=== PATIENT | male | born 1935 | race Caucasian/White ===

== ENCOUNTER 2016-07-16 09:24 | Inpatient (IN) | payer OTHER, MEDICARE ==
[2016-07-16] VITALS (16 sets, daily range): BP systolic 139–182; BP diastolic 79–111; PULSE 85–101; RESP 18–26; TEMP 97–97.6; O2SAT 87–98
[~2016-07-16] VITALS: Ht 170.2 cm; Wt 65.4 kg
[~2016-07-16 09:24] MED LIST: ALBU.5I INH; DOXY100T PO; PRED10 PO; VENTAER INH
[2016-07-16] MEDS ORDERED: PRED20 PO (09:39)
[2016-07-16] MEDS ORDERED: VENTAER INH (09:39)
[2016-07-16] MEDS ORDERED: methylPREDNISolone SOD SUCC 125 MG/2 ML VIAL IV PUSH ONE (10:00)
[2016-07-16] MEDS ORDERED: RESP: ALBUTEROL 2.5 MG/IPRATROPIUM 0.5 MG NEB (SCH) NEB ONE (10:00)
--- NOTE | 2016-07-16 10:00 | PD ---
HPI Chief Complaint: Chest Pain Time Seen by Provider: 09:49 Travel History International Travel<30 days: No Contact w/Intl Traveler<30days: No Traveled to known affect area: No History of Present Illness HPI This 80-year-old male is complaining of shortness of breath and weakness and chest He indicates the precordial area as the site of the discomfort. He has been short of breath. g . . He has a history of COPD. He is on prednisone at home. He is not aware of any heart disease. He said he had a heaviness in his chest. He has a chronic cough that is no worse than usual. He is not aware of any fever or chills. He has not smoked for 40 years. PFSH Past Medical History Arthritis: Yes Asthma: No Autoimmune Disease: No Heart Rhythm Problems: No Cancer: No Cardiovascular Problems: No High Cholesterol: No Chest Pain: No Congestive Heart Failure: No COPD: No Cerebrovascular Accident: No Diabetes: No Diminished Hearing: No Endocrine: No Gastrointestinal Disorders: Yes GERD: Yes Glaucoma: No Genitourinary: No Headaches: No Hepatitis: No Hiatal Hernia: No Hypertension: No Immune Disorder: No Implanted Vascular Access Dvce: Yes Kidney Stones: No Musculoskeletal: Yes Neurologic: No Psychiatric: No Respiratory: No Immunizations Current: Yes Myocardial Infarction: No Renal Failure: No Seizures: No Sleep Apnea: No Thyroid Disease: No Ulcer: No Tetanus Vaccination: < 5 Years Influenza Vaccination: Yes Past Surgical History Abdominal Surgery: No AICD: No Cardiac Surgery: No Ear Surgery: No Endocrine Surgery: No Eye Surgery: No Genitourinary Surgery: No Joint Replacement: Yes (BILATERAL KNEE) Oral Surgery: No Pacemaker: No Thoracic Surgery: No Other Surgery: Yes Social History Alcohol Use: Yes (SOCIALLY) Tobacco Use: No Substance Use: No Allergies-Medications (Allergen,Severity, Reaction): Coded Allergies: *MDRO Multi-Drug Resistant Organism (Verified Adverse Reaction, Unknown, Rash, 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 Reported Meds & Prescriptions Reported Meds & Active Scripts Active Reported Ventolin Hfa 18 GM Inh (Albuterol Sulfate) 90 Mcg/Act Aer 2 Puff INH Q4-6H PRN Prednisone 20 Mg Tab 40 Mg PO DAILY Take 40 mg (2 tablets) daily for 5 days Review of Systems General / Constitutional: No: Fever, Chills Eyes: No: Diploplia, Blurred Vision HENT: No: Headaches, Vertigo Cardiovascular: Positive: Chest Pain or Discomfort Respiratory: Positive: Cough, Shortness of Breath Gastrointestinal: No: Nausea Genitourinary: No: Urgency, Frequency Musculoskeletal: No: Myalgias, Arthralgias Skin: No Rash, No Itching Neurologic: No: Weakness Hematologic/Lymphatic: No: Easy Bruising Physical Exam Narrative GENERAL: Elderly male SKIN: Warm and dry. HEAD: Atraumatic. Normocephalic. EYES: Pupils equal and round. No scleral icterus. No injection or drainage. ENT: No nasal bleeding or discharge. Mucous membranes pink and moist. NECK: Trachea midline. No JVD. CARDIOVASCULAR: Regular rate and rhythm. No murmur appreciated. RESPIRATORY: He has mild respiratory distress. Breath sounds are diminished on the right side GASTROINTESTINAL: Abdomen soft, non-tender, nondistended. Hepatic and splenic margins not palpable. MUSCULOSKELETAL: No obvious deformities. No clubbing. No cyanosis. No edema. NEUROLOGICAL: Awake and alert. No obvious cranial nerve deficits. Motor grossly within normal limits. Normal speech. PSYCHIATRIC: Appropriate mood and affect; insight and judgment normal. Data Data Last Documented VS Vital Signs Date Time Temp Pulse Resp B/P Pulse Ox O2 Delivery O2 Flow Rate FiO2 07/16/16 12:35 92 18 159/91 92 Nasal Cannula 2 07/16/16 09:32 97.0 Orders Electrocardiogram (07/16/16 09:56) Complete Blood Count With Diff (07/16/16 09:56) Comprehensive Metabolic Panel (07/16/16 09:56) Troponin I (07/16/16 09:56) B-Type Natriuretic Peptide (07/16/16 09:56) Chest, Single Ap (07/16/16 09:56) Albuterol-Ipratropium Neb (Duoneb Neb) (07/16/16 10:00) Methylprednisolone So Succ Inj (Solumedr (07/16/16 10:00) Lidocai-Epi 1%-1:100,000 Inj (Xylocaine- (07/16/16 11:15) Chest, Single Ap (07/16/16 11:34) Sodium Chlor 0.9% 1000 Ml Inj (Ns 1000 M (07/16/16 11:45) Chest, Single Ap (07/16/16 12:02) Ct Thorax/ Chest Wo Iv Contras (07/16/16 12:44) Admit Order (Ed Use Only) (07/16/16 13:05) Admit To Inpatient (07/16/16 ) Code Status (07/16/16 13:03) Vital Signs (Adult) SOO.Q1H (07/16/16 13:03) Activity Bed Rest (07/16/16 13:03) ^ Elevate Head Of Bed (07/16/16 13:03) Neuro Checks . ORDERED (07/16/16 13:03) Intake + Output Q1H (07/16/16 13:03) Diet Npo (07/16/16 Lunch) Sodium Chlor 0.9% 1000 Ml Inj (Ns 1000 M (07/16/16 13:03) Sodium Chloride 0.9% Flush (Ns Flush) (07/16/16 13:15) Sodium Chloride 0.9% Flush (Ns Flush) (07/16/16 21:00) Acetaminophen (Tylenol) (07/16/16 13:15) Acetamin-Hydrocod 325-5 Mg ([place] 5-325 (07/16/16 13:15) Morphine Inj (Morphine Inj) (07/16/16 13:15) Pantoprazole Inj (Protonix Inj) (07/17/16 09:00) Artificial Tears Opth Soln (Tears Natura (07/16/16 18:00) Ondansetron Inj (Zofran Inj) (07/16/16 13:15) Docusate Sodium (Colace) (07/16/16 21:00) Sennosides (Senokot) (07/16/16 13:15) Albuterol-Ipratropium Neb (Duoneb Neb) (07/16/16 16:00) Albuterol-Ipratropium Neb (Duoneb Neb) (07/16/16 13:15) Complete Blood Count With Diff (07/17/16 04:00) Comprehensive Metabolic Panel (07/17/16 04:00) Act Partial Throm Time (Ptt) (07/17/16 04:00) Prothrombin Time / Inr (Pt) (07/17/16 04:00) Magnesium (Mg) (07/17/16 04:00) Phosphorus (Po4) (07/17/16 04:00) Lactic Acid (07/17/16 04:00) Chest, Single Ap (07/17/16 ) Resp Oxygen Derian C Titrat 1-4 L (07/16/16 ) Electromechanic / Telemetry (07/16/16 13:03) Scd Bilateral/Knee High SOO.BID (07/16/16 13:03) ^ Initiate Protocol (07/16/16 13:03) ^ Instruction (07/16/16 13:03) Misc Nursing Information (07/16/16 13:15) Chlorhexidine 2% Cloth (Chlorhexidine 2% (07/17/16 04:00) Chlorhexidine 2% Cloth (Chlorhexidine 2% (07/16/16 13:15) Mrsa Pcr Surveillance (07/16/16 13:03) ^ Medication Admin Instruction (07/16/16 13:03) ^ Notify Dr: Other (07/16/16 13:03) Phosphorus (Po4) (07/16/16 13:03) Potassium Chlor 40 Meq Premix (Kcl 40 Me (07/16/16 13:15) Potassium Chlor 20 Meq Premix (Kcl 20 Me (07/16/16 13:15) Potassium Cl 40 Meq/30 Ml Liq (Kcl 40 Me (07/16/16 13:15) Potassium Chlor 40 Meq Premix (Kcl 40 Me (07/16/16 13:15) Potassium Chlor 20 Meq Premix (Kcl 20 Me (07/16/16 13:15) Magnesium Sulfate Inj (Magnesium Sulfate (07/16/16 13:15) Magnesium Oxide (Mag-Ox) (07/16/16 13:15) Magnesium Sulfate Inj (Magnesium Sulfate (07/16/16 13:15) Potassium Phosphate (K-Phos) (07/16/16 13:15) Sodium Phosphate Inj (Sodium Phosphate I (07/16/16 13:15) Potassium Cl 40 Meq/30 Ml Liq (Kcl 40 Me (07/16/16 13:15) Potassium Phosphate (K-Phos) (07/16/16 13:15) Potassium Phosphate Inj (Potassium Phosp (07/16/16 13:15) ^ Blood Glucose Goal (Criteria (07/16/16 13:03) ^ Hypoglycemia 51 - 69 Mg/Dl (07/16/16 13:03) ^ Hypoglycemia 50 Mg/Dl Or < (07/16/16 13:03) ^ Notify Dr: Other (07/16/16 13:03) Dextrose 50% In Fabrice (Vial) Inj (D50w (Vi (07/16/16 13:15) Glucagon Inj (Glucagon Inj) (07/16/16 13:15) Inpatient Certification (07/16/16 ) Consult Cardiothoracic Surgery (07/16/16 ) Labs Laboratory Tests Test 07/16/16 10:00 White Blood Count 13.7 TH/MM3 Red Blood Count 5.42 MIL/MM3 Hemoglobin 15.3 GM/DL Hematocrit 47.4 % Mean Corpuscular Volume 87.6 FL Mean Corpuscular Hemoglobin 28.3 PG Mean Corpuscular Hemoglobin 32.3 % Concent Red Cell Distribution Width 14.7 % Platelet Count 270 TH/MM3 Mean Platelet Volume 8.1 FL Neutrophils (%) (Auto) 81.8 % Lymphocytes (%) (Auto) 10.0 % Monocytes (%) (Auto) 7.1 % Eosinophils (%) (Auto) 0.8 % Basophils (%) (Auto) 0.3 % Neutrophils # (Auto) 11.2 TH/MM3 Lymphocytes # (Auto) 1.4 TH/MM3 Monocytes # (Auto) 1.0 TH/MM3 Eosinophils # (Auto) 0.1 TH/MM3 Basophils # (Auto) 0.0 TH/MM3 CBC Comment DIFF FINAL Differential Comment Sodium Level 141 MEQ/L Potassium Level 3.9 MEQ/L Chloride Level 103 MEQ/L Carbon Dioxide Level 28.9 MEQ/L Anion Gap 9 MEQ/L Blood Urea Nitrogen 19 MG/DL Creatinine 0.87 MG/DL Estimat Glomerular Filtration 85 ML/MIN Rate Random Glucose 70 MG/DL Calcium Level 8.3 MG/DL Phosphorus Level 3.1 MG/DL Total Bilirubin 0.8 MG/DL Aspartate Amino Transf 22 U/L (AST/SGOT) Alanine Aminotransferase 19 U/L (ALT/SGPT) Alkaline Phosphatase 54 U/L Troponin I 0.05 NG/ML B-Type Natriuretic Peptide 338 PG/ML Total Protein 8.0 GM/DL Albumin 3.4 GM/DL [facility] Medical Decision Making Medical Screen Exam Complete: Yes Emergency Medical Condition: Yes Medical Record Reviewed: Yes Differential Diagnosis Differential includes pneumonia, COPD, coronary artery disease Narrative Course .X-ray shows a large right-sided pneumothorax. EKG shows sinus rhythm. After insertion of the chest tube chest x-ray shows what appears to be good position of the tube above the pneumothorax is persistent. An additional delayed x-ray was done without significant change. The patient reports feeling more comfortable. I have spoken with who recommends the patient be transferred to [place]. We will obtain a CT. CT was obtained and shows that the tube is not in the thoracic cavity. The chest tube was reinserted however repeat x-ray at this point again does not show any expansion of the lungs. Dr. Vera of interventional radiology is here and will the patient to CT scanning Procedures Procedure Narrative After informed consent was obtained from the patient the right side chest splenic thoroughly with Betadine. It was anesthetized with lidocaine with adrenaline. An incision was made in the anterior axillary line in the 20 [place] chest tube was inserted. There was return of air in the chest tube was inserted. The tube was attached to a Pleur-evac. Diagnosis Primary Impression: Pneumothorax, right Cooper Higgins MD Jul 16, 2016 10:00
[2016-07-16 10:25] LABS: CHLORIDE 103 MEQ/L (98-107); POTASSIUM 3.9 MEQ/L (3.5-5.1); SODIUM (NA) 141 MEQ/L (136-145)
[2016-07-16 10:28] LABS: ANION GAP 9 MEQ/L (5-15); BICARBONATE 28.9 MEQ/L (21.0-32.0); BLOOD UREA NITROGEN 19 MG/DL (7-18)
[2016-07-16 10:31] LABS: ALT (GPT) 19 U/L (12-78); GLOMERULAR FILTRATION RATE 85 ML/MIN (>89)
[2016-07-16 10:33] LABS: AUTOMATED NEUTROPHIL # 11.2 TH/MM3 (1.8-7.7); BASOPHIL % 0.3 % (0.0-2.0); EOSINOPHIL # 0.1 TH/MM3 (0-0.4); EOSINOPHIL % 0.8 % (0.0-4.0); HEMATOCRIT 47.4 % (39.0-51.0); LYMPHOCYTE # 1.4 TH/MM3 (1.0-4.8); MEAN CELL VOLUME 87.6 FL (80.0-100.0); MEAN CORPUSCULAR HEMOGLOBIN 28.3 PG (27.0-34.0); MEAN CORPUSCULAR HGB CONC 32.3 % (32.0-36.0); MONO % 7.1 % (0.0-8.0); NEUT % 81.8 % (16.0-70.0); PLATELET COUNT 270 TH/MM3 (150-450); RED BLOOD COUNT 5.42 MIL/MM3 (4.50-5.90); RED CELL DISTRIBUTION WIDTH 14.7 % (11.6-17.2); TOTAL BILIRUBIN ADULT 0.8 MG/DL (0.2-1.0); WHITE BLOOD COUNT 13.7 TH/MM3 (4.0-11.0)
[2016-07-16 10:34] LABS: ALKALINE PHOSPHATASE 54 U/L (45-117)
[2016-07-16 10:37] LABS: HEMO FLAGS DIFF FINAL
[2016-07-16 10:40] LABS: AST (GOT) 22 U/L (15-37)
--- NOTE | 2016-07-16 10:58 | RADHPO ---
EXAM DATE/TIME: 07/16/2016 10:45 [facility] COMPARISON: CHEST PA & LAT, March 18, 2013, 17:20. CHEST SINGLE AP, March 14, 2013, 13:29. INDICATIONS : Sever short of breath. MEDICAL HISTORY : Chronic obstructive pulmonary disease. Arthritis. SURGICAL HISTORY : Total knee replacement, left. Total knee replacement, right. ENCOUNTER: Initial ACUITY: 1 day PAIN SCORE: 0/10 LOCATION: Right chest FINDINGS: Single AP view of the chest. Large right pneumothorax with collapse of the right lung. Mild patchy op acity in the left lung involving the upper and lower lung zones, less prominent than on comparison st udy. No evidence of pleural effusion. Cardiomediastinal silhouette unchanged. CONCLUSION: Large right pneumothorax. Hayes Marsh MD on July 16, 2016 at 10:54 Board Certified Radiologist. This report was verified electronically.
[2016-07-16] MEDS ORDERED: LIDOCAINE 1%/EPINEPHrine 1:100,000 SOLN 20 ML VIAL INFIL ONE ×2 (11:15→13:30)
[2016-07-16] MEDS: SODIUM CHLOR 0.9% 1000 ML INJ 1,000 ML IV SCH ×2 (11:51→13:03)
--- NOTE | 2016-07-16 11:54 | RADHPO ---
EXAM DATE/TIME: 07/16/2016 11:42 [facility] COMPARISON: CHEST SINGLE AP, July 16, 2016, 10:45. INDICATIONS : Post right chest tube placement MEDICAL HISTORY : Chronic obstructive pulmonary disease. SURGICAL HISTORY : None. ENCOUNTER: Initial ACUITY: 1 day PAIN SCORE: 8/10 LOCATION: Right chest FINDINGS: The cardiac silhouette is enlarged in transverse diameter. A right-sided chest tube has been placed b ut there continues to be complete collapse of the right lung. Verification of chest tube function and position as recommended. There is subcutaneous emphysema along the right lateral chest wall. There i s subsegmental atelectasis in the left base. There are no signs of tension. CONCLUSION: 1. Right chest tube placed with extensive subcutaneous emphysema but no expansion of the right lung. 2. Verification of chest tube position and function is recommended. Jeanmarie Vera MD on July 16, 2016 at 11:48 Board Certified Radiologist. This report was verified electronically.
[2016-07-16] MEDS ORDERED: POTASSIUM PHOSPHATE INJ 30 MMOL in SODIUM CHLOR 0.9% 250 ML INJ 250 ML IV PRN (13:15)
[2016-07-16] MEDS ORDERED: POTASSIUM CL 40 MEQ/30 ML LIQ UDC PO/TUBE PRN ×2 (13:15)
[2016-07-16] MEDS ORDERED: POTASSIUM PHOSPHATE MONOBASIC 500 MG TAB PO/TUBE PRN (13:15)
[2016-07-16] MEDS ORDERED: ONDANSETRON HCL 4 MG/2 ML VIAL IV PRN (13:15)
[2016-07-16] MEDS ORDERED: SODIUM CHLORIDE 0.9% FLUSH 5 ML FLUSH IV FLUSH PRN (13:15)
[2016-07-16] MEDS ORDERED: SENNOSIDES 8.6 MG TAB PO PRN (13:15)
[2016-07-16] MEDS ORDERED: CHLORHEXIDINE GLUCONATE 2 % 1 PACK (2 CLOTHS) TOP PRN (13:15)
[2016-07-16] MEDS ORDERED: MORPHINE SULFATE 4 MG/ML INJ IV PRN (13:15)
[2016-07-16] MEDS ORDERED: MAGNESIUM SULFATE INJ 4 GM in SODIUM CHLORIDE 0.9% INJ 92 ML IV PRN (13:15)
[2016-07-16] MEDS ORDERED: MISCELLANEOUS NURSING INFORMATION XX SCH (13:15)
[2016-07-16] MEDS ORDERED: POTASSIUM CHLOR 40 MEQ PREMIX 100 ML IV PRN ×2 (13:15)
[2016-07-16] MEDS ORDERED: ACETAMINOPHEN 325 MG TAB PO PRN (13:15)
[2016-07-16] MEDS ORDERED: DEXTROSE 50% IN WATER 50 ML VIAL(D50) IV PUSH PRN (13:15)
[2016-07-16] MEDS ORDERED: SODIUM PHOSPHATE INJ 30 MMOL in SODIUM CHLOR 0.9% 250 ML INJ 240 ML IV PRN (13:15)
[2016-07-16] MEDS ORDERED: GLUCAGON 1 MG/ML VIAL OTHER PRN (13:15)
[2016-07-16] MEDS ORDERED: RESP: ALBUTEROL 2.5 MG/IPRATROPIUM 0.5 MG NEB (PRN) INH (13:15)
[2016-07-16] MEDS ORDERED: MAGNESIUM SULFATE INJ 2 GM in SODIUM CHLORIDE 0.9% INJ 96 ML IV PRN (13:15)
[2016-07-16] MEDS ORDERED: POTASSIUM CHLOR 20 MEQ PREMIX 100 ML IV PRN ×2 (13:15)
[2016-07-16] MEDS ORDERED: MAGNESIUM OXIDE 400 MG TAB PO PRN (13:15)
[2016-07-16] MEDS ORDERED: POTASSIUM PHOSPHATE MONOBASIC 500 MG TAB PO PRN (13:15)
--- NOTE | 2016-07-16 13:28 | RADHPO ---
EXAM DATE/TIME: 07/16/2016 13:05 [facility] COMPARISON: CHEST SINGLE AP, July 16, 2016, 11:42. INDICATIONS : Short of breath. Chest tube placement without reexpansion. RADIATION DOSE: 8.86 CTDIvol (mGy) MEDICAL HISTORY : Chronic obstructive pulmonary disease. Gastroesophageal reflux disease. SURGICAL HISTORY : None. ENCOUNTER: Initial ACUITY: 1 day PAIN SCALE: 5/10 LOCATION: Right chest TECHNIQUE: Volumetric scanning of the chest was performed. Using automated exposure control and adjustment of t he mA and/or kV according to patient size, radiation dose was kept as low as reasonably achievable to obtain optimal diagnostic quality images. FINDINGS: Large right pneumothorax. Right-sided chest tube is in place. The tip is just outside of the thoracic cavity adjacent to the second rib. Extensive subcutaneous emphysema on the right. Prominent atelectasis/partial collapse of the right lung. Large hiatal hernia. Patchy atelectasis at the left lung base. Mild patchy opacity in the left upper lung. No enlarged lymph nodes. Upper abdomen within normal limits. CONCLUSION: 1. Right-sided chest tube is superficial to the chest cavity. 2. Large right pneumothorax. 3. Extensive right-sided subcutaneous emphysema. 4. Findings were discussed with Dr. Higgins. Hayes Marsh MD on July 16, 2016 at 13:16 Board Certified Radiologist. This report was verified electronically.
--- NOTE | 2016-07-16 13:28 | RADHPO ---
EXAM DATE/TIME: 07/16/2016 12:19 [facility] COMPARISON: CHEST SINGLE AP, July 16, 2016, 11:42. INDICATIONS : Post right side chest tube reposition MEDICAL HISTORY : Chronic obstructive pulmonary disease. SURGICAL HISTORY : None. ENCOUNTER: Subsequent ACUITY: 1 day PAIN SCORE: 2/10 LOCATION: Right chest FINDINGS: Chest tube is in good position. The right lung remains collapsed. Moderate subcutaneous emphysema i s present. CONCLUSION: Chest tube appears to be in good position. The right lung remains collapsed with a significant pneumothorax. Findings have been discussed Dr. Higgins on today's date. Jefry Hurst MD FACR on July 16, 2016 at 12:45 Board Certified Radiologist. This report was verified electronically.
--- NOTE | 2016-07-16 14:16 | RADHPO ---
EXAM DATE/TIME: 07/16/2016 13:37 [facility] COMPARISON: CT THORAX W/O CONTRAST, July 16, 2016, 13:05. CHEST SINGLE AP, July 16, 2016, 12:19. INDICATIONS : Chest tube reposition. MEDICAL HISTORY : Chronic obstructive pulmonary disease. Arthritis. SURGICAL HISTORY : Total knee replacement, left. Total knee replacement, right. ENCOUNTER: Subsequent ACUITY: 1 day PAIN SCORE: 8/10 LOCATION: Right chest FINDINGS: The chest tube still may not be in the chest cavity. The lung has not re-expanded. The left lung is clear. The heart and pulmonary vascularity is normal.. CONCLUSION: The right lung has not yet re-expanded.. Jefry Hurst MD FACR on July 16, 2016 at 13:58 Board Certified Radiologist. This report was verified electronically.
[2016-07-16] MEDS: RESP: ALBUTEROL 2.5 MG/IPRATROPIUM 0.5 MG NEB (SCH) INH ×2 (16:00→22:32)
[2016-07-16] MEDS ORDERED: LIDOCAINE 1%/EPINEPHrine 1:100,000 SOLN 30 ML VIAL OTHER ONE (16:36)
--- NOTE | 2016-07-16 16:57 | RADHPO ---
EXAM DATE/TIME: 07/16/2016 14:22 INDICATIONS : Right pneumothorax. DEVICE(S): 1.) 10 Fr Skater MEDICAL HISTORY : Chronic obstructive pulmonary disease. Gastroesophageal reflux disease. SURGICAL HISTORY : None. ENCOUNTER: Initial ACUITY: 1 day PAIN SCORE: 7/10 LOCATION: Right chest PROCEDURE: 2.) EKG and oximetry remained stable throughout the procedure. PROCEDURE : 1. CT guided chest tube placement. 2. Conscious sedation with continuous EKG and oximetry monitoring. The risks, benefits and alternatives to the procedure were explained and verbal and written consent w as obtained. The site was prepped in sterile fashion. Full sterile technique was used, including ca p, mask, sterile gloves and gown and a large sterile sheet. Hand hygiene and 2% chlorhexidine and/or betadine/alcohol prep was utilized per protocol for cutaneous antisepsis. The skin and subcutaneous tissues were infiltrated with local anesthetic solution. With CT guidance the chest was punctured and the prescribed catheter was placed in the lung apex. Wal l suction was applied. Post procedure images demonstrate satisfactory position of the tube. The cat heter was sutured in place and a Percu-Stay was applied. CT images demonstrate marked reexpansion of the right lung and shift of the mediastinum to the right. Extensive subcutaneous emphysema remains but there are no signs of tension. A large hiatal hernia is present. Conscious sedation was performed with the prescribed dosages and duration as above. The patient zina ated the procedure well and there were no complications. EKG and oximetry remained stable throughout the procedure. The patient was sent to post anesthesia recovery in stable condition. CONCLUSION: Uncomplicated chest tube placement as above. Jeanmarie Vera MD on July 16, 2016 at 16:54 Board Certified Radiologist. This report was verified electronically.
--- NOTE | 2016-07-16 18:09 | HHI.HP ---
[facility] Service Critical Care Medicine Primary Care Physician Julian Bunn MD Admission Diagnosis R PNEUMOTHORAX Diagnosis: (1) Pneumothorax, right Diagnosis: Principal (2) Leukocytosis Diagnosis: Principal (3) History of MRSA infection Diagnosis: Principal (4) OA (osteoarthritis) Diagnosis: Principal (5) GERD (gastroesophageal reflux disease) Diagnosis: Principal (6) COPD (chronic obstructive pulmonary disease) Diagnosis: Principal Chief Complaint: I can't breathe Travel History International Travel<30 Days: No Contact w/Intl Traveler <30 Da: No Traveled to Known Affected Are: No History of Present Illness This is a 80-year-old male. Date of admission 07/2016 past medical history includes COPD, gastroesophageal reflux disease and osteoarthritis. He presented to the [place] emergency department with a acute onset of chest pain and recent history of shortness of breath. He woke this morning at 4 AM feeling some chest discomfort and more short of breath. Chest x-ray at [place] ED revealed a large right pneumothorax. Chest tube 2 was attempted on the right side by ED physician kiana short. IR successfully place a 10 Dutch pigtail catheter. And currently has a large amount of subcutaneous the right thorax. CT surgery was consulted. At the present time, patient not complaining of shortness of breath. Chest pain is controlled. Currently on 6 L nasal cannula saturations are 99%. Review of Systems Constitutional: COMPLAINS OF: Fatigue, DENIES: Fever, Weight gain, Weight loss Endocrine: DENIES: Polyuria, Polyphagia Eyes: DENIES: Blurred vision Ears, nose, mouth, throat: DENIES: Tinnitus, Odynophagia Respiratory: DENIES: Apneas, Shortness of breath Cardiovascular: DENIES: Chest pain Gastrointestinal: DENIES: Abdominal pain Genitourinary: DENIES: Urgency, Hematuria Musculoskeletal: COMPLAINS OF: Joint pain Integumentary: DENIES: Pruritus Hematologic/lymphatic: DENIES: Bruising Immunologic/allergic: DENIES: Eczema Neurologic: DENIES: Abnormal gait Psychiatric: COMPLAINS OF: Anxiety, DENIES: Confusion Past Family Social History Allergies: Coded Allergies: *MDRO Multi-Drug Resistant Organism (Verified Adverse Reaction, Unknown, Rash, 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 Past Medical History Osteoarthritis Gastroesophageal reflux disease COPD History of MRSA Past Surgical History Right and left total knee arthroplasties Reported Medications Ventolin Hfa 18 GM Inh (Albuterol Sulfate) 90 Mcg/Act Aer 2 Puff INH Q4-6H PRN Prednisone 20 Mg Tab 40 Mg PO DAILY Take 40 mg (2 tablets) daily for 5 days Active Ordered Medications Reviewed in EMR Family History Mother and father is noncontributory. Social History Social alcohol. Quit tobacco 40 years ago. No IV drug use. Physical Exam Vital Signs Vital Signs Date Time Temp Pulse Resp B/P Pulse Ox O2 Delivery O2 Flow Rate FiO2 07/16/16 15:54 90 18 147/79 97 Nasal Cannula 2 07/16/16 15:00 98 18 160/88 97 Nasal Cannula 2 07/16/16 14:00 100 20 163/82 91 Nasal Cannula 2 07/16/16 13:40 94 20 175/82 91 Nasal Cannula 2 07/16/16 13:00 20 91 Nasal Cannula 2 07/16/16 12:35 92 18 159/91 92 Nasal Cannula 2 07/16/16 12:20 90 18 139/90 90 Nasal Cannula 2 07/16/16 12:10 90 18 152/82 91 Nasal Cannula 2 07/16/16 11:52 96 20 154/89 90 Nasal Cannula 2 07/16/16 11:39 90 18 176/94 91 Nasal Cannula 2 07/16/16 10:50 87 20 179/111 90 Nasal Cannula 2 07/16/16 09:40 83 20 87 Nasal Cannula 2 07/16/16 09:32 97.0 94 18 182/107 87 Physical Exam GENERAL: 80-year-old male, critically ill currently resting in bed in no acute distress SKIN: Warm and dry. HEAD: Atraumatic. Normocephalic. EYES: Pupils equal and round about 3 mm bilaterally and reactive. No scleral icterus. No injection or drainage. ENT: No nasal bleeding or discharge. Mucous membranes pink and moist. NECK: Trachea midline. No JVD. CARDIOVASCULAR: Tachycardic, RR. S1, S2. No S4. Without murmur RESPIRATORY: Denies breath sounds right lung baez. Few end expiratory wheeze. Crepitus/positive subcutaneous air felt over the right thorax and neck. Right 10 Dutch pigtail catheter clean dry and intact. GASTROINTESTINAL: Abdomen soft, non-tender, nondistended. Hepatic and splenic margins not palpable. MUSCULOSKELETAL: Extremities without significant peripheral edema. No obvious deformities. NEUROLOGICAL: Awake and alert. No obvious cranial nerve deficits. Motor grossly within normal limits. Five out of 5 muscle strength in the arms and legs. Normal speech. PSYCHIATRIC: Appropriate mood and affect; insight and judgment normal. Laboratory Laboratory Tests Test 07/16/16 10:00 White Blood Count 13.7 Red Blood Count 5.42 Hemoglobin 15.3 Hematocrit 47.4 Mean Corpuscular Volume 87.6 Mean Corpuscular Hemoglobin 28.3 Mean Corpuscular Hemoglobin 32.3 Concent Red Cell Distribution Width 14.7 Platelet Count 270 Mean Platelet Volume 8.1 Neutrophils (%) (Auto) 81.8 Lymphocytes (%) (Auto) 10.0 Monocytes (%) (Auto) 7.1 Eosinophils (%) (Auto) 0.8 Basophils (%) (Auto) 0.3 Neutrophils # (Auto) 11.2 Lymphocytes # (Auto) 1.4 Monocytes # (Auto) 1.0 Eosinophils # (Auto) 0.1 Basophils # (Auto) 0.0 CBC Comment DIFF FINAL Differential Comment Sodium Level 141 Potassium Level 3.9 Chloride Level 103 Carbon Dioxide Level 28.9 Anion Gap 9 Blood Urea Nitrogen 19 Creatinine 0.87 Estimat Glomerular Filtration 85 Rate Random Glucose 70 Calcium Level 8.3 Phosphorus Level 3.1 Total Bilirubin 0.8 Aspartate Amino Transf 22 (AST/SGOT) Alanine Aminotransferase 19 (ALT/SGPT) Alkaline Phosphatase 54 Troponin I 0.05 B-Type Natriuretic Peptide 338 Total Protein 8.0 Albumin 3.4 Result Diagram: 07/16/16 1000 07/16/16 1000 Imaging Last Impressions Chest X-Ray 07/16/16 1335 Signed Impressions: Service Date/Time: Saturday, July 16, 2016 13:37 - CONCLUSION: The right lung has not yet re-expanded.. Jefry Hurst MD FACR Chest CT 07/16/16 1244 Signed Impressions: Service Date/Time: Saturday, July 16, 2016 13:05 - CONCLUSION: 1. Right- sided chest tube is superficial to the chest cavity. 2. Large right pneumothorax. 3. Extensive right-sided subcutaneous emphysema. 4. Findings were discussed with Dr. Higgins. Hayes Marsh MD Chest Tube Insertion 07/16/16 0000 Signed Impressions: Service Date/Time: Saturday, July 16, 2016 14:22 - CONCLUSION: Uncomplicated chest tube placement as above. Jeanmarie Vera MD Assessment and Plan Assessment and Plan Neuro/Psych: Acetaminophen for fever [place]/morphine for pain management CV: As needed hydralazine/labetalol for hypertension Currently normal saline at 84 cc an hour. Resp: Spontaneous right pneumothorax History of COPD Status post 10 Dutch pigtail catheter placed by IR. -40 cm H2O. Minimal SS output. Prior temp chest tube 2 with 20 Dutch by ED physician unsuccessful. Currently on nasal cannula try to maintain saturations on the higher limits the first 24 hours for lung reexpansion CT surgery consulted Significant crepitus for prior chest tube placement AP chest x-ray in a.m. GI: Gastroesophageal reflux disease Heart healthy diet. Protonix for GI prophylaxis Colace/as needed Senokot for bowel regimen : Alfaro currently not indicated Endo: Sliding-scale insulin with Accu-Cheks to maintain euglycemia. Low regimen Renal: Monitor urine output closely. Accurate I's and O's Recheck BMP in a.m. Heme: Leukocytosis Monitor trends. Likely stress related ID: History of MRSA Start empirically on Rocephin/Zithromax for possible URI. Blood cultures/sputum/influenza pending FEN: Replace electrolytes as clinically indicated per ICU protocol MSK: Osteoarthritis PT evaluate and treat Access - Utilize peripheral IV. Central line if indicated Prophylaxis - GI - Protonix - DVT - SCD/heparin to start tomorrow Critical Care: The total critical care time was 65 minutes. Time to perform other separately billable procedures was not included in the critical care time. Code Status Full code Discussed Condition With Patient. Dr. Garvey/ED physician. Care plan discussed and all questions answered. Problem Qualifiers (1) Leukocytosis: Qualified Code: D72.829 - Leukocytosis, unspecified type (2) OA (osteoarthritis): Qualified Code: M19.90 - Osteoarthritis, unspecified osteoarthritis type, unspecified site (3) GERD (gastroesophageal reflux disease): Qualified Code: K21.9 - Gastroesophageal reflux disease, esophagitis presence not specified (4) COPD (chronic obstructive pulmonary disease): Qualified Code: J44.9 - Chronic obstructive pulmonary disease, unspecified COPD type Piotr Perez MD Jul 16, 2016 18:09
[2016-07-16] MEDS ORDERED: LABETALOL HCL 100 MG/20 ML VIAL IV PUSH PRN (18:30)
[2016-07-16] MEDS ORDERED: hydrALAZINE HCL 20 MG/ML VIAL IV PUSH PRN (18:30)
[2016-07-16] MEDS ORDERED: NITROGLYCERIN 2% OINT 1 GM PACKET TOPICAL PRN (18:30)
[2016-07-16] MEDS: cefTRIAXone INJ 1,000 MG in SODIUM CHLORIDE 0.9% INJ 100 ML IV SCH (20:52)
[2016-07-16] MEDS: DOCUSATE SODIUM 100 MG CAP PO SCH (20:54)
[2016-07-16] MEDS: SODIUM CHLORIDE 0.9% FLUSH 5 ML FLUSH IV FLUSH SCH (20:54)
[2016-07-16] MEDS: AZITHROMYCIN INJ 500 MG in SODIUM CHLOR 0.9% 250 ML INJ 250 ML IV SCH (20:55)
[2016-07-17] VITALS (14 sets, daily range): BP systolic 124–144; BP diastolic 66–75; PULSE 73–125; RESP 16–26; TEMP 97.4–98.4; O2SAT 95–100
[2016-07-17] MEDS: SODIUM CHLOR 0.9% 1000 ML INJ 1,000 ML IV SCH ×3 (00:58→11:35)
[2016-07-17] MEDS: CHLORHEXIDINE GLUCONATE 2 % 1 PACK (2 CLOTHS) TOP SCH (04:00)
[2016-07-17 04:06] LABS: AUTOMATED NEUTROPHIL # 9.5 TH/MM3 (1.8-7.7); HEMO FLAGS DIFF FINAL; LYMPH % 3.1 % (9.0-44.0); LYMPHOCYTE # 0.3 TH/MM3 (1.0-4.8); MEAN CELL VOLUME 86.7 FL (80.0-100.0); MEAN CORPUSCULAR HEMOGLOBIN 29.4 PG (27.0-34.0); MONO % 2.5 % (0.0-8.0); NEUT % 94.4 % (16.0-70.0); PLATELET COUNT 221 TH/MM3 (150-450); RED CELL DISTRIBUTION WIDTH 14.7 % (11.6-17.2); WHITE BLOOD COUNT 10.1 TH/MM3 (4.0-11.0)
--- NOTE | 2016-07-17 04:09 | RADRPT ---
EXAM DATE/TIME: 07/17/2016 02:43 [facility] COMPARISON: CHEST SINGLE AP, July 16, 2016, 10:45. CHEST SINGLE AP, July 16, 2016, 12:19. CHEST SINGLE AP, July 16, 2016, 13:37. INDICATIONS : Shortness of breath, possible pulmonary disease. MEDICAL HISTORY : Chronic obstructive pulmonary disease. Arthritis. SURGICAL HISTORY : Total knee replacement, left. Total knee replacement, right. ENCOUNTER: Subsequent ACUITY: 2 days PAIN SCORE: 8/10 LOCATION: Right chest FINDINGS: Portable AP view of the chest demonstrates a normal-sized cardiac silhouette with focal wire a deviat ion of the trachea. Pigtail pleural catheter is present on the right. The right lung has almost compl etely reexpanded with tiny apical right pneumothorax appreciated. There is consolidation in the right upper lobe and in the retrocardiac region. No pleural effusion is visualized. There is extensive azra ateral soft tissue air. CONCLUSION: 1. Right chest tube has been placed with near complete reexpansion of the right lung with a tiny righ t apical pneumothorax present. There is stable extensive soft tissue air bilaterally. 2. Stable mild consolidation in the left lower lobe and mild airspace opacity in the right upper lobe . Jerome Robbins MD on July 17, 2016 at 4:05 Board Certified Radiologist. This report was verified electronically.
[2016-07-17 04:17] LABS: APTT (PATIENT) 27.1 SEC (24.3-30.1); PROTHROMBIN TIME - PATIENT 11.2 SEC (9.8-11.6)
[2016-07-17 04:24] LABS: ALT (GPT) 16 U/L (12-78); ANION GAP 6 MEQ/L (5-15); AST (GOT) 23 U/L (15-37); BICARBONATE 29.3 MEQ/L (21.0-32.0); BLOOD UREA NITROGEN 16 MG/DL (7-18); CHLORIDE 105 MEQ/L (98-107); GLOMERULAR FILTRATION RATE 87 ML/MIN (>89); MAGNESIUM 2.1 MG/DL (1.5-2.5); POTASSIUM 4.6 MEQ/L (3.5-5.1); SODIUM (NA) 140 MEQ/L (136-145)
[2016-07-17 04:27] LABS: ALKALINE PHOSPHATASE 43 U/L (45-117); TOTAL BILIRUBIN ADULT 0.8 MG/DL (0.2-1.0)
[2016-07-17] MEDS: RESP: ALBUTEROL 2.5 MG/IPRATROPIUM 0.5 MG NEB (SCH) INH ×4 (04:32→21:47)
[2016-07-17] MEDS: ARTIFICIAL TEARS OPTH SOLN 15 ML BTL EACH EYE SCH ×3 (08:48→18:20)
[2016-07-17] MEDS: SODIUM CHLORIDE 0.9% FLUSH 5 ML FLUSH IV FLUSH SCH ×2 (09:00→21:36)
[2016-07-17] MEDS ORDERED: PANTOPRAZOLE SODIUM 40 MG VIAL IV SCH (09:00)
[2016-07-17] MEDS: DOCUSATE SODIUM 100 MG CAP PO SCH ×2 (09:00→21:34)
--- NOTE | 2016-07-17 12:08 | HHI.CCPN ---
Subjective Remarks/Hospital Course This is a 80-year-old male. Date of admission 07/2016 past medical history includes COPD, gastroesophageal reflux disease and osteoarthritis. He presented to the [place] emergency department with a acute onset of chest pain and recent history of shortness of breath. He woke this morning at 4 AM feeling some chest discomfort and more short of breath. Chest x-ray at [place] ED revealed a large right pneumothorax. Chest tube 2 was attempted on the right side by ED physician is excessive. IR successfully place a 10 Georgian pigtail catheter. And currently has a large amount of subcutaneous the right thorax. CT surgery was consulted. At the present time, patient not complaining of shortness of breath. Chest pain is controlled. Currently on 6 L nasal cannula saturations are 99%. Subjective 07/17: Still has significant air leak from chest tube however lung is essentially reexpanded on right side from chest x-ray. Afebrile. Requesting diet. Pain is controlled. Objective Vital Signs Date Time Temp Pulse Resp B/P Pulse Ox O2 Delivery O2 Flow Rate FiO2 07/17/16 10:00 93 07/17/16 09:22 96 Nasal Cannula 3.00 07/17/16 08:00 97.5 16 144/73 Intake and Output 07/16/16 07/16/16 07/16/16 07:59 15:59 23:59 Intake Total 276 ml Output Total 935 ml Balance -659 ml Result Diagram: 07/17/16 0351 07/17/16 0351 Other Results Microbiology Date/Time Procedure Status Source Growth 07/17/16 05:30 Gram Stain Received Sputum Expectorated Sputum Pending 07/17/16 05:30 Sputum Culture Received Sputum Expectorated Sputum Pending 07/16/16 21:21 Aerobic Blood Culture - Preliminary Resulted Blood Peripheral NO GROWTH IN 1 DAY 07/16/16 21:21 Anaerobic Blood Culture - Preliminary Resulted Blood Peripheral NO GROWTH IN 1 DAY 07/16/16 20:00 Influenza Types A,B Antigen (SHEREEN) - Final Complete Nasal Washing NEGATIVE FOR FLU A AND B ANTIGEN.... Imaging Last Impressions Chest X-Ray 07/17/16 0000 Signed Impressions: Service Date/Time: Sunday, July 17, 2016 02:43 - CONCLUSION: 1. Right chest tube has been placed with near complete reexpansion of the right lung with a tiny right apical pneumothorax present. There is stable extensive soft tissue air bilaterally. 2. Stable mild consolidation in the left lower lobe and mild airspace opacity in the right upper lobe. Jerome Robbins MD Chest CT 07/16/16 1244 Signed Impressions: Service Date/Time: Saturday, July 16, 2016 13:05 - CONCLUSION: 1. Right- sided chest tube is superficial to the chest cavity. 2. Large right pneumothorax. 3. Extensive right-sided subcutaneous emphysema. 4. Findings were discussed with Dr. Higgins. Hayes Marsh MD Chest Tube Insertion 07/16/16 0000 Signed Impressions: Service Date/Time: Saturday, July 16, 2016 14:22 - CONCLUSION: Uncomplicated chest tube placement as above. Jeanmarie Vera MD Objective Remarks GENERAL: 80-year-old male, critically ill currently resting in bed in no acute distress SKIN: Warm and dry. HEAD: Atraumatic. Normocephalic. EYES: Pupils equal and round about 3 mm bilaterally and reactive. No scleral icterus. No injection or drainage. ENT: No nasal bleeding or discharge. Mucous membranes pink and moist. NECK: Trachea midline. No JVD. CARDIOVASCULAR: Tachycardic, RR. S1, S2. No S4. Without murmur RESPIRATORY: Denies breath sounds right lung baez. Few end expiratory wheeze. Crepitus/positive subcutaneous air felt over the right thorax and neck. Right 10 Georgian pigtail catheter clean dry and intact. GASTROINTESTINAL: Abdomen soft, non-tender, nondistended. Hepatic and splenic margins not palpable. MUSCULOSKELETAL: Extremities without significant peripheral edema. No obvious deformities. NEUROLOGICAL: Awake and alert. No obvious cranial nerve deficits. Motor grossly within normal limits. Five out of 5 muscle strength in the arms and legs. Normal speech. PSYCHIATRIC: Appropriate mood and affect; insight and judgment normal. A/P Assessment and Plan Neuro/Psych: Acetaminophen for fever [place]/morphine for pain management CV: As needed hydralazine/labetalol for hypertension Currently normal saline at 84 cc an hour. Resp: Spontaneous right pneumothorax History of COPD Status post 10 Georgian pigtail catheter placed by IR. -40 cm H2O. Minimal SS output. Prior temp chest tube 2 with 20 Georgian by ED physician unsuccessful. Currently on nasal cannula try to maintain saturations on the higher limits the first 24 hours for lung reexpansion CT surgery consulted. Recommendations will be followed Significant crepitus for prior chest tube placement Follow-up portable chest x-ray in a.m. GI: Gastroesophageal reflux disease Heart healthy diet. Protonix for GI prophylaxis Colace/as needed Senokot for bowel regimen : Alfaro currently not indicated Endo: Sliding-scale insulin with Accu-Cheks to maintain euglycemia. Low regimen Renal: Monitor urine output closely. Accurate I's and O's Recheck BMP in a.m. Heme: Leukocytosis resolving Monitor trends. Likely stress related ID: History of MRSA Start empirically on Rocephin/Zithromax for possible URI. Blood cultures/sputum pending. Influenza negative FEN: Replace electrolytes as clinically indicated per ICU protocol MSK: Osteoarthritis PT evaluate and treat Access - Utilize peripheral IV. Central line if indicated Prophylaxis - GI - Protonix - DVT - SCD/heparin to start tomorrow Critical Care: The total care time was 35 minutes. Time to perform other separately billable procedures was not included in the critical care time. Patient is stable from a critical care medicine standpoint. We will assigned care to hospice in a.m. 07/18/16. Consult pulmonology for maintenance of chest tube. Piotr Perez MD Jul 17, 2016 12:08
[2016-07-17] MEDS: HEPARIN SODIUM - SQ 10,000 UNITS/ML VIAL SQ SCH ×2 (14:00→22:23)
[2016-07-17] MEDS ORDERED: MUPIROCIN 2% OINT 1 APPLIC/GM SYR EACH NARE SCH (14:00)
--- NOTE | 2016-07-17 17:31 | MB ---
cc: CIERRA PEREZ DATE OF CONSULTATION: 07/17/2016 REASON FOR CONSULTATION: Evaluate for COPD with pneumothorax. REQUESTING PHYSICIAN: Dr. Jeff. HISTORY OF PRESENT ILLNESS: Mr. Guerra is a pleasant 80-year-old male with a longstanding history of COPD who is known to me from the office. He uses oxygen two liters nasal cannula at home. He presented to the [facility] Emergency Room with sudden onset of shortness of breath and chest discomfort. He was found to have a right large pneumothorax. A chest tube was attempted and the lung did not expand. The patient was sent to interventional radiology. A CT scan of the chest was done and that he had pigtail catheter placed with re-expansion of the lung. He had significant subcutaneous emphysema. Currently he is on nasal cannula and feels much better. PAST MEDICAL HISTORY: His past medical history is significant for: 1. History of COPD. 2. History of arthritis. 3. History of Gastroesophageal reflux disease (GERD). MEDICATIONS: He is currently takin. Heparin 5000 units q. 8 hours. 2. Protonix 40 milligrams a day. 3. Rocephin 1 gram q. 24 hours. 4. Zithromax 500 milligrams a day. 5. Labetalol PRN. 6. Hydrocodone for pain. ALLERGIES: NO KNOWN DRUG ALLERGIES. SOCIAL HISTORY: He has a smoking history in the past. FAMILY HISTORY: Noncontributory. REVIEW OF SYSTEMS: Normally he is up around and active. No seizure, stroke or epilepsy. PHYSICAL EXAMINATION: GENERAL: An elderly male mild short of breath not in any acute distress. VITAL SIGNS: Blood pressure 124/66, heart rate 93, respirations 20, temperature 97.2. HEAD, EYES, EARS, NOSE, THROAT: Pupils are equal and reactive to light. Oral mucosa and nasal mucosa are normal. He has subcutaneous emphysema extending to the right side of the face. NECK: The neck is supple. JVP not raised. CHEST: He has right chest tube in place. He has air leak. He has extensive subcutaneous emphysema on the right side. CARDIOVASCULAR: S1, S2 normal. ABDOMEN: Abdomen soft and nondistended. Bowel sounds are present. EXTREMITIES: No edema. IMPRESSION: 1. Large right pneumothorax status post chest tube placement and resolution of the pneumothorax. 2. Subcutaneous emphysema. 3. COPD. 4. Hypertension. RECOMMENDATIONS/PLAN: 1. Will continue chest tube to suction. 2. Supplement his oxygen. 3. Continue aerosol treatment. 4. Control his blood pressure. 5. Protonix 40 milligrams a day. 6. Continue Rocephin and Zithromax. Further treatment will depend on the course in the hospital. Thank you, Dr. Perez, for this consult. MD VIANNEY Mckeon/JCC /3:09 PM /5:22 PM
[2016-07-17] MEDS: MUPIROCIN 2% OINT 1 APPLIC/GM SYR EACH NARE SCH (21:34)
[2016-07-17] MEDS: AZITHROMYCIN INJ 500 MG in SODIUM CHLOR 0.9% 250 ML INJ 250 ML IV SCH (21:35)
[2016-07-17] MEDS: cefTRIAXone INJ 1,000 MG in SODIUM CHLORIDE 0.9% INJ 100 ML IV SCH (22:24)
[2016-07-18] VITALS (12 sets, daily range): BP systolic 134–158; BP diastolic 69–85; PULSE 74–100; RESP 12–20; TEMP 96.2–98.4; O2SAT 94–99
[2016-07-18] MEDS: RESP: ALBUTEROL 2.5 MG/IPRATROPIUM 0.5 MG NEB (SCH) INH ×4 (03:58→20:36)
--- NOTE | 2016-07-18 04:13 | RADRPT ---
EXAM DATE/TIME: 07/18/2016 02:55 [facility] COMPARISON: CHEST SINGLE AP, July 17, 2016, 2:43. INDICATIONS : Shortness of breath, possible pulmonary disease. MEDICAL HISTORY : Chronic obstructive pulmonary disease. Arthritis. SURGICAL HISTORY : Total knee replacement, left. Total knee replacement, right. ENCOUNTER: [place] ACUITY: 3 days PAIN SCORE: 7/10 LOCATION: Right chest FINDINGS: Portable AP view of the chest demonstrates cardiac silhouette size at the upper limits for normal. A right chest tube remains present and there is likely a tiny right apical pneumothorax remaining. Ther e is persistent opacity in the retrocardiac region and right upper lobe. Extensive bilateral chest wa ll soft tissue air remains present. CONCLUSION: 1. Stable chest x-ray with a tiny right apical pneumothorax with right chest tube present. 2. Stable airspace opacity in the right upper lung zone and left lung base. Jerome Robbins MD on July 18, 2016 at 4:10 Board Certified Radiologist. This report was verified electronically.
[2016-07-18] MEDS: CHLORHEXIDINE GLUCONATE 2 % 1 PACK (2 CLOTHS) TOP SCH (05:30)
[2016-07-18] MEDS: HEPARIN SODIUM - SQ 10,000 UNITS/ML VIAL SQ SCH ×3 (06:05→21:00)
[2016-07-18 07:07] LABS: MEAN CELL VOLUME 87.5 FL (80.0-100.0); MEAN CORPUSCULAR HEMOGLOBIN 29.4 PG (27.0-34.0); MEAN CORPUSCULAR HGB CONC 33.6 % (32.0-36.0); PLATELET COUNT 209 TH/MM3 (150-450); RED BLOOD COUNT 4.57 MIL/MM3 (4.50-5.90); REVIEW FLAG FINAL; WHITE BLOOD COUNT 18.1 TH/MM3 (4.0-11.0)
[2016-07-18 07:33] LABS: BICARBONATE 28.5 MEQ/L (21.0-32.0); POTASSIUM 4.3 MEQ/L (3.5-5.1)
[2016-07-18] MEDS: ACETAMINOPHEN/HYDROcodone 325 MG/5 MG TAB PO PRN (07:49)
[2016-07-18] MEDS ORDERED: BISACODYL 10 MG SUPP PR PRN (08:15)
[2016-07-18] MEDS ORDERED: DOCUSATE SODIUM 100 MG CAP PO PRN (08:15)
[2016-07-18] MEDS ORDERED: MAGNESIUM HYDROXIDE SUSP 30 ML CUP PO PRN (08:15)
[2016-07-18] MEDS ORDERED: LACTULOSE SYRUP 20 GM/30 ML CUP PO PRN (08:15)
[2016-07-18] MEDS: ARTIFICIAL TEARS OPTH SOLN 15 ML BTL EACH EYE SCH ×3 (08:31→16:20)
[2016-07-18] MEDS: MUPIROCIN 2% OINT 1 APPLIC/GM SYR EACH NARE SCH ×2 (08:31→20:59)
[2016-07-18] MEDS: SODIUM CHLORIDE 0.9% FLUSH 5 ML FLUSH IV FLUSH SCH ×2 (08:32→21:01)
--- NOTE | 2016-07-18 08:40 | PD.CAR.PN ---
CVT Progress Note Objective: Vital Signs Date Time Temp Pulse Resp B/P Pulse Ox O2 Delivery O2 Flow Rate FiO2 07/18/16 06:00 77 07/18/16 04:00 98.4 80 18 149/77 96 07/18/16 04:00 80 07/18/16 02:00 87 07/18/16 00:00 97.5 97 18 138/75 97 07/18/16 00:00 97 07/17/16 22:00 109 07/17/16 21:47 96 Nasal Cannula 2.00 07/17/16 20:00 100 07/17/16 20:00 97.4 100 20 136/71 98 07/17/16 18:00 119 07/17/16 16:00 116 07/17/16 16:00 98.4 116 24 125/66 95 07/17/16 14:00 125 07/17/16 12:00 97.6 93 17 124/66 97 07/17/16 12:00 93 07/17/16 10:00 93 07/17/16 09:22 96 Nasal Cannula 3.00 Labs: Laboratory Tests Test 07/18/16 06:00 White Blood Count 18.1 TH/MM3 (4.0-11.0) Red Blood Count 4.57 MIL/MM3 (4.50-5.90) Hemoglobin 13.4 GM/DL (13.0-17.0) Hematocrit 40.0 % (39.0-51.0) Mean Corpuscular Volume 87.5 FL (80.0-100.0) Mean Corpuscular Hemoglobin 29.4 PG (27.0-34.0) Mean Corpuscular Hemoglobin 33.6 % Concent (32.0-36.0) Red Cell Distribution Width 15.0 % (11.6-17.2) Platelet Count 209 TH/MM3 (150-450) Mean Platelet Volume 8.1 FL (7.0-11.0) Sodium Level 142 MEQ/L (136-145) Potassium Level 4.3 MEQ/L (3.5-5.1) Chloride Level 107 MEQ/L (98-107) Carbon Dioxide Level 28.5 MEQ/L (21.0-32.0) Anion Gap 7 MEQ/L (5-15) Blood Urea Nitrogen 28 MG/DL (7-18) Creatinine 0.84 MG/DL (0.60-1.30) Estimat Glomerular Filtration 88 ML/MIN (>89) Rate Random Glucose 80 MG/DL (74-106) Calcium Level 8.1 MG/DL (8.5-10.1) Result Diagram: 07/18/16 0600 07/18/16 06 Plan: Pt examined and chart reviewed yesterday. Active air-leak from the CT with near complete expansion of the right lung. Will need to make sure the other CT sites are sealed with a vaseline gauze occlusive dressing to determine true etiology of the air-leak. Will continue to follow. Thank you for allowing me to participate in the care of this patient. Don Tony MD Jul 18, 2016 08:40
[2016-07-18] MEDS: DOCUSATE SODIUM 50 MG/SENNA 8.6 MG TAB PO SCH ×2 (09:06→20:59)
--- NOTE | 2016-07-18 09:58 | HHI.PR ---
Subjective Remarks F/U PTX. Minimal pain no SOB dw RN Objective Vitals Vital Signs Date Time Temp Pulse Resp B/P Pulse Ox O2 Delivery O2 Flow Rate FiO2 07/18/16 09:46 96 Nasal Cannula 2.00 07/18/16 08:49 20 07/18/16 08:00 97.7 74 19 138/82 97 07/18/16 08:00 74 07/18/16 06:00 77 07/18/16 04:00 98.4 80 18 149/77 96 07/18/16 04:00 80 07/18/16 02:00 87 07/18/16 00:00 97.5 97 18 138/75 97 07/18/16 00:00 97 07/17/16 22:00 109 07/17/16 21:47 96 Nasal Cannula 2.00 07/17/16 20:00 100 07/17/16 20:00 97.4 100 20 136/71 98 07/17/16 18:00 119 07/17/16 16:00 116 07/17/16 16:00 98.4 116 24 125/66 95 07/17/16 14:00 125 07/17/16 12:00 97.6 93 17 124/66 97 07/17/16 12:00 93 07/17/16 10:00 93 I/O 07/17/16 07/17/16 07/17/16 07/18/16 07/18/16 07/18/16 07:00 15:00 23:00 07:00 15:00 23:00 Intake Total 550 ml 882 ml 608 ml 257 ml Output Total 555 ml 55 ml 320 ml 235 ml Balance -5 ml 827 ml 288 ml 22 ml Intake Oral 450 ml 360 ml 30 ml IV Total 550 ml 432 ml 248 ml 227 ml Output Urine Total 500 ml 0 ml 275 ml 175 ml Stool Total 0 ml Chest Tube Drainage Total 55 ml 55 ml 45 ml 60 ml # Voids 0 # Bowel Movements 0 0 0 0 Result Diagram: 07/18/1659907/18/16599 Imaging Last Impressions Chest X-Ray 07/18/16599 Signed Impressions: Service Date/Time: Monday, July 18, 2016 02:55 - CONCLUSION: 1. Stable chest x-ray with a tiny right apical pneumothorax with right chest tube present. 2. Stable airspace opacity in the right upper lung zone and left lung base. Jerome Robbins MD Chest CT 07/16/16 1244 Signed Impressions: Service Date/Time: Saturday, July 16, 2016 13:05 - CONCLUSION: 1. Right- sided chest tube is superficial to the chest cavity. 2. Large right pneumothorax. 3. Extensive right-sided subcutaneous emphysema. 4. Findings were discussed with Dr. Higgins. Hayes Marsh MD Chest Tube Insertion 07/16/16 0000 Signed Impressions: Service Date/Time: Saturday, July 16, 2016 14:22 - CONCLUSION: Uncomplicated chest tube placement as above. Jeanmarie Vera MD Objective Remarks GENERAL: 80-year-old male, resting in bed in no acute distress SKIN: Warm and dry. HEAD: Atraumatic. Normocephalic. EYES: Pupils equal and round about 3 mm bilaterally and reactive. No scleral icterus. No injection or drainage. ENT: No nasal bleeding or discharge. Mucous membranes pink and moist. NECK: Trachea midline. No JVD. CARDIOVASCULAR: RRR. S1, S2. No S4. Without murmur RESPIRATORY: Denies breath sounds right lung baez. Crepitus/positive subcutaneous air felt over the right thorax and neck. Right 10 Moldovan pigtail catheter clean dry and intact on suction. GASTROINTESTINAL: Abdomen soft, non-tender, nondistended. MUSCULOSKELETAL: Extremities without significant peripheral edema. No obvious deformities. NEUROLOGICAL: Awake and alert. No obvious cranial nerve deficits. Motor grossly within normal limits. Five out of 5 muscle strength in the arms and legs. Normal speech. PSYCHIATRIC: Appropriate mood and affect; insight and judgment normal. Procedures CT by IR A/P Problem List: (1) Pneumothorax, right ICD Code: J93.9 Status: Acute (2) Leukocytosis ICD Code: D72.829 Status: Acute (3) History of MRSA infection ICD Code: Z86.14 Status: Acute (4) OA (osteoarthritis) ICD Code: M19.90 Status: Acute (5) GERD (gastroesophageal reflux disease) ICD Code: K21.9 Status: Acute (6) COPD (chronic obstructive pulmonary disease) ICD Code: J44.9 Status: Acute Assessment and Plan Resp: Spontaneous right pneumothorax History of COPD Status post 10 Moldovan pigtail catheter placed by IR. -40 cm H2O. Minimal SS output. Prior temp chest tube 2 with 20 Moldovan by ED physician unsuccessful. Currently on nasal cannula try to maintain saturations on the higher limits the first 24 hours for lung reexpansion CT surgery recommends to ensure the other CT sites are sealed with a vaseline gauze occlusive dressing to determine true etiology of the air-leak. Significant crepitus for prior chest tube placement switch to po zithromax til 07/20 and ceftin dc 07/30 Neuro/Psych: Acetaminophen for fever [place]/morphine for pain management CV: As needed hydralazine/labetalol for hypertension GI: Gastroesophageal reflux disease Heart healthy diet. Protonix for GI prophylaxis Colace/as needed Senokot for bowel regimen : Alfaro currently not indicated Renal: Monitor urine output closely. Accurate I's and O's Recheck BMP in a.m. Heme: Leukocytosis worse s/p steroids. He is stable Monitor trends. Likely stress related ID: History of MRSA Started empirically on Rocephin/Zithromax stable opacities RUL and LLL Blood cultures/sputum pending NGTD. Influenza negative FEN: Replace electrolytes as clinically indicated per ICU protocol MSK: Osteoarthritis PT evaluate and treat Access - Utilize peripheral IV. Central line if indicated Prophylaxis - GI - Protonix - DVT - SCD/heparin Problem Qualifiers (1) Leukocytosis: Qualified Code: D72.829 - Leukocytosis, unspecified type (2) OA (osteoarthritis): Qualified Code: M19.90 - Osteoarthritis, unspecified osteoarthritis type, unspecified site (3) GERD (gastroesophageal reflux disease): Qualified Code: K21.9 - Gastroesophageal reflux disease, esophagitis presence not specified (4) COPD (chronic obstructive pulmonary disease): Qualified Code: J44.9 - Chronic obstructive pulmonary disease, unspecified COPD type Javon Bashir MD Jul 18, 2016 09:58 COPD type Javon Bashir MD Jul 18, 2016 09:58
[2016-07-18] MEDS: CEFUROXIME AXETIL 500 MG TAB PO SCH ×2 (10:35→23:36)
--- NOTE | 2016-07-18 13:03 | EKG ---
Date Performed: 07/16/2016 Time Performed: 09:33:06 PTAGE: 80 years EKG: Sinus rhythm with PAC(s) with 1st degree A-V block Septal and lateral ST-T changes are nonspecific Since previous tracing, no significant change noted Abnormal ECG PREVIOUS TRACING : 03/14/2013 13.26 DOCTOR: Rommel Lobo Interpretating Date/Time 07/18/2016 13:02:09
--- NOTE | 2016-07-18 16:50 | HHI.PR ---
Subjective Remarks 80 YOWM with COPD, spontaneous PTX Has right chest tube Still has air leak Mild sob No CP Objective Vital Signs Vital Signs Date Time Temp Pulse Resp B/P Pulse Ox O2 Delivery O2 Flow Rate FiO2 07/18/16 10:00 90 07/18/16 09:46 96 Nasal Cannula 2.00 07/18/16 08:49 20 07/18/16 08:00 97.7 74 19 138/82 97 07/18/16 08:00 74 07/18/16 06:00 77 07/18/16 04:00 98.4 80 18 149/77 96 07/18/16 04:00 80 07/18/16 02:00 87 07/18/16 00:00 97.5 97 18 138/75 97 07/18/16 00:00 97 07/17/16 22:00 109 07/17/16 21:47 96 Nasal Cannula 2.00 07/17/16 20:00 100 07/17/16 20:00 97.4 100 20 136/71 98 07/17/16 18:00 119 I/O 07/17/16 07/17/16 07/17/16 07/18/16 07/18/16 07/18/16 07:00 15:00 23:00 07:00 15:00 23:00 Intake Total 550 ml 882 ml 608 ml 257 ml 500 ml Output Total 555 ml 55 ml 320 ml 235 ml 345 ml Balance -5 ml 827 ml 288 ml 22 ml 155 ml Intake Oral 450 ml 360 ml 30 ml 500 ml IV Total 550 ml 432 ml 248 ml 227 ml Output Urine Total 500 ml 0 ml 275 ml 175 ml 275 ml Stool Total 0 ml 0 ml Chest Tube Drainage Total 55 ml 55 ml 45 ml 60 ml 70 ml # Voids 0 # Bowel Movements 0 0 0 0 0 Result Diagram: 07/18/16 0600 07/18/16 0600 Objective Remarks GENERAL: WBWN elderly male, mild sob SKIN: Warm and dry. HEAD: Normocephalic. EYES: No scleral icterus. No injection or drainage. NECK: Supple, trachea midline. No JVD or lymphadenopathy. CARDIOVASCULAR: Regular rate and rhythm without murmurs, gallops, or rubs. RESPIRATORY: Breath sounds equal bilaterally. No accessory muscle use. Right chest tube with Airlesk GASTROINTESTINAL: Abdomen soft, non-tender, nondistended. MUSCULOSKELETAL: No cyanosis, or edema. BACK: Nontender without obvious deformity. No CVA tenderness. A/P Assessment and Plan COPD Spontaneous right PTX S/P Chest tube placement SQ Emphysema HTN PLAN: Chest tube to suction Supplement 02 Aerosol nebs Cont Abx Zithro and PO Jayro Everett MD Jul 18, 2016 16:50
[2016-07-18] MEDS: AZITHROMYCIN 250 MG TAB PO SCH (20:59)
[2016-07-19] VITALS (8 sets, daily range): BP systolic 117–145; BP diastolic 66–84; PULSE 70–96; RESP 18–20; TEMP 95.5–96.8; O2SAT 93–100
[2016-07-19] MEDS: CHLORHEXIDINE GLUCONATE 2 % 1 PACK (2 CLOTHS) TOP SCH (04:00)
[2016-07-19] MEDS: RESP: ALBUTEROL 2.5 MG/IPRATROPIUM 0.5 MG NEB (SCH) INH ×4 (04:00→21:10)
[2016-07-19] MEDS: HEPARIN SODIUM - SQ 10,000 UNITS/ML VIAL SQ SCH ×3 (05:09→20:38)
[2016-07-19 05:36] LABS: AUTOMATED NEUTROPHIL # 9.4 TH/MM3 (1.8-7.7); BASOPHIL % 0.2 % (0.0-2.0); EOSINOPHIL # 0.2 TH/MM3 (0-0.4); EOSINOPHIL % 1.6 % (0.0-4.0); HEMATOCRIT 39.5 % (39.0-51.0); HEMO FLAGS DIFF FINAL; LYMPH % 8.1 % (9.0-44.0); LYMPHOCYTE # 0.9 TH/MM3 (1.0-4.8); MEAN CELL VOLUME 87.4 FL (80.0-100.0); MEAN CORPUSCULAR HEMOGLOBIN 29.1 PG (27.0-34.0); MEAN CORPUSCULAR HGB CONC 33.3 % (32.0-36.0); MONO % 9.4 % (0.0-8.0); NEUT % 80.7 % (16.0-70.0); PLATELET COUNT 190 TH/MM3 (150-450); RED BLOOD COUNT 4.53 MIL/MM3 (4.50-5.90); RED CELL DISTRIBUTION WIDTH 15.1 % (11.6-17.2); WHITE BLOOD COUNT 11.6 TH/MM3 (4.0-11.0)
[2016-07-19 06:01] LABS: BICARBONATE 29.1 MEQ/L (21.0-32.0); POTASSIUM 4.1 MEQ/L (3.5-5.1)
[2016-07-19] MEDS: DOCUSATE SODIUM 50 MG/SENNA 8.6 MG TAB PO SCH ×2 (08:22→20:38)
[2016-07-19] MEDS: ARTIFICIAL TEARS OPTH SOLN 15 ML BTL EACH EYE SCH ×3 (08:22→18:00)
[2016-07-19] MEDS: SODIUM CHLORIDE 0.9% FLUSH 5 ML FLUSH IV FLUSH SCH ×2 (08:23→21:56)
[2016-07-19] MEDS: MUPIROCIN 2% OINT 1 APPLIC/GM SYR EACH NARE SCH ×2 (08:23→20:38)
--- NOTE | 2016-07-19 12:29 | HHI.PR ---
Subjective Remarks Follow-up for right pneumothorax. Patient is currently doing well. Denies any chest pain, shortness of breath, fever or chills. Chest tube in place on suction. Objective Vitals Vital Signs Date Time Temp Pulse Resp B/P Pulse Ox O2 Delivery O2 Flow Rate FiO2 07/19/16 08:00 96.6 70 19 124/67 93 07/19/16 04:06 96.3 85 18 144/80 98 07/19/16 00:00 96.8 94 20 145/66 95 07/18/16 20:36 98 Nasal Cannula 2.00 07/18/16 20:00 96.2 86 20 158/81 99 07/18/16 16:55 94 Nasal Cannula 2.00 07/18/16 16:00 98.1 97 20 138/85 94 I/O 07/18/16 07/18/16 07/18/16 07/19/16 07/19/16 07/19/16 07:00 15:00 23:00 07:00 15:00 23:00 Intake Total 257 ml 980 ml 320 ml 320 ml Output Total 235 ml 645 ml 300 ml 870 ml Balance 22 ml 335 ml 20 ml -550 ml Intake Oral 30 ml 980 ml 320 ml 320 ml IV Total 227 ml Output Urine Total 175 ml 575 ml 250 ml 800 ml Stool Total 0 ml Chest Tube Drainage Total 60 ml 70 ml 50 ml 70 ml # Bowel Movements 0 0 0 0 Result Diagram: 07/19/16 0458 07/19/16 0458 Imaging Last Impressions Chest X-Ray 07/18/16 0600 Signed Impressions: Service Date/Time: Monday, July 18, 2016 02:55 - CONCLUSION: 1. Stable chest x-ray with a tiny right apical pneumothorax with right chest tube present. 2. Stable airspace opacity in the right upper lung zone and left lung base. Jerome Robbins MD Chest CT 07/16/16 1244 Signed Impressions: Service Date/Time: Saturday, July 16, 2016 13:05 - CONCLUSION: 1. Right- sided chest tube is superficial to the chest cavity. 2. Large right pneumothorax. 3. Extensive right-sided subcutaneous emphysema. 4. Findings were discussed with Dr. Higgins. Hayes Marsh MD Chest Tube Insertion 07/16/16 0000 Signed Impressions: Service Date/Time: Saturday, July 16, 2016 14:22 - CONCLUSION: Uncomplicated chest tube placement as above. Jeanmarie Vera MD Objective Remarks GENERAL: Alert, oriented 3, NAD. SKIN: Warm and dry. SubQ crepitus on both upper arms and shoulder especially on the right side. HEAD: Normocephalic. EYES: No scleral icterus. No injection or drainage. NECK: Supple, trachea midline. No JVD or lymphadenopathy. CARDIOVASCULAR: Regular rate and rhythm without murmurs, gallops, or rubs. RESPIRATORY: Breath sounds equal bilaterally. No accessory muscle use. GASTROINTESTINAL: Abdomen soft, non-tender, nondistended. MUSCULOSKELETAL: No cyanosis, or edema. BACK: Nontender without obvious deformity. No CVA tenderness. Chest tube in place. Procedures Chest tube placement on the right side by IR. A/P Problem List: (1) Pneumothorax, right ICD Code: J93.9 Status: Acute (2) Leukocytosis ICD Code: D72.829 Status: Acute (3) History of MRSA infection ICD Code: Z86.14 Status: Acute (4) OA (osteoarthritis) ICD Code: M19.90 Status: Acute (5) GERD (gastroesophageal reflux disease) ICD Code: K21.9 Status: Acute (6) COPD (chronic obstructive pulmonary disease) ICD Code: J44.9 Status: Acute Assessment and Plan Mr. Guerra is a pleasant 80-year-old male with a history of COPD, GERD , osteoarthritis who presented to the emergency department on 07/16/2016 due to chest pain and shortness of breath. Chest x-ray in the ED showed a large right pneumothorax. Patient underwent a pigtail catheter placement in the right chest interventional radiology. Cardiac thoracic surgery has been following this patient. - Right-sided spontaneous pneumothorax - COPD - no acute exacerbation. Pneumothorax could be related to COPD, however. - Chest x-ray from 07/16/2016 and 07/18/2016 and reviewed by me. Significant improvement of pneumothorax compared to the admission chest x-ray. - Cardiac thoracic surgery following this patient with regards to chest tube. - Significant subcutaneous air present. Patient is hemodynamically stable. - Continue cefuroxime and azithromycin for now. - Continue supplemental oxygen, DuoNeb when necessary. Full code. Heparin SQ. Discharge: Once chest tube is discontinued and cleared by CT surgery, we can discharge patient home. Problem Qualifiers (1) Leukocytosis: Qualified Code: D72.829 - Leukocytosis, unspecified type (2) OA (osteoarthritis): Qualified Code: M19.90 - Osteoarthritis, unspecified osteoarthritis type, unspecified site (3) GERD (gastroesophageal reflux disease): Qualified Code: K21.9 - Gastroesophageal reflux disease, esophagitis presence not specified (4) COPD (chronic obstructive pulmonary disease): Qualified Code: J44.9 - Chronic obstructive pulmonary disease, unspecified COPD type Ana Olivera DO Jul 19, 2016 12:29 pm
--- NOTE | 2016-07-19 14:22 | PD.CAR.PN ---
CVT Progress Note Objective: Vital Signs Date Time Temp Pulse Resp B/P Pulse Ox O2 Delivery O2 Flow Rate FiO2 07/19/16 12:21 94 Nasal Cannula 2.00 07/19/16 12:00 95.5 88 19 117/80 96 07/19/16 08:00 96.6 70 19 124/67 93 07/19/16 04:06 96.3 85 18 144/80 98 07/19/16 00:00 96.8 94 20 145/66 95 07/18/16 20:36 98 Nasal Cannula 2.00 07/18/16 20:00 96.2 86 20 158/81 99 07/18/16 16:55 94 Nasal Cannula 2.00 07/18/16 16:00 98.1 97 20 138/85 94 Labs: Laboratory Tests Test 07/19/16 04:58 White Blood Count 11.6 TH/MM3 (4.0-11.0) Red Blood Count 4.53 MIL/MM3 (4.50-5.90) Hemoglobin 13.1 GM/DL (13.0-17.0) Hematocrit 39.5 % (39.0-51.0) Mean Corpuscular Volume 87.4 FL (80.0-100.0) Mean Corpuscular Hemoglobin 29.1 PG (27.0-34.0) Mean Corpuscular Hemoglobin 33.3 % Concent (32.0-36.0) Red Cell Distribution Width 15.1 % (11.6-17.2) Platelet Count 190 TH/MM3 (150-450) Mean Platelet Volume 7.8 FL (7.0-11.0) Neutrophils (%) (Auto) 80.7 % (16.0-70.0) Lymphocytes (%) (Auto) 8.1 % (9.0-44.0) Monocytes (%) (Auto) 9.4 % (0.0-8.0) Eosinophils (%) (Auto) 1.6 % (0.0-4.0) Basophils (%) (Auto) 0.2 % (0.0-2.0) Neutrophils # (Auto) 9.4 TH/MM3 (1.8-7.7) Lymphocytes # (Auto) 0.9 TH/MM3 (1.0-4.8) Monocytes # (Auto) 1.1 TH/MM3 (0-0.9) Eosinophils # (Auto) 0.2 TH/MM3 (0-0.4) Basophils # (Auto) 0.0 TH/MM3 (0-0.2) CBC Comment DIFF FINAL Differential Comment Sodium Level 140 MEQ/L (136-145) Potassium Level 4.1 MEQ/L (3.5-5.1) Chloride Level 103 MEQ/L (98-107) Carbon Dioxide Level 29.1 MEQ/L (21.0-32.0) Anion Gap 8 MEQ/L (5-15) Blood Urea Nitrogen 18 MG/DL (7-18) Creatinine 0.76 MG/DL (0.60-1.30) Estimat Glomerular Filtration 99 ML/MIN (>89) Rate Random Glucose 87 MG/DL (74-106) Calcium Level 8.2 MG/DL (8.5-10.1) Magnesium Level 2.0 MG/DL (1.5-2.5) Result Diagram: 07/19/16 0458 07/19/16 0458 Plan: Continued air-leak from the pigtail catheter, 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 Given his severe underlying COPD, I am hesitant to fuller him to the OR for exploration and stapling. However, should it persist, he will likely require VATS exploration with stapling of BPF. Surgical intervention will carry a significant risk of persistent or worsening air-leak given his poor underlying lung tissue. Will continue to monitor. Don Tony MD Jul 19, 2016 14:22
[2016-07-19] MEDS: CEFUROXIME AXETIL 500 MG TAB PO SCH ×2 (14:54→22:39)
--- NOTE | 2016-07-19 16:12 | MB ---
cc: THEODORE WIGGINS MD, ARJUN D. MD DATE OF CONSULTATION 07/16/[address] Perez. REASON FOR CONSULTATION Pneumothorax. HISTORY OF THE PRESENT ILLNESS Mr. Guerra is a 80-year gentleman with longstanding history of COPD who is on home oxygen therapy as well as prednisone therapy who now presents with a 2-day history of progressive shortness of breath. He was seen at the [facility] with presenting complaint of shortness of breath and chest pain and underwent further workup with a chest x-ray which revealed a large right pneumothorax. A chest tube was placed there initially with persistent pneumothorax with no improvement. A second chest tube was then placed. The patient was transferred here. Upon arrival here the patient had a pigtail catheter placed by intervention radiology which has subsequently resulted in expansion of the right lung. I am now being consulted for further management of his chest pathology. The present time he remains on supplemental oxygen therapy but is in no distress. He has a right pigtail catheter in place with active air leak. Denies any progressive shortness of breath or chest discomfort beyond his normal baseline. PAST MEDICAL HISTORY Significant for: 1. Severe steroid-dependent COPD. 2. History of arthritis. 3. History of gastroesophageal reflux disease. PAST SURGICAL HISTORY Remarkable for knee arthroplasties. ALLERGIES THE PATIENT REPORTS ALLERGIES TO MULTIDRUG RESISTANT ORGANISMS BUT NO DRUG ALLERGIES. SOCIAL HISTORY Significant for history of smoking in the past which he quit approximately 40 years ago. Denies any illicit drug use or alcohol use. FAMILY HISTORY Noncontributory. REVIEW OF SYSTEMS As above. All other parameters are negative. PHYSICAL EXAMINATION VITAL SIGNS: On physical emanation today he is 170 cm tall, weighs 70 kg. Blood pressure is 124/66 with a heart rate of 93 which is regular, respiratory rate is 18. He is satting 97% on 3 liters nasal cannula. HEAD, EYES, EARS, NOSE, AND THROAT: Normocephalic, atraumatic. Pupils round and reactive. Extraocular muscles intact. No cervical lymphadenopathy, carotid bruits or JVD. He does have extensive subcutaneous emphysema, most prominent on the right side of the chest and shoulder with extensive to the left side as well. LUNGS: Decreased breath sounds bilaterally but good air exchange. CARDIOVASCULAR: Regular rate with sinus tachycardia. No gallops, rubs or murmurs. ABDOMEN: Soft, nontender, nondistended. Normoactive bowel sounds. No hepatosplenomegaly. EXTREMITIES: Bilateral lower extremity pulses are intact without cyanosis, clubbing, edema. No venous varicosities. NEUROLOGICAL: Intact with no focal deficits. IMPRESSION 1. Right large pneumothorax status post chest tube placement. 2. Subcutaneous emphysema. 3. Severe chronic obstructive pulmonary disease. 4. Arthritis. 5. Home oxygen dependence. PLAN The x-rays, CT and clinical findings were discussed in detail with Mr. Guerra today. At this point I would continue with the pigtail catheter to Pleur-Evac suction. He does have an active air leak, therefore, an occlusive Vaseline gauze dressing should be placed around the catheter site to prevent additional air from leaking around the catheter. Maintain the chest tube to Pleur-Evac suction device and we will continue to monitor. Repeat chest x-ray in the morning. Further therapy depending upon his clinical course based upon the severity of the air leak and the extent of it. 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 However, if the air leak does not resolve with conservative management, a surgical strategy may be required. We will continue to monitor and follow with you. Thank you for allowing me to participate in the care of this patient. Theodore ROD /3:33 PM /8:26 AM AVA
--- NOTE | 2016-07-19 19:37 | HHI.PR ---
Subjective Remarks 80 YOWM with COPD, spontaneous PTX Has right chest tube Still has air leak Mild sob No CP No fever or chills Objective Vital Signs Vital Signs Date Time Temp Pulse Resp B/P Pulse Ox O2 Delivery O2 Flow Rate FiO2 07/19/16 16:00 96.7 82 18 127/70 96 07/19/16 12:21 94 Nasal Cannula 2.00 07/19/16 12:00 95.5 88 19 117/80 96 07/19/16 08:00 96.6 70 19 124/67 93 07/19/16 04:06 96.3 85 18 144/80 98 07/19/16 00:00 96.8 94 20 145/66 95 07/18/16 20:36 98 Nasal Cannula 2.00 07/18/16 20:00 96.2 86 20 158/81 99 I/O 07/18/16 07/18/16 07/18/16 07/19/16 07/19/16 07/19/16 07:00 15:00 23:00 07:00 15:00 23:00 Intake Total 257 ml 980 ml 320 ml 320 ml 485 ml Output Total 235 ml 645 ml 300 ml 870 ml 1375 ml Balance 22 ml 335 ml 20 ml -550 ml -890 ml Intake Oral 30 ml 980 ml 320 ml 320 ml 485 ml IV Total 227 ml Output Urine Total 175 ml 575 ml 250 ml 800 ml 1275 ml Stool Total 0 ml Chest Tube Drainage Total 60 ml 70 ml 50 ml 70 ml 100 ml # Bowel Movements 0 0 0 0 0 Result Diagram: 07/19/1645707/19/16457 Objective Remarks GENERAL: WBWN elderly male, mild sob SKIN: Warm and dry. HEAD: Normocephalic. EYES: No scleral icterus. No injection or drainage. NECK: Supple, trachea midline. No JVD or lymphadenopathy. CARDIOVASCULAR: Regular rate and rhythm without murmurs, gallops, or rubs. RESPIRATORY: Breath sounds equal bilaterally. No accessory muscle use. Right chest tube with Airlesk GASTROINTESTINAL: Abdomen soft, non-tender, nondistended. MUSCULOSKELETAL: No cyanosis, or edema. BACK: Nontender without obvious deformity. No CVA tenderness. A/P Assessment and Plan COPD Spontaneous right PTX S/P Chest tube placement SQ Emphysema HTN PLAN: Chest tube to suction Supplement 02 Aerosol nebs Cont Abx Zithro and PO Ceftin CXr in AM Jayro Hicks MD Jul 19, 2016 19:37
[2016-07-19] MEDS: AZITHROMYCIN 250 MG TAB PO SCH (20:38)
[2016-07-19] MEDS ORDERED: PANTOPRAZOLE SODIUM 40 MG VIAL IV PUSH ONE (21:15)
[2016-07-19] MEDS ORDERED: DILTIAZEM HCL 30 MG TAB PO ONE (21:15)
--- NOTE | 2016-07-19 21:53 | RADRPT ---
EXAM DATE/TIME: 07/19/2016 21:30 [facility] COMPARISON: CHEST SINGLE AP, July 18, 2016, 2:55. INDICATIONS : Short of breath. MEDICAL HISTORY : Chronic obstructive pulmonary disease. Arthritis. SURGICAL HISTORY : Total knee replacement, left. Total knee replacement, right. ENCOUNTER: Subsequent ACUITY: 4 - 6 days PAIN SCORE: Non-responsive. LOCATION: Bilateral chest FINDINGS: Compared with July 18 there is development of a right apical pneumothorax with about 2.7 cm of ple ural separation. Small caliber right chest tube should be placed on suction if not already. There is extensive subcutaneous air present. Patchy bilateral airspace disease relatively stable. Cardiomegaly . CONCLUSION: 1. Development of right pneumothorax with about 2.7 cm of pleural separation. Small caliber right maxim st tube remains present. The tip is not well visualized but believed to be just within the pleural sp nisa. This should be placed on suction. Warner Ortega MD on July 19, 2016 at 21:49 Board Certified Radiologist. This report was verified electronically.
--- NOTE | 2016-07-19 22:34 | HHI.PR ---
Addendum to Inpatient Note Addendum Reason: Additional Documentation Additional Information I was called at around 2100s by patient's nurse that patient was having tachycardia with heart rate around 140s. Chart reviewed. Patient is not having any significant pain/bleeding/hypotension. However his chest tube is having a leak. He was already evaluated by cardiothoracic surgeon. Report noted. Per nursing staff, there is no significant increase in air leak. It was still in the first chamber. Patient was also complaining of some heartburn and some pain around his left shoulder which is somewhat chronic. Therefore I had ordered at that time to give Protonix dose one time, with an order a stat chest x-ray to evaluate for pneumothorax. Also ordered for a stat EKG. Advised nurse to treat for pain if patient has pain. Also told to inform cardiothoracic surgeon. Nurse called me back with results of EKG which showed a flutter rate still at 140s chest tube was on suction and increased to 40 cxr results reviewed- pneumothorax persists, informed cardiothoracic sx also transfer [facility] will start on Jolene Zimmer MD Jul 19, 2016 22:34
[2016-07-19] MEDS: ACETAMINOPHEN/HYDROcodone 325 MG/5 MG TAB PO PRN (22:39)
[2016-07-19] MEDS ORDERED: DILTIAZEM INJ 125 MG in SODIUM CHLORIDE 0.9% INJ 100 ML IV SCH (23:30)
[2016-07-19] MEDS ORDERED: DILTIAZEM HCL 25 MG/5 ML VIAL IVP ONE (23:30)
[2016-07-20] VITALS (25 sets, daily range): BP systolic 90–125; BP diastolic 52–86; PULSE 72–144; RESP 18–20; TEMP 95.5–98.1; O2SAT 92–98
[2016-07-20] MEDS: CHLORHEXIDINE GLUCONATE 2 % 1 PACK (2 CLOTHS) TOP SCH (04:00)
[2016-07-20] MEDS: HEPARIN SODIUM - SQ 10,000 UNITS/ML VIAL SQ SCH ×3 (05:42→21:31)
--- NOTE | 2016-07-20 06:18 | RADRPT ---
EXAM DATE/TIME: 07/20/2016 05:46 [facility] COMPARISON: CHEST SINGLE AP, July 19, 2016, 21:30. INDICATIONS : Shortness of breath, possible pulmonary disease. MEDICAL HISTORY : Chronic obstructive pulmonary disease. Arthritis. SURGICAL HISTORY : Total knee replacement, left. Total knee replacement, right. ENCOUNTER: Subsequent ACUITY: 1 week PAIN SCORE: 0/10 LOCATION: Bilateral chest FINDINGS: Extensive subcutaneous emphysema again seen. Small right apical pneumothorax is noted a decrease from previous. Right-sided chest tube in place. Left lung demonstrates airspace disease at the left base. Degenerative changes are noted. CONCLUSION: Decreased right pneumothorax. Left lower lobe airspace disease. Chun Mcfarlane MD on July 20, 2016 at 6:16 Board Certified Radiologist. This report was verified electronically.
[2016-07-20] MEDS: ACETAMINOPHEN/HYDROcodone 325 MG/5 MG TAB PO PRN ×2 (09:38→14:23)
[2016-07-20] MEDS: DOCUSATE SODIUM 50 MG/SENNA 8.6 MG TAB PO SCH ×2 (09:39→21:00)
[2016-07-20] MEDS: MUPIROCIN 2% OINT 1 APPLIC/GM SYR EACH NARE SCH ×2 (09:39→21:30)
[2016-07-20] MEDS: CEFUROXIME AXETIL 500 MG TAB PO SCH ×2 (09:39→21:31)
[2016-07-20] MEDS: SODIUM CHLORIDE 0.9% FLUSH 5 ML FLUSH IV FLUSH SCH ×2 (09:39→21:33)
[2016-07-20] MEDS: ARTIFICIAL TEARS OPTH SOLN 15 ML BTL EACH EYE SCH ×3 (09:40→17:36)
--- NOTE | 2016-07-20 10:58 | PD.CAR.PN ---
CVT Progress Note Subjective/Hospital Course: still has 1-2 + air leak in chest tube leave chest tube in , changed to 40cm suction suq q emphysema slight improvement now on room air drained 50cc/ 12 hrs Objective: GENERAL: SKIN: Warm and dry. HEAD: Normocephalic. EYES: No scleral icterus. No injection or drainage. NECK: Supple, trachea midline. No JVD or lymphadenopathy. CARDIOVASCULAR: Regular rate and rhythm without murmurs, gallops, or rubs. RESPIRATORY: diminished on right chest tube to 40cm suction / still has some subq air unchanged Breath sounds equal bilaterally. No accessory muscle use. GASTROINTESTINAL: Abdomen soft, non-tender, nondistended. MUSCULOSKELETAL: No cyanosis, or edema. BACK: Nontender without obvious deformity. No CVA tenderness. Vital Signs Date Time Temp Pulse Resp B/P Pulse Ox O2 Delivery O2 Flow Rate FiO2 07/20/16 10:00 78 07/20/16 09:34 94 21 07/20/16 09:00 87 07/20/16 08:00 89 07/20/16 07:00 97.8 85 18 117/62 94 07/20/16 07:00 83 07/20/16 06:00 88 07/20/16 05:00 93 07/20/16 04:00 92 07/20/16 04:00 98.1 90 18 90/52 98 07/20/16 03:00 88 07/20/16 02:00 84 07/20/16 01:00 98.0 108 18 106/62 96 07/20/16 01:00 108 07/20/16 00:00 95.5 144 19 122/86 96 07/19/16 21:13 98 Nasal Cannula 2.00 07/19/16 20:00 96.1 96 19 117/84 100 07/19/16 16:00 96.7 82 18 127/70 96 07/19/16 12:21 94 Nasal Cannula 2.00 07/19/16 12:00 95.5 88 19 117/80 96 Result Diagram: 07/19/168 07/19/16457 Telemetry: NSR (1) Pneumothorax, right Plan: continue chest tube to 40cm suction occlusive vaseline dressing (2) COPD (chronic obstructive pulmonary disease) Problem Qualifiers (1) COPD (chronic obstructive pulmonary disease): Qualified Code: J44.9 - Chronic obstructive pulmonary disease, unspecified COPD type Conchita Valadez Jul 20, 2016 10:58
--- NOTE | 2016-07-20 14:26 | HHI.PR ---
Subjective Remarks Follow-up for pneumothorax. Patient is currently doing well. Denies any chest pain, shortness of breath, fever or chills. Daughter at bedside. Patient was transferred to CICU due to his irregular heartbeat overnight. He was given 15 mg of Cardizem IV push. However by the time he arrived at [facility] he converted to normal sinus rhythm and did not require any Cardizem drip. Objective Vitals Vital Signs Date Time Temp Pulse Resp B/P Pulse Ox O2 Delivery O2 Flow Rate FiO2 07/20/16 14:00 89 07/20/16 13:00 72 07/20/16 12:00 77 07/20/16 11:00 76 07/20/16 11:00 97.8 83 20 102/63 96 07/20/16 10:00 78 07/20/16 09:34 94 21 07/20/16 09:00 87 07/20/16 08:00 89 07/20/16 07:00 97.8 85 18 117/62 94 07/20/16 07:00 83 07/20/16 06:00 88 07/20/16 05:00 93 07/20/16 04:00 92 07/20/16 04:00 98.1 90 18 90/52 98 07/20/16 03:00 88 07/20/16 02:00 84 07/20/16 01:00 98.0 108 18 106/62 96 07/20/16 01:00 108 07/20/16 00:00 95.5 144 19 122/86 96 07/19/16 21:13 98 Nasal Cannula 2.00 07/19/16 20:00 96.1 96 19 117/84 100 07/19/16 16:00 96.7 82 18 127/70 96 I/O 07/19/16 07/19/16 07/19/16 07/20/16 07/20/16 07/20/16 07:00 15:00 23:00 07:00 15:00 23:00 Intake Total 320 ml 485 ml 480 ml 240 ml Output Total 870 ml 1375 ml 650 ml 450 ml Balance -550 ml -890 ml -170 ml -210 ml Intake Oral 320 ml 485 ml 480 ml 240 ml Output Urine Total 800 ml 1275 ml 650 ml 400 ml Chest Tube Drainage Total 70 ml 100 ml 50 ml # Bowel Movements 0 0 1 0 Result Diagram: 07/19/16 0458 07/19/16 0458 Imaging Last Impressions Chest X-Ray 07/20/16 0600 Signed Impressions: Service Date/Time: Wednesday, July 20, 2016 05:46 - CONCLUSION: Decreased right pneumothorax. Left lower lobe airspace disease. Chun Mcfarlane MD Chest CT 07/16/16 1244 Signed Impressions: Service Date/Time: Saturday, July 16, 2016 13:05 - CONCLUSION: 1. Right- sided chest tube is superficial to the chest cavity. 2. Large right pneumothorax. 3. Extensive right-sided subcutaneous emphysema. 4. Findings were discussed with Dr. Higgins. Hayes Marsh MD Chest Tube Insertion 07/16/16 0000 Signed Impressions: Service Date/Time: Saturday, July 16, 2016 14:22 - CONCLUSION: Uncomplicated chest tube placement as above. Jeanmarie Vera MD Objective Remarks GENERAL: Alert, oriented 3, NAD. SKIN: Warm and dry. SubQ crepitus on both upper arms and shoulder especially on the right side. HEAD: Normocephalic. EYES: No scleral icterus. No injection or drainage. NECK: Supple, trachea midline. No JVD or lymphadenopathy. CARDIOVASCULAR: Regular rate and rhythm without murmurs, gallops, or rubs. RESPIRATORY: Breath sounds equal bilaterally. No accessory muscle use. GASTROINTESTINAL: Abdomen soft, non-tender, nondistended. MUSCULOSKELETAL: No cyanosis, or edema. BACK: Nontender without obvious deformity. No CVA tenderness. Chest tube in place. Procedures Chest tube placement on the right side by IR. A/P Problem List: (1) Pneumothorax, right ICD Code: J93.9 Status: Acute (2) Leukocytosis ICD Code: D72.829 Status: Acute (3) History of MRSA infection ICD Code: Z86.14 Status: Acute (4) OA (osteoarthritis) ICD Code: M19.90 Status: Acute (5) GERD (gastroesophageal reflux disease) ICD Code: K21.9 Status: Acute (6) COPD (chronic obstructive pulmonary disease) ICD Code: J44.9 Status: Acute Assessment and Plan Mr. Guerra is a pleasant 80-year-old male with a history of COPD, GERD , osteoarthritis who presented to the emergency department on 07/16/2016 due to chest pain and shortness of breath. Chest x-ray in the ED showed a large right pneumothorax. Patient underwent a pigtail catheter placement in the right chest interventional radiology. Cardiac thoracic surgery has been following this patient. - Right-sided spontaneous pneumothorax - COPD - no acute exacerbation. Pneumothorax could be related to COPD, however. - Probable pneumonia - left lower lobe. - CXR on 07/20/2016 reviewed by me. Shows improved pneumothorax and LLL airspace disease. - Chest x-ray from 07/16/2016 and 07/18/2016 and reviewed by me. Significant improvement of pneumothorax compared to the admission chest x-ray. - Cardiac thoracic surgery following this patient with regards to chest tube. - Significant subcutaneous air present. Patient is hemodynamically stable. - Continue cefuroxime and azithromycin for now. - Continue supplemental oxygen, DuoNeb when necessary. - Atrial flutter - noted on EKG last night. [id number] score would be at least 2 (Age > 75). - Not requiring any Cardizem drip or PO meds. Rate is controlled. If needed, we can start Cardizem PO or preferably Metoprolol. - May benefit from Apixaban. Full code. Heparin SQ. Discharge: Once chest tube is discontinued and cleared by CT surgery, we can discharge patient home. Problem Qualifiers (1) Leukocytosis: Qualified Code: D72.829 - Leukocytosis, unspecified type (2) OA (osteoarthritis): Qualified Code: M19.90 - Osteoarthritis, unspecified osteoarthritis type, unspecified site (3) GERD (gastroesophageal reflux disease): Qualified Code: K21.9 - Gastroesophageal reflux disease, esophagitis presence not specified (4) COPD (chronic obstructive pulmonary disease): Qualified Code: J44.9 - Chronic obstructive pulmonary disease, unspecified COPD type Ana Olivera DO Jul 20, 2016 2:25 pm
--- NOTE | 2016-07-20 17:48 | EKG ---
Date Performed: 07/19/2016 Time Performed: 21:20:41 PTAGE: 80 years EKG: SINUS TACHYCARDIA, POSSIBLE ATRIAL FLUTTER BORDERLINE LEFT AXIS DEVIATION MINIMAL ST DEPRES [place] Since previous tracing, no significant change noted ABNORMAL RHYTHM ECG PREVIOUS TRACING : 07/16/2016 09.33 DOCTOR: Cesar Moser Interpretating Date/Time 07/20/2016 17:48:09
--- NOTE | 2016-07-20 20:01 | HHI.PR ---
Subjective Remarks 80 YOWM with COPD, spontaneous PTX Has right chest tube Still has air leak Mild sob tr to step down due to A.flutter with RVR Better now Objective Vital Signs Vital Signs Date Time Temp Pulse Resp B/P Pulse Ox O2 Delivery O2 Flow Rate FiO2 07/20/16 18:00 87 07/20/16 17:00 83 07/20/16 16:00 75 07/20/16 15:00 98.0 73 18 125/76 95 07/20/16 15:00 74 07/20/16 14:00 89 07/20/16 13:00 72 07/20/16 12:00 77 07/20/16 11:00 76 07/20/16 11:00 97.8 83 20 102/63 96 07/20/16 10:00 78 07/20/16 09:34 94 21 07/20/16 09:00 87 07/20/16 08:00 89 07/20/16 07:00 97.8 85 18 117/62 94 07/20/16 07:00 83 07/20/16 06:00 88 07/20/16 05:00 93 07/20/16 04:00 92 07/20/16 04:00 98.1 90 18 90/52 98 07/20/16 03:00 88 07/20/16 02:00 84 07/20/16 01:00 98.0 108 18 106/62 96 07/20/16 01:00 108 07/20/16 00:00 95.5 144 19 122/86 96 07/19/16 21:13 98 Nasal Cannula 2.00 07/19/16 20:00 96.1 96 19 117/84 100 I/O 07/19/16 07/19/16 07/19/16 07/20/16 07/20/16 07/20/16 07:00 15:00 23:00 07:00 15:00 23:00 Intake Total 320 ml 485 ml 480 ml 240 ml 1080 ml Output Total 870 ml 1375 ml 650 ml 450 ml 1020 ml Balance -550 ml -890 ml -170 ml -210 ml 60 ml Intake Oral 320 ml 485 ml 480 ml 240 ml 1080 ml Output Urine Total 800 ml 1275 ml 650 ml 400 ml 950 ml Chest Tube Drainage Total 70 ml 100 ml 50 ml 70 ml # Bowel Movements 0 0 1 0 Result Diagram: 07/19/1645707/19/16457 Objective Remarks GENERAL: WBWN elderly male, mild sob SKIN: Warm and dry. HEAD: Normocephalic. EYES: No scleral icterus. No injection or drainage. NECK: Supple, trachea midline. No JVD or lymphadenopathy. CARDIOVASCULAR: Regular rate and rhythm without murmurs, gallops, or rubs. RESPIRATORY: Breath sounds equal bilaterally. No accessory muscle use. Right chest tube with Airlesk GASTROINTESTINAL: Abdomen soft, non-tender, nondistended. MUSCULOSKELETAL: No cyanosis, or edema. BACK: Nontender without obvious deformity. No CVA tenderness. A/P Assessment and Plan COPD Spontaneous right PTX--persistant airleak S/P Chest tube placement SQ Emphysema HTN PLAN: Chest tube to suction Supplement 02 Aerosol nebs Cont Abx Zithro and PO CeftJayro Redding MD Jul 20, 2016 20:01
[2016-07-20] MEDS: RESP: ALBUTEROL 2.5 MG/IPRATROPIUM 0.5 MG NEB (SCH) INH (21:13)
[2016-07-21] VITALS (29 sets, daily range): BP systolic 108–142; BP diastolic 57–83; PULSE 72–95; RESP 16–20; TEMP 97–98.8; O2SAT 92–99
[2016-07-21] MEDS: CHLORHEXIDINE GLUCONATE 2 % 1 PACK (2 CLOTHS) TOP SCH (02:34)
[2016-07-21] MEDS: RESP: ALBUTEROL 2.5 MG/IPRATROPIUM 0.5 MG NEB (SCH) INH ×4 (03:44→21:06)
[2016-07-21] MEDS: HEPARIN SODIUM - SQ 10,000 UNITS/ML VIAL SQ SCH ×3 (05:43→21:26)
--- NOTE | 2016-07-21 08:05 | HHI.PR ---
Subjective Remarks Follow-up for pneumothorax. Patient is currently doing well. Denies any chest pain, shortness of breath, fever or chills. Chest tube in place on 40 cm suction. Objective Vitals Vital Signs Date Time Temp Pulse Resp B/P Pulse Ox O2 Delivery O2 Flow Rate FiO2 07/21/16 07:30 97.8 72 20 121/83 95 07/21/16 07:00 75 07/21/16 06:00 78 07/21/16 05:00 81 07/21/16 04:00 94 07/21/16 04:00 97.9 93 18 120/82 95 07/21/16 03:46 92 Nasal Cannula 21 07/21/16 03:00 78 07/21/16 02:00 88 07/21/16 01:00 86 07/21/16 00:00 85 07/21/16 00:00 98.0 85 18 111/66 95 07/20/16 23:00 86 07/20/16 22:00 92 07/20/16 21:00 82 07/20/16 20:00 97.9 89 18 113/71 92 07/20/16 20:00 82 07/20/16 19:00 80 07/20/16 18:00 87 07/20/16 17:00 83 07/20/16 16:00 75 07/20/16 15:00 98.0 73 18 125/76 95 07/20/16 15:00 74 07/20/16 14:00 89 07/20/16 13:00 72 07/20/16 12:00 77 07/20/16 11:00 76 07/20/16 11:00 97.8 83 20 102/63 96 07/20/16 10:00 78 07/20/16 09:34 94 21 07/20/16 09:00 87 I/O 07/20/16 07/20/16 07/20/16 07/21/16 07/21/16 07/21/16 07:00 15:00 23:00 07:00 15:00 23:00 Intake Total 240 ml 1080 ml 240 ml Output Total 450 ml 1020 ml 870 ml 100 ml Balance -210 ml 60 ml -630 ml -100 ml Intake Oral 240 ml 1080 ml 240 ml Output Urine Total 400 ml 950 ml 800 ml 100 ml Chest Tube Drainage Total 50 ml 70 ml 70 ml # Bowel Movements 0 0 Result Diagram: 07/19/16 0458 07/19/16 0458 Imaging Last Impressions Chest X-Ray 07/20/16 0600 Signed Impressions: Service Date/Time: Wednesday, July 20, 2016 05:46 - CONCLUSION: Decreased right pneumothorax. Left lower lobe airspace disease. Chun Mcfarlane MD Chest CT 07/16/16 1244 Signed Impressions: Service Date/Time: Saturday, July 16, 2016 13:05 - CONCLUSION: 1. Right- sided chest tube is superficial to the chest cavity. 2. Large right pneumothorax. 3. Extensive right-sided subcutaneous emphysema. 4. Findings were discussed with Dr. Higgins. Hayes Marsh MD Chest Tube Insertion 07/16/16 0000 Signed Impressions: Service Date/Time: Saturday, July 16, 2016 14:22 - CONCLUSION: Uncomplicated chest tube placement as above. Jeanmarie Vera MD Objective Remarks GENERAL: Alert, oriented 3, NAD. SKIN: Warm and dry. SubQ crepitus on both upper arms and shoulder especially on the right side. HEAD: Normocephalic. EYES: No scleral icterus. No injection or drainage. NECK: Supple, trachea midline. No JVD or lymphadenopathy. CARDIOVASCULAR: Regular rate and rhythm without murmurs, gallops, or rubs. RESPIRATORY: Breath sounds equal bilaterally. No accessory muscle use. GASTROINTESTINAL: Abdomen soft, non-tender, nondistended. MUSCULOSKELETAL: No cyanosis, or edema. BACK: Nontender without obvious deformity. No CVA tenderness. Chest tube in place. Procedures Chest tube placement on the right side by IR. A/P Problem List: (1) Pneumothorax, right ICD Code: J93.9 Status: Acute (2) Leukocytosis ICD Code: D72.829 Status: Acute (3) History of MRSA infection ICD Code: Z86.14 Status: Acute (4) OA (osteoarthritis) ICD Code: M19.90 Status: Acute (5) GERD (gastroesophageal reflux disease) ICD Code: K21.9 Status: Acute (6) COPD (chronic obstructive pulmonary disease) ICD Code: J44.9 Status: Acute Assessment and Plan Mr. Guerra is a pleasant 80-year-old male with a history of COPD, GERD , osteoarthritis who presented to the emergency department on 07/16/2016 due to chest pain and shortness of breath. Chest x-ray in the ED showed a large right pneumothorax. Patient underwent a pigtail catheter placement in the right chest interventional radiology. Cardiac thoracic surgery has been following this patient. - Right-sided spontaneous pneumothorax - COPD - no acute exacerbation. Pneumothorax could be related to COPD, however. - Probable pneumonia - left lower lobe. - CXR on 07/20/2016 reviewed by me. Shows improved pneumothorax and LLL airspace disease. - Chest x-ray from 07/16/2016 and 07/18/2016 and reviewed by me. Significant improvement of pneumothorax compared to the admission chest x-ray. - Cardiac thoracic surgery following this patient with regards to chest tube. If no improvement, CT surgery may consider VATS/bleb resection. - Significant subcutaneous air present. Patient is hemodynamically stable. - Continue cefuroxime. Completed azithromycin. - Continue supplemental oxygen, DuoNeb when necessary. - Atrial flutter - noted on EKG last night. [id number] score would be at least 2 (Age > 75). - Not requiring any Cardizem drip or PO meds. Rate is controlled. If needed, we can start Cardizem PO or preferably Metoprolol. - May benefit from Apixaban in future. Full code. Heparin SQ. Problem Qualifiers (1) Leukocytosis: Qualified Code: D72.829 - Leukocytosis, unspecified type (2) OA (osteoarthritis): Qualified Code: M19.90 - Osteoarthritis, unspecified osteoarthritis type, unspecified site (3) GERD (gastroesophageal reflux disease): Qualified Code: K21.9 - Gastroesophageal reflux disease, esophagitis presence not specified (4) COPD (chronic obstructive pulmonary disease): Qualified Code: J44.9 - Chronic obstructive pulmonary disease, unspecified COPD type Ana Olivera DO Jul 21, 2016 8:05 am
--- NOTE | 2016-07-21 08:44 | PD.CAR.PN ---
CVT Progress Note Subjective/Hospital Course: still has 2 + air leak in chest tube leave chest tube in , 40cm suction suq q emphysema improving now on room air minimal drainage if no improvement by end of week, will need to eval for possible VATS/ bleb resection Objective: GENERAL: SKIN: Warm and dry.poor skin turgor HEAD: Normocephalic. EYES: No scleral icterus. No injection or drainage. NECK: Supple, trachea midline. No JVD or lymphadenopathy. CARDIOVASCULAR: Regular rate and rhythm without murmurs, gallops, or rubs. RESPIRATORY: diminished in right upper lobe, + subq emphysema Breath sounds equal bilaterally. No accessory muscle use. GASTROINTESTINAL: Abdomen soft, non-tender, nondistended. MUSCULOSKELETAL: No cyanosis, or edema. BACK: Nontender without obvious deformity. No CVA tenderness. Vital Signs Date Time Temp Pulse Resp B/P Pulse Ox O2 Delivery O2 Flow Rate FiO2 07/21/16 08:25 74 07/21/16 07:30 97.8 72 20 121/83 95 07/21/16 07:00 75 07/21/16 06:00 78 07/21/16 05:00 81 07/21/16 04:00 94 07/21/16 04:00 97.9 93 18 120/82 95 07/21/16 03:46 92 Nasal Cannula 21 07/21/16 03:00 78 07/21/16 02:00 88 07/21/16 01:00 86 07/21/16 00:00 85 07/21/16 00:00 98.0 85 18 111/66 95 07/20/16 23:00 86 07/20/16 22:00 92 07/20/16 21:00 82 07/20/16 20:00 97.9 89 18 113/71 92 07/20/16 20:00 82 07/20/16 19:00 80 07/20/16 18:00 87 07/20/16 17:00 83 07/20/16 16:00 75 07/20/16 15:00 98.0 73 18 125/76 95 07/20/16 15:00 74 07/20/16 14:00 89 07/20/16 13:00 72 07/20/16 12:00 77 07/20/16 11:00 76 07/20/16 11:00 97.8 83 20 102/63 96 07/20/16 10:00 78 07/20/16 09:34 94 21 07/20/16 09:00 87 Result Diagram: 07/19/168 07/19/168 (1) Pneumothorax, right Plan: continue chest tube to 40cm suction occlusive vaseline dressing eval for possible VATS/ bleb resection if pt continue to have air leak (2) COPD (chronic obstructive pulmonary disease) Problem Qualifiers (1) COPD (chronic obstructive pulmonary disease): Qualified Code: J44.9 - Chronic obstructive pulmonary disease, unspecified COPD type Conchita Valadez Jul 21, 2016 08:44
[2016-07-21] MEDS: DOCUSATE SODIUM 50 MG/SENNA 8.6 MG TAB PO SCH ×2 (09:00→21:26)
[2016-07-21] MEDS: SODIUM CHLORIDE 0.9% FLUSH 5 ML FLUSH IV FLUSH SCH ×2 (09:51→21:26)
[2016-07-21] MEDS: MUPIROCIN 2% OINT 1 APPLIC/GM SYR EACH NARE SCH ×2 (09:51→21:00)
[2016-07-21] MEDS: ARTIFICIAL TEARS OPTH SOLN 15 ML BTL EACH EYE SCH ×3 (09:51→17:28)
[2016-07-21] MEDS: CEFUROXIME AXETIL 500 MG TAB PO SCH ×2 (11:01→21:26)
--- NOTE | 2016-07-21 16:21 | HHI.PR ---
Subjective Remarks 80 YOWM with COPD, spontaneous PTX Has right chest tube Still has air leak Mild sob No CP Objective Vital Signs Vital Signs Date Time Temp Pulse Resp B/P Pulse Ox O2 Delivery O2 Flow Rate FiO2 07/21/16 16:00 89 07/21/16 15:29 95 Nasal Cannula 2.00 07/21/16 15:02 97.9 83 17 108/68 96 07/21/16 15:00 87 07/21/16 14:00 95 07/21/16 13:00 82 07/21/16 12:00 83 07/21/16 11:28 92 07/21/16 11:00 83 07/21/16 11:00 98.8 80 20 131/74 95 07/21/16 10:15 82 07/21/16 09:02 91 07/21/16 08:38 93 21 07/21/16 08:25 74 07/21/16 07:30 97.8 72 20 121/83 95 07/21/16 07:00 75 07/21/16 06:00 78 07/21/16 05:00 81 07/21/16 04:00 94 07/21/16 04:00 97.9 93 18 120/82 95 07/21/16 03:46 92 Nasal Cannula 21 07/21/16 03:00 78 07/21/16 02:00 88 07/21/16 01:00 86 07/21/16 00:00 85 07/21/16 00:00 98.0 85 18 111/66 95 07/20/16 23:00 86 07/20/16 22:00 92 07/20/16 21:00 82 07/20/16 20:00 97.9 89 18 113/71 92 07/20/16 20:00 82 07/20/16 19:00 80 07/20/16 18:00 87 07/20/16 17:00 83 I/O 07/20/16 07/20/16 07/20/16 07/21/16 07/21/16 07/21/16 07:00 15:00 23:00 07:00 15:00 23:00 Intake Total 240 ml 1080 ml 240 ml Output Total 450 ml 1020 ml 870 ml 100 ml Balance -210 ml 60 ml -630 ml -100 ml Intake Oral 240 ml 1080 ml 240 ml Output Urine Total 400 ml 950 ml 800 ml 100 ml Chest Tube Drainage Total 50 ml 70 ml 70 ml # Bowel Movements 0 0 Result Diagram: 07/19/1645707/19/16457 Objective Remarks GENERAL: WBWN elderly male, mild sob SKIN: Warm and dry. HEAD: Normocephalic. EYES: No scleral icterus. No injection or drainage. NECK: Supple, trachea midline. No JVD or lymphadenopathy. CARDIOVASCULAR: Regular rate and rhythm without murmurs, gallops, or rubs. RESPIRATORY: Breath sounds equal bilaterally. No accessory muscle use. Right chest tube with Airlesk GASTROINTESTINAL: Abdomen soft, non-tender, nondistended. MUSCULOSKELETAL: No cyanosis, or edema. BACK: Nontender without obvious deformity. No CVA tenderness. A/P Assessment and Plan COPD Spontaneous right PTX--persistant airleak S/P Chest tube placement SQ Emphysema HTN PLAN: Chest tube to suction Supplement 02 Aerosol nebs Cont Abx Zithro and PO Ceftin CXR in Jayro Zepeda MD Jul 21, 2016 16:21
--- NOTE | 2016-07-21 17:05 | RADRPT ---
EXAM DATE/TIME: 07/21/2016 16:29 [facility] COMPARISON: CT GUIDED CHEST TUBE PLACEMENT RIGHT, July 16, 2016, 14:22. CHEST SINGLE AP, July 20, 2016, 5:46. INDICATIONS : Evaluate for pneumothorax. MEDICAL HISTORY : Chronic obstructive pulmonary disease. SURGICAL HISTORY : None. ENCOUNTER: Initial ACUITY: 1 day PAIN SCORE: 0/10 LOCATION: chest FINDINGS: Small bore chest tube remains in place on the right with moderate subcutaneous emphysema present. Mi nimal consolidation changes are seen in the left base. Trace pneumothorax is evident. CONCLUSION: 1. Trace pneumothorax is evident with subcutaneous emphysema present over the right chest wall. 2. Minimal consolidative change in the left base. Jefry Hurst MD FACR on July 21, 2016 at 17:00 Board Certified Radiologist. This report was verified electronically.
[2016-07-21] MEDS: ACETAMINOPHEN/HYDROcodone 325 MG/5 MG TAB PO PRN (21:25)
[2016-07-22] VITALS (28 sets, daily range): BP systolic 103–118; BP diastolic 63–76; PULSE 63–94; RESP 16–18; TEMP 97.1–98; O2SAT 93–97
[2016-07-22] MEDS: CHLORHEXIDINE GLUCONATE 2 % 1 PACK (2 CLOTHS) TOP SCH (04:00)
[2016-07-22] MEDS: RESP: ALBUTEROL 2.5 MG/IPRATROPIUM 0.5 MG NEB (SCH) INH ×4 (04:35→22:36)
[2016-07-22] MEDS: HEPARIN SODIUM - SQ 10,000 UNITS/ML VIAL SQ SCH ×3 (04:59→21:29)
[2016-07-22] MEDS: CEFUROXIME AXETIL 500 MG TAB PO SCH ×2 (10:08→23:19)
[2016-07-22] MEDS: DOCUSATE SODIUM 50 MG/SENNA 8.6 MG TAB PO SCH ×2 (10:08→21:28)
[2016-07-22] MEDS: SODIUM CHLORIDE 0.9% FLUSH 5 ML FLUSH IV FLUSH SCH ×2 (10:08→21:28)
[2016-07-22] MEDS: MUPIROCIN 2% OINT 1 APPLIC/GM SYR EACH NARE SCH ×2 (10:09→21:28)
[2016-07-22] MEDS: ARTIFICIAL TEARS OPTH SOLN 15 ML BTL EACH EYE SCH ×3 (10:11→17:16)
--- NOTE | 2016-07-22 10:19 | PD.CAR.PN ---
CVT Progress Note Subjective/Hospital Course: no further air leak noted CXR noted, only trace right apical ptx discussed with Dr Chavo hutchinson chest tube 40cm suction decrease to 20cm in am then consider placing to water seal suq q emphysema improving if no improvement by end of week, will need to eval for possible VATS/ bleb resection Objective: GENERAL: SKIN: Warm and dry./ subq emphysema to right chest and neck with some improvement HEAD: Normocephalic. EYES: No scleral icterus. No injection or drainage. NECK: Supple, trachea midline. No JVD or lymphadenopathy. CARDIOVASCULAR: Regular rate and rhythm without murmurs, gallops, or rubs. RESPIRATORY: diminished on right upper chest tube no air leak Breath sounds equal bilaterally. No accessory muscle use. GASTROINTESTINAL: Abdomen soft, non-tender, nondistended. MUSCULOSKELETAL: No cyanosis, or edema. BACK: Nontender without obvious deformity. No CVA tenderness. Vital Signs Date Time Temp Pulse Resp B/P Pulse Ox O2 Delivery O2 Flow Rate FiO2 07/22/16 09:39 96 Nasal Cannula 1.00 07/22/16 05:00 76 07/22/16 04:35 95 Nasal Cannula 1.00 07/22/16 04:00 72 07/22/16 03:00 98.0 73 16 112/72 97 07/22/16 03:00 73 07/22/16 02:00 63 07/22/16 01:00 77 07/22/16 00:00 83 07/21/16 23:00 83 07/21/16 23:00 97.2 83 18 111/76 99 07/21/16 23:00 84 07/21/16 22:00 85 07/21/16 21:00 88 07/21/16 20:00 93 07/21/16 20:00 97.0 93 16 142/57 98 07/21/16 18:00 79 07/21/16 17:00 83 07/21/16 16:00 89 07/21/16 15:29 95 Nasal Cannula 2.00 07/21/16 15:02 97.9 83 17 108/68 96 07/21/16 15:00 87 07/21/16 14:00 95 07/21/16 13:00 82 07/21/16 12:00 83 07/21/16 11:28 92 07/21/16 11:00 83 07/21/16 11:00 98.8 80 20 131/74 95 Result Diagram: 07/19/16 0458 07/19/16 0458 (1) Pneumothorax, right Plan: continue chest tube to 40cm suction occlusive vaseline dressing eval to decrease suction to 20cm in am eval for possible VATS/ bleb resection if pt continue to have air leak (2) COPD (chronic obstructive pulmonary disease) Problem Qualifiers (1) COPD (chronic obstructive pulmonary disease): Qualified Code: J44.9 - Chronic obstructive pulmonary disease, unspecified COPD type Conchita Valadez Jul 22, 2016 10:19
--- NOTE | 2016-07-22 13:30 | HHI.PR ---
Subjective Remarks Follow-up for pneumothorax. Patient is currently doing well. He wants to go home. Chest tube is not leaking air anymore. Denies any chest pain, shortness of breath, fever or chills. Objective Vitals Vital Signs Date Time Temp Pulse Resp B/P Pulse Ox O2 Delivery O2 Flow Rate FiO2 07/22/16 13:03 76 07/22/16 12:00 80 07/22/16 11:58 97.1 75 16 118/76 97 07/22/16 11:01 87 07/22/16 10:00 94 07/22/16 09:39 96 Nasal Cannula 1.00 07/22/16 09:00 88 07/22/16 08:30 97.9 76 18 103/70 93 07/22/16 08:00 88 07/22/16 07:00 77 07/22/16 05:00 76 07/22/16 04:35 95 Nasal Cannula 1.00 07/22/16 04:00 72 07/22/16 03:00 98.0 73 16 112/72 97 07/22/16 03:00 73 07/22/16 02:00 63 07/22/16 01:00 77 07/22/16 00:00 83 07/21/16 23:00 83 07/21/16 23:00 97.2 83 18 111/76 99 07/21/16 23:00 84 07/21/16 22:00 85 07/21/16 21:00 88 07/21/16 20:00 93 07/21/16 20:00 97.0 93 16 142/57 98 07/21/16 18:00 79 07/21/16 17:00 83 07/21/16 16:00 89 07/21/16 15:29 95 Nasal Cannula 2.00 07/21/16 15:02 97.9 83 17 108/68 96 07/21/16 15:00 87 07/21/16 14:00 95 I/O 07/21/16 07/21/16 07/21/16 07/22/16 07/22/16 07/22/16 07:00 15:00 23:00 07:00 15:00 23:00 Intake Total 240 ml 600 ml Output Total 870 ml 100 ml 70 ml 900 ml Balance -630 ml -100 ml -70 ml -300 ml Intake Oral 240 ml 600 ml Output Urine Total 800 ml 100 ml 850 ml Chest Tube Drainage Total 70 ml 70 ml 50 ml # Bowel Movements 0 Result Diagram: 07/19/16 0458 07/19/16 0458 Imaging Last Impressions Chest X-Ray 07/21/16 0000 Signed Impressions: Service Date/Time: Thursday, July 21, 2016 16:29 - CONCLUSION: 1. Trace pneumothorax is evident with subcutaneous emphysema present over the right chest wall. 2. Minimal consolidative change in the left base. Jefry Hurst MD FACR Chest CT 07/16/16 1244 Signed Impressions: Service Date/Time: Saturday, July 16, 2016 13:05 - CONCLUSION: 1. Right- sided chest tube is superficial to the chest cavity. 2. Large right pneumothorax. 3. Extensive right-sided subcutaneous emphysema. 4. Findings were discussed with Dr. Higgins. Hayes Marsh MD Chest Tube Insertion 07/16/16 0000 Signed Impressions: Service Date/Time: Saturday, July 16, 2016 14:22 - CONCLUSION: Uncomplicated chest tube placement as above. Jeanmarie Vera MD Objective Remarks GENERAL: Alert, oriented 3, NAD. SKIN: Warm and dry. SubQ crepitus on both upper arms and shoulder especially on the right side. HEAD: Normocephalic. EYES: No scleral icterus. No injection or drainage. NECK: Supple, trachea midline. No JVD or lymphadenopathy. CARDIOVASCULAR: Regular rate and rhythm without murmurs, gallops, or rubs. RESPIRATORY: Breath sounds equal bilaterally. No accessory muscle use. GASTROINTESTINAL: Abdomen soft, non-tender, nondistended. MUSCULOSKELETAL: No cyanosis, or edema. BACK: Nontender without obvious deformity. No CVA tenderness. Chest tube in place. Procedures Chest tube placement on the right side by IR. A/P Problem List: (1) Pneumothorax, right ICD Code: J93.9 Status: Acute (2) Leukocytosis ICD Code: D72.829 Status: Acute (3) History of MRSA infection ICD Code: Z86.14 Status: Acute (4) OA (osteoarthritis) ICD Code: M19.90 Status: Acute (5) GERD (gastroesophageal reflux disease) ICD Code: K21.9 Status: Acute (6) COPD (chronic obstructive pulmonary disease) ICD Code: J44.9 Status: Acute Assessment and Plan Mr. Guerra is a pleasant 80-year-old male with a history of COPD, GERD , osteoarthritis who presented to the emergency department on 07/16/2016 due to chest pain and shortness of breath. Chest x-ray in the ED showed a large right pneumothorax. Patient underwent a pigtail catheter placement in the right chest interventional radiology. Cardiac thoracic surgery has been following this patient. - Right-sided spontaneous pneumothorax - COPD - no acute exacerbation. Pneumothorax could be related to COPD, however. - Probable pneumonia - left lower lobe. - CXR on 07/20/2016 reviewed by me. Shows improved pneumothorax and LLL airspace disease. - Chest x-ray from 07/16/2016 and 07/18/2016 and reviewed by me. Significant improvement of pneumothorax compared to the admission chest x-ray. - Cardiac thoracic surgery following this patient. No more air leaks. Chest tube may be out soon. - Significant subcutaneous air present. Patient is hemodynamically stable. - Continue cefuroxime. Completed azithromycin. - Continue supplemental oxygen, DuoNeb when necessary. - Atrial flutter - noted on EKG last night. [id number] score would be at least 2 (Age > 75). - Not requiring any Cardizem drip or PO meds. Rate is controlled. If needed, we can start Cardizem PO or preferably Metoprolol. - May benefit from Apixaban in future. We will consider Apixaban once chest tube is out. Full code. Heparin SQ. Problem Qualifiers (1) Leukocytosis: Qualified Code: D72.829 - Leukocytosis, unspecified type (2) OA (osteoarthritis): Qualified Code: M19.90 - Osteoarthritis, unspecified osteoarthritis type, unspecified site (3) GERD (gastroesophageal reflux disease): Qualified Code: K21.9 - Gastroesophageal reflux disease, esophagitis presence not specified (4) COPD (chronic obstructive pulmonary disease): Qualified Code: J44.9 - Chronic obstructive pulmonary disease, unspecified COPD type Ana Olivera DO Jul 22, 2016 1:30 pm
--- NOTE | 2016-07-22 18:09 | HHI.PR ---
Subjective Remarks 80 YOWM with COPD, spontaneous PTX Has right chest tube Mild sob No CP No Air leak today Objective Vital Signs Vital Signs Date Time Temp Pulse Resp B/P Pulse Ox O2 Delivery O2 Flow Rate FiO2 07/22/16 17:05 84 07/22/16 16:00 82 07/22/16 15:00 75 07/22/16 15:00 97.2 83 16 104/63 96 07/22/16 14:00 86 07/22/16 13:03 76 07/22/16 12:00 80 07/22/16 11:58 97.1 75 16 118/76 97 07/22/16 11:01 87 07/22/16 10:00 94 07/22/16 09:39 96 Nasal Cannula 1.00 07/22/16 09:00 88 07/22/16 08:30 97.9 76 18 103/70 93 07/22/16 08:00 88 07/22/16 07:00 77 07/22/16 05:00 76 07/22/16 04:35 95 Nasal Cannula 1.00 07/22/16 04:00 72 07/22/16 03:00 98.0 73 16 112/72 97 07/22/16 03:00 73 07/22/16 02:00 63 07/22/16 01:00 77 07/22/16 00:00 83 07/21/16 23:00 83 07/21/16 23:00 97.2 83 18 111/76 99 07/21/16 23:00 84 07/21/16 22:00 85 07/21/16 21:00 88 07/21/16 20:00 93 07/21/16 20:00 97.0 93 16 142/57 98 I/O 07/21/16 07/21/16 07/21/16 07/22/16 07/22/16 07/22/16 07:00 15:00 23:00 07:00 15:00 23:00 Intake Total 240 ml 600 ml 480 ml Output Total 870 ml 100 ml 70 ml 900 ml 810 ml Balance -630 ml -100 ml -70 ml -300 ml -330 ml Intake Oral 240 ml 600 ml 480 ml Output Urine Total 800 ml 100 ml 850 ml 750 ml Chest Tube Drainage Total 70 ml 70 ml 50 ml 60 ml # Bowel Movements 0 0 Result Diagram: 07/19/16 0458 07/19/16 0458 Objective Remarks GENERAL: WBWN elderly male, mild sob SKIN: Warm and dry. HEAD: Normocephalic. EYES: No scleral icterus. No injection or drainage. NECK: Supple, trachea midline. No JVD or lymphadenopathy. CARDIOVASCULAR: Regular rate and rhythm without murmurs, gallops, or rubs. RESPIRATORY: Breath sounds equal bilaterally. No accessory muscle use. Right chest tube with Airlesk GASTROINTESTINAL: Abdomen soft, non-tender, nondistended. MUSCULOSKELETAL: No cyanosis, or edema. BACK: Nontender without obvious deformity. No CVA tenderness. A/P Assessment and Plan COPD Spontaneous right PTX- S/P Chest tube placement SQ Emphysema HTN PLAN: Chest tube to suction Supplement 02 Aerosol nebs Cont Abx Zithro and PO Ceftin CXR in AM Will put chest tube to Water seal in AM Jayro Hicks MD Jul 22, 2016 18:09
[2016-07-23] VITALS (27 sets, daily range): BP systolic 108–125; BP diastolic 70–76; PULSE 69–96; RESP 15–18; TEMP 97.8–99.1; O2SAT 95–97
[2016-07-23] MEDS: CHLORHEXIDINE GLUCONATE 2 % 1 PACK (2 CLOTHS) TOP SCH (04:00)
[2016-07-23] MEDS: RESP: ALBUTEROL 2.5 MG/IPRATROPIUM 0.5 MG NEB (SCH) INH ×4 (04:00→22:33)
--- NOTE | 2016-07-23 04:29 | RADRPT ---
EXAM DATE/TIME: 07/23/2016 03:26 [facility] COMPARISON: CHEST SINGLE AP, July 21, 2016, 16:29. INDICATIONS : Evaluate for pneumothorax. MEDICAL HISTORY : Chronic obstructive pulmonary disease. SURGICAL HISTORY : None. ENCOUNTER: Subsequent ACUITY: 1 week PAIN SCORE: Non-responsive. LOCATION: Bilateral chest FINDINGS: Small caliber chest tube again seen on the right. No perceptible pneumothorax but considerable chest wall emphysema persists. Mild consolidation of the right upper lobe and left base not significantly changed. No large effusion seen. Heart size stable, mildly enlarged. CONCLUSION: 1. Right chest tube remains in place without a definite pneumothorax but there is persistent chest wa ll emphysema. 2. Right upper lobe and left base consolidation not significantly changed. 3. Mild cardiomegaly again noted. Jerome Naranjo MD on July 23, 2016 at 4:26 Board Certified Radiologist. This report was verified electronically.
[2016-07-23] MEDS: HEPARIN SODIUM - SQ 10,000 UNITS/ML VIAL SQ SCH ×3 (06:37→20:08)
[2016-07-23 07:21] LABS: BICARBONATE 27.7 MEQ/L (21.0-32.0); MAGNESIUM 2.2 MG/DL (1.5-2.5); POTASSIUM 4.4 MEQ/L (3.5-5.1)
[2016-07-23] MEDS: MUPIROCIN 2% OINT 1 APPLIC/GM SYR EACH NARE SCH ×2 (08:37→20:09)
[2016-07-23] MEDS: CEFUROXIME AXETIL 500 MG TAB PO SCH ×2 (10:26→22:04)
[2016-07-23] MEDS: DOCUSATE SODIUM 50 MG/SENNA 8.6 MG TAB PO SCH ×2 (10:27→20:09)
[2016-07-23] MEDS: SODIUM CHLORIDE 0.9% FLUSH 5 ML FLUSH IV FLUSH SCH ×2 (10:27→20:08)
[2016-07-23] MEDS: ARTIFICIAL TEARS OPTH SOLN 15 ML BTL EACH EYE SCH ×3 (10:27→17:48)
--- NOTE | 2016-07-23 10:39 | PD.CAR.PN ---
CVT Progress Note Subjective/Hospital Course: no air leak noted CXR noted,no further ptx some RUL LEFT BASE CONSOLIDATION continue aggressive pulm toileting discussed with Dr Tony change chest tube 20cm suction then consider placing to water seal suq q emphysema improving if no improvement by end of week, will need to eval for possible VATS/ bleb resection Objective: GENERAL: SKIN: Warm and dry. HEAD: Normocephalic. EYES: No scleral icterus. No injection or drainage. NECK: Supple, trachea midline. No JVD or lymphadenopathy. CARDIOVASCULAR: Regular rate and rhythm without murmurs, gallops, or rubs. RESPIRATORY: Breath sounds equal bilaterally. No accessory muscle use. chest tube to 20cm suction , no air leak , minimal drainage GASTROINTESTINAL: Abdomen soft, non-tender, nondistended. MUSCULOSKELETAL: No cyanosis, or edema. BACK: Nontender without obvious deformity. No CVA tenderness. Vital Signs Date Time Temp Pulse Resp B/P Pulse Ox O2 Delivery O2 Flow Rate FiO2 07/23/16 08:45 70 16 108/70 95 07/23/16 08:38 95 Nasal Cannula 21 07/23/16 07:00 71 07/23/16 06:00 69 07/23/16 05:00 73 07/23/16 04:00 73 07/23/16 03:30 98.5 71 18 120/76 95 07/23/16 03:00 75 07/23/16 02:00 77 07/23/16 01:00 77 07/23/16 00:00 75 07/22/16 23:00 80 07/22/16 23:00 97.8 75 18 109/69 95 07/22/16 22:36 95 07/22/16 22:00 84 07/22/16 21:00 92 07/22/16 20:00 90 07/22/16 20:00 97.5 89 18 112/72 97 07/22/16 19:00 94 07/22/16 18:18 81 07/22/16 17:05 84 07/22/16 16:00 82 07/22/16 15:00 75 07/22/16 15:00 97.2 83 16 104/63 96 07/22/16 14:00 86 07/22/16 13:03 76 07/22/16 12:00 80 07/22/16 11:58 97.1 75 16 118/76 97 07/22/16 11:01 87 Labs: Laboratory Tests Test 07/23/16 06:30 Sodium Level 138 MEQ/L (136-145) Potassium Level 4.4 MEQ/L (3.5-5.1) Chloride Level 103 MEQ/L (98-107) Carbon Dioxide Level 27.7 MEQ/L (21.0-32.0) Anion Gap 7 MEQ/L (5-15) Blood Urea Nitrogen 18 MG/DL (7-18) Creatinine 0.83 MG/DL (0.60-1.30) Estimat Glomerular Filtration 90 ML/MIN (>89) Rate Random Glucose 78 MG/DL (74-106) Calcium Level 8.5 MG/DL (8.5-10.1) Magnesium Level 2.2 MG/DL (1.5-2.5) Thyroid Stimulating Hormone 1.960 uIU/ML 3rd Gen (0.358-3.740) Result Diagram: 07/19/16 0458 07/23/16 0630 (1) Pneumothorax, right Plan: chest tube to 20cm suction occlusive vaseline dressing change to aceves seal in am eval for removal (2) COPD (chronic obstructive pulmonary disease) Problem Qualifiers (1) COPD (chronic obstructive pulmonary disease): Qualified Code: J44.9 - Chronic obstructive pulmonary disease, unspecified COPD type Conchita Valadez Jul 23, 2016 10:39
--- NOTE | 2016-07-23 16:09 | HHI.PR ---
Subjective Remarks Follow-up pneumothorax. Denies chest pain and shortness of breath. Repeat chest x-ray shows no pneumothorax. There is no air leak. Telemetry shows sinus rhythm. Complains of chronic left upper chest discomfort after eating relieved with burping. Discussed with RN Objective Vitals Vital Signs Date Time Temp Pulse Resp B/P Pulse Ox O2 Delivery O2 Flow Rate FiO2 07/23/16 15:00 97.8 83 16 125/76 97 07/23/16 15:00 85 07/23/16 14:00 88 07/23/16 13:00 92 07/23/16 12:00 90 07/23/16 11:30 97.8 86 15 120/73 96 07/23/16 11:00 89 07/23/16 10:00 80 07/23/16 09:00 74 07/23/16 08:45 70 16 108/70 95 07/23/16 08:38 95 Nasal Cannula 21 07/23/16 08:00 70 07/23/16 07:00 71 07/23/16 06:00 69 07/23/16 05:00 73 07/23/16 04:00 73 07/23/16 03:30 98.5 71 18 120/76 95 07/23/16 03:00 75 07/23/16 02:00 77 07/23/16 01:00 77 07/23/16 00:00 75 07/22/16 23:00 80 07/22/16 23:00 97.8 75 18 109/69 95 07/22/16 22:36 95 07/22/16 22:00 84 07/22/16 21:00 92 07/22/16 20:00 90 07/22/16 20:00 97.5 89 18 112/72 97 07/22/16 19:00 94 07/22/16 18:18 81 07/22/16 17:05 84 I/O 07/22/16 07/22/16 07/22/16 07/23/16 07/23/16 07/23/16 06:59 14:59 22:59 06:59 14:59 22:59 Intake Total 600 ml 480 ml 240 ml Output Total 900 ml 810 ml 300 ml Balance -300 ml -330 ml -60 ml Intake Oral 600 ml 480 ml 240 ml Output Urine Total 850 ml 750 ml 300 ml Chest Tube Drainage Total 50 ml 60 ml # Voids 1 # Bowel Movements 0 1 Result Diagram: 07/19/16 0458 07/23/16 0630 Imaging Last Impressions Chest X-Ray 07/23/16 0600 Signed Impressions: Service Date/Time: Saturday, July 23, 2016 03:26 - CONCLUSION: 1. Right chest tube remains in place without a definite pneumothorax but there is persistent chest wall emphysema. 2. Right upper lobe and left base consolidation not significantly changed. 3. Mild cardiomegaly again noted. Jerome Naranjo MD Chest CT 07/16/16 1244 Signed Impressions: Service Date/Time: Saturday, July 16, 2016 13:05 - CONCLUSION: 1. Right- sided chest tube is superficial to the chest cavity. 2. Large right pneumothorax. 3. Extensive right-sided subcutaneous emphysema. 4. Findings were discussed with Dr. Higgins. Hayes Marsh MD Chest Tube Insertion 07/16/16 0000 Signed Impressions: Service Date/Time: Saturday, July 16, 2016 14:22 - CONCLUSION: Uncomplicated chest tube placement as above. Jeanmarie Vera MD Objective Remarks GENERAL: Alert, oriented 3, NAD. SKIN: Warm and dry. SubQ crepitus on both upper arms and shoulder especially on the right side. HEAD: Normocephalic. EYES: No scleral icterus. No injection or drainage. NECK: Supple, trachea midline. No JVD or lymphadenopathy. CARDIOVASCULAR: Regular rate and rhythm without murmurs, gallops, or rubs. RESPIRATORY: Breath sounds equal bilaterally. No accessory muscle use. GASTROINTESTINAL: Abdomen soft, non-tender, nondistended. MUSCULOSKELETAL: No cyanosis, or edema. BACK: Nontender without obvious deformity. No CVA tenderness. Chest tube in place on 20 cm suction. Procedures Chest tube placement on the right side by IR. A/P Problem List: (1) Pneumothorax, right ICD Code: J93.9 Status: Acute (2) Leukocytosis ICD Code: D72.829 Status: Acute (3) History of MRSA infection ICD Code: Z86.14 Status: Acute (4) OA (osteoarthritis) ICD Code: M19.90 Status: Acute (5) GERD (gastroesophageal reflux disease) ICD Code: K21.9 Status: Acute (6) COPD (chronic obstructive pulmonary disease) ICD Code: J44.9 Status: Acute Assessment and Plan Mr. Guerra is a pleasant 80-year-old male with a history of COPD, GERD , osteoarthritis who presented to the emergency department on 07/16/2016 due to chest pain and shortness of breath. Chest x-ray in the ED showed a large right pneumothorax. Patient underwent a pigtail catheter placement in the right chest interventional radiology. Cardiac thoracic surgery has been following this patient. - Right-sided spontaneous pneumothorax - COPD - no acute exacerbation. Pneumothorax could be related to COPD, however. - Probable pneumonia - left lower lobe. - CXR on 07/20/2016 reviewed by me. Shows improved pneumothorax and LLL airspace disease. - Chest x-ray from 07/16/2016 and 07/18/2016 and reviewed by me. Significant improvement of pneumothorax compared to the admission chest x-ray. - Cardiac thoracic surgery following this patient. No more air leaks. Chest tube may be out soon. - Significant subcutaneous air present. Patient is hemodynamically stable. - Continue cefuroxime. Completed azithromycin. - Continue supplemental oxygen, DuoNeb when necessary. - Atrial flutter -transient. [id number] score would be at least 2 (Age > 75). - Not requiring any Cardizem drip or PO meds. Rate is controlled. If needed, we can start Cardizem PO or preferably Metoprolol. - May benefit from Apixaban in future. We will consider Apixaban once chest tube is out. TSH unremarkable. Obtain 2-D echo Full code. Heparin SQ. Discharge Planning Not ready for discharge Problem Qualifiers (1) Leukocytosis: Qualified Code: D72.829 - Leukocytosis, unspecified type (2) OA (osteoarthritis): Qualified Code: M19.90 - Osteoarthritis, unspecified osteoarthritis type, unspecified site (3) GERD (gastroesophageal reflux disease): Qualified Code: K21.9 - Gastroesophageal reflux disease, esophagitis presence not specified (4) COPD (chronic obstructive pulmonary disease): Qualified Code: J44.9 - Chronic obstructive pulmonary disease, unspecified COPD type Javon Bashir MD Jul 23, 2016 16:08
[2016-07-23] MEDS ORDERED: CALCIUM CARBONATE 500 MG CHEWABLE TAB CHEW PRN (16:15)
[2016-07-23] MEDS ORDERED: ALUMINUM/MAGNESIUM/SIMETH 30 ML CUP PO PRN (16:15)
--- NOTE | 2016-07-23 17:01 | EC ---
Study Study Date:07/23/2016 STUDY CONCLUSIONS SUMMARY - Left ventricle: The cavity size was normal. Wall thickness was normal. Systolic function was moderately to severely reduced. The estimated ejection fraction was in the range of 30% to 35%. Diffuse hypokinesis. - Aortic valve: Valve area: 2.35cm^2(VTI). Valve area: 2.24cm^2 (Vmax). - Mitral valve: Mild regurgitation. - Tricuspid valve: Mild regurgitation. - Pulmonary arteries: PA peak pressure: 35mm Hg (S). If LV function is below 40, please consider prescribing an ACEI or ARB or document rationale for non-use. PROCEDURE DATA STUDY STATUS: Elective. Procedure: Transthoracic echocardiography. Image quality was good. Scanning was performed from the parasternal, apical, and subcostal acoustic windows. Study completion: The patient tolerated the procedure well. Transthoracic echocardiography. M-mode, complete 2D, complete spectral Doppler, and color Doppler. Height: Height: 67in. Weight: Weight: 153.7lb. Body mass index: BMI: 24.1kg/m^2. Body surface area: BSA: 1.81m^2. Patient status: Inpatient. CARDIAC ANATOMY LEFT VENTRICLE: The cavity size was normal. Wall thickness was normal. Systolic function was moderately to severely reduced. The estimated ejection fraction was in the range of 30% to 35%. Diffuse hypokinesis. AORTIC VALVE: Trileaflet; normal thickness leaflets. Doppler: Transvalvular velocity was within the normal range. There was no stenosis. No regurgitation. Valve area: 2.35cm^2(VTI). Indexed valve area: 1.3cm^2/m^2 (VTI). Valve area: 2.24cm^2 (Vmax). Indexed valve area: 1.24cm^2/m^2 (Vmax). Mean gradient: 3mm Hg (S). AORTA: Aortic root: The aortic root was normal in size. MITRAL VALVE: Structurally normal valve. Doppler: Transvalvular velocity was within the normal range. There was no evidence for stenosis. Mild regurgitation. LEFT ATRIUM: The atrium was normal in size. RIGHT VENTRICLE: The cavity size was normal. Wall thickness was normal. PULMONIC VALVE: Doppler: Transvalvular velocity was within the normal range. There was no evidence for stenosis. No regurgitation. TRICUSPID VALVE: Structurally normal valve. Doppler: Transvalvular velocity was within the normal range. Mild regurgitation. PULMONARY ARTERY: The main pulmonary artery was normal-sized. Systolic pressure was within the normal range. RIGHT ATRIUM: The atrium was normal in size. PERICARDIUM: There was no pericardial effusion. SYSTEMIC VEINS: Inferior vena cava: The vessel was normal in size. Patient weight: 153.7lb _Ejection fraction:_ 65-75% _Fractional shortening:_ 32% up to 5Kg 5-11.5Kg 11.6-22.9Kg 23-45Kg 45-57Kg Aortic Root 7-13 <17 13-22 17-27 17-27 LA diam 6-13 <23 24-38 33-47 37-40 RVID 10-17 7-15 7-15 7-18 8-17 LVIDd 12-22 <32 24-38 33-47 37-40 LVPW 2-4 3-6 5-7 6-8 7-8 IVS 2-4 3-6 5-7 6-8 7-8 BASIC MEASUREMENTS ADULT NORMAL Left ventricle LV internal dimension, ED, chordal 51.6 mm 43-52 level, PLAX LV internal dimension, ES, chordal *44.9 mm 23-38 level, PLAX Fractional shortening, chordal level, *13 % >29 PLAX LV posterior wall thickness, ED 8.37 mm IVS/LVPW ratio, ED 0.99 <1.3 Ventricular septum Septal thickness, ED 8.31 mm Aortic valve Leaflet separation 21 mm 15-26 Aorta Root diameter, ED 35 mm BASIC MEASUREMENTS ADULT NORMAL Aortic valve Leaflet separation 21 mm 15-26 DOPPLER MEASUREMENTS ADULT NORMAL Main pulmonary artery Pressure, S *35 mm Hg =30 Aortic valve Peak velocity, S 110 cm/s Mean velocity, S 78.4 cm/s VTI, S 19.6 cm Mean gradient, S 3 mm Hg Valve area, VTI 2.35 cm^2 Valve area index, VTI 1.3 cm^2/m^2 Valve area, Vmax 2.24 cm^2 Valve area index, Vmax 1.24 cm^2/m^2 Mitral valve Peak E-wave velocity 40.5 cm/s Peak A-wave velocity 69.1 cm/s Deceleration time *95 ms 150-230 Peak E/A ratio 0.6 Tricuspid valve Regurgitant peak velocity 248 cm/s Peak RV-RA gradient, S 25 mm Hg Maximal regurgitant velocity 248 cm/s Systemic veins Estimated CVP 10 mm Hg Right ventricle RV pressure, S *35 mm Hg <30 LEGEND: Mean values are shown as u=mean value. Asterisk (*) granado values outside specified normal range. Prepared and signed by Isiah Javed [id number]
--- NOTE | 2016-07-23 17:50 | HHI.PR ---
Subjective Remarks 80 YOWM with COPD, spontaneous PTX Has right chest tube Mild sob No CP No Air leak today Chest tube suction decreased 20 cms Objective Vital Signs Vital Signs Date Time Temp Pulse Resp B/P Pulse Ox O2 Delivery O2 Flow Rate FiO2 07/23/16 16:07 97 21 07/23/16 15:00 97.8 83 16 125/76 97 07/23/16 15:00 85 07/23/16 14:00 88 07/23/16 13:00 92 07/23/16 12:00 90 07/23/16 11:30 97.8 86 15 120/73 96 07/23/16 11:00 89 07/23/16 10:00 80 07/23/16 09:00 74 07/23/16 08:45 70 16 108/70 95 07/23/16 08:38 95 Nasal Cannula 21 07/23/16 08:00 70 07/23/16 07:00 71 07/23/16 06:00 69 07/23/16 05:00 73 07/23/16 04:00 73 07/23/16 03:30 98.5 71 18 120/76 95 07/23/16 03:00 75 07/23/16 02:00 77 07/23/16 01:00 77 07/23/16 00:00 75 07/22/16 23:00 80 07/22/16 23:00 97.8 75 18 109/69 95 07/22/16 22:36 95 07/22/16 22:00 84 07/22/16 21:00 92 07/22/16 20:00 90 07/22/16 20:00 97.5 89 18 112/72 97 07/22/16 19:00 94 07/22/16 18:18 81 I/O 07/22/16 07/22/16 07/22/16 07/23/16 07/23/16 07/23/16 06:59 14:59 22:59 06:59 14:59 22:59 Intake Total 600 ml 480 ml 240 ml Output Total 900 ml 810 ml 300 ml Balance -300 ml -330 ml -60 ml Intake Oral 600 ml 480 ml 240 ml Output Urine Total 850 ml 750 ml 300 ml Chest Tube Drainage Total 50 ml 60 ml # Voids 1 # Bowel Movements 0 1 Result Diagram: 07/19/16 0458 07/23/16 0630 Objective Remarks GENERAL: WBWN elderly male, mild sob SKIN: Warm and dry. HEAD: Normocephalic. EYES: No scleral icterus. No injection or drainage. NECK: Supple, trachea midline. No JVD or lymphadenopathy. CARDIOVASCULAR: Regular rate and rhythm without murmurs, gallops, or rubs. RESPIRATORY: Breath sounds equal bilaterally. No accessory muscle use. Right chest tube with Airlesk GASTROINTESTINAL: Abdomen soft, non-tender, nondistended. MUSCULOSKELETAL: No cyanosis, or edema. BACK: Nontender without obvious deformity. No CVA tenderness. A/P Assessment and Plan COPD Spontaneous right PTX- S/P Chest tube placement SQ Emphysema HTN PLAN: Chest tube to suction Supplement 02 Aerosol nebs Cont Abx Zithro and PO Ceftin CXR in AM CTS following Jayro Hicks MD Jul 23, 2016 17:49
[2016-07-23] MEDS: ACETAMINOPHEN/HYDROcodone 325 MG/5 MG TAB PO PRN (20:08)
[2016-07-24] VITALS (22 sets, daily range): BP systolic 12–123; BP diastolic 69–83; PULSE 70–92; RESP 16–18; TEMP 97.4–99; O2SAT 94–98
[2016-07-24] MEDS: CHLORHEXIDINE GLUCONATE 2 % 1 PACK (2 CLOTHS) TOP SCH ×2 (04:00→21:37)
[2016-07-24] MEDS: RESP: ALBUTEROL 2.5 MG/IPRATROPIUM 0.5 MG NEB (SCH) INH ×3 (05:09→20:25)
[2016-07-24] MEDS: HEPARIN SODIUM - SQ 10,000 UNITS/ML VIAL SQ SCH ×3 (05:50→21:29)
--- NOTE | 2016-07-24 06:52 | RADRPT ---
EXAM DATE/TIME: 07/24/2016 06:20 [facility] COMPARISON: CHEST SINGLE AP, July 23, 2016, 3:26. INDICATIONS : Shortness of breath, possible pulmonary disease. MEDICAL HISTORY : Chronic obstructive pulmonary disease. Arthritis. SURGICAL HISTORY : Total knee replacement, left. Total knee replacement, right. ENCOUNTER: Subsequent ACUITY: 1 week PAIN SCORE: 0/10 LOCATION: Bilateral chest FINDINGS: Small caliber chest tube again seen on the right. No perceptible pneumothorax. Chest wall emphysema p ersists. Mild consolidation of the right upper lobe and left base not significantly changed. No large effusion seen. Heart size stable, mildly enlarged. CONCLUSION: No significant change. Right chest tube remains in place. No measurable pneumothorax but considerable chest wall emphysema again noted would suggest there is an anteriorly positioned radiographically oc cult pneumothorax possible. The right upper lobe and left base areas of consolidation are unchanged. Jerome Naranjo MD on July 24, 2016 at 6:47 Board Certified Radiologist. This report was verified electronically.
[2016-07-24] MEDS: MUPIROCIN 2% OINT 1 APPLIC/GM SYR EACH NARE SCH ×2 (08:53→21:00)
[2016-07-24] MEDS: PANTOPRAZOLE SOD 40 MG DELAYED RELEASE TAB PO SCH (08:54)
[2016-07-24] MEDS: DOCUSATE SODIUM 50 MG/SENNA 8.6 MG TAB PO SCH ×2 (08:56→21:00)
[2016-07-24] MEDS: CARVEDILOL 3.125 MG TAB PO SCH ×2 (08:56→21:00)
[2016-07-24] MEDS: SODIUM CHLORIDE 0.9% FLUSH 5 ML FLUSH IV FLUSH SCH ×2 (08:58→21:00)
[2016-07-24] MEDS: ARTIFICIAL TEARS OPTH SOLN 15 ML BTL EACH EYE SCH ×3 (09:00→17:13)
[2016-07-24] MEDS: CEFUROXIME AXETIL 500 MG TAB PO SCH ×2 (11:41→21:36)
--- NOTE | 2016-07-24 11:44 | PD.CAR.PN ---
CVT Progress Note Subjective/Hospital Course: no air leak noted CXR noted,no further ptx some RUL LEFT BASE CONSOLIDATION continue aggressive pulm toileting discussed with Dr Tony change chest tube 20cm suction then consider placing to water seal suq q emphysema improving 07/24/16 No complaints, no air leak if no improvement by end of week, will need to eval for possible VATS/ bleb resection Objective: Vital Signs Date Time Temp Pulse Resp B/P Pulse Ox O2 Delivery O2 Flow Rate FiO2 07/24/16 10:20 84 07/24/16 09:00 81 07/24/16 08:00 97.6 84 18 109/73 97 07/24/16 08:00 82 07/24/16 07:19 76 07/24/16 06:00 70 07/24/16 04:00 98.7 79 16 119/69 94 07/24/16 04:00 80 07/24/16 02:00 82 07/24/16 00:00 86 07/24/16 00:00 99.0 86 16 123/79 94 07/23/16 22:33 96 07/23/16 22:00 82 07/23/16 20:00 86 07/23/16 20:00 99.1 86 18 117/71 95 07/23/16 18:00 96 07/23/16 17:00 86 07/23/16 16:07 97 21 07/23/16 16:00 84 07/23/16 15:00 97.8 83 16 125/76 97 07/23/16 15:00 85 07/23/16 14:00 88 07/23/16 13:00 92 07/23/16 12:00 90 Result Diagram: 07/23/16 0630 Imaging: Last 24 hours Impressions Chest X-Ray 07/24/16 0000 Signed Impressions: Service Date/Time: Sunday, July 24, 2016 06:20 - CONCLUSION: No significant change. Right chest tube remains in place. No measurable pneumothorax but considerable chest wall emphysema again noted would suggest there is an anteriorly positioned radiographically occult pneumothorax possible. The right upper lobe and left base areas of consolidation are unchanged. Jerome Naranjo MD Cardiovascular: RRR Pulmonary: CTA, some SQ emphysema GI/: NABS, NT CT: No air leak, minimal drainage Plan: Water seal today CXR PA/LAT in AM (1) Pneumothorax, right Plan: chest tube to 20cm suction occlusive vaseline dressing change to aceves seal in am eval for removal (2) COPD (chronic obstructive pulmonary disease) Problem Qualifiers (1) COPD (chronic obstructive pulmonary disease): Qualified Code: J44.9 - Chronic obstructive pulmonary disease, unspecified COPD type Maite Bowman MD Jul 24, 2016 11:44
--- NOTE | 2016-07-24 14:14 | HHI.PR ---
Subjective Remarks Follow-up pneumothorax. Denies chest pain and shortness of breath. Repeat chest x-ray results discussed with the patient CT will be changed to waterseal per CVT. Discussed with RN. Also discussed with daughter, need for ischemic workup. Patient wants to discharged as soon as possible and will follow up outpatient Objective Vitals Vital Signs Date Time Temp Pulse Resp B/P Pulse Ox O2 Delivery O2 Flow Rate FiO2 07/24/16 13:19 79 07/24/16 12:17 90 07/24/16 11:22 92 07/24/16 11:22 97.4 80 16 12/72 95 07/24/16 10:20 84 07/24/16 09:00 81 07/24/16 08:00 97.6 84 18 109/73 97 07/24/16 08:00 82 07/24/16 07:19 76 07/24/16 06:00 70 07/24/16 04:00 98.7 79 16 119/69 94 07/24/16 04:00 80 07/24/16 02:00 82 07/24/16 00:00 86 07/24/16 00:00 99.0 86 16 123/79 94 07/23/16 22:33 96 07/23/16 22:00 82 07/23/16 20:00 86 07/23/16 20:00 99.1 86 18 117/71 95 07/23/16 18:00 96 07/23/16 17:00 86 07/23/16 16:07 97 21 07/23/16 16:00 84 07/23/16 15:00 97.8 83 16 125/76 97 07/23/16 15:00 85 I/O 07/23/16 07/23/16 07/23/16 07/24/16 07/24/16 07/24/16 07:00 15:00 23:00 07:00 15:00 23:00 Intake Total 240 ml 480 ml 360 ml Output Total 300 ml 390 ml 300 ml Balance -60 ml 90 ml 60 ml Intake Oral 240 ml 480 ml 360 ml Output Urine Total 300 ml 375 ml 300 ml Chest Tube Drainage Total 15 ml 0 ml # Voids 1 # Bowel Movements 1 0 0 Result Diagram: 07/23/16 0630 Imaging Last Impressions Chest X-Ray 07/24/16 0000 Signed Impressions: Service Date/Time: Sunday, July 24, 2016 06:20 - CONCLUSION: No significant change. Right chest tube remains in place. No measurable pneumothorax but considerable chest wall emphysema again noted would suggest there is an anteriorly positioned radiographically occult pneumothorax possible. The right upper lobe and left base areas of consolidation are unchanged. Jerome Naranjo MD Chest CT 07/16/16 1244 Signed Impressions: Service Date/Time: Saturday, July 16, 2016 13:05 - CONCLUSION: 1. Right- sided chest tube is superficial to the chest cavity. 2. Large right pneumothorax. 3. Extensive right-sided subcutaneous emphysema. 4. Findings were discussed with Dr. Higgins. Hayes Marsh MD Chest Tube Insertion 07/16/16 0000 Signed Impressions: Service Date/Time: Saturday, July 16, 2016 14:22 - CONCLUSION: Uncomplicated chest tube placement as above. Jeanmarie Vera MD Objective Remarks GENERAL: Alert, oriented 3, NAD. SKIN: Warm and dry. SubQ crepitus on both upper arms and shoulder especially on the right side. HEAD: Normocephalic. EYES: No scleral icterus. No injection or drainage. NECK: Supple, trachea midline. No JVD or lymphadenopathy. CARDIOVASCULAR: Regular rate and rhythm without murmurs, gallops, or rubs. RESPIRATORY: Breath sounds equal bilaterally. No accessory muscle use. GASTROINTESTINAL: Abdomen soft, non-tender, nondistended. MUSCULOSKELETAL: No cyanosis, or edema. BACK: Nontender without obvious deformity. No CVA tenderness. Chest tube in place on 20 cm suction. Procedures Chest tube placement on the right side by IR. A/P Problem List: (1) Pneumothorax, right ICD Code: J93.9 Status: Acute (2) Leukocytosis ICD Code: D72.829 Status: Acute (3) History of MRSA infection ICD Code: Z86.14 Status: Acute (4) OA (osteoarthritis) ICD Code: M19.90 Status: Acute (5) GERD (gastroesophageal reflux disease) ICD Code: K21.9 Status: Acute (6) COPD (chronic obstructive pulmonary disease) ICD Code: J44.9 Status: Acute Assessment and Plan Mr. Guerra is a pleasant 80-year-old male with a history of COPD, GERD , osteoarthritis who presented to the emergency department on 07/16/2016 due to chest pain and shortness of breath. Chest x-ray in the ED showed a large right pneumothorax. Patient underwent a pigtail catheter placement in the right chest interventional radiology. Cardiac thoracic surgery has been following this patient. - Right-sided spontaneous pneumothorax - COPD - no acute exacerbation. Pneumothorax could be related to COPD, however. - Probable pneumonia - left lower lobe. - CXR on 07/20/2016 reviewed by me. Shows improved pneumothorax and LLL airspace disease. - Chest x-ray from 07/16/2016 and 07/18/2016 and reviewed by me. Significant improvement of pneumothorax compared to the admission chest x-ray. - Cardiac thoracic surgery following this patient. No more air leaks. Chest tube may be out soon. - Significant subcutaneous air present. Patient is hemodynamically stable. - Continue cefuroxime. Completed azithromycin. - Continue supplemental oxygen, DuoNeb when necessary. - Atrial flutter -transient. [id number] score would be at least 2 (Age > 75). - Not requiring any Cardizem drip or PO meds. Rate is controlled. If needed, we can start Cardizem PO or preferably Metoprolol. - May benefit from Apixaban in future. We will consider Apixaban once chest tube is out. TSH unremarkable. Obtain 2-D echo showed EF of 30%. Start Coreg then add lisinopril. CHF education, I/O and monitor weight. He will need ischemic workup once chest tube is out Full code. Heparin SQ. Discharge Planning Not ready for discharge Problem Qualifiers (1) Leukocytosis: Qualified Code: D72.829 - Leukocytosis, unspecified type (2) OA (osteoarthritis): Qualified Code: M19.90 - Osteoarthritis, unspecified osteoarthritis type, unspecified site (3) GERD (gastroesophageal reflux disease): Qualified Code: K21.9 - Gastroesophageal reflux disease, esophagitis presence not specified (4) COPD (chronic obstructive pulmonary disease): Qualified Code: J44.9 - Chronic obstructive pulmonary disease, unspecified COPD type Javon Bashir MD Jul 24, 2016 14:14
--- NOTE | 2016-07-24 14:14 | HHI.DCPOC ---
Discharge Care Plan Diagnosis: (1) Pneumothorax, right Your Health Problems Are: Difficulty with ADL Exercise Tolerance Goals to Promote Your Health * To prevent worsening of your condition and complications * To maintain your health at the optimal level Directions to Meet Your Goals Take your medications as prescribed Follow your dietary instruction Follow activity as directed Keep your appointments as scheduled Take your immunizations and boosters as scheduled If your symptoms worsen call your PCP, if no PCP go to Urgent Care Center or Emergency Room Smoking is Dangerous to Your Health. Avoid second hand smoke Call the 24-hour hour crisis hotline for domestic abuse at Javon Bashir MD Jul 24, 2016 14:14
--- NOTE | 2016-07-24 14:15 | HHI.FF ---
Face to Face Verification Diagnosis: (1) Pneumothorax, right (2) COPD (chronic obstructive pulmonary disease) Physical Therapy Order: Evaluate and Treat, Improve ambulation, Strength and gait training Home Health Nursing Order: Medical education Signs/symptoms of disease process CHF education Nursing assessment with vital signs I have seen patient Shahid Guerra on 07/24/16. My clinical findings support the need for the requested home health care services because: Ltd mobility - disease progression Patient has SOB I certify that my clinical findings support that this patient is homebound because: Unsafe to leave home unassisted Javon Bashir MD Jul 24, 2016 14:15
[2016-07-24] MEDS ORDERED: HYDR-3516 PO (14:17)
[2016-07-24] MEDS ORDERED: CARV3.125 PO (14:17)
[2016-07-24] MEDS ORDERED: CEFT500T3 PO (14:17)
[2016-07-25] VITALS (28 sets, daily range): BP systolic 107–119; BP diastolic 48–78; PULSE 70–94; RESP 16–18; TEMP 97.8–98.4; O2SAT 93–98
[2016-07-25] MEDS: RESP: ALBUTEROL 2.5 MG/IPRATROPIUM 0.5 MG NEB (SCH) INH ×4 (04:39→21:17)
[2016-07-25] MEDS: HEPARIN SODIUM - SQ 10,000 UNITS/ML VIAL SQ SCH ×3 (05:56→21:06)
--- NOTE | 2016-07-25 06:45 | RADRPT ---
EXAM DATE/TIME: 07/25/2016 06:17 [facility] COMPARISON: CT THORAX W/O CONTRAST, July 16, 2016, 13:05. CHEST SINGLE AP, July 24, 2016, 6:20. INDICATIONS : Shortness of breath, possible pulmonary disease. MEDICAL HISTORY : Chronic obstructive pulmonary disease. Arthritis. SURGICAL HISTORY : Total knee replacement, right. Total knee replacement, left. ENCOUNTER: Subsequent ACUITY: 1 week PAIN SCORE: 3/10 LOCATION: Right chest FINDINGS: Small caliber chest tube on the right positioned laterally at the level of the mid to upper lung agai n noted. No perceptible pneumothorax but there is persistent chest wall emphysema. Right upper lobe c onsolidation not significantly changed. A large hiatal hernia is now apparent. CONCLUSION: 1. Right upper lobe consolidation not significantly changed. 2. Right chest tube remains in place as above. No perceptible pneumothorax but chest wall emphysema p ersists. 3. A large hiatal hernia is well demonstrated today. It was seen on the prior chest CT, not new. Jerome Naranjo MD on July 25, 2016 at 6:40 Board Certified Radiologist. This report was verified electronically.
[2016-07-25] MEDS: CARVEDILOL 3.125 MG TAB PO SCH ×2 (09:00→21:06)
[2016-07-25] MEDS: ARTIFICIAL TEARS OPTH SOLN 15 ML BTL EACH EYE SCH ×3 (09:00→18:00)
[2016-07-25] MEDS: DOCUSATE SODIUM 50 MG/SENNA 8.6 MG TAB PO SCH ×2 (09:00→21:06)
[2016-07-25] MEDS: PANTOPRAZOLE SOD 40 MG DELAYED RELEASE TAB PO SCH (09:00)
[2016-07-25] MEDS: SODIUM CHLORIDE 0.9% FLUSH 5 ML FLUSH IV FLUSH SCH ×2 (09:00→21:00)
[2016-07-25] MEDS: MUPIROCIN 2% OINT 1 APPLIC/GM SYR EACH NARE SCH ×2 (09:00→21:00)
[2016-07-25] MEDS: CEFUROXIME AXETIL 500 MG TAB PO SCH (09:09)
--- NOTE | 2016-07-25 11:38 | PD.CAR.PN ---
CVT Progress Note Subjective/Hospital Course: no air leak noted CXR noted,no further ptx some RUL LEFT BASE CONSOLIDATION continue aggressive pulm toileting discussed with Dr Tony change chest tube 20cm suction then consider placing to water seal suq q emphysema improving 07/24/16 No complaints, no air leak 07/25/16 Stable CXR on water seal if no improvement by end of week, will need to eval for possible VATS/ bleb resection Objective: Vital Signs Date Time Temp Pulse Resp B/P Pulse Ox O2 Delivery O2 Flow Rate FiO2 07/25/16 10:29 82 07/25/16 09:00 87 07/25/16 08:42 94 21 07/25/16 08:12 76 07/25/16 08:11 72 07/25/16 08:00 98.4 86 17 116/72 98 07/25/16 06:00 80 07/25/16 05:00 74 07/25/16 04:00 76 07/25/16 03:29 79 18 117/71 97 07/25/16 03:00 72 07/25/16 02:00 72 07/25/16 01:00 74 07/25/16 00:05 82 18 110/68 96 07/25/16 00:00 84 07/24/16 23:00 77 07/24/16 22:00 78 07/24/16 21:00 80 07/24/16 20:00 86 07/24/16 19:50 97.9 85 18 120/83 97 07/24/16 19:00 74 07/24/16 18:12 71 07/24/16 17:00 72 07/24/16 16:00 72 07/24/16 15:00 98.0 82 18 121/78 98 07/24/16 15:00 79 07/24/16 14:40 82 07/24/16 13:19 79 07/24/16 12:17 90 Result Diagram: 07/23/16 0630 Imaging: Last 24 hours Impressions Chest X-Ray 07/25/16 0600 Signed Impressions: Service Date/Time: Monday, July 25, 2016 06:17 - CONCLUSION: 1. Right upper lobe consolidation not significantly changed. 2. Right chest tube remains in place as above. No perceptible pneumothorax but chest wall emphysema persists. 3. A large hiatal hernia is well demonstrated today. It was seen on the prior chest CT, not new. Jerome Naranjo MD Cardiovascular: RRR Telemetry: NSR Pulmonary: CTA GI/: NABS, NT CT: minimal output Plan: D/C pigtail Discharge planning per primary service (1) Pneumothorax, right Plan: chest tube to 20cm suction occlusive vaseline dressing change to aceves seal in am eval for removal (2) COPD (chronic obstructive pulmonary disease) Problem Qualifiers (1) COPD (chronic obstructive pulmonary disease): Qualified Code: J44.9 - Chronic obstructive pulmonary disease, unspecified COPD type Maite Bowman MD Jul 25, 2016 11:38
--- NOTE | 2016-07-25 13:05 | HHI.PR ---
Subjective Remarks Follow-up pneumothorax. Denies chest pain and shortness of breath. Patient has been refusing medications because he thought they were causing his heartburn symptoms. Discussed with RN, patient will take his medications after discussion with me. He also agrees to undergo ischemic workup. Will schedule patient for stress test once chest tube is out of Objective Vitals Vital Signs Date Time Temp Pulse Resp B/P Pulse Ox O2 Delivery O2 Flow Rate FiO2 07/25/16 10:29 82 07/25/16 09:00 87 07/25/16 08:42 94 21 07/25/16 08:12 76 07/25/16 08:11 72 07/25/16 08:00 98.4 86 17 116/72 98 07/25/16 06:00 80 07/25/16 05:00 74 07/25/16 04:00 76 07/25/16 03:29 79 18 117/71 97 07/25/16 03:00 72 07/25/16 02:00 72 07/25/16 01:00 74 07/25/16 00:05 82 18 110/68 96 07/25/16 00:00 84 07/24/16 23:00 77 07/24/16 22:00 78 07/24/16 21:00 80 07/24/16 20:00 86 07/24/16 19:50 97.9 85 18 120/83 97 07/24/16 19:00 74 07/24/16 18:12 71 07/24/16 17:00 72 07/24/16 16:00 72 07/24/16 15:00 98.0 82 18 121/78 98 07/24/16 15:00 79 07/24/16 14:40 82 07/24/16 13:19 79 I/O 07/24/16 07/24/16 07/24/16 07/25/16 07/25/16 07/25/16 07:00 15:00 23:00 07:00 15:00 23:00 Intake Total 360 ml 720 ml 400 ml Output Total 300 ml 900 ml 450 ml Balance 60 ml -180 ml -50 ml Intake Oral 360 ml 720 ml 400 ml IV Total 0 ml Output Urine Total 300 ml 900 ml 450 ml Chest Tube Drainage Total 0 ml 0 ml 0 ml # Bowel Movements 0 0 0 Result Diagram: 07/23/16 0630 Imaging Last Impressions Chest X-Ray 2/12/17 0600 Signed Impressions: Service Date/Time: Monday, July 25, 2016 06:17 - CONCLUSION: 1. Right upper lobe consolidation not significantly changed. 2. Right chest tube remains in place as above. No perceptible pneumothorax but chest wall emphysema persists. 3. A large hiatal hernia is well demonstrated today. It was seen on the prior chest CT, not new. Jerome Naranjo MD Chest CT 07/16/16 1244 Signed Impressions: Service Date/Time: Saturday, July 16, 2016 13:05 - CONCLUSION: 1. Right- sided chest tube is superficial to the chest cavity. 2. Large right pneumothorax. 3. Extensive right-sided subcutaneous emphysema. 4. Findings were discussed with Dr. Higgins. Hayes Marsh MD Chest Tube Insertion 07/16/16 0000 Signed Impressions: Service Date/Time: Saturday, July 16, 2016 14:22 - CONCLUSION: Uncomplicated chest tube placement as above. Jeanmarie Vera MD Objective Remarks GENERAL: Alert, oriented 3, NAD. SKIN: Warm and dry. SubQ crepitus on both upper arms and shoulder especially on the right side. HEAD: Normocephalic. EYES: No scleral icterus. No injection or drainage. NECK: Supple, trachea midline. No JVD or lymphadenopathy. CARDIOVASCULAR: Regular rate and rhythm without murmurs, gallops, or rubs. RESPIRATORY: Breath sounds equal bilaterally. No accessory muscle use. GASTROINTESTINAL: Abdomen soft, non-tender, nondistended. MUSCULOSKELETAL: No cyanosis, or edema. BACK: Nontender without obvious deformity. No CVA tenderness. Chest tube in place on water seal Procedures Chest tube placement on the right side by IR. A/P Problem List: (1) Pneumothorax, right ICD Code: J93.9 Status: Acute (2) Leukocytosis ICD Code: D72.829 Status: Acute (3) History of MRSA infection ICD Code: Z86.14 Status: Acute (4) OA (osteoarthritis) ICD Code: M19.90 Status: Acute (5) GERD (gastroesophageal reflux disease) ICD Code: K21.9 Status: Acute (6) COPD (chronic obstructive pulmonary disease) ICD Code: J44.9 Status: Acute Assessment and Plan Mr. Guerra is a pleasant 80-year-old male with a history of COPD, GERD , osteoarthritis who presented to the emergency department on 07/16/2016 due to chest pain and shortness of breath. Chest x-ray in the ED showed a large right pneumothorax. Patient underwent a pigtail catheter placement in the right chest interventional radiology. Cardiac thoracic surgery has been following this patient. - Right-sided spontaneous pneumothorax - COPD - no acute exacerbation. Pneumothorax could be related to COPD, however. - Probable pneumonia - left lower lobe. - CXR on 07/20/2016 reviewed by me. Shows improved pneumothorax and LLL airspace disease. - Chest x-ray from 07/16/2016 and 07/18/2016 and reviewed by me. Significant improvement of pneumothorax compared to the admission chest x-ray. - Cardiac thoracic surgery following this patient. No more air leaks. Chest tube may be out soon. - Significant subcutaneous air present. Patient is hemodynamically stable. - Continue cefuroxime 07/30. Completed azithromycin. - Continue supplemental oxygen, DuoNeb when necessary. - Atrial flutter -transient. [id number] score would be at least 2 (Age > 75). - Not requiring any Cardizem drip or PO meds. Rate is controlled. If needed, we can start Cardizem PO or preferably Metoprolol. - May benefit from Apixaban in future. We will consider Apixaban once chest tube is out. TSH unremarkable. Obtain 2-D echo showed EF of 30%. Start Coreg then add lisinopril. CHF education, I/O and monitor weight. He will need ischemic workup once chest tube is out. Counseled regarding noncompliance Full code. Heparin SQ. Discharge Planning Not ready for discharge Problem Qualifiers (1) Leukocytosis: Qualified Code: D72.829 - Leukocytosis, unspecified type (2) OA (osteoarthritis): Qualified Code: M19.90 - Osteoarthritis, unspecified osteoarthritis type, unspecified site (3) GERD (gastroesophageal reflux disease): Qualified Code: K21.9 - Gastroesophageal reflux disease, esophagitis presence not specified (4) COPD (chronic obstructive pulmonary disease): Qualified Code: J44.9 - Chronic obstructive pulmonary disease, unspecified COPD type Javon Bashir MD Jul 25, 2016 13:05
[2016-07-25] MEDS ORDERED: NITR0.4S SL (13:11)
[2016-07-25] MEDS ORDERED: PANT40TA3 PO (13:11)
[2016-07-25] MEDS ORDERED: NITROGLYCERIN 0.4 MG SL 25 TABS/BTL SL PRN (13:15)
[2016-07-26] VITALS (17 sets, daily range): BP systolic 111–118; BP diastolic 63–75; PULSE 64–78; RESP 20–22; TEMP 97.6–98.4; O2SAT 94–98
[2016-07-26] MEDS: CEFUROXIME AXETIL 500 MG TAB PO SCH ×2 (00:03→12:00)
[2016-07-26] MEDS: CHLORHEXIDINE GLUCONATE 2 % 1 PACK (2 CLOTHS) TOP SCH (03:31)
[2016-07-26] MEDS: RESP: ALBUTEROL 2.5 MG/IPRATROPIUM 0.5 MG NEB (SCH) INH ×2 (04:15→15:34)
[2016-07-26] MEDS: HEPARIN SODIUM - SQ 10,000 UNITS/ML VIAL SQ SCH (05:22)
[2016-07-26] MEDS: DOCUSATE SODIUM 50 MG/SENNA 8.6 MG TAB PO SCH (09:00)
[2016-07-26] MEDS: MUPIROCIN 2% OINT 1 APPLIC/GM SYR EACH NARE SCH (09:00)
[2016-07-26] MEDS: SODIUM CHLORIDE 0.9% FLUSH 5 ML FLUSH IV FLUSH SCH (09:41)
[2016-07-26] MEDS: CARVEDILOL 3.125 MG TAB PO SCH (09:41)
[2016-07-26] MEDS: PANTOPRAZOLE SOD 40 MG DELAYED RELEASE TAB PO SCH (09:43)
[2016-07-26] MEDS: ARTIFICIAL TEARS OPTH SOLN 15 ML BTL EACH EYE SCH ×2 (09:43→13:00)
[2016-07-26] MEDS ORDERED: REGADENOSON INJ 0.4 MG/5 ML SYR ONE (10:43)
--- NOTE | 2016-07-26 12:03 | RADRPT ---
EXAM DATE/TIME: 07/26/2016 10:11 [facility] COMPARISON: No previous studies available for comparison. INDICATIONS : Abnormal EKG. Congestive heart failure. DOSE: 25.9 mCi Tc99m Myoview at stress. 8.1 mCi Tc99m Myoview at rest. 0.4 mg Lexiscan STRESS SYMPTOMS: None. EJECTION FRACTION: 43% MEDICAL HISTORY : Chronic obstructive pulmonary disease. Gastroesophageal reflux disease. SURGICAL HISTORY : Total knee replacement, left. Total knee replacement, right. ENCOUNTER: Initial ACUITY: 1 day PAIN SCALE: 0/10 LOCATION: chest TECHNIQUE: The patient underwent pharmacologic stress with infusion of prescribed dose. Continuous ECG tracing was monitored during stress. Gated SPECT imaging was performed after stress and conventional SPECT i maging was performed at rest. The examination was performed on a SPECT/CT scanner, both attenuation and non-corrected datasets were reviewed. FINDINGS: DISTRIBUTION: The maximum perfused segment at stress is equally distributed between the septal and inferior taylor. PERFUSION STUDY: The pattern of perfusion at stress shows fixed diminished perfusion to the apex 10% redistribution in portions of the inferior wall would not be considered statistically significant. GATED STUDY: Global hypokinesis, most severe in the septum with a reduced ejection fraction of 43%. CONCLUSION: 1. 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 2. No scintigraphic findings of ischemia. 3. Hypokinesis, most severe in the septal wall with an estimated ejection fraction of 43%. RISK CATEGORY: Intermediate (1-3% Annual Mortality Rate) Peyman Dave MD on July 26, 2016 at 11:59 Board Certified Radiologist. This report was verified electronically.
--- NOTE | 2016-07-26 12:19 | HHI.PR ---
Subjective Remarks Follow cardiomyopathy. Denies chest pain and shortness of breath. Stress test negative for ischemia. 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 Discussed with RN, he does not want to go to rehabilitation. He was to go home Objective Vitals Vital Signs Date Time Temp Pulse Resp B/P Pulse Ox O2 Delivery O2 Flow Rate FiO2 07/26/16 09:33 98 Nasal Cannula 07/26/16 07:00 68 07/26/16 07:00 98.4 67 22 118/66 94 07/26/16 06:00 66 07/26/16 05:00 70 07/26/16 04:32 97.6 69 115/70 95 07/26/16 04:00 76 07/26/16 03:00 72 07/26/16 02:00 72 07/26/16 01:42 97.8 73 114/63 96 07/26/16 01:00 78 07/26/16 00:00 70 07/25/16 23:00 71 07/25/16 22:00 86 07/25/16 21:00 94 07/25/16 20:00 84 07/25/16 19:00 97.8 80 119/78 93 07/25/16 19:00 83 07/25/16 18:12 71 07/25/16 17:00 76 07/25/16 16:41 72 07/25/16 15:00 98.0 85 18 115/48 97 07/25/16 15:00 79 07/25/16 14:06 72 07/25/16 13:00 71 I/O 07/25/16 07/25/16 07/25/16 07/26/16 07/26/16 07/26/16 07:00 15:00 23:00 07:00 15:00 23:00 Intake Total 400 ml 720 ml 240 ml Output Total 450 ml 580 ml 225 ml Balance -50 ml 140 ml 15 ml Intake Oral 400 ml 720 ml 240 ml Output Urine Total 450 ml 580 ml 225 ml Chest Tube Drainage Total 0 ml 0 ml # Bowel Movements 0 1 Result Diagram: 07/23/16 0630 Imaging Last Impressions Chest X-Ray 07/25/16 0600 Signed Impressions: Service Date/Time: Monday, July 25, 2016 06:17 - CONCLUSION: 1. Right upper lobe consolidation not significantly changed. 2. Right chest tube remains in place as above. No perceptible pneumothorax but chest wall emphysema persists. 3. A large hiatal hernia is well demonstrated today. It was seen on the prior chest CT, not new. Jerome Naranjo MD Chest CT 07/16/16 1244 Signed Impressions: Service Date/Time: Saturday, July 16, 2016 13:05 - CONCLUSION: 1. Right- sided chest tube is superficial to the chest cavity. 2. Large right pneumothorax. 3. Extensive right-sided subcutaneous emphysema. 4. Findings were discussed with Dr. Higgins. Hayes Marsh MD Chest Tube Insertion 07/16/16 0000 Signed Impressions: Service Date/Time: Saturday, July 16, 2016 14:22 - CONCLUSION: Uncomplicated chest tube placement as above. Jeanmarie Vera MD Objective Remarks GENERAL: Alert, oriented 3, NAD. SKIN: Warm and dry. SubQ crepitus on both upper arms and shoulder especially on the right side improving. HEAD: Normocephalic. EYES: No scleral icterus. No injection or drainage. NECK: Supple, trachea midline. No JVD or lymphadenopathy. CARDIOVASCULAR: Regular rate and rhythm without murmurs, gallops, or rubs. RESPIRATORY: Breath sounds equal bilaterally. No accessory muscle use. GASTROINTESTINAL: Abdomen soft, non-tender, nondistended. MUSCULOSKELETAL: No cyanosis, or edema. BACK: Nontender without obvious deformity. No CVA tenderness. Procedures Chest tube placement on the right side by IR. A/P Problem List: (1) Pneumothorax, right ICD Code: J93.9 Status: Acute (2) Leukocytosis ICD Code: D72.829 Status: Acute (3) History of MRSA infection ICD Code: Z86.14 Status: Acute (4) OA (osteoarthritis) ICD Code: M19.90 Status: Acute (5) GERD (gastroesophageal reflux disease) ICD Code: K21.9 Status: Acute (6) COPD (chronic obstructive pulmonary disease) ICD Code: J44.9 Status: Acute Assessment and Plan Mr. Guerra is a pleasant 80-year-old male with a history of COPD, GERD , osteoarthritis who presented to the emergency department on 07/16/2016 due to chest pain and shortness of breath. Chest x-ray in the ED showed a large right pneumothorax. Patient underwent a pigtail catheter placement in the right chest interventional radiology. Cardiac thoracic surgery has been following this patient. - Right-sided spontaneous pneumothorax - COPD - no acute exacerbation. Pneumothorax could be related to COPD, however. - Probable pneumonia - left lower lobe. - CXR on 07/20/2016 reviewed by me. Shows improved pneumothorax and LLL airspace disease. - Chest x-ray from 07/16/2016 and 07/18/2016 and reviewed by me. Significant improvement of pneumothorax compared to the admission chest x-ray. - Cardiac thoracic surgery following this patient. No more air leaks. Chest tube removed yesterday - Significant subcutaneous air present. Patient is hemodynamically stable. - Continue cefuroxime 07/30. Completed azithromycin. - Continue supplemental oxygen, DuoNeb when necessary. - Atrial flutter -transient. [id number] score would be at least 2 (Age > 75). - Not requiring any Cardizem drip or PO meds. Rate is controlled. If needed, we can start Cardizem PO or preferably Metoprolol. - May benefit from Apixaban in future. We will consider Apixaban once chest tube is out. Pros and cons of anticoagulation discussed with patient he does not want to be on Coumadin or novel agents. He prefers to be on aspirin aware is not as effective as Coumadin or novel agents. Possible side effects discussed with the patient. TSH unremarkable. Obtain 2-D echo showed EF of 30% . Start Coreg then add lisinopril which can be started outpatient. CHF education, I/O and monitor weight. Lexiscan negative for ischemia. Counseled regarding noncompliance Full code. Heparin SQ. Discharge Planning Now ready for discharge Problem Qualifiers (1) Leukocytosis: Qualified Code: D72.829 - Leukocytosis, unspecified type (2) OA (osteoarthritis): Qualified Code: M19.90 - Osteoarthritis, unspecified osteoarthritis type, unspecified site (3) GERD (gastroesophageal reflux disease): Qualified Code: K21.9 - Gastroesophageal reflux disease, esophagitis presence not specified (4) COPD (chronic obstructive pulmonary disease): Qualified Code: J44.9 - Chronic obstructive pulmonary disease, unspecified COPD type Javon Bashir MD Jul 26, 2016 12:19
[2016-07-26] MEDS ORDERED: ASPI1TAB69 PO (12:21)
--- NOTE | 2016-07-26 12:23 | HHI.DS ---
Discharge Summary Admission Date Jul 16, 2016 at 13:07 Discharge Date: Jul 26, 2016 Admitting Diagnosis R PNEUMOTHORAX (1) Pneumothorax, right ICD Code: J93.9 Diagnosis: Principal (2) Leukocytosis ICD Code: D72.829 Diagnosis: Principal (3) History of MRSA infection ICD Code: Z86.14 Diagnosis: Principal (4) OA (osteoarthritis) ICD Code: M19.90 Diagnosis: Principal (5) GERD (gastroesophageal reflux disease) ICD Code: K21.9 Diagnosis: Principal (6) COPD (chronic obstructive pulmonary disease) ICD Code: J44.9 Diagnosis: Principal Procedures Chest tube placement on the right side by IR. Brief History - From Admission This is a 80-year-old male. Date of admission 07/2016 past medical history includes COPD, gastroesophageal reflux disease and osteoarthritis. He presented to the [facility] emergency department with a acute onset of chest pain and recent history of shortness of breath. He woke this morning at 4 AM feeling some chest discomfort and more short of breath. Chest x-ray at [facility] ED revealed a large right pneumothorax. Chest tube 2 was attempted on the right side by ED physician is excessive. IR successfully place a 10 [place] pigtail catheter. And currently has a large amount of subcutaneous the right thorax. CT surgery was consulted. At the present time, patient not complaining of shortness of breath. Chest pain is controlled. Currently on 6 L nasal cannula saturations are 99%. CBC/BMP: 07/23/16 0630 Imaging Last Impressions Myocardial Perfusion Scan Nuc Med 07/26/16 0600 Signed Impressions: Service Date/Time: Tuesday, July 26, 2016 10:11 - CONCLUSION: 1. 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 2. No scintigraphic findings of ischemia. 3. Hypokinesis, most severe in the septal wall with an estimated ejection fraction of 43%%. RISK CATEGORY: Intermediate (1-3%% Annual Mortality Rate) Peyman Dave MD Chest X-Ray 07/25/16 0600 Signed Impressions: Service Date/Time: Monday, July 25, 2016 06:17 - CONCLUSION: 1. Right upper lobe consolidation not significantly changed. 2. Right chest tube remains in place as above. No perceptible pneumothorax but chest wall emphysema persists. 3. A large hiatal hernia is well demonstrated today. It was seen on the prior chest CT, not new. Jerome Naranjo MD Chest CT 07/16/16 1244 Signed Impressions: Service Date/Time: Saturday, July 16, 2016 13:05 - CONCLUSION: 1. Right- sided chest tube is superficial to the chest cavity. 2. Large right pneumothorax. 3. Extensive right-sided subcutaneous emphysema. 4. Findings were discussed with Dr. Higgins. Hayes Marsh MD Chest Tube Insertion 07/16/16 0000 Signed Impressions: Service Date/Time: Saturday, July 16, 2016 14:22 - CONCLUSION: Uncomplicated chest tube placement as above. Jeanmarie Vera MD PE at Discharge GENERAL: Alert, oriented 3, NAD. SKIN: Warm and dry. SubQ crepitus on both upper arms and shoulder especially on the right side improving. HEAD: Normocephalic. EYES: No scleral icterus. No injection or drainage. NECK: Supple, trachea midline. No JVD or lymphadenopathy. CARDIOVASCULAR: Regular rate and rhythm without murmurs, gallops, or rubs. RESPIRATORY: Breath sounds equal bilaterally. No accessory muscle use. GASTROINTESTINAL: Abdomen soft, non-tender, nondistended. MUSCULOSKELETAL: No cyanosis, or edema. BACK: Nontender without obvious deformity. No CVA tenderness. Hospital Course Mr. Guerra is a pleasant 80-year-old male with a history of COPD, GERD , osteoarthritis who presented to the emergency department on 07/16/2016 due to chest pain and shortness of breath. Chest x-ray in the ED showed a large right pneumothorax. Patient underwent a pigtail catheter placement in the right chest interventional radiology. Cardiac thoracic surgery has been following this patient. - Right-sided spontaneous pneumothorax - COPD - no acute exacerbation. Pneumothorax could be related to COPD, however. - Probable pneumonia - left lower lobe. - CXR on 07/20/2016 reviewed by me. Shows improved pneumothorax and LLL airspace disease. - Chest x-ray from 07/16/2016 and 07/18/2016 and reviewed by me. Significant improvement of pneumothorax compared to the admission chest x-ray. - Cardiac thoracic surgery following this patient. No more air leaks. Chest tube removed yesterday - Significant subcutaneous air present. Patient is hemodynamically stable. - Continue cefuroxime /. Completed azithromycin. Repeat chest x-ray in 6 weeks - Continue supplemental oxygen, DuoNeb when necessary. - Atrial flutter -transient. [id number] score would be at least 2 (Age > 75). - Not requiring any Cardizem drip or PO meds. Rate is controlled. If needed, we can start Cardizem PO or preferably Metoprolol. - May benefit from Apixaban in future. We will consider Apixaban once chest tube is out. Pros and cons of anticoagulation discussed with patient he does not want to be on Coumadin or novel agents. He prefers to be on aspirin aware is not as effective as Coumadin or novel agents. Possible side effects discussed with the patient. TSH unremarkable. Obtain 2-D echo showed EF of 30% . Started Coreg then add lisinopril which can be started outpatient to avoid hypotension. CHF education, I/O and monitor weight. Lexiscan negative for ischemia. Counseled regarding noncompliance Full code. Heparin SQ. Pt Condition on Discharge: Stable Discharge Disposition: Disch w/ Home Health Serv Discharge Time: <= 30 minutes Discharge Instructions DIET: Follow Instructions for: Heart Healthy Diet Activities you can perform: Regular-No Restrictions Activities to Avoid: Driving Other Activity Instructions: Not allowed to fly or ride in submarines Follow up Referrals: PCP Follow-up - 2-3 Days Pulmonology - 1 Week New Medications: Aspirin (Aspirin) 81 Mg Tabdr 81 MG PO DAILY Prevent Blood Clot #30 TAB Carvedilol (Coreg) 3.125 Mg Tab 3.125 MG PO Q12HR Prevent Heart Failure #60 TAB Cefuroxime (Ceftin) 500 Mg Tab 500 MG PO Q12H Infection #10 TAB Hydrocodone-Acetaminophen (Hydrocodone-Acetaminophen) 5-325 mg Tab 1 TAB PO Q6HR PRN pain #28 TAB Nitroglycerin SL (Nitrostat SL) 0.4 Mg Subl 0.4 MG SL Q5M PRN X 3 doses for chest pain #30 MG Pantoprazole (Pantoprazole) 40 Mg Tab 40 MG PO DAILY Manage Heartburn #30 TAB Continued Medications: Albuterol 18 GM Inh (Ventolin Hfa 18 GM Inh) 90 Mcg/Act Aer 2 PUFF INH Q4-6H PRN SHORTNESS OF BREATH #1 Ref 0 INHALER Javon Bashir MD Jul 26, 2016 12:23
--- NOTE | 2016-07-26 15:42 | HHI.PR ---
Subjective Remarks 80 YOWM with COPD, spontaneous PTX Mild sob No CP Chest tube removed Weaned to RA Objective Vital Signs Vital Signs Date Time Temp Pulse Resp B/P Pulse Ox O2 Delivery O2 Flow Rate FiO2 07/26/16 14:00 66 07/26/16 13:00 78 07/26/16 12:00 77 07/26/16 11:00 98.4 78 20 111/75 96 07/26/16 11:00 97 Room Air 07/26/16 09:33 98 Nasal Cannula 07/26/16 09:00 66 07/26/16 08:00 64 07/26/16 07:00 68 07/26/16 07:00 98.4 67 22 118/66 94 07/26/16 07:00 93 Room Air 07/26/16 06:00 66 07/26/16 05:00 70 07/26/16 04:32 97.6 69 115/70 95 07/26/16 04:00 76 07/26/16 03:00 72 07/26/16 02:00 72 07/26/16 01:42 97.8 73 114/63 96 07/26/16 01:00 78 07/26/16 00:00 70 07/25/16 23:00 71 07/25/16 22:00 86 07/25/16 21:00 94 07/25/16 20:00 84 07/25/16 19:00 97.8 80 119/78 93 07/25/16 19:00 83 07/25/16 18:12 71 07/25/16 17:00 76 07/25/16 16:41 72 I/O 07/25/16 07/25/16 07/25/16 07/26/16 07/26/16 07/26/16 07:00 15:00 23:00 07:00 15:00 23:00 Intake Total 400 ml 720 ml 240 ml Output Total 450 ml 580 ml 225 ml Balance -50 ml 140 ml 15 ml Intake Oral 400 ml 720 ml 240 ml Output Urine Total 450 ml 580 ml 225 ml Chest Tube Drainage Total 0 ml 0 ml # Bowel Movements 0 1 Result Diagram: 07/23/1630 Objective Remarks GENERAL: WBWN elderly male, mild sob SKIN: Warm and dry. HEAD: Normocephalic. EYES: No scleral icterus. No injection or drainage. NECK: Supple, trachea midline. No JVD or lymphadenopathy. CARDIOVASCULAR: Regular rate and rhythm without murmurs, gallops, or rubs. RESPIRATORY: Breath sounds equal bilaterally. No accessory muscle use. GASTROINTESTINAL: Abdomen soft, non-tender, nondistended. MUSCULOSKELETAL: No cyanosis, or edema. BACK: Nontender without obvious deformity. No CVA tenderness. A/P Assessment and Plan COPD Spontaneous right PTX- S/P Chest tube placement SQ Emphysema HTN PLAN: Aerosol nebs Pred 10 mg bid Stable on RA FU in office 1 week Jayro Hicks MD Jul 26, 2016 15:42
== END 2016-07-26 15:36 | disposition home health service (06) | DRG 199 ==
LOC: PHED 09:24 → PHEDA 13:07 → HIMW 16:35 → N07A 07-18 12:01 → HCIN 07-20 00:24
PROVIDERS: ADMIT Internal Medicine; ATTEND Internal Medicine
PROC: 0W9930Z Drainage of Right Pleural Cavity with Drainage Device, Percutaneous Approach (ICD-10-PCS; principal; 2016-07-16)
PROC: 0W9930Z Drainage of Right Pleural Cavity with Drainage Device, Percutaneous Approach (ICD-10-PCS; 2016-07-16)
DX: J93.83 Other pneumothorax (principal); J18.9 Pneumonia, unspecified organism; I42.9 Cardiomyopathy, unspecified; I48.92 Unspecified atrial flutter; J98.2 Interstitial emphysema; J44.0 Chronic obstructive pulmonary disease with (acute) lower respiratory infection; Z99.81 Dependence on supplemental oxygen; I10 Essential (primary) hypertension; J93.82 Other air leak; K21.9 Gastro-esophageal reflux disease without esophagitis; M19.90 Unspecified osteoarthritis, unspecified site; Z86.14 Personal history of Methicillin resistant Staphylococcus aureus infection; Z87.891 Personal history of nicotine dependence; Z79.52 Long term (current) use of systemic steroids
CPT/HCPCS: 32551; 32557; 71010; 71020; 71250; 78452; 80048; 80053; 82550; 83605; 83735; 83880; 84100; 84443; 84484; 85025; 85027; 85610; 85730; 87040; 87205; 87641; 87804; 93005; 93017; 93306; 94640; 94664; 94667; 94668; 96361; 96374; A9502; C1729; C9113; J0456; J0696; J1644; J2785; J2930; J7030; J7050

== ENCOUNTER 2017-02-27 20:28 | Inpatient (IN) | payer OTHER, MEDICARE ==
[~2017-02-27 20:28] MED LIST changes: -ALBU.5I INH; +ASPI1TAB69 PO; +CARV3.125 PO; +CEFT500T3 PO; -DOXY100T PO; +HYDR-3516 PO; +NITR0.4S SL; +PANT40TA3 PO; -PRED10 PO; +PRED20 PO
[2017-02-27 20:35] VITALS: BP 143/67; PULSE 77; RESP 30
[2017-02-27] MEDS: RESP: ALBUTEROL 2.5 MG/IPRATROPIUM 0.5 MG NEB (SCH) INH ×3 (20:45→21:15)
[2017-02-27] MEDS ORDERED: SODIUM CHLORIDE 0.9% FLUSH 10 ML FLUSH IVF PRN (20:45)
--- NOTE | 2017-02-27 20:46 | PD ---
HPI . Chest pain Chief Complaint: chest pain Time Seen by Provider: 20:38 Travel History International Travel<30 days: No Contact w/Intl Traveler<30days: No Traveled to known affect area: No History of Present Illness HPI The patient is a 81-year-old male that complains of midline substernal chest discomfort and shortness of breath for the past 2 hours. He does have a history of pneumothorax. He is not sure that he has the same pain as he did previously a pneumothorax. He does have a history of COPD and is oxygen dependent on 2 L nasal cannula. He does have a nebulizer machine at home. PFSH Past Medical History Arthritis: Yes Asthma: No Autoimmune Disease: No Heart Rhythm Problems: No Cancer: No Cardiovascular Problems: No High Cholesterol: No Chest Pain: No Congestive Heart Failure: No COPD: Yes Cerebrovascular Accident: No Diabetes: No Diminished Hearing: No Endocrine: No Gastrointestinal Disorders: Yes GERD: Yes Glaucoma: No Genitourinary: No Headaches: No Hepatitis: No Hiatal Hernia: No Hypertension: No Immune Disorder: No Implanted Vascular Access Dvce: Yes Kidney Stones: No Musculoskeletal: Yes Neurologic: No Psychiatric: No Respiratory: No Immunizations Current: Yes Myocardial Infarction: No Renal Failure: No Seizures: No Sleep Apnea: No Thyroid Disease: No Ulcer: No Past Surgical History Abdominal Surgery: No AICD: No Cardiac Surgery: No Ear Surgery: No Endocrine Surgery: No Eye Surgery: No Genitourinary Surgery: No Joint Replacement: Yes (BILATERAL KNEE) Oral Surgery: No Pacemaker: No Thoracic Surgery: No Other Surgery: Yes Social History Alcohol Use: Yes (SOCIALLY) Tobacco Use: No Substance Use: No Allergies-Medications (Allergen,Severity, Reaction): Coded Allergies: *MDRO Multi-Drug Resistant Organism (Verified Adverse Reaction, Unknown, MRSA, 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 - 07/16/16 Reported Meds & Prescriptions Reported Meds & Active Scripts Active Pantoprazole (Pantoprazole Sodium) 40 Mg Tab 40 Mg PO DAILY Nitrostat SL (Nitroglycerin) 0.4 Mg Subl 0.4 Mg SL Q5M PRN Coreg (Carvedilol) 3.125 Mg Tab 3.125 Mg PO Q12HR Reported Prednisone 5 Mg Tab 5 Mg PO BID Aspirin Children's (Aspirin) 81 Mg Chew 81 Mg CHEW DAILY Review of Systems Except as stated in HPI: all other systems reviewed are Neg Physical Exam Narrative GENERAL: The patient is alert, oriented 3 in slight distress with his chest discomfort. SKIN: Focused skin assessment warm/dry. HEAD: Atraumatic. Normocephalic. EYES: Pupils equal and round. No scleral icterus. No injection or drainage. ENT: No nasal bleeding or discharge. Mucous membranes pink and moist. No tracheal deviation is present. NECK: Trachea midline. No JVD. CARDIOVASCULAR: Regular rate and rhythm. No murmur appreciated. RESPIRATORY: No accessory muscle use. A few bilateral wheezes are heard, widely scattered on expiration. Breath sounds equal bilaterally. GASTROINTESTINAL: Abdomen soft, non-tender, nondistended. Hepatic and splenic margins not palpable. MUSCULOSKELETAL: No obvious deformities. No clubbing. No cyanosis. No edema. NEUROLOGICAL: Awake and alert. No obvious cranial nerve deficits. Motor grossly within normal limits. Normal speech. PSYCHIATRIC: Appropriate mood and affect; insight and judgment normal. Data Data Last Documented VS Vital Signs Date Time Temp Pulse Resp B/P (MAP) Pulse Ox O2 Delivery O2 Flow Rate FiO2 02/27/17 21:45 72 16 147/83 (104) 97 Nasal Cannula 2.00 Orders Orders Chest,Inspiration & Expiration (02/27/17 ) Complete Blood Count With Diff (02/27/17 20:41) Comprehensive Metabolic Panel (02/27/17 20:41) B-Type Natriuretic Peptide (02/27/17 20:41) Troponin I (02/27/17 20:41) Iv Access Insert/Monitor (02/27/17 20:41) Electrocardiogram (02/27/17 20:41) Ecg Monitoring (02/27/17 20:41) Oximetry (02/27/17 20:41) Oxygen Administration (02/27/17 20:41) Sodium Chloride 0.9% Flush (Ns Flush) (02/27/17 20:45) Albuterol-Ipratropium Neb (Duoneb Neb) (02/27/17 20:45) Lidocai-Epi 2%-1:100,000 Inj (Xylocaine- (02/27/17 21:00) Lidocai-Epi 2%-1:100,000 Inj (Xylocaine- (02/27/17 21:15) Chest, Single Ap (02/27/17 ) Admit Order (Ed Use Only) (02/27/17 22:34) Labs Laboratory Tests Test 02/27/17 21:00 White Blood Count 10.9 TH/MM3 Red Blood Count 5.42 MIL/MM3 Hemoglobin 15.3 GM/DL Hematocrit 47.5 % Mean Corpuscular Volume 87.8 FL Mean Corpuscular Hemoglobin 28.2 PG Mean Corpuscular Hemoglobin Concent 32.1 % Red Cell Distribution Width 14.4 % Platelet Count 264 TH/MM3 Mean Platelet Volume 7.8 FL Neutrophils (%) (Auto) 75.8 % Lymphocytes (%) (Auto) 11.6 % Monocytes (%) (Auto) 7.9 % Eosinophils (%) (Auto) 4.2 % Basophils (%) (Auto) 0.5 % Neutrophils # (Auto) 8.1 TH/MM3 Lymphocytes # (Auto) 1.3 TH/MM3 Monocytes # (Auto) 0.9 TH/MM3 Eosinophils # (Auto) 0.5 TH/MM3 Basophils # (Auto) 0.1 TH/MM3 CBC Comment DIFF FINAL Differential Comment Blood Urea Nitrogen 22 MG/DL Creatinine 1.00 MG/DL Random Glucose 98 MG/DL Total Protein 7.9 GM/DL Albumin 3.4 GM/DL Calcium Level 8.7 MG/DL Alkaline Phosphatase 56 U/L Aspartate Amino Transf (AST/SGOT) 24 U/L Alanine Aminotransferase (ALT/SGPT) 22 U/L Total Bilirubin 0.9 MG/DL Sodium Level 140 MEQ/L Potassium Level 4.0 MEQ/L Chloride Level 104 MEQ/L Carbon Dioxide Level 28.7 MEQ/L Anion Gap 7 MEQ/L Estimat Glomerular Filtration Rate 72 ML/MIN Troponin I 0.06 NG/ML B-Type Natriuretic Peptide 425 PG/ML [facility] Medical Decision Making Medical Screen Exam Complete: Yes Emergency Medical Condition: Yes Medical Record Reviewed: Yes Interpretation(s) Chest x-ray shows moderate to large right pneumothorax with minimal tension component. The chest x-ray after chest tube insertions shows almost complete expansion of the right lung and the tension component has resolved. The EKG shows sinus rhythm with a rate of 67 and first-degree AV block but no acute ST elevation or depression. The CBC is normal except for 76% neutrophils. The complete metabolic profile shows a BUN of 22, GFR of 72 with troponin I of 0.06. The BNP is 425. Differential Diagnosis Right pneumothorax, acute coronary syndrome, pneumonia, chest pain etiology undetermined, electrolyte disorder, anemia, bronchitis, COPD with acute exacerbation Narrative Course It is now 9:55 PM and the patient states he feels better and does not want any nebulizer treatments at this time. Procedures Procedure Narrative The area was prepped with Betadine and 2% lidocaine with epinephrine was used to infiltrate around the area of the chest tube insertion. Under sterile technique, a 28 [place] chest tube was inserted. Good air flow was present on insertion. This was hooked up to a Pleur-evac at 20 cm. The patient tolerated the procedure very well. Diagnosis Primary Impression: Pneumothorax, right Additional Impressions: COPD (chronic obstructive pulmonary disease) Elevated troponin I level Admitting Information Admitting Physician Requests: Johnathon Corona MD Feb 27, 2017 20:46
[2017-02-27] MEDS ORDERED: LIDOCAINE 2%/EPINEPHrine 1:100,000 30ML MDV INFIL ONE (21:00)
--- NOTE | 2017-02-27 21:03 | RADRPT ---
EXAM DATE/TIME: 02/27/2017 20:43 [facility] COMPARISON: CHEST PA & LAT, July 25, 2016, 6:17. INDICATIONS : Shortness of breath. MEDICAL HISTORY : Chronic obstructive pulmonary disease. Pneumothorax. SURGICAL HISTORY : None. ENCOUNTER: Initial ACUITY: 1 day PAIN SCORE: 3/10 LOCATION: Right chest FINDINGS: There is a moderate to large right pneumothorax. Mild mediastinal shift to the left. No effusion. Heart size is stable come within normal limits. CONCLUSION: Moderate to large right pneumothorax with a mild tension component. Jerome Naranjo MD on February 27, 2017 at 21:00 Board Certified Radiologist. This report was verified electronically.
[2017-02-27 21:12] LABS: AUTOMATED NEUTROPHIL # 8.1 TH/MM3 (1.8-7.7); BASOPHIL # 0.1 TH/MM3 (0-0.2); BASOPHIL % 0.5 % (0.0-2.0); EOSINOPHIL # 0.5 TH/MM3 (0-0.4); EOSINOPHIL % 4.2 % (0.0-4.0); HEMATOCRIT 47.5 % (39.0-51.0); HEMO FLAGS DIFF FINAL; LYMPH % 11.6 % (9.0-44.0); LYMPHOCYTE # 1.3 TH/MM3 (1.0-4.8); MEAN CELL VOLUME 87.8 FL (80.0-100.0); MEAN CORPUSCULAR HEMOGLOBIN 28.2 PG (27.0-34.0); MEAN CORPUSCULAR HGB CONC 32.1 % (32.0-36.0); MONO % 7.9 % (0.0-8.0); NEUT % 75.8 % (16.0-70.0); PLATELET COUNT 264 TH/MM3 (150-450); RED BLOOD COUNT 5.42 MIL/MM3 (4.50-5.90); RED CELL DISTRIBUTION WIDTH 14.4 % (11.6-17.2); WHITE BLOOD COUNT 10.9 TH/MM3 (4.0-11.0)
[2017-02-27] MEDS ORDERED: LIDOCAINE 2%/EPINEPHrine 1:100,000 50ML MDV INFIL ONE (21:15)
[2017-02-27 21:17] LABS: CHLORIDE 104 MEQ/L (98-107); SODIUM (NA) 140 MEQ/L (136-145)
[2017-02-27 21:18] VITALS: O2SAT 95
[2017-02-27 21:21] LABS: ANION GAP 7 MEQ/L (5-15); BICARBONATE 28.7 MEQ/L (21.0-32.0); BLOOD UREA NITROGEN 22 MG/DL (7-18)
[2017-02-27 21:24] LABS: ALT (GPT) 22 U/L (12-78); AST (GOT) 24 U/L (15-37); GLOMERULAR FILTRATION RATE 72 ML/MIN (>89)
[2017-02-27 21:25] LABS: TOTAL BILIRUBIN ADULT 0.9 MG/DL (0.2-1.0)
[2017-02-27 21:27] LABS: ALKALINE PHOSPHATASE 56 U/L (45-117)
[2017-02-27 21:45] VITALS: BP 147/83; PULSE 72; RESP 16; O2SAT 97
--- NOTE | 2017-02-27 21:54 | RADRPT ---
EXAM DATE/TIME: 02/27/2017 21:45 [facility] COMPARISON: No previous studies available for comparison. INDICATIONS : Post chest tube placement. MEDICAL HISTORY : Chronic obstructive pulmonary disease. Pneumothorax. SURGICAL HISTORY : None. ENCOUNTER: Subsequent ACUITY: 1 day PAIN SCORE: 4/10 LOCATION: Right chest FINDINGS: Large caliber right chest tube has been placed in the interim. The tip projects just above the right hilum. The pneumothorax is much smaller now, currently about 17 mm in maximal thickness. No evidence of tension. Left lung remains clear. CONCLUSION: New right chest tube placed with decreased right pneumothorax, now small. No tension. Jerome Naranjo MD on February 27, 2017 at 21:51 Board Certified Radiologist. This report was verified electronically.
[2017-02-27] MEDS ORDERED: PRED5TAB PO (22:06)
[2017-02-27] MEDS ORDERED: ASPI81CH7 CHEW (22:06)
[2017-02-27] MEDS: SODIUM CHLOR 0.9% 1000 ML INJ 1,000 ML IV SCH (22:33)
[2017-02-27] MEDS ORDERED: SODIUM CHLORIDE 0.9% FLUSH 10 ML FLUSH IV FLUSH PRN (22:45)
[2017-02-27] MEDS ORDERED: CHLORHEXIDINE GLUCONATE 2 % 1 PACK (2 CLOTHS) TOP PRN (22:45)
[2017-02-27] MEDS ORDERED: ACETAMINOPHEN 325 MG TAB PO PRN (22:45)
[2017-02-27] MEDS ORDERED: MISCELLANEOUS NURSING INFORMATION XX SCH (22:45)
[2017-02-27] MEDS ORDERED: RESP: ALBUTEROL 2.5 MG/IPRATROPIUM 0.5 MG NEB (PRN) INH (22:45)
[2017-02-27 23:01] VITALS: BP 146/82; PULSE 66; RESP 16; O2SAT 96
[2017-02-27] MEDS ORDERED: NITROGLYCERIN 0.4 MG SL 25 TABS/BTL SL PRN (23:15)
[2017-02-28] VITALS (27 sets, daily range): BP systolic 111–158; BP diastolic 62–86; PULSE 54–82; RESP 10–27; TEMP 97.5–98; O2SAT 83–100
[2017-02-28] MEDS: RESP: ALBUTEROL 2.5 MG/IPRATROPIUM 0.5 MG NEB (SCH) NEB ×4 (03:53→21:25)
[2017-02-28] MEDS: CHLORHEXIDINE GLUCONATE 2 % 1 PACK (2 CLOTHS) TOP SCH (04:00)
[2017-02-28 05:31] LABS: AUTOMATED NEUTROPHIL # 9.2 TH/MM3 (1.8-7.7); BASOPHIL % 0.1 % (0.0-2.0); EOSINOPHIL # 0.1 TH/MM3 (0-0.4); EOSINOPHIL % 0.7 % (0.0-4.0); HEMATOCRIT 44.1 % (39.0-51.0); HEMO FLAGS DIFF FINAL; LYMPH % 9.7 % (9.0-44.0); MEAN CELL VOLUME 88.7 FL (80.0-100.0); MEAN CORPUSCULAR HEMOGLOBIN 28.9 PG (27.0-34.0); MEAN CORPUSCULAR HGB CONC 32.5 % (32.0-36.0); MONO % 4.7 % (0.0-8.0); NEUT % 84.8 % (16.0-70.0); PLATELET COUNT 204 TH/MM3 (150-450); RED BLOOD COUNT 4.97 MIL/MM3 (4.50-5.90); RED CELL DISTRIBUTION WIDTH 14.5 % (11.6-17.2); WHITE BLOOD COUNT 10.8 TH/MM3 (4.0-11.0)
[2017-02-28 05:37] LABS: CHLORIDE 105 MEQ/L (98-107); POTASSIUM 4.6 MEQ/L (3.5-5.1); SODIUM (NA) 142 MEQ/L (136-145)
[2017-02-28 05:42] LABS: ANION GAP 6 MEQ/L (5-15); BICARBONATE 31.3 MEQ/L (21.0-32.0); BLOOD UREA NITROGEN 21 MG/DL (7-18)
[2017-02-28 05:45] LABS: ALT (GPT) 21 U/L (12-78); AST (GOT) 19 U/L (15-37); GLOMERULAR FILTRATION RATE 81 ML/MIN (>89)
[2017-02-28 05:47] LABS: TOTAL BILIRUBIN ADULT 1.2 MG/DL (0.2-1.0)
[2017-02-28 05:48] LABS: ALKALINE PHOSPHATASE 54 U/L (45-117)
--- NOTE | 2017-02-28 06:48 | RADRPT ---
EXAM DATE/TIME: 02/28/2017 05:56 [facility] COMPARISON: CHEST SINGLE AP, February 27, 2017, 21:45. INDICATIONS : Evaluate for pneumothorax. MEDICAL HISTORY : Chronic obstructive pulmonary disease. Pneumothorax. SURGICAL HISTORY : None. ENCOUNTER: Subsequent ACUITY: 2 days PAIN SCORE: Non-responsive. LOCATION: Bilateral chest FINDINGS: A single portable frontal view of the chest shows no interval change. A right thoracostomy tube with residual right apical pneumothorax. Consolidation within the medial left lung base. No effusions. Mil d cardiomegaly. CONCLUSION: 1. Unchanged small apical pneumothorax on the right. 2. Left lower lobe consolidation. Ge Guerra Jr., MD on February 28, 2017 at 6:45 Board Certified Radiologist. This report was verified electronically.
--- NOTE | 2017-02-28 06:49 | EKG ---
Date Performed: 02/27/2017 Time Performed: 22:12:49 PTAGE: 81 years EKG: Sinus rhythm WITH FIRST DEGREE AV BLOCK BORDERLINE LEFT AXIS DEVIATION ABNORMAL ECG PREVIOUS TRACING : 07/19/2016 21.20 Compared to previous tracing, sinus rhythm has replaced pos sible atrial flutter with 2:1 AV conduction, heart rate has decreased. DOCTOR: Ovidio Petersen Interpretating Date/Time 02/28/2017 06:48:29
[2017-02-28] MEDS: CHLORHEXIDINE 0.12% (ORAL KIT) 15 ML CUP MT SCH ×2 (08:00→20:00)
--- NOTE | 2017-02-28 08:05 | HHI.HP ---
HPI Service Critical Care Medicine Primary Care Physician Julian Bunn MD Admission Diagnosis right pneumothorax, elevated troponin I Diagnosis: Travel History International Travel<30 Days: No Contact w/Intl Traveler <30 Da: No Traveled to Known Affected Are: No History of Present Illness The patient presented to the ED with complains of midline substernal chest discomfort and shortness of breath for several hours. He does have a history of pneumothorax. He is not sure that he has the same pain as he did previously a pneumothorax. He does have a history of COPD and is oxygen dependent on 2 L nasal cannula. Laboratory and imaging studies were performed in the ED the patient was noted to have a right pneumothorax a chest tube was placed, repeat chest x-ray showed small residual apical right pneumothorax. Critical care medicine was consulted for management. History PFSH Past Medical History Arthritis: Yes Asthma: No Autoimmune Disease: No Heart Rhythm Problems: No Cancer: No Cardiovascular Problems: No High Cholesterol: No Chest Pain: No Congestive Heart Failure: No COPD: Yes Cerebrovascular Accident: No Diabetes: No Diminished Hearing: No Endocrine: No Gastrointestinal Disorders: Yes GERD: Yes Glaucoma: No Genitourinary: No Headaches: No Hepatitis: No Hiatal Hernia: No Hypertension: No Immune Disorder: No Implanted Vascular Access Dvce: Yes Kidney Stones: No Musculoskeletal: Yes Neurologic: No Psychiatric: No Respiratory: No Immunizations Current: Yes Myocardial Infarction: No Renal Failure: No Seizures: No Sleep Apnea: No Thyroid Disease: No Ulcer: No Past Surgical History Abdominal Surgery: No AICD: No Cardiac Surgery: No Ear Surgery: No Endocrine Surgery: No Eye Surgery: No Genitourinary Surgery: No Joint Replacement: Yes (BILATERAL KNEE) Oral Surgery: No Pacemaker: No Thoracic Surgery: No Other Surgery: Yes Social History Alcohol Use: Yes (SOCIALLY) Tobacco Use: No Substance Use: No Allergies-Medications Allergies-Medications (Allergen,Severity, Reaction): Coded Allergies: *MDRO Multi-Drug Resistant Organism (Verified Adverse Reaction, Unknown, MRSA, 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 - 07/16/16 Reported Meds & Prescriptions Reported Meds & Active Scripts Active Pantoprazole (Pantoprazole Sodium) 40 Mg Tab 40 Mg PO DAILY Nitrostat SL (Nitroglycerin) 0.4 Mg Subl 0.4 Mg SL Q5M PRN Coreg (Carvedilol) 3.125 Mg Tab 3.125 Mg PO Q12HR Reported Prednisone 5 Mg Tab 5 Mg PO BID Aspirin Children's (Aspirin) 81 Mg Chew 81 Mg CHEW DAILY ROS Review of Systems Except as stated in HPI: all other systems reviewed are Neg Past Family Social History Allergies: Coded Allergies: *MDRO Multi-Drug Resistant Organism (Verified Adverse Reaction, Unknown, MRSA, 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 - 07/16/16 Physical Exam Vital Signs Vital Signs Date Time Temp Pulse Resp B/P (MAP) Pulse Ox O2 Delivery O2 Flow Rate FiO2 02/28/17 06:00 54 02/28/17 06:00 54 14 152/77 (102) 97 02/28/17 05:00 58 17 142/73 (96) 99 02/28/17 04:00 97.5 56 12 138/73 (94) 100 02/28/17 04:00 56 02/28/17 03:57 96 Nasal Cannula 3.00 02/28/17 03:00 56 10 152/79 (103) 99 02/28/17 02:00 60 27 158/86 (110) 83 02/28/17 02:00 60 02/28/17 01:35 62 18 156/86 (109) 94 Nasal Cannula 2.00 02/27/17 23:01 66 16 146/82 (103) 96 Nasal Cannula 2.00 02/27/17 21:45 72 16 147/83 (104) 97 Nasal Cannula 2.00 02/27/17 21:24 95 Nasal Cannula 4.00 02/27/17 21:18 95 Nasal Cannula 4.00 02/27/17 21:18 95 Nasal Cannula 4.00 02/27/17 20:35 77 30 143/67 (92) Physical Exam GENERAL: Appropriately stated age well-developed well-nourished elderly male in no apparent distress, on nasal cannula at 2 L/m SKIN: Warm and dry. HEAD: Atraumatic. Normocephalic. EYES: Pupils equal and round. No scleral icterus. No injection or drainage. ENT: No nasal bleeding or discharge. Mucous membranes pink and moist. NECK: Trachea midline. No JVD. CARDIOVASCULAR: Normal rate, regular rhythm. RESPIRATORY: No accessory muscle use. Faint crackles noted in the right base. Breath sounds equal bilaterally. Right chest tube to 20 cm of water suction. GASTROINTESTINAL: Abdomen soft, non-tender, nondistended. No guarding. MUSCULOSKELETAL: Extremities without clubbing, cyanosis, or edema. No obvious deformities. NEUROLOGICAL: Awake and alert. RASS 0. No gross focal/sensory deficits. Follows commands in all 4 extremities. Laboratory Laboratory Tests Test 02/27/17 21:00 02/28/17 03:42 02/28/17 04:25 White Blood Count 10.9 10.8 Red Blood Count 5.42 4.97 Hemoglobin 15.3 14.3 Hematocrit 47.5 44.1 Mean Corpuscular Volume 87.8 88.7 Mean Corpuscular Hemoglobin 28.2 28.9 Mean Corpuscular Hemoglobin Concent 32.1 32.5 Red Cell Distribution Width 14.4 14.5 Platelet Count 264 204 Mean Platelet Volume 7.8 8.3 Neutrophils (%) (Auto) 75.8 84.8 Lymphocytes (%) (Auto) 11.6 9.7 Monocytes (%) (Auto) 7.9 4.7 Eosinophils (%) (Auto) 4.2 0.7 Basophils (%) (Auto) 0.5 0.1 Neutrophils # (Auto) 8.1 9.2 Lymphocytes # (Auto) 1.3 1.0 Monocytes # (Auto) 0.9 0.5 Eosinophils # (Auto) 0.5 0.1 Basophils # (Auto) 0.1 0.0 CBC Comment DIFF FINAL DIFF FINAL Differential Comment Blood Urea Nitrogen 22 21 Creatinine 1.00 0.90 Random Glucose 98 90 Total Protein 7.9 7.3 Albumin 3.4 3.1 Calcium Level 8.7 8.6 Alkaline Phosphatase 56 54 Aspartate Amino Transf (AST/SGOT) 24 19 Alanine Aminotransferase (ALT/SGPT) 22 21 Total Bilirubin 0.9 1.2 Sodium Level 140 142 Potassium Level 4.0 4.6 Chloride Level 104 105 Carbon Dioxide Level 28.7 31.3 Anion Gap 7 6 Estimat Glomerular Filtration Rate 72 81 Troponin I 0.06 0.04 B-Type Natriuretic Peptide 425 Total Creatine Kinase 85 Result Diagram: 02/28/1742402/28/17424 Imaging Last Impressions Chest X-Ray 02/28/17 0600 Signed Impressions: Service Date/Time: Tuesday, February 28, 2017 05:56 - CONCLUSION: 1. Unchanged small apical pneumothorax on the right. 2. Left lower lobe consolidation. MD Ignacio Martin Jr. VTE Risk Assessment Caprini VTE Risk Assessment: Mod/High Risk (score >= 2) Caprini Risk Assessment Model Point Value = 1 Point Value = 2 Point Value = 3 Point Value = 5 Age 41-60 Minor surgery BMI > 25 kg/m2 Swollen legs Varicose veins or History of unexplained or recurrent spontaneous Oral contraceptives or hormone replacement Sepsis (< 1 month) Serious lung disease, including pneumonia (< 1 month) Abnormal pulmonary function Acute myocardial infarction Congestive heart failure (< 1 month) History of inflammatory bowel disease Medical patient at bed rest Age 61-74 Arthroscopic surgery Major open surgery (> 45 min) Laparoscopic surgery (> 45 min) Malignancy Confined to bed (> 72 hours) Immobilizing plaster cast Central venous access Age >= 75 History of VTE Family history of VTE Factor V Leiden Prothrombin [id number] Lupus anticoagulant Anticardiolipin antibodies Elevated serum homocysteine Heparin-induced thrombocytopenia Other congenital or acquired thrombophilia Stroke (< 1 month) Elective arthroplasty Hip, pelvis, or leg fracture Acute spinal cord injury (< 1 month) Prophylaxis Regimen Total Risk Factor Score Risk Level Prophylaxis Regimen 0-1 Low Early ambulation 2 Moderate Order ONE of the following: *Sequential Compression Device (SCD) *Heparin 5000 units SQ BID 3-4 Higher Order ONE of the following medications: *Heparin 5000 units SQ TID *Enoxaparin/Lovenox 40 mg SQ daily (WT < 150 kg, CrCl > 30 mL/min) *Enoxaparin/Lovenox 30 mg SQ daily (WT < 150 kg, CrCl > 10-29 mL/min) *Enoxaparin/Lovenox 30 mg SQ BID (WT < 150 kg, CrCl > 30 mL/min) AND/OR *Sequential Compression Device (SCD) 5 or more Highest Order ONE of the following medications: *Heparin 5000 units SQ TID (Preferred with Epidurals) *Enoxaparin/Lovenox 40 mg SQ daily (WT < 150 kg, CrCl > 30 mL/min) *Enoxaparin/Lovenox 30 mg SQ daily (WT < 150 kg, CrCl > 10-29 mL/min) *Enoxaparin/Lovenox 30 mg SQ BID (WT < 150 kg, CrCl > 30 mL/min) AND *Sequential Compression Device (SCD) Assessment and Plan Assessment and Plan Plan by systems: Neurologic: Pleuritic chest pain Tylenol 650 mg every 6 hours when necessary for pain greater than 7-10 Respiratory: Severe COPD Home O2 dependence Right pneumothorax 02/28 right chest tube placement per ED, repeat chest x-ray residual right apical pneumothorax, left lower lobe consolidation Right chest tube to 20 cm wall suction, no leak, no output Continue O2 via nasal cannula at 2 L Bronchodilator scheduled every 6 hours Pulmonary consulted- Dr. Hicks Prednisone 5 mg BID patient's home medication continued Cardiovascular: Continue carvedilol, ASA and Nitrostat patient's home medications Maintain MAP greater than 65mmHG Renal: No acute issues -- Strict I/Os FEN/GI: GERD Begin heart healthy diet after swallow evaluation Decrease IVF N/S to 42cc/hr Bowel regimen Protonix Heme/ID: Monitor CBC Obtain cultures if clinically indicated Endocrine: Glucose monitoring per ICU protocol -- SSI Prophylaxis: GI Prophylaxis Protonix DVT Prophylaxis -- SCDs Lines: Peripheral IVs providing adequate access Dispo: This patient remains critically ill with one or more organ systems which are or may become a threat to life. I have spent in excess of 30 minutes discontinuously in the care and management of this patient. This time is exclusive of procedures, and includes, but is not limited to, evaluation of the patient, review of the medical record, discussions with family, consultants, nursing staff, or respiratory therapy, and documentation in the medical record. Code Status Full Discussed Condition With SOLE MOLDER and patient at bedside Delmy Wilkes MD Feb 28, 2017 08:05
[2017-02-28] MEDS: CARVEDILOL 3.125 MG TAB PO SCH ×2 (08:17→20:28)
[2017-02-28] MEDS: PANTOPRAZOLE SOD 40 MG DELAYED RELEASE TAB PO SCH (08:17)
[2017-02-28] MEDS: predniSONE 5 MG TAB PO SCH ×2 (08:17→20:28)
[2017-02-28] MEDS: SODIUM CHLORIDE 0.9% FLUSH 10 ML FLUSH IV FLUSH SCH ×2 (08:18→20:28)
[2017-02-28] MEDS: ASPIRIN 81 MG CHEW TAB CHEW SCH (08:18)
[2017-02-28] MEDS: SODIUM CHLOR 0.9% 1000 ML INJ 1,000 ML IV SCH (14:34)
[2017-02-28] MEDS: ENOXAPARIN SODIUM 40 MG/0.4 ML SYRINGE SQ SCH (20:28)
[2017-03-01] VITALS (34 sets, daily range): BP systolic 112–149; BP diastolic 58–83; PULSE 60–84; RESP 12–32; TEMP 96.4–97.6; O2SAT 91–99
[2017-03-01] MEDS: RESP: ALBUTEROL 2.5 MG/IPRATROPIUM 0.5 MG NEB (SCH) NEB ×4 (03:35→22:05)
[2017-03-01] MEDS: CHLORHEXIDINE GLUCONATE 2 % 1 PACK (2 CLOTHS) TOP SCH (04:00)
[2017-03-01 06:03] LABS: AUTOMATED NEUTROPHIL # 10.8 TH/MM3 (1.8-7.7); BASOPHIL % 0.3 % (0.0-2.0); EOSINOPHIL # 0.2 TH/MM3 (0-0.4); EOSINOPHIL % 1.4 % (0.0-4.0); HEMATOCRIT 43.1 % (39.0-51.0); HEMO FLAGS DIFF FINAL; LYMPH % 7.4 % (9.0-44.0); LYMPHOCYTE # 0.9 TH/MM3 (1.0-4.8); MEAN CELL VOLUME 87.1 FL (80.0-100.0); MEAN CORPUSCULAR HEMOGLOBIN 28.7 PG (27.0-34.0); MONO % 6.1 % (0.0-8.0); NEUT % 84.8 % (16.0-70.0); PLATELET COUNT 203 TH/MM3 (150-450); RED BLOOD COUNT 4.95 MIL/MM3 (4.50-5.90); RED CELL DISTRIBUTION WIDTH 14.1 % (11.6-17.2); WHITE BLOOD COUNT 12.7 TH/MM3 (4.0-11.0)
[2017-03-01 06:12] LABS: POTASSIUM 4.3 MEQ/L (3.5-5.1)
[2017-03-01 06:15] LABS: BICARBONATE 30.3 MEQ/L (21.0-32.0)
--- NOTE | 2017-03-01 06:23 | RADRPT ---
EXAM DATE/TIME: 03/01/2017 06:00 [facility] COMPARISON: CHEST SINGLE AP, February 28, 2017, 5:56. INDICATIONS : Evaluate for pneumothorax. MEDICAL HISTORY : Chronic obstructive pulmonary disease. Pneumothorax. SURGICAL HISTORY : None. ENCOUNTER: Subsequent ACUITY: 3 days PAIN SCORE: 0/10 LOCATION: Right chest FINDINGS: A single portable frontal view of the chest shows a single thoracostomy tube on the right. No residua l pneumothorax appreciated on this image. Left lower lobe consolidation is less pronounced. Interstit ial prominence within the right lung apex is stable. Heart remains mildly enlarged. CONCLUSION: No discernible pneumothorax on the current study. Ge Guerra Jr., MD on March 01, 2017 at 6:21 Board Certified Radiologist. This report was verified electronically.
--- NOTE | 2017-03-01 07:51 | MB ---
cc: CIERRA PEREZ,DUONG Pavon MD DATE OF CONSULTATION: 02/28/2017 REASON FOR CONSULTATION Evaluate for pneumothorax and COPD. HISTORY OF PRESENT ILLNESS Mr. Guerra is a pleasant 80-year-old with a longstanding history of COPD. He is oxygen dependent and uses oxygen at 2 liters per nasal cannula. The patient developed sudden chest on his right side. The patient was seen in the emergency room. He was found to have a moderate size right pneumothorax. A chest tube was placed with significant decrease in his pneumothorax. He has mild chest pain and shortness of breath has improved. There are no fevers or chills, no night sweats. IMAGING A repeat chest x-ray shows small apical pneumothorax and left lower lobe consolidation. LABORATORY WBC count is 10.8, hemoglobin 14.3, hematocrit 44.1, MCV 88, platelet count 204. Sodium 142, potassium 4.6, chloride 105, CO2 31, BUN 21, creatinine 0.90. PAST MEDICAL HISTORY 1. COPD. 2. Pneumothorax in July 2016. 3. Arthritis. 4. GERD. MEDICATIONS He is currently takin: 1. Lovenox 40 mg daily. 2. Aspirin 81 mg a day. 3. Coreg 3.125 mg twice a day. 4. Prednisone 5 mg twice a day. 5. Albuterol/Atrovent nebulizer treatment. ALLERGIES No known drug allergies. SOCIAL HISTORY He has a history of smoking which he quit many years ago. FAMILY HISTORY Noncontributory. REVIEW OF SYSTEMS He denies any weight loss. No fever or chills. No night sweats. PHYSICAL EXAMINATION GENERAL: An elderly male mildly short of breath, not in acute distress. VITAL SIGNS: Blood pressure 118/67, heart rate 66, respirations 26, temperature 98. HEENT: Pupils are equal and reactive. Oral mucosa and nasal mucosa normal. NECK: Supple. JVP not raised. CHEST: Equal bilaterally. He has a right chest tube in place. Normal air entry. CV: S1, S2 normal. ABDOMEN: Benign. EXTREMITIES: No edema. IMPRESSION 1. Right spontaneous pneumothorax, status post chest tube placement with significant decrease in pneumothorax. 2. COPD. 3. Hypertension. PLAN Will leave the chest tube to suction, repeat chest x-ray in the morning, supplement his oxygen and continue aerosol treatment. Once the pneumothorax resolves will put the chest tube to water seal and clamp it and proceed with removal of the chest tube. Further treatment will depend on the course in the hospital. Thank you for, Dr. Wilkes, for this consultation. MD VIANNEY Mckeon/BT /8:41 PM /7:28 AM AVA
[2017-03-01] MEDS: CHLORHEXIDINE 0.12% (ORAL KIT) 15 ML CUP MT SCH ×2 (08:00→20:00)
[2017-03-01] MEDS: SODIUM CHLORIDE 0.9% FLUSH 10 ML FLUSH IV FLUSH SCH ×2 (09:00→21:51)
[2017-03-01] MEDS: predniSONE 5 MG TAB PO SCH ×2 (09:08→21:51)
[2017-03-01] MEDS: PANTOPRAZOLE SOD 40 MG DELAYED RELEASE TAB PO SCH (09:08)
[2017-03-01] MEDS: ASPIRIN 81 MG CHEW TAB CHEW SCH (09:08)
[2017-03-01] MEDS: CARVEDILOL 3.125 MG TAB PO SCH ×2 (09:08→21:51)
--- NOTE | 2017-03-01 11:23 | HHI.PR ---
Subjective Remarks 81 YOWM with Rt PTX,COPD Chest tube to suction No Air leak Breathing better CXR no PTX Objective Vital Signs Vital Signs Date Time Temp Pulse Resp B/P (MAP) Pulse Ox O2 Delivery O2 Flow Rate FiO2 03/01/17 10:08 96 Nasal Cannula 2.00 03/01/17 10:00 64 19 142/74 (96) 98 03/01/17 10:00 64 03/01/17 09:00 66 03/01/17 09:00 66 23 128/71 (90) 99 03/01/17 08:00 74 03/01/17 08:00 97.4 74 21 134/76 (95) 97 03/01/17 07:00 68 03/01/17 07:00 68 17 149/77 (101) 91 03/01/17 06:00 64 18 131/68 (89) 99 03/01/17 06:00 64 03/01/17 05:00 62 22 126/67 (86) 98 03/01/17 04:00 64 03/01/17 04:00 97.5 64 22 127/66 (86) 97 03/01/17 03:00 60 14 112/64 (80) 96 03/01/17 02:00 64 03/01/17 02:00 64 20 116/63 (80) 97 03/01/17 01:00 62 12 121/58 (79) 98 03/01/17 00:00 97.6 64 16 114/61 (78) 95 03/01/17 00:00 64 02/28/17 23:00 68 18 111/63 (79) 94 02/28/17 22:00 66 15 118/62 (80) 96 02/28/17 22:00 66 02/28/17 21:00 62 19 129/70 (89) 98 02/28/17 20:00 97.5 64 22 124/68 (86) 97 02/28/17 20:00 64 02/28/17 19:30 96 Nasal Cannula 2.00 02/28/17 19:00 64 17 117/66 (83) 98 02/28/17 18:15 66 21 96 02/28/17 18:15 66 02/28/17 18:00 68 26 118/67 (84) 02/28/17 18:00 68 02/28/17 17:00 80 25 122/67 (85) 97 02/28/17 16:00 82 02/28/17 16:00 82 24 125/65 (85) 99 02/28/17 15:00 80 23 129/75 (93) 96 02/28/17 14:00 71 24 140/77 (98) 97 02/28/17 14:00 71 02/28/17 13:00 58 20 132/68 (89) 97 02/28/17 12:00 62 02/28/17 12:00 98.0 62 22 149/73 (98) 98 I/O 02/28/17 02/28/17 02/28/17 03/01/17 03/01/17 03/01/17 07:00 15:00 23:00 07:00 15:00 23:00 Intake Total 683 ml 1023 ml Output Total 300 ml 255 ml 425 ml Balance 383 ml 768 ml -425 ml Intake Oral 240 ml IV Total 683 ml 783 ml Output Urine Total 300 ml 250 ml 425 ml Chest Tube Drainage Total 0 ml 5 ml # Voids 2 Result Diagram: 03/01/17 0500 03/01/17 0500 Objective Remarks GENERAL: MBMN WM, NAD SKIN: Warm and dry. HEAD: Normocephalic. EYES: No scleral icterus. No injection or drainage. NECK: Supple, trachea midline. No JVD or lymphadenopathy. CARDIOVASCULAR: Regular rate and rhythm without murmurs, gallops, or rubs. RESPIRATORY: Breath sounds equal bilaterally. No accessory muscle use. Right chest tube in place GASTROINTESTINAL: Abdomen soft, non-tender, nondistended. MUSCULOSKELETAL: No cyanosis, or edema. BACK: Nontender without obvious deformity. No CVA tenderness. A/P Assessment and Plan Right PTX S/P Chest tube COPD HTN PLAN: Chest tube to water seal Rpt CXr Aerosol nebs Supplement 02 Jayro Hicks MD Mar 01, 2017 11:23
[2017-03-01] MEDS: SODIUM CHLOR 0.9% 1000 ML INJ 1,000 ML IV SCH (14:18)
--- NOTE | 2017-03-01 16:21 | RADRPT ---
EXAM DATE/TIME: 03/01/2017 16:11 [facility] COMPARISON: No previous studies available for comparison. INDICATIONS : Evaluate pneumothorax. MEDICAL HISTORY : Chronic obstructive pulmonary disease. SURGICAL HISTORY : None. ENCOUNTER: Subsequent ACUITY: 2 days PAIN SCORE: 0/10 LOCATION: Bilateral chest FINDINGS: Right chest tube remains present with small right-sided pneumothorax. Airspace disease right upper lo be unchanged. Minimal basilar opacity. Trace right pleural fluid. No left-sided pneumothorax. Hiatal hernia present. CONCLUSION: 1. Right chest tube with a small right pneumothorax. Airspace disease in the right lung is stable. Warner Ortega MD on March 01, 2017 at 16:14 Board Certified Radiologist. This report was verified electronically.
[2017-03-01] MEDS: ENOXAPARIN SODIUM 40 MG/0.4 ML SYRINGE SQ SCH (21:51)
[2017-03-02] VITALS (38 sets, daily range): BP systolic 89–132; BP diastolic 57–79; PULSE 74–90; RESP 15–42; TEMP 97.5–99.2; O2SAT 85–98
[2017-03-02] MEDS: CHLORHEXIDINE GLUCONATE 2 % 1 PACK (2 CLOTHS) TOP SCH (03:05)
[2017-03-02] MEDS: RESP: ALBUTEROL 2.5 MG/IPRATROPIUM 0.5 MG NEB (SCH) NEB ×4 (03:23→21:13)
[2017-03-02] MEDS: CHLORHEXIDINE 0.12% (ORAL KIT) 15 ML CUP MT SCH ×2 (08:00→20:00)
[2017-03-02] MEDS: ASPIRIN 81 MG CHEW TAB CHEW SCH (09:04)
[2017-03-02] MEDS: predniSONE 5 MG TAB PO SCH ×2 (09:04→20:05)
[2017-03-02] MEDS: CARVEDILOL 3.125 MG TAB PO SCH ×2 (09:04→20:05)
[2017-03-02] MEDS: PANTOPRAZOLE SOD 40 MG DELAYED RELEASE TAB PO SCH (09:04)
[2017-03-02] MEDS: SODIUM CHLORIDE 0.9% FLUSH 10 ML FLUSH IV FLUSH SCH ×2 (09:12→20:05)
--- NOTE | 2017-03-02 12:54 | HHI.PR ---
Subjective Remarks Patient seen in room No new complaints, no CP and not SOB Discussed with sales professional bilingual Objective Vitals Vital Signs Date Time Temp Pulse Resp B/P (MAP) Pulse Ox O2 Delivery O2 Flow Rate FiO2 03/02/17 11:00 90 03/02/17 10:01 78 18 116/66 (83) 95 03/02/17 10:00 78 03/02/17 09:09 96 Nasal Cannula 2.00 03/02/17 09:01 74 21 106/62 (77) 94 03/02/17 09:00 74 03/02/17 08:01 97.5 74 16 102/65 (77) 95 03/02/17 08:00 74 03/02/17 07:01 80 42 116/63 (80) 95 03/02/17 07:00 82 03/02/17 06:01 78 03/02/17 06:01 78 15 89/60 (70) 92 03/02/17 05:01 82 18 105/67 (80) 85 03/02/17 04:01 98.2 80 16 107/61 (76) 93 03/02/17 04:01 80 03/02/17 03:01 78 18 105/62 (76) 92 03/02/17 02:01 80 21 103/68 (80) 94 03/02/17 02:00 82 03/02/17 01:01 82 26 111/65 (80) 93 03/02/17 00:01 97.5 88 26 113/68 (83) 93 03/02/17 00:00 84 03/01/17 23:01 84 21 115/65 (82) 96 03/01/17 22:06 98 Nasal Cannula 2.00 03/01/17 22:01 80 24 131/72 (91) 96 03/01/17 22:00 80 03/01/17 21:03 74 26 127/66 (86) 96 03/01/17 20:01 96.4 78 23 127/71 (89) 97 03/01/17 20:00 78 03/01/17 19:01 82 22 132/83 (99) 95 03/01/17 18:01 84 31 142/82 (102) 94 03/01/17 18:00 82 03/01/17 17:01 74 24 140/77 (98) 97 03/01/17 17:00 76 03/01/17 16:01 97.5 78 32 131/68 (89) 94 03/01/17 16:00 82 03/01/17 15:01 78 23 134/76 (95) 96 03/01/17 15:00 80 03/01/17 14:01 84 29 124/72 (89) 98 03/01/17 14:00 84 03/01/17 13:01 76 19 120/70 (87) 96 03/01/17 13:00 76 I/O 03/01/17 03/01/17 03/01/17 03/02/17 03/02/17 03/02/17 07:00 15:00 23:00 07:00 15:00 23:00 Intake Total 240 ml 60 ml Output Total 425 ml 400 ml 500 ml Balance -425 ml -160 ml -440 ml Intake Oral 240 ml 60 ml Output Urine Total 425 ml 400 ml 500 ml Chest Tube Drainage Total 0 ml # Voids 2 # Bowel Movements 0 Result Diagram: 03/01/17 0500 03/01/17 0500 Imaging Last Impressions Chest X-Ray 03/01/17 1600 Signed Impressions: Service Date/Time: Wednesday, March 01, 2017 16:11 - CONCLUSION: 1. Right chest tube with a small right pneumothorax. Airspace disease in the right lung is stable. Warner Ortega MD Objective Remarks Chest tube in place GENERAL: This is a well-nourished, well-developed patient, in no apparent distress. CARDIOVASCULAR: Regular rate and rhythm without murmurs, gallops, or rubs. RESPIRATORY: Right sided crackles and scattered wheezes. Left clear GASTROINTESTINAL: Abdomen soft, non-tender, nondistended. Normal active bowel sounds MUSCULOSKELETAL: Extremities without clubbing, cyanosis, or edema. NEURO: Alert & Oriented x4 to person, place, time, situation. Moves all ext x4 A/P Problem List: (1) Pneumothorax, right ICD Code: J93.9 - Pneumothorax, unspecified Status: Acute Plan: Previous in 07/2016 Chest tube to water seal, pulm following repeat CXR today (2) COPD (chronic obstructive pulmonary disease) ICD Code: J44.9 - Chronic obstructive pulmonary disease, unspecified Status: Acute Plan: On home O2 supportive care, no exacerbation at this time patient on chronic steroids BID (3) Heart failure ICD Code: I50.9 - Heart failure, unspecified Plan: known systoilc dysfunction and EF 30% continue BB, aspirin No evidence of decompensation at this time (4) Dysphagia ICD Code: R13.10 - Dysphagia, unspecified Plan: modified diet, ST eval appreciated Assessment and Plan LMWH PT oob Discharge Planning dc home when stable Alis Frye MD Mar 02, 2017 12:54
--- NOTE | 2017-03-02 14:13 | RADRPT ---
EXAM DATE/TIME: 03/02/2017 13:52 [facility] COMPARISON: CHEST INSPIRATION & EXPIRATION, March 01, 2017, 16:11. CHEST SINGLE AP, March 01, 2017, 6:00 . INDICATIONS : Evaluate pneumothorax. MEDICAL HISTORY : Chronic obstructive pulmonary disease. SURGICAL HISTORY : None. ENCOUNTER: Subsequent ACUITY: 3 days PAIN SCORE: 0/10 LOCATION: Bilateral chest FINDINGS: A single view of the chest demonstrates stable position of surgical right thoracostomy tube. Increasi ng right apical pneumothorax previously measured 9 mm in depth and now measures 2 cm in depth. Focal mixed interstitial and airspace disease in the right upper lobe. Bibasilar areas of consolidation/eff usion, left greater than right. Heart size is prominent. CONCLUSION: 1. Increasing right apical pneumothorax which now measures 2.1 cm in depth. Stable position of right thoracostomy tube. 2. Stable mixed interstitial and airspace process in the right apex. 3. Bibasilar areas of consolidation with possible associated effusions, left greater than right. 4. Cardiomegaly Peyman Dave MD on March 02, 2017 at 14:08 Board Certified Radiologist. This report was verified electronically.
--- NOTE | 2017-03-02 19:51 | HHI.PR ---
Subjective Remarks 81 YOWM with Rt PTX,COPD Chest tube to suction No Air leak Breathing better Developed worsening of right ptx upon putting Chest tube to water seal Objective Vital Signs Vital Signs Date Time Temp Pulse Resp B/P (MAP) Pulse Ox O2 Delivery O2 Flow Rate FiO2 03/02/17 19:28 87 03/02/17 19:01 99.2 86 26 132/79 (96) 92 03/02/17 18:01 90 26 117/73 (88) 97 03/02/17 18:00 90 03/02/17 17:01 90 29 124/68 (86) 96 03/02/17 16:01 97.5 90 21 103/57 (72) 98 03/02/17 16:00 90 03/02/17 15:01 90 24 105/59 (74) 97 03/02/17 15:00 90 03/02/17 14:01 76 32 107/67 (80) 97 03/02/17 14:00 76 03/02/17 13:01 80 22 113/64 (80) 96 03/02/17 13:00 80 03/02/17 11:01 97.6 88 29 106/67 (80) 95 03/02/17 11:00 90 03/02/17 10:01 78 18 116/66 (83) 95 03/02/17 10:00 78 03/02/17 09:09 96 Nasal Cannula 2.00 03/02/17 09:01 74 21 106/62 (77) 94 03/02/17 09:00 74 03/02/17 08:01 97.5 74 16 102/65 (77) 95 03/02/17 08:00 74 03/02/17 07:01 80 42 116/63 (80) 95 03/02/17 07:00 77 03/02/17 06:01 78 03/02/17 06:01 78 15 89/60 (70) 92 03/02/17 05:01 82 18 105/67 (80) 85 03/02/17 04:01 98.2 80 16 107/61 (76) 93 03/02/17 04:01 80 03/02/17 03:01 78 18 105/62 (76) 92 03/02/17 02:01 80 21 103/68 (80) 94 03/02/17 02:00 82 03/02/17 01:01 82 26 111/65 (80) 93 03/02/17 00:01 97.5 88 26 113/68 (83) 93 03/02/17 00:00 84 03/01/17 23:01 84 21 115/65 (82) 96 03/01/17 22:06 98 Nasal Cannula 2.00 03/01/17 22:01 80 24 131/72 (91) 96 03/01/17 22:00 80 03/01/17 21:03 74 26 127/66 (86) 96 03/01/17 20:01 96.4 78 23 127/71 (89) 97 03/01/17 20:00 78 I/O 03/01/17 03/01/17 03/01/17 03/02/17 03/02/17 03/02/17 07:00 15:00 23:00 07:00 15:00 23:00 Intake Total 240 ml 60 ml 2400 ml Output Total 425 ml 400 ml 500 ml 410 ml Balance -425 ml -160 ml -440 ml 1990 ml Intake Oral 240 ml 60 ml 2400 ml Output Urine Total 425 ml 400 ml 500 ml 400 ml Chest Tube Drainage Total 0 ml 10 ml # Voids 2 # Bowel Movements 0 1 Result Diagram: 03/01/17 0500 03/01/17 0500 Objective Remarks GENERAL: MBMN WM, NAD SKIN: Warm and dry. HEAD: Normocephalic. EYES: No scleral icterus. No injection or drainage. NECK: Supple, trachea midline. No JVD or lymphadenopathy. CARDIOVASCULAR: Regular rate and rhythm without murmurs, gallops, or rubs. RESPIRATORY: Breath sounds equal bilaterally. No accessory muscle use. Right chest tube in place GASTROINTESTINAL: Abdomen soft, non-tender, nondistended. MUSCULOSKELETAL: No cyanosis, or edema. BACK: Nontender without obvious deformity. No CVA tenderness. A/P Assessment and Plan Right PTX S/P Chest tube COPD HTN PLAN: Chest tube to suction, increase 30 cms Aerosol nebs Supplement 02 CXr in Jayro Zepeda MD Mar 02, 2017 19:51
[2017-03-02] MEDS: ENOXAPARIN SODIUM 40 MG/0.4 ML SYRINGE SQ SCH (20:04)
[2017-03-03] VITALS (13 sets, daily range): BP systolic 104–141; BP diastolic 57–79; PULSE 72–85; RESP 16–29; TEMP 97.5–98.5; O2SAT 95–99
[2017-03-03] MEDS: RESP: ALBUTEROL 2.5 MG/IPRATROPIUM 0.5 MG NEB (SCH) NEB ×4 (03:25→21:00)
[2017-03-03] MEDS: CHLORHEXIDINE GLUCONATE 2 % 1 PACK (2 CLOTHS) TOP SCH (04:00)
--- NOTE | 2017-03-03 07:20 | RADRPT ---
EXAM DATE/TIME: 03/03/2017 07:05 [facility] COMPARISON: CHEST SINGLE AP, March 02, 2017, 13:52. INDICATIONS : Pneumothorax. MEDICAL HISTORY : Gastroesophageal reflux disease. Chronic obstructive pulmonary disease. Arthritis. Pneumothorax. SURGICAL HISTORY : Total knee replacement, left. Total knee replacement, right. Chest tube. ENCOUNTER: Subsequent ACUITY: 4 - 6 days PAIN SCORE: 0/10 LOCATION: Right chest FINDINGS: Portable upright AP view of the chest demonstrates a normal-sized cardiac silhouette. Large bore righ t chest tube remains present and there is a small right apical pneumothorax, slightly decreased in si ze from the prior study. There is stable mild retrocardiac opacity. CONCLUSION: 1. Persistent small right apical pneumothorax, slightly decreased in size from yesterday's examinatio n. Chest tube remains present. 2. Left lower lobe opacity representing either atelectasis or airspace consolidation. Jerome Robbins MD on March 03, 2017 at 7:17 Board Certified Radiologist. This report was verified electronically.
[2017-03-03] MEDS: predniSONE 5 MG TAB PO SCH ×2 (07:54→20:14)
[2017-03-03] MEDS: ASPIRIN 81 MG CHEW TAB CHEW SCH (07:54)
[2017-03-03] MEDS: PANTOPRAZOLE SOD 40 MG DELAYED RELEASE TAB PO SCH (07:55)
[2017-03-03] MEDS: CARVEDILOL 3.125 MG TAB PO SCH ×2 (07:55→20:14)
[2017-03-03] MEDS: CHLORHEXIDINE 0.12% (ORAL KIT) 15 ML CUP MT SCH ×2 (08:00→20:00)
[2017-03-03] MEDS: SODIUM CHLORIDE 0.9% FLUSH 10 ML FLUSH IV FLUSH SCH ×2 (09:00→20:15)
--- NOTE | 2017-03-03 12:50 | HHI.PR ---
Subjective Remarks Patient seen and evaluated in follow-up for pneumothorax and COPD. Overall doing better. I'll repeat x-ray shows improvement in pneumothorax. Patient overall without complaints. Care plan discussed with [facility]URSING C[facility] TUTOR Objective Vitals Vital Signs Date Time Temp Pulse Resp B/P (MAP) Pulse Ox O2 Delivery O2 Flow Rate FiO2 03/03/17 10:00 80 03/03/17 09:55 99 Nasal Cannula 3.00 03/03/17 08:00 76 03/03/17 06:04 74 03/03/17 04:00 72 03/03/17 04:00 98.2 72 21 112/64 (80) 95 03/03/17 00:00 78 03/03/17 00:00 98.4 78 16 116/62 (80) 98 03/02/17 23:00 82 15 115/65 (82) 93 03/02/17 22:00 86 16 109/59 (76) 93 03/02/17 21:15 97 Nasal Cannula 3.00 03/02/17 21:00 88 22 116/65 (82) 96 03/02/17 20:00 83 03/02/17 19:28 87 03/02/17 19:01 99.2 86 26 132/79 (96) 92 03/02/17 18:01 90 26 117/73 (88) 97 03/02/17 18:00 90 03/02/17 17:01 90 29 124/68 (86) 96 03/02/17 16:01 97.5 90 21 103/57 (72) 98 03/02/17 16:00 90 03/02/17 15:01 90 24 105/59 (74) 97 03/02/17 15:00 90 03/02/17 14:01 76 32 107/67 (80) 97 03/02/17 14:00 76 03/02/17 13:01 80 22 113/64 (80) 96 03/02/17 13:00 80 I/O 03/02/17 03/02/17 03/02/17 03/03/17 03/03/17 03/03/17 07:00 15:00 23:00 07:00 15:00 23:00 Intake Total 60 ml 2400 ml 100 ml Output Total 500 ml 410 ml 250 ml Balance -440 ml 1990 ml -150 ml Intake Oral 60 ml 2400 ml 100 ml Output Urine Total 500 ml 400 ml 250 ml Chest Tube Drainage Total 10 ml # Voids 2 1 # Bowel Movements 0 1 0 Result Diagram: 03/01/17 0500 03/01/17 0500 Imaging Last Impressions Chest X-Ray 03/03/17 0653 Signed Impressions: Service Date/Time: February 07:05 - CONCLUSION: 1. Persistent small right apical pneumothorax, slightly decreased in size from yesterday's examination. Chest tube remains present. 2. Left lower lobe opacity representing either atelectasis or airspace consolidation. Jerome Robbins MD Objective Remarks right side Chest tube in place GENERAL: This is a well-nourished, well-developed patient, in no apparent distress. CARDIOVASCULAR: Regular rate and rhythm without murmurs, gallops, or rubs. RESPIRATORY: Right sided crackles and scattered wheezes. Left clear GASTROINTESTINAL: Abdomen soft, non-tender, nondistended. Normal active bowel sounds MUSCULOSKELETAL: Extremities without clubbing, cyanosis, or edema. NEURO: Alert & Oriented x4 to person, place, time, situation. Moves all ext x4 A/P Problem List: (1) Pneumothorax, right ICD Code: J93.9 - Pneumothorax, unspecified Status: Acute Plan: Previous episode in 07/2016 Chest tube to suction, pulm following repeat CXR in a.m. (2) COPD (chronic obstructive pulmonary disease) ICD Code: J44.9 - Chronic obstructive pulmonary disease, unspecified Status: Acute Plan: On home O2 supportive care, no exacerbation at this time patient on chronic steroids BID (3) Heart failure ICD Code: I50.9 - Heart failure, unspecified Plan: known systoilc dysfunction and EF 30% continue BB, aspirin No evidence of decompensation at this time (4) Dysphagia ICD Code: R13.10 - Dysphagia, unspecified Plan: modified diet, ST eval appreciated Assessment and Plan LMWH PT oob Discharge Planning dc home w/ hhc when stable Alis Frye MD Mar 03, 2017 12:50
--- NOTE | 2017-03-03 12:51 | HHI.FF ---
Face to Face Verification Diagnosis: (1) COPD (chronic obstructive pulmonary disease) (2) Heart failure Physical Therapy Order: Evaluate and Treat, Improve ambulation, Strength and gait training Home Health Nursing Order: Medical education Signs/symptoms of disease process Oxygen administration education [employer] Order: To Provide: Long range planning, Community services I have seen patient Shahid Guerra on 03/03/17. My clinical findings support the need for the requested home health care services because: Limited ability to care for self I certify that my clinical findings support that this patient is homebound because: Poor cardiac reserve Alis Frye MD Mar 03, 2017 12:51
--- NOTE | 2017-03-03 18:42 | HHI.PR ---
Subjective Remarks 81 YOWM with Rt PTX,COPD Chest tube to suction No Air leak Breathing better Some improvement in rt ptx Objective Vital Signs Vital Signs Date Time Temp Pulse Resp B/P (MAP) Pulse Ox O2 Delivery O2 Flow Rate FiO2 03/03/17 18:00 85 03/03/17 18:00 78 23 109/79 (89) 97 03/03/17 17:00 82 27 97 03/03/17 16:00 74 03/03/17 16:00 98.2 84 29 117/73 (88) 95 03/03/17 14:00 76 03/03/17 12:00 77 03/03/17 12:00 98.5 76 20 104/57 (73) 97 03/03/17 10:00 80 03/03/17 09:55 99 Nasal Cannula 3.00 03/03/17 08:00 76 03/03/17 06:04 74 03/03/17 04:00 72 03/03/17 04:00 98.2 72 21 112/64 (80) 95 03/03/17 00:00 78 03/03/17 00:00 98.4 78 16 116/62 (80) 98 03/02/17 23:00 82 15 115/65 (82) 93 03/02/17 22:00 86 16 109/59 (76) 93 03/02/17 21:15 97 Nasal Cannula 3.00 03/02/17 21:00 88 22 116/65 (82) 96 03/02/17 20:00 83 03/02/17 19:28 87 03/02/17 19:01 99.2 86 26 132/79 (96) 92 I/O 03/02/17 03/02/17 03/02/17 03/03/17 03/03/17 03/03/17 07:00 15:00 23:00 07:00 15:00 23:00 Intake Total 60 ml 2400 ml 100 ml 480 ml Output Total 500 ml 410 ml 250 ml Balance -440 ml 1990 ml -150 ml 480 ml Intake Oral 60 ml 2400 ml 100 ml 480 ml Output Urine Total 500 ml 400 ml 250 ml Chest Tube Drainage Total 10 ml # Voids 2 1 2 # Bowel Movements 0 1 0 0 Result Diagram: 03/01/17 0500 03/01/17 0500 Objective Remarks GENERAL: MBMN WM, NAD SKIN: Warm and dry. HEAD: Normocephalic. EYES: No scleral icterus. No injection or drainage. NECK: Supple, trachea midline. No JVD or lymphadenopathy. CARDIOVASCULAR: Regular rate and rhythm without murmurs, gallops, or rubs. RESPIRATORY: Breath sounds equal bilaterally. No accessory muscle use. Right chest tube in place GASTROINTESTINAL: Abdomen soft, non-tender, nondistended. MUSCULOSKELETAL: No cyanosis, or edema. BACK: Nontender without obvious deformity. No CVA tenderness. A/P Assessment and Plan Right PTX S/P Chest tube COPD HTN PLAN: Chest tube to suction, 30 cms Aerosol nebs Supplement 02 CXr in AM DW pt Jayro Hicks MD Mar 03, 2017 18:42
[2017-03-03] MEDS: ENOXAPARIN SODIUM 40 MG/0.4 ML SYRINGE SQ SCH (20:14)
[2017-03-04] VITALS (9 sets, daily range): BP systolic 108–122; BP diastolic 66–73; PULSE 67–84; RESP 18–22; TEMP 97.2–98; O2SAT 98–100
[2017-03-04] MEDS: RESP: ALBUTEROL 2.5 MG/IPRATROPIUM 0.5 MG NEB (SCH) NEB (03:09)
[2017-03-04] MEDS: CHLORHEXIDINE GLUCONATE 2 % 1 PACK (2 CLOTHS) TOP SCH (03:11)
--- NOTE | 2017-03-04 07:19 | RADRPT ---
EXAM DATE/TIME: 03/04/2017 05:13 [facility] COMPARISON: CHEST SINGLE AP, March 03, 2017, 7:05. INDICATIONS : Evaluate right pneumothorax MEDICAL HISTORY : Gastroesophageal reflux disease. Chronic obstructive pulmonary disease. Arthritis. Pneumothorax. SURGICAL HISTORY : Total knee replacement, left. Total knee replacement, right. Chest tube ENCOUNTER: Subsequent ACUITY: 4 - 6 days PAIN SCORE: 0/10 LOCATION: Right chest FINDINGS: Right upper lung pneumothorax with separation measuring 1.6 cm, similar to yesterday's exam. Chest d rainage tube remains projected in the medial right upper chest right upper lobe opacities stable from prior. Mild infiltrates in the retrocardiac region with loss of delineation of the medial left shanell diaphragm similar to prior.. CONCLUSION: 1. Stable size right upper chest pneumothorax with chest drainage tube in place. 2. Persistent non-consolidative infiltrates in the right upper lung and consolidation in the medial l eft lower lung. Ge Thibodeaux MD on March 04, 2017 at 7:16 Board Certified Radiologist. This report was verified electronically.
[2017-03-04] MEDS: CHLORHEXIDINE 0.12% (ORAL KIT) 15 ML CUP MT SCH ×2 (08:00→20:00)
[2017-03-04] MEDS: predniSONE 5 MG TAB PO SCH ×2 (08:47→20:35)
[2017-03-04] MEDS: CARVEDILOL 3.125 MG TAB PO SCH ×2 (08:47→20:35)
[2017-03-04] MEDS: PANTOPRAZOLE SOD 40 MG DELAYED RELEASE TAB PO SCH (08:47)
[2017-03-04] MEDS: ASPIRIN 81 MG CHEW TAB CHEW SCH (08:47)
[2017-03-04] MEDS: SODIUM CHLORIDE 0.9% FLUSH 10 ML FLUSH IV FLUSH SCH ×2 (08:48→20:36)
--- NOTE | 2017-03-04 11:14 | HHI.PR ---
Subjective Remarks Patient seen today in follow-up for COPD and for pneumothorax. No new events. Repeat x-ray today shows stable pneumothorax. Objective Vitals Vital Signs Date Time Temp Pulse Resp B/P (MAP) Pulse Ox O2 Delivery O2 Flow Rate FiO2 03/04/17 10:22 84 03/04/17 08:14 97.5 67 20 116/67 (83) 98 03/04/17 07:49 98 Nasal Cannula 3.00 03/04/17 04:00 97.6 69 20 119/73 (88) 99 03/04/17 04:00 67 03/04/17 00:00 97.5 75 22 116/67 (83) 98 03/04/17 00:00 83 03/03/17 21:00 97.5 83 19 141/79 (99) 97 03/03/17 21:00 97 Nasal Cannula 3.00 03/03/17 20:00 81 03/03/17 20:00 97.5 82 22 121/70 (87) 95 03/03/17 18:00 85 03/03/17 18:00 78 23 109/79 (89) 97 03/03/17 17:00 82 27 97 03/03/17 16:00 74 03/03/17 16:00 98.2 84 29 117/73 (88) 95 03/03/17 14:00 76 03/03/17 12:00 77 03/03/17 12:00 98.5 76 20 104/57 (73) 97 I/O 03/03/17 03/03/17 03/03/17 03/04/17 03/04/17 03/04/17 07:00 15:00 23:00 07:00 15:00 23:00 Intake Total 100 ml 480 ml 120 ml Output Total 250 ml 250 ml Balance -150 ml 480 ml -130 ml Intake Oral 100 ml 480 ml 120 ml Output Urine Total 250 ml 250 ml # Voids 1 2 # Bowel Movements 0 0 0 Result Diagram: 03/01/17 0500 03/01/17 0500 Objective Remarks right side Chest tube in place GENERAL: This is a well-nourished, well-developed patient, in no apparent distress. CARDIOVASCULAR: Regular rate and rhythm without murmurs, gallops, or rubs. RESPIRATORY: Right sided crackles and scattered wheezes. Left clear GASTROINTESTINAL: Abdomen soft, non-tender, nondistended. Normal active bowel sounds MUSCULOSKELETAL: Extremities without clubbing, cyanosis, or edema. NEURO: Alert & Oriented x4 to person, place, time, situation. Moves all ext x4 A/P Problem List: (1) Pneumothorax, right ICD Code: J93.9 - Pneumothorax, unspecified Status: Acute Plan: Previous episode in 07/2016 Chest tube to suction, pulm following repeat CXR for surveillance (2) COPD (chronic obstructive pulmonary disease) ICD Code: J44.9 - Chronic obstructive pulmonary disease, unspecified Status: Acute Plan: On home O2 supportive care, no exacerbation at this time patient on chronic steroids BID (3) Heart failure ICD Code: I50.9 - Heart failure, unspecified Plan: known systoilc dysfunction and EF 30% continue BB, aspirin No evidence of decompensation at this time (4) Dysphagia ICD Code: R13.10 - Dysphagia, unspecified Plan: modified diet, ST eval appreciated Assessment and Plan LMWH PT oob Discharge Planning dc home w/ hhc when stable Alis Frye MD Mar 04, 2017 11:14
--- NOTE | 2017-03-04 16:33 | HHI.PR ---
Subjective Remarks 81 YOWM with Rt PTX,COPD Chest tube to suction No Air leak Breathing better Still has PTX Objective Vital Signs Vital Signs Date Time Temp Pulse Resp B/P (MAP) Pulse Ox O2 Delivery O2 Flow Rate FiO2 03/04/17 16:00 98.0 74 18 108/66 (80) 100 03/04/17 13:19 97.2 72 18 112/73 (86) 100 03/04/17 10:22 84 03/04/17 08:14 97.5 67 20 116/67 (83) 98 03/04/17 07:49 98 Nasal Cannula 3.00 03/04/17 04:00 97.6 69 20 119/73 (88) 99 03/04/17 04:00 67 03/04/17 00:00 97.5 75 22 116/67 (83) 98 03/04/17 00:00 83 03/03/17 21:00 97.5 83 19 141/79 (99) 97 03/03/17 21:00 97 Nasal Cannula 3.00 03/03/17 20:00 81 03/03/17 20:00 97.5 82 22 121/70 (87) 95 03/03/17 18:00 85 03/03/17 18:00 78 23 109/79 (89) 97 03/03/17 17:00 82 27 97 I/O 03/03/17 03/03/17 03/03/17 03/04/17 03/04/17 03/04/17 07:00 15:00 23:00 07:00 15:00 23:00 Intake Total 100 ml 480 ml 120 ml Output Total 250 ml 250 ml Balance -150 ml 480 ml -130 ml Intake Oral 100 ml 480 ml 120 ml Output Urine Total 250 ml 250 ml # Voids 1 2 # Bowel Movements 0 0 0 Result Diagram: 03/01/17 0500 03/01/17 0500 Objective Remarks GENERAL: MBMN WM, NAD SKIN: Warm and dry. HEAD: Normocephalic. EYES: No scleral icterus. No injection or drainage. NECK: Supple, trachea midline. No JVD or lymphadenopathy. CARDIOVASCULAR: Regular rate and rhythm without murmurs, gallops, or rubs. RESPIRATORY: Breath sounds equal bilaterally. No accessory muscle use. Right chest tube in place GASTROINTESTINAL: Abdomen soft, non-tender, nondistended. MUSCULOSKELETAL: No cyanosis, or edema. BACK: Nontender without obvious deformity. No CVA tenderness. A/P Assessment and Plan Right PTX S/P Chest tube COPD HTN PLAN: Chest tube to suction, 30 cms Aerosol nebs Supplement 02 CXr in AM DW pt If ptx does't resolve may need CTS Jayro Hicks MD Mar 04, 2017 16:33
[2017-03-04] MEDS: ENOXAPARIN SODIUM 40 MG/0.4 ML SYRINGE SQ SCH (20:35)
[2017-03-05] VITALS (7 sets, daily range): BP systolic 94–142; BP diastolic 62–85; PULSE 60–99; RESP 18–20; TEMP 97.4–98.1; O2SAT 96–100
[2017-03-05] MEDS: CHLORHEXIDINE GLUCONATE 2 % 1 PACK (2 CLOTHS) TOP SCH (04:00)
--- NOTE | 2017-03-05 06:45 | RADRPT ---
EXAM DATE/TIME: 03/05/2017 06:15 [facility] COMPARISON: CHEST SINGLE AP, March 03, 2017, 7:05. CHEST SINGLE AP, March 04, 2017, 5:13. INDICATIONS : Evaluate right pneumothorax. MEDICAL HISTORY : Gastroesophageal reflux disease. Chronic obstructive pulmonary disease. Arthritis. Pneumothorax SURGICAL HISTORY : Total knee replacement, left. Total knee replacement, right. Chest tube ENCOUNTER: Subsequent ACUITY: 1 week PAIN SCORE: 0/10 LOCATION: Bilateral chest FINDINGS: Right chest drainage tube remains projecting medial right upper lung. There has been interval reduct ion in the size of the right apical pneumothorax, now measuring 7 mm (previously measured 1.5 cm). T he heart is stable in size. Interstitial infiltrates in the right upper lung and triangle shaped are a of consolidation left lower lung stable from prior. CONCLUSION: Interval reduction size right apical pneumothorax to 7 mm. eG Thibodeaux MD on March 05, 2017 at 6:42 Board Certified Radiologist. This report was verified electronically.
[2017-03-05] MEDS: CHLORHEXIDINE 0.12% (ORAL KIT) 15 ML CUP MT SCH ×2 (08:00→20:00)
[2017-03-05] MEDS: predniSONE 5 MG TAB PO SCH ×2 (09:26→20:36)
[2017-03-05] MEDS: SODIUM CHLORIDE 0.9% FLUSH 10 ML FLUSH IV FLUSH SCH ×2 (09:26→20:36)
[2017-03-05] MEDS: CARVEDILOL 3.125 MG TAB PO SCH ×2 (09:26→20:36)
[2017-03-05] MEDS: PANTOPRAZOLE SOD 40 MG DELAYED RELEASE TAB PO SCH (09:26)
[2017-03-05] MEDS: ASPIRIN 81 MG CHEW TAB CHEW SCH (09:33)
--- NOTE | 2017-03-05 11:25 | HHI.PR ---
Subjective Remarks Patient seen in follow-up for pneumothorax. Improved size. No new events overnight. Objective Vitals Vital Signs Date Time Temp Pulse Resp B/P (MAP) Pulse Ox O2 Delivery O2 Flow Rate FiO2 03/05/17 08:00 62 03/05/17 08:00 97.4 62 18 103/67 (79) 100 03/05/17 04:00 97.7 60 20 119/64 (82) 98 03/05/17 00:00 97.4 66 20 94/62 (73) 97 03/04/17 22:15 98 Nasal Cannula 3.00 03/04/17 20:00 68 03/04/17 20:00 97.5 68 20 122/69 (86) 100 03/04/17 16:00 98.0 74 18 108/66 (80) 100 03/04/17 13:19 97.2 72 18 112/73 (86) 100 I/O 03/04/17 03/04/17 03/04/17 03/05/17 03/05/17 03/05/17 07:00 15:00 23:00 07:00 15:00 23:00 Intake Total 120 ml 980 ml 220 ml Output Total 250 ml 200 ml Balance -130 ml 980 ml 20 ml Intake Oral 120 ml 980 ml 220 ml Output Urine Total 250 ml 200 ml # Voids 0 0 # Bowel Movements 0 0 0 Result Diagram: 03/01/17 0500 03/01/17 0500 Objective Remarks right side Chest tube in place GENERAL: This is a well-nourished, well-developed patient, in no apparent distress. CARDIOVASCULAR: Regular rate and rhythm without murmurs, gallops, or rubs. RESPIRATORY: Right sided crackles and scattered wheezes. Left clear GASTROINTESTINAL: Abdomen soft, non-tender, nondistended. Normal active bowel sounds MUSCULOSKELETAL: Extremities without clubbing, cyanosis, or edema. NEURO: Alert & Oriented x4 to person, place, time, situation. Moves all ext x4 A/P Problem List: (1) Pneumothorax, right ICD Code: J93.9 - Pneumothorax, unspecified Status: Acute Plan: Previous episode in 07/2016 Chest tube to suction, pulm following repeat CXR for surveillance improved today (2) COPD (chronic obstructive pulmonary disease) ICD Code: J44.9 - Chronic obstructive pulmonary disease, unspecified Status: Acute Plan: On home O2 supportive care, no exacerbation at this time patient on chronic steroids BID (3) Heart failure ICD Code: I50.9 - Heart failure, unspecified Plan: known systoilc dysfunction and EF 30% continue BB, aspirin No evidence of decompensation at this time (4) Dysphagia ICD Code: R13.10 - Dysphagia, unspecified Plan: modified diet, ST eval appreciated Assessment and Plan LMWH PT oob Discharge Planning dc home w/ hhc when stable Alis Frye MD Mar 05, 2017 11:25
[2017-03-05] MEDS: ENOXAPARIN SODIUM 40 MG/0.4 ML SYRINGE SQ SCH (20:36)
[2017-03-06] VITALS (18 sets, daily range): BP systolic 98–134; BP diastolic 59–77; PULSE 62–98; RESP 16–22; TEMP 95.4–98.3; O2SAT 90–98
[2017-03-06] MEDS: CHLORHEXIDINE GLUCONATE 2 % 1 PACK (2 CLOTHS) TOP SCH (04:00)
--- NOTE | 2017-03-06 07:33 | RADRPT ---
EXAM DATE/TIME: 03/06/2017 07:05 [facility] COMPARISON: CHEST SINGLE AP, March 05, 2017, 6:15. INDICATIONS : Evaluate pneumothorax MEDICAL HISTORY : Chronic obstructive pulmonary disease. Gastroesophageal reflux disease. SURGICAL HISTORY : Total knee replacement, left. Total knee replacement, right. Chest tube ENCOUNTER: Subsequent ACUITY: 1 week PAIN SCORE: 0/10 LOCATION: Bilateral chest FINDINGS: Portable upright AP view of the chest demonstrates a normal size cardiac silhouette. Large bore right chest tube remains present in the right pneumothorax has significantly increased in size. There is s table opacity in the right upper lobe. No pleural effusion is visualized. Left lung demonstrates no a cute finding. CONCLUSION: Significant interval increase in size of the right pneumothorax. The right chest tube remains present . Suggest checking to determine if the chest tube is connected appropriately to suction. Jerome Robbins MD on March 06, 2017 at 7:30 Board Certified Radiologist. This report was verified electronically.
[2017-03-06] MEDS: CHLORHEXIDINE 0.12% (ORAL KIT) 15 ML CUP MT SCH ×2 (08:00→20:00)
[2017-03-06] MEDS: PANTOPRAZOLE SOD 40 MG DELAYED RELEASE TAB PO SCH (09:00)
[2017-03-06] MEDS: ASPIRIN 81 MG CHEW TAB CHEW SCH (09:00)
[2017-03-06] MEDS: predniSONE 5 MG TAB PO SCH ×2 (09:00→21:14)
[2017-03-06] MEDS: CARVEDILOL 3.125 MG TAB PO SCH ×2 (09:00→21:14)
[2017-03-06] MEDS: SODIUM CHLORIDE 0.9% FLUSH 10 ML FLUSH IV FLUSH SCH ×2 (09:00→21:14)
--- NOTE | 2017-03-06 09:44 | HHI.PR ---
Subjective Remarks Patient seen and evaluated follow-up for COPD and for pneumothorax. Pneumothorax appears to be worsening. Patient may require surgical intervention connection evaluated with RN, may be loose dressing Objective Vitals Vital Signs Date Time Temp Pulse Resp B/P (MAP) Pulse Ox O2 Delivery O2 Flow Rate FiO2 03/06/17 04:00 95.6 83 18 108/64 (79) 93 03/06/17 00:00 97.4 87 18 113/63 (80) 96 03/05/17 20:14 96 Nasal Cannula 3.00 03/05/17 20:00 99 03/05/17 20:00 98.1 99 18 142/85 (104) 96 03/05/17 16:00 97.7 77 18 129/69 (89) 100 03/05/17 12:00 97.7 66 18 112/70 (84) 100 I/O 03/05/17 03/05/17 03/05/17 03/06/17 03/06/17 03/06/17 07:00 15:00 23:00 07:00 15:00 23:00 Intake Total 220 ml 600 ml 0 ml Output Total 200 ml Balance 20 ml 600 ml 0 ml Intake Oral 220 ml 600 ml 0 ml Output Urine Total 200 ml # Voids 3 1 # Bowel Movements 0 1 Objective Remarks right side Chest tube in place GENERAL: This is a well-nourished, well-developed patient, in no apparent distress. CARDIOVASCULAR: Regular rate and rhythm without murmurs, gallops, or rubs. RESPIRATORY: Right sided crackles and scattered wheezes. Left clear GASTROINTESTINAL: Abdomen soft, non-tender, nondistended. Normal active bowel sounds MUSCULOSKELETAL: Extremities without clubbing, cyanosis, or edema. NEURO: Alert & Oriented x4 to person, place, time, situation. Moves all ext x4 A/P Problem List: (1) Pneumothorax, right ICD Code: J93.9 - Pneumothorax, unspecified Status: Acute Plan: Previous episode in 07/2016 Chest tube to suction, pulm following repeat CXR for surveillance Patient may require surgical intervention, but will reinforce loose dressing, d/ w RN (2) COPD (chronic obstructive pulmonary disease) ICD Code: J44.9 - Chronic obstructive pulmonary disease, unspecified Status: Acute Plan: On home O2 supportive care, no exacerbation at this time patient on chronic steroids BID (3) Heart failure ICD Code: I50.9 - Heart failure, unspecified Plan: known systoilc dysfunction and EF 30% continue BB, aspirin No evidence of decompensation at this time (4) Dysphagia ICD Code: R13.10 - Dysphagia, unspecified Plan: modified diet, ST eval appreciated Assessment and Plan LMWH PT oob Discharge Planning Probable surgical eval Alis Frye MD Mar 06, 2017 09:44
--- NOTE | 2017-03-06 13:41 | PD.RAD ---
Post Procedure Progress Note Pre Procedure Diagnosis: (1) Pneumothorax, right Post Procedure Diagnosis: (1) Pneumothorax, right Procedure Date: Mar 06, 2017 Supervising Radiologist: Peyman Dave Proceduralist/Assist: Gay Thao RT(R)(CV), RT Anderson(R)() Anesthesia: Local, Analgesia, Conscious Sedation Plan of Activity Patient to Unit: PACU Patient Condition: Fair See PACS Report for procedural detail/treatment Drainage Procedure Procedure 1 Imaging Guidance: Fluoroscopy Side: Right Procedure Type: Chest Tube Non-Tunneled Procedure: Placement Turkish: 10 Drainage: Pleurovac (40 cmH2O) Findings: Large right ptx. Surgical thorocostomy tube right mid chest. Peyman aDve MD Mar 06, 2017 13:41
[2017-03-06] MEDS ORDERED: HYDROmorphone HCL PF 2 MG/ML VIAL IV ONE (14:29)
[2017-03-06] MEDS ORDERED: MIDAZOLAM HCL 5 MG/5 ML VIAL IV ONE (14:30)
--- NOTE | 2017-03-06 15:04 | RADRPT ---
EXAM DATE/TIME: 03/06/2017 13:50 [facility] COMPARISON: No previous studies available for comparison. INDICATIONS : Post chest tube placement MEDICAL HISTORY : pneumothorax SURGICAL HISTORY : chest tube ENCOUNTER: Subsequent ACUITY: 1 week PAIN SCORE: 0/10 LOCATION: Right chest FINDINGS: A single frontal expiratory view of the chest was performed. Additional occult loop catheter in the r ight lung apex. Stable position of the right surgical tube. Persistent pneumothorax.. I discussed findings with the ICU staff. The right chest tube was not connected back to Pleur-evac hays ction and therefore, likely provided an air leak. I've instructed then to place both tubes to 40 cm o f Pleur-evac suction. A stat repeat chest radiograph will be obtained immediately. CONCLUSION: 1. Persistent right-sided pneumothorax despite placement of a [place] loop thoracostomy tube. 2. Findings may be iatrogenic as the surgical tube was not connected back to Pleur-evac suction accor ding to the nursing staff. Detailed instructions were provided to the patient's nurse. Will obtain a repeat chest radiograph. Peyman Dave MD on March 06, 2017 at 14:51 Board Certified Radiologist. This report was verified electronically.
--- NOTE | 2017-03-06 15:47 | RADRPT ---
EXAM DATE/TIME: 03/06/2017 15:38 [facility] COMPARISON: CHEST SINGLE AP, February 28, 2017, 5:56. CHEST SINGLE AP, March 06, 2017, 7:05. INDICATIONS : Post chest tube placement MEDICAL HISTORY : pneumothorax SURGICAL HISTORY : chest tube ENCOUNTER: Subsequent ACUITY: 1 week PAIN SCORE: 0/10 LOCATION: Right upper chest FINDINGS: A single view of the chest demonstrates almost complete reexpansion the right lung with only a tiny r ight apical pneumothorax remaining. Interstitial changes in the right upper lobe. Left basilar atelec tasis with possible small effusion. Heart size is prominent. Degenerative spurring the dorsal spine. CONCLUSION: 1. Almost complete reexpansion of the right lung with only a very tiny right apical pneumothorax. Thi s represents significant improvement from the prior study. 2. Interstitial changes in the right upper lobe. This may be chronic. 3. Left basilar atelectasis with possible associated effusion. 4. Prominent but well compensated heart Peyman Dave MD on March 06, 2017 at 15:42 Board Certified Radiologist. This report was verified electronically.
[2017-03-06] MEDS: ENOXAPARIN SODIUM 40 MG/0.4 ML SYRINGE SQ SCH (21:14)
[2017-03-07] VITALS (43 sets, daily range): BP systolic 102–131; BP diastolic 58–74; PULSE 66–96; RESP 9–28; TEMP 97.6–98.9; O2SAT 92–98
[2017-03-07] MEDS: CHLORHEXIDINE GLUCONATE 2 % 1 PACK (2 CLOTHS) TOP SCH (04:00)
--- NOTE | 2017-03-07 08:23 | RADRPT ---
EXAM DATE/TIME: 03/07/2017 08:12 [facility] COMPARISON: CHEST SINGLE AP, March 06, 2017, 7:05. CHEST EXPIRATION ONLY, March 06, 2017, 13:50. INDICATIONS : Pneumothorax. MEDICAL HISTORY : Chronic obstructive pulmonary disease. Gastroesophageal reflux disease. pneumothorax SURGICAL HISTORY : chest tube ENCOUNTER: Subsequent ACUITY: 1 week PAIN SCORE: 0/10 LOCATION: Right chest FINDINGS: There are 2 stable right-sided chest tubes, a large bore surgical tube in the mid right hemithorax an d a small bore pigtail chest tube near the apex. No significant residual pneumothorax is demonstrated . Airspace and interstitial opacities in the right upper lobe near the apex. Mild airspace disease in the left lower lobe. Cardiomediastinal contours are stable. Remainder of the exam is unchanged. CONCLUSION: 1. Two stable right-sided chest tubes in place with interval resolution of right-sided pneumothorax. 2. Persistent right upper lobe mixed interstitial and alveolar opacities. 3. Mild left lower lobe atelectasis. Samir Saldana MD on March 07, 2017 at 8:18 Board Certified Radiologist. This report was verified electronically.
[2017-03-07] MEDS: ASPIRIN 81 MG CHEW TAB CHEW SCH (09:05)
[2017-03-07] MEDS: CARVEDILOL 3.125 MG TAB PO SCH ×2 (09:05→20:02)
[2017-03-07] MEDS: predniSONE 5 MG TAB PO SCH ×2 (09:05→20:02)
[2017-03-07] MEDS: PANTOPRAZOLE SOD 40 MG DELAYED RELEASE TAB PO SCH (09:05)
[2017-03-07] MEDS: CHLORHEXIDINE 0.12% (ORAL KIT) 15 ML CUP MT SCH ×2 (09:09→20:00)
[2017-03-07] MEDS: SODIUM CHLORIDE 0.9% FLUSH 10 ML FLUSH IV FLUSH SCH ×2 (09:10→20:03)
--- NOTE | 2017-03-07 11:16 | HHI.PR ---
Subjective Remarks Patient seen and evaluated in follow-up for pneumothorax. Chest tube placed yesterday. X-ray improved if not resolved. No new events. Patient resting comfortably Objective Vitals Vital Signs Date Time Temp Pulse Resp B/P (MAP) Pulse Ox O2 Delivery O2 Flow Rate FiO2 03/07/17 11:01 72 9 102/59 (73) 96 03/07/17 11:00 72 03/07/17 10:00 78 03/07/17 09:00 66 03/07/17 08:00 70 03/07/17 07:30 98 Nasal Cannula 2.00 03/07/17 07:01 97.7 72 13 104/63 (77) 95 03/07/17 07:00 72 03/07/17 06:01 70 16 116/62 (80) 94 03/07/17 06:00 69 03/07/17 05:01 74 16 130/67 (88) 97 03/07/17 05:00 73 03/07/17 04:01 74 19 109/67 (81) 97 03/07/17 04:00 78 03/07/17 03:46 118/70 (86) 96 03/07/17 03:31 80 22 129/68 (88) 93 03/07/17 03:16 74 9 111/67 (82) 92 03/07/17 03:01 74 9 107/63 (78) 92 03/07/17 03:00 74 03/07/17 02:00 75 03/07/17 01:00 77 03/07/17 00:00 79 03/07/17 00:00 97.6 96 20 103/61 (75) 94 03/06/17 23:00 70 03/06/17 22:00 79 03/06/17 21:00 95 03/06/17 20:25 97 Nasal Cannula 2.00 03/06/17 20:00 98 03/06/17 20:00 97.6 96 22 129/68 (88) 93 03/06/17 19:00 94 03/06/17 16:00 98.3 90 16 98/59 (72) 90 03/06/17 15:30 96 Nasal Cannula 2.00 03/06/17 14:45 98.3 66 17 116/68 (84) 98 03/06/17 14:30 98.3 66 17 124/68 (86) 98 03/06/17 14:15 98.3 62 19 134/70 (91) 98 03/06/17 14:00 98.3 66 16 109/59 (76) 98 03/06/17 12:45 95.4 67 18 120/72 (88) 95 I/O 03/06/17 03/06/17 03/06/17 03/07/17 03/07/17 03/07/17 07:00 15:00 23:00 07:00 15:00 23:00 Intake Total 0 ml 440 ml 240 ml Output Total 90 ml 300 ml Balance 0 ml 440 ml 150 ml -300 ml Intake Oral 0 ml 440 ml 240 ml Output Urine Total 0 ml 300 ml Stool Total 0 ml Chest Tube Drainage Total 90 ml 0 ml # Voids 1 1 # Bowel Movements 1 0 0 Imaging Last 24 hours Impressions Chest X-Ray 03/07/17 0800 Signed Impressions: Service Date/Time: Tuesday, March 07, 2017 08:12 - CONCLUSION: 1. Two stable right-sided chest tubes in place with interval resolution of right- sided pneumothorax. 2. Persistent right upper lobe mixed interstitial and alveolar opacities. 3. Mild left lower lobe atelectasis. Samir Saldana MD Chest X-Ray 03/06/17 1459 Signed Impressions: Service Date/Time: Monday, March 06, 2017 15:38 - CONCLUSION: 1. Almost complete reexpansion of the right lung with only a very tiny right apical pneumothorax. This represents significant improvement from the prior study. 2. Interstitial changes in the right upper lobe. This may be chronic. 3. Left basilar atelectasis with possible associated effusion. 4. Prominent but well compensated heart Peyman Dave MD Objective Remarks right side Chest tube in place GENERAL: This is a well-nourished, well-developed patient, in no apparent distress. CARDIOVASCULAR: Regular rate and rhythm without murmurs, gallops, or rubs. RESPIRATORY: Right sided crackles and scattered wheezes. Left clear GASTROINTESTINAL: Abdomen soft, non-tender, nondistended. Normal active bowel sounds MUSCULOSKELETAL: Extremities without clubbing, cyanosis, or edema. NEURO: Alert & Oriented x4 to person, place, time, situation. Moves all ext x4 A/P Problem List: (1) Pneumothorax, right ICD Code: J93.9 - Pneumothorax, unspecified Status: Acute Plan: Previous episode in 07/2016 Dual chest tube placed, pulmonary following Appears resolved repeat CXR for surveillance (2) COPD (chronic obstructive pulmonary disease) ICD Code: J44.9 - Chronic obstructive pulmonary disease, unspecified Status: Acute Plan: On home O2 supportive care, no exacerbation at this time patient on chronic steroids BID (3) Heart failure ICD Code: I50.9 - Heart failure, unspecified Plan: known systoilc dysfunction and EF 30% continue BB, aspirin No evidence of decompensation at this time (4) Dysphagia ICD Code: R13.10 - Dysphagia, unspecified Plan: modified diet, stable Assessment and Plan LMWH PT oob Discharge Planning follow cxr in a m, if stable/improved likely d/c 2-3 days Alis Frye MD Mar 07, 2017 11:15
[2017-03-07] MEDS: ENOXAPARIN SODIUM 40 MG/0.4 ML SYRINGE SQ SCH (20:02)
--- NOTE | 2017-03-07 20:27 | HHI.PR ---
Subjective Remarks 81 YOWM with Rt PTX,COPD Chest tube to suction No Air leak Breathing better Weekend events noted Required 2nd chest tube Objective Vital Signs Vital Signs Date Time Temp Pulse Resp B/P (MAP) Pulse Ox O2 Delivery O2 Flow Rate FiO2 03/07/17 20:00 78 03/07/17 19:00 80 03/07/17 18:00 72 03/07/17 17:01 70 14 114/64 (81) 96 03/07/17 17:00 70 03/07/17 16:01 98.7 74 21 131/63 (85) 97 03/07/17 16:00 74 03/07/17 15:01 78 20 118/63 (81) 97 03/07/17 15:00 80 03/07/17 14:46 82 19 114/61 (78) 97 03/07/17 14:01 82 19 113/64 (80) 95 03/07/17 14:00 78 03/07/17 13:01 82 25 117/61 (79) 97 03/07/17 13:00 82 03/07/17 12:01 98.0 72 22 109/58 (75) 96 03/07/17 12:00 70 03/07/17 11:01 72 9 102/59 (73) 96 03/07/17 11:00 72 03/07/17 10:00 78 03/07/17 09:00 66 03/07/17 08:00 70 03/07/17 07:30 98 Nasal Cannula 2.00 03/07/17 07:01 97.7 72 13 104/63 (77) 95 03/07/17 07:00 74 03/07/17 06:01 70 16 116/62 (80) 94 03/07/17 06:00 69 03/07/17 05:01 74 16 130/67 (88) 97 03/07/17 05:00 73 03/07/17 04:01 74 19 109/67 (81) 97 03/07/17 04:00 78 03/07/17 03:46 118/70 (86) 96 03/07/17 03:31 80 22 129/68 (88) 93 03/07/17 03:16 74 9 111/67 (82) 92 03/07/17 03:01 74 9 107/63 (78) 92 03/07/17 03:00 74 03/07/17 02:00 75 03/07/17 01:00 77 03/07/17 00:00 79 03/07/17 00:00 97.6 96 20 103/61 (75) 94 03/06/17 23:00 70 03/06/17 22:00 79 03/06/17 21:00 95 I/O 03/06/17 03/06/17 03/06/17 03/07/17 03/07/17 03/07/17 07:00 15:00 23:00 07:00 15:00 23:00 Intake Total 0 ml 440 ml 240 ml 240 ml Output Total 90 ml 300 ml 500 ml Balance 0 ml 440 ml 150 ml -300 ml -260 ml Intake Oral 0 ml 440 ml 240 ml 240 ml Output Urine Total 0 ml 300 ml 500 ml Stool Total 0 ml 0 ml Chest Tube Drainage Total 90 ml 0 ml 0 ml # Voids 1 1 # Bowel Movements 1 0 0 Objective Remarks GENERAL: MBMN WM, NAD SKIN: Warm and dry. HEAD: Normocephalic. EYES: No scleral icterus. No injection or drainage. NECK: Supple, trachea midline. No JVD or lymphadenopathy. CARDIOVASCULAR: Regular rate and rhythm without murmurs, gallops, or rubs. RESPIRATORY: Breath sounds equal bilaterally. No accessory muscle use. Right chest tube in place GASTROINTESTINAL: Abdomen soft, non-tender, nondistended. MUSCULOSKELETAL: No cyanosis, or edema. BACK: Nontender without obvious deformity. No CVA tenderness. A/P Assessment and Plan Right PTX S/P Chest tube COPD HTN PLAN: Chest tube to suction, 30 cms Aerosol nebs Supplement 02 DW pt If ptx does't resolve may need CTS CXR in Jayro Zepeda MD Mar 07, 2017 20:27
[2017-03-08] VITALS (27 sets, daily range): BP systolic 117–132; BP diastolic 67–81; PULSE 62–86; RESP 14–29; TEMP 97.8–98.6; O2SAT 92–98
[2017-03-08] MEDS: CHLORHEXIDINE GLUCONATE 2 % 1 PACK (2 CLOTHS) TOP SCH (04:00)
--- NOTE | 2017-03-08 06:58 | RADRPT ---
EXAM DATE/TIME: 03/08/2017 06:04 [facility] COMPARISON: CHEST EXPIRATION ONLY, March 06, 2017, 13:50. CHEST EXPIRATION ONLY, March 07, 2017, 8:12. CHEST SINGLE AP, March 06, 2017, 15:38. INDICATIONS : Evaluate for pneumothorax. MEDICAL HISTORY : Chronic obstructive pulmonary disease. Gastroesophageal reflux disease. Pneumothorax. SURGICAL HISTORY : Chest tube. ENCOUNTER: Subsequent ACUITY: 1 week PAIN SCORE: 4/10 LOCATION: Right chest FINDINGS: Portable AP view of the chest demonstrates a normal-sized cardiac silhouette. There is a large bore r ight chest tube in the mid hemithorax with a pigtail pleural catheter at the apex of the hemithorax. No definite pneumothorax is visualized. There is a questionable small amount of pleural air. No pleur al effusion is visualized. There is mild increased opacity in the retrocardiac region. CONCLUSION: 1. 2 right chest tubes remain present. No definite pneumothorax is visualized. There is questionable trace pleural air at the apex of the right hemithorax. 2. There is stable airspace opacity in the right upper lobe and possible atelectasis in the left lowe r lobe. Jerome Robbins MD on March 08, 2017 at 6:54 Board Certified Radiologist. This report was verified electronically.
[2017-03-08] MEDS: CHLORHEXIDINE 0.12% (ORAL KIT) 15 ML CUP MT SCH ×2 (08:00→19:18)
[2017-03-08] MEDS: SODIUM CHLORIDE 0.9% FLUSH 10 ML FLUSH IV FLUSH SCH ×2 (09:00→19:18)
[2017-03-08] MEDS: predniSONE 5 MG TAB PO SCH ×2 (09:02→19:17)
[2017-03-08] MEDS: PANTOPRAZOLE SOD 40 MG DELAYED RELEASE TAB PO SCH (09:02)
[2017-03-08] MEDS: ASPIRIN 81 MG CHEW TAB CHEW SCH (09:02)
[2017-03-08] MEDS: CARVEDILOL 3.125 MG TAB PO SCH ×2 (09:02→19:17)
--- NOTE | 2017-03-08 14:00 | HHI.PR ---
Subjective Remarks Patient seen in room for follow up of spontaneous PTX with underlying COPD Slow to heal, but now appears stable pulm following patient without complaints d/w rn and daughter Objective Vitals Vital Signs Date Time Temp Pulse Resp B/P (MAP) Pulse Ox O2 Delivery O2 Flow Rate FiO2 03/08/17 11:00 62 03/08/17 11:00 62 15 130/72 (91) 95 03/08/17 10:00 62 03/08/17 10:00 62 15 130/72 (91) 95 03/08/17 09:00 62 03/08/17 09:00 62 03/08/17 08:00 93 Nasal Cannula 2.00 03/08/17 08:00 97.8 03/08/17 08:00 72 03/08/17 07:00 68 03/08/17 07:00 68 19 130/72 (91) 96 03/08/17 06:30 68 03/08/17 06:30 68 19 130/72 (91) 96 03/08/17 06:00 66 03/08/17 05:00 66 03/08/17 04:01 98.6 62 14 117/67 (84) 94 03/08/17 04:00 64 03/08/17 03:00 64 03/08/17 02:00 66 03/08/17 01:00 66 03/08/17 00:00 74 03/08/17 00:00 74 19 132/70 (90) 03/07/17 23:00 72 03/07/17 22:00 74 03/07/17 21:00 76 03/07/17 20:40 95 Nasal Cannula 2.00 03/07/17 20:01 98.9 82 28 117/74 (88) 94 03/07/17 20:00 78 03/07/17 19:00 80 03/07/17 18:00 72 03/07/17 17:01 70 14 114/64 (81) 96 03/07/17 17:00 70 03/07/17 16:01 98.7 74 21 131/63 (85) 97 03/07/17 16:00 74 03/07/17 15:01 78 20 118/63 (81) 97 03/07/17 15:00 80 03/07/17 14:46 82 19 114/61 (78) 97 03/07/17 14:01 82 19 113/64 (80) 95 03/07/17 14:00 78 I/O 03/07/17 03/07/17 03/07/17 03/08/17 03/08/17 03/08/17 07:00 15:00 23:00 07:00 15:00 23:00 Intake Total 240 ml Output Total 300 ml 500 ml 240 ml Balance -300 ml -260 ml -240 ml Intake Oral 240 ml Output Urine Total 300 ml 500 ml 200 ml Stool Total 0 ml Chest Tube Drainage Total 0 ml 0 ml 40 ml # Bowel Movements 0 Imaging Last 24 hours Impressions Chest X-Ray 03/08/17 0600 Signed Impressions: Service Date/Time: Wednesday, March 08, 2017 06:04 - CONCLUSION: 1. 2 right chest tubes remain present. No definite pneumothorax is visualized. There is questionable trace pleural air at the apex of the right hemithorax. 2. There is stable airspace opacity in the right upper lobe and possible atelectasis in the left lower lobe. Jerome Robbins MD Objective Remarks right side Chest tube x2 in place GENERAL: This is a well-nourished, well-developed patient, in no apparent distress. CARDIOVASCULAR: Regular rate and rhythm without murmurs, gallops, or rubs. RESPIRATORY: clear bilat GASTROINTESTINAL: Abdomen soft, non-tender, nondistended. Normal active bowel sounds MUSCULOSKELETAL: Extremities without clubbing, cyanosis, or edema. NEURO: Alert & Oriented x4 to person, place, time, situation. Moves all ext x4 A/P Problem List: (1) Pneumothorax, right ICD Code: J93.9 - Pneumothorax, unspecified Status: Acute Plan: Previous episode in 07/2016 Dual chest tube placed, pulmonary following Appears resolved repeat CXR for surveillance (2) COPD (chronic obstructive pulmonary disease) ICD Code: J44.9 - Chronic obstructive pulmonary disease, unspecified Status: Acute Plan: On home O2 supportive care, no exacerbation at this time patient on chronic steroids BID (3) Heart failure ICD Code: I50.9 - Heart failure, unspecified Plan: known systoilc dysfunction and EF 30% continue BB, aspirin No evidence of decompensation at this time (4) Dysphagia ICD Code: R13.10 - Dysphagia, unspecified Plan: Chronic modified diet, stable outpatient ST recommended Assessment and Plan LMWH PT oob Discharge Planning follow cxr in a m, if stable/improved likely d/c 2-3 days Alis Frye MD Mar 08, 2017 14:00
--- NOTE | 2017-03-08 17:28 | HHI.PR ---
Subjective Remarks 81 YOWM with Rt PTX,COPD Chest tube to suction No Air leak Breathing better Weekend events noted Required 2nd chest tube Has airleak Objective Vital Signs Vital Signs Date Time Temp Pulse Resp B/P (MAP) Pulse Ox O2 Delivery O2 Flow Rate FiO2 03/08/17 16:00 68 03/08/17 15:00 70 29 130/72 (91) 95 03/08/17 15:00 70 03/08/17 14:00 68 03/08/17 13:00 72 03/08/17 12:00 66 03/08/17 11:00 62 03/08/17 11:00 62 15 130/72 (91) 95 03/08/17 11:00 62 03/08/17 10:00 62 03/08/17 10:00 62 15 130/72 (91) 95 03/08/17 09:00 62 03/08/17 09:00 62 03/08/17 08:00 93 Nasal Cannula 2.00 03/08/17 08:00 97.8 03/08/17 08:00 72 03/08/17 07:00 68 03/08/17 07:00 68 19 130/72 (91) 96 03/08/17 06:30 68 03/08/17 06:30 68 19 130/72 (91) 96 03/08/17 06:00 66 03/08/17 05:00 66 03/08/17 04:01 98.6 62 14 117/67 (84) 94 03/08/17 04:00 64 03/08/17 03:00 64 03/08/17 02:00 66 03/08/17 01:00 66 03/08/17 00:00 74 03/08/17 00:00 74 19 132/70 (90) 03/07/17 23:00 72 03/07/17 22:00 74 03/07/17 21:00 76 03/07/17 20:40 95 Nasal Cannula 2.00 03/07/17 20:01 98.9 82 28 117/74 (88) 94 03/07/17 20:00 78 03/07/17 19:00 80 03/07/17 18:00 72 I/O 03/07/17 03/07/17 03/07/17 03/08/17 03/08/17 03/08/17 07:00 15:00 23:00 07:00 15:00 23:00 Intake Total 240 ml Output Total 300 ml 500 ml 240 ml Balance -300 ml -260 ml -240 ml Intake Oral 240 ml Output Urine Total 300 ml 500 ml 200 ml Stool Total 0 ml Chest Tube Drainage Total 0 ml 0 ml 40 ml # Bowel Movements 0 Objective Remarks GENERAL: MBMN WM, NAD SKIN: Warm and dry. HEAD: Normocephalic. EYES: No scleral icterus. No injection or drainage. NECK: Supple, trachea midline. No JVD or lymphadenopathy. CARDIOVASCULAR: Regular rate and rhythm without murmurs, gallops, or rubs. RESPIRATORY: Breath sounds equal bilaterally. No accessory muscle use. Right chest tube in place GASTROINTESTINAL: Abdomen soft, non-tender, nondistended. MUSCULOSKELETAL: No cyanosis, or edema. BACK: Nontender without obvious deformity. No CVA tenderness. A/P Assessment and Plan Right PTX S/P Chest tube COPD HTN PLAN: Chest tube to suction, 30 cms Aerosol nebs Supplement 02 DW pt If ptx does't resolve may need CTS CXR Consult CTS Jayro Hicks MD Mar 08, 2017 17:28
--- NOTE | 2017-03-08 18:11 | RADRPT ---
EXAM DATE/TIME: 03/08/2017 17:58 [facility] COMPARISON: Today at 6 AM INDICATIONS : Evaluate pneumothorax. MEDICAL HISTORY : Chronic obstructive pulmonary disease. Gastroesophageal reflux disease. SURGICAL HISTORY : None. ENCOUNTER: Subsequent ACUITY: 1 week PAIN SCORE: 0/10 LOCATION: Bilateral chest FINDINGS: 2 right chest tubes are again noted. There is a very small right apical pneumothorax again seen, not significantly changed. There is also right upper lobe consolidation similar to earlier today. CONCLUSION: No significant change. Very small apical pneumothorax and 2 chest tubes again seen on the right. Jerome Naranjo MD on March 08, 2017 at 18:09 Board Certified Radiologist. This report was verified electronically.
[2017-03-08] MEDS: ENOXAPARIN SODIUM 40 MG/0.4 ML SYRINGE SQ SCH (19:18)
[2017-03-09] VITALS (26 sets, daily range): BP systolic 113–125; BP diastolic 70–76; PULSE 63–86; RESP 18–20; TEMP 97.5–98.2; O2SAT 96–99
[2017-03-09] MEDS: CHLORHEXIDINE GLUCONATE 2 % 1 PACK (2 CLOTHS) TOP SCH (04:00)
[2017-03-09 06:34] LABS: MRSA PCR NEGATIVE (NEGATIVE); STAPH AUREUS PCR NEGATIVE (NEGATIVE)
--- NOTE | 2017-03-09 08:24 | HHI.PR ---
Subjective Remarks f/u; pneumothorax in no distress. pain is controlled. no fever. chest tube in place. Objective Vitals Vital Signs Date Time Temp Pulse Resp B/P (MAP) Pulse Ox O2 Delivery O2 Flow Rate FiO2 03/09/17 07:01 68 03/09/17 06:04 74 03/09/17 05:37 77 03/09/17 04:04 97.5 74 20 113/71 (85) 98 03/09/17 04:03 79 03/09/17 03:08 73 03/09/17 02:20 74 03/09/17 01:42 76 03/09/17 00:00 73 03/08/17 23:00 75 03/08/17 23:00 98.4 72 20 125/81 (96) 98 03/08/17 22:00 74 03/08/17 21:00 78 03/08/17 20:00 98.3 86 25 129/75 (93) 92 03/08/17 20:00 86 03/08/17 19:20 97 Nasal Cannula 2.00 03/08/17 19:00 78 03/08/17 18:00 72 03/08/17 17:00 70 03/08/17 16:00 68 03/08/17 15:00 70 29 130/72 (91) 95 03/08/17 15:00 70 03/08/17 14:00 68 03/08/17 13:00 72 03/08/17 12:00 66 03/08/17 11:00 62 03/08/17 11:00 62 15 130/72 (91) 95 03/08/17 11:00 62 03/08/17 10:00 62 03/08/17 10:00 62 15 130/72 (91) 95 03/08/17 09:00 62 03/08/17 09:00 62 I/O 03/08/17 03/08/17 03/08/17 03/09/17 03/09/17 03/09/17 07:00 15:00 23:00 07:00 15:00 23:00 Intake Total 640 ml 240 ml Output Total 240 ml 436 ml 441 ml Balance -240 ml 204 ml -201 ml Intake Oral 640 ml 240 ml Output Urine Total 200 ml 420 ml 400 ml Stool Total 0 ml 1 ml Chest Tube Drainage Total 40 ml 16 ml 40 ml Imaging Last Impressions Chest X-Ray 03/08/17 0600 Signed Impressions: Service Date/Time: Wednesday, March 08, 2017 06:04 - CONCLUSION: 1. 2 right chest tubes remain present. No definite pneumothorax is visualized. There is questionable trace pleural air at the apex of the right hemithorax. 2. There is stable airspace opacity in the right upper lobe and possible atelectasis in the left lower lobe. Jerome Robbins MD Objective Remarks GENERAL: This is a well-nourished, well-developed patient, in no apparent distress. CARDIOVASCULAR: Regular rate and regular rhythm without murmurs, gallops, or rubs. RESPIRATORY: Clear to auscultation. Breath sounds equal bilaterally. No wheezes , rales, or rhonchi. chest tube in place. GASTROINTESTINAL: Abdomen soft, non-tender, nondistended. Normal, active bowel sounds MUSCULOSKELETAL: Extremities without clubbing, cyanosis, or edema. NEURO: Alert & Oriented x4 to person, place, time, situation. Moves all ext x4 Procedures chest tube insertion. Medications and IVs Current Medications Sodium Chloride (NS Flush) 2 ml UNSCH PRN IVF FLUSH AFTER USING IV ACCESS; Start 02/27/17 at 20:45; Stop 02/27/17 at 23:08; Status DC Albuterol/ Ipratropium (Duoneb Neb) 1 ampule Q15M INH ; Start 02/27/17 at 20:45 ; Stop 02/27/17 at 21:16; Status DC Lidocaine/ Epinephrine (Xylocaine-Epi 2%-1:100,000 Inj) 30 ml ONCE ONCE INFIL ; Start 02/27/17 at 21:00; Stop 02/27/17 at 21:02; Status DC Sodium Chloride 1,000 ml @ 42 mls/hr [id number] IV Last administered on 14:34; Start 02/27/17 at 22:33; Stop 03/02/17 at 12:53; Status DC Sodium Chloride (NS Flush) 2 ml UNSCH PRN IV FLUSH FLUSH AFTER USING IV ACCESS ; Start 02/27/17 at 22:45 Sodium Chloride (NS Flush) 2 ml BID IV FLUSH Last administered on 03/08/17t 19: 18; Start 02/28/17 at 09:00 Acetaminophen (Tylenol) 650 mg Q6H PRN PO PAIN 1-10 AND/OR FEVER >101F; Start 02/27/17 at 22:45 Albuterol/ Ipratropium (Duoneb Neb) 1 ampule Q6HR NEB NEB Last administered on 03/04/17 03:09; Start 02/28/17 at 04:00; Stop 03/04/17 at 03:59; Status DC Albuterol/ Ipratropium (Duoneb Neb) 1 ampule Q4HR NEB PRN INH SHORTNESS OF BREATH Last administered on 03/05/17 20:14; Start 02/27/17 at 22:45 Chlorhexidine Gluconate (Peridex 0.12% Liq) 15 ml BID@08,20 MT Last administered on 03/08/17 19:18; Start 02/28/17 at 08:00 Enoxaparin Sodium (Lovenox Inj) 40 mg Q24H SQ Last administered on 03/08/17 19 :18; Start 02/28/17 at 20:00 Miscellaneous Information 1 [id number] Last administered on 02/27/17 22:45; Start 02/27/17 at 22:45 Chlorhexidine Gluconate (Chlorhexidine 2% Cloth) Taper DAILY@04 TOP Last administered on 03/08/17 04:00; Start 02/28/17 at 04:00; Stop 02/24/18 at 03:59 Chlorhexidine Gluconate (Chlorhexidine 2% Cloth) 3 pack UNSCH PRN TOP HYGIENIC CARE; Start 02/27/17 at 22:45 Aspirin (Aspirin Chew) 81 mg DAILY CHEW Last administered on 03/08/17 09:02; Start 02/28/17 at 09:00 Carvedilol (Coreg) 3.125 mg Q12HR PO Last administered on 03/08/17 19:17; Start 02/28/17 at 09:00 Nitroglycerin (Nitrostat Sl) 0.4 mg Q5M PRN SL X 3 doses for chest pain; Start 02/27/17 at 23:15 Pantoprazole Sodium (Protonix) 40 mg DAILY PO Last administered on 03/08/17 09 :02; Start 02/28/17 at 09:00 Prednisone (Deltasone) 5 mg BID PO Last administered on 03/08/17 19:17; Start 02/28/17 at 09:00 Hydromorphone HCl (Dilaudid Pf Inj) 1 mg STK-MED ONCE IV Last administered on 14:29; Start 03/06/17 at 14:29; Stop 03/06/17 at 14:30; Status DC Midazolam HCl (Versed Inj) 1 mg STK-MED ONCE IV Last administered on 03/06/17 14:30; Start 03/06/17 at 14:30; Stop 03/06/17 at 14:31; Status DC A/P Assessment and Plan A/P (1) Pneumothorax, right Dual chest tube placed, pulmonary following CT surgery consulted. (2) COPD (chronic obstructive pulmonary disease) On home O2 supportive care, no exacerbation at this time patient on chronic steroids BID (3) Heart failure known systoilc dysfunction and EF 30% continue BB, aspirin No evidence of decompensation at this time (4) Dysphagia modified diet, stable outpatient ST Ozzie Barker MD Mar 09, 2017 08:24
[2017-03-09] MEDS: CARVEDILOL 3.125 MG TAB PO SCH ×2 (08:58→20:20)
[2017-03-09] MEDS: PANTOPRAZOLE SOD 40 MG DELAYED RELEASE TAB PO SCH (08:58)
[2017-03-09] MEDS: ASPIRIN 81 MG CHEW TAB CHEW SCH (08:59)
[2017-03-09] MEDS: predniSONE 5 MG TAB PO SCH ×2 (08:59→20:20)
[2017-03-09] MEDS: SODIUM CHLORIDE 0.9% FLUSH 10 ML FLUSH IV FLUSH SCH ×2 (08:59→20:21)
--- NOTE | 2017-03-09 12:23 | RADRPT ---
EXAM DATE/TIME: 03/09/2017 11:39 [facility] COMPARISON: CT GUIDED CHEST TUBE PLACEMENT RIGHT, July 16, 2016, 14:22. INDICATIONS : Recurrent pneumothorax; evaluate for blebs, bullae. RADIATION DOSE: 4.31 CTDIvol (mGy) MEDICAL HISTORY : Chronic obstructive pulmonary disease. Chest tube x 2. SURGICAL HISTORY : None. ENCOUNTER: Initial ACUITY: 1 day PAIN SCALE: 6/10 LOCATION: Right chest TECHNIQUE: Volumetric scanning of the chest was performed. Using automated exposure control and adjustment of t he mA and/or kV according to patient size, radiation dose was kept as low as reasonably achievable to obtain optimal diagnostic quality images. DICOM format image data is available electronically for r eview and comparison. Follow-up recommendations for detected pulmonary nodules are based at a minimum on nodule size and pa tient risk factors according to Fleischner Society Guidelines. FINDINGS: CT imaging through the thorax demonstrates [address] on the right. There is a large bore tube at the right lung base. There is a small bore tube at the right lung apex. There is considerabl e residual pneumothorax. There are numerous emphysematous blebs seen throughout the right upper lobe. There is advanced interstitial fibrotic change on the left. No mass lesion is seen. Compared to previous examination the extensive subcutaneous emphysema which was present has significa ntly improved. The heart is normal in size. There is no significant hilar or mediastinal adenopathy. There is a larg e hiatal hernia. The limited portions of upper abdomen visualized are unremarkable. There are degenerative changes within the thoracic spine. CONCLUSION: 1. There is continued residual pneumothorax in spite of 2 chest tubes on the right. 2. The extensive subcutaneous emphysema which was seen on previous exam has improved. 3. Large hiatal hernia. Jones Hurst MD on March 09, 2017 at 12:19 Board Certified Radiologist. This report was verified electronically.
[2017-03-09] MEDS ORDERED: MIDAZOLAM HCL 2 MG/2 ML VIAL ONE (14:02)
--- NOTE | 2017-03-09 14:36 | PD.RAD ---
Post Procedure Progress Note Pre Procedure Diagnosis: (1) Pneumothorax, right Post Procedure Diagnosis: (1) Pneumothorax, right Procedure Date: Mar 09, 2017 Supervising Radiologist: Jones Hurst Estimated blood loss: 2CC Anesthesia: Local, Analgesia Plan of Activity Patient to Unit: Nursing Unit Patient Condition: Poor Additional Comments: New right chest tube placed through existing tract. Complete resolution of the pneumothorax post tube placement. full report to follow See PACS Report for procedural detail/treatment Jones Hurst MD Mar 09, 2017 14:35
--- NOTE | 2017-03-09 14:42 | MB ---
cc: THEODORE WIGGINS MD DATE OF CONSULTATION: 03/09/2017 HISTORY OF PRESENT ILLNESS A 81-year-old male, 1935, who we actually saw back in July that had a spontaneous right large pneumothorax and had a pigtail catheter placed by interventional radiology. We had been consulted at that time for a right video-assisted thoracoscopy, possible pleurodesis at that time, however, his pneumothorax resolved with the continuation of the pigtail catheter which was finally removed. On this admission the patient has been at home on 2 liters, suddenly developed some right-sided chest pain, was seen in the emergency room and has recurrent moderate-sized right pneumothorax. They placed a 28-Qatari chest tube with decrease in his pneumothorax, however, he had persistent small apical pneumo and then had a 10-Qatari pigtail catheter placed on the . His chest x-ray this morning showed trace pleural air in the apex. He also underwent CT scan which showed continued residual pneumothorax despite two chest tubes on the right, extensive subcu emphysema seen on prior exam. The pigtail catheter has a positive air leak, the right does not. There is minimal tidaling in the large bore chest tubes Pleur-Evac. We were consulted to evaluate for possible video-assisted thoracoscopy, persistent air leak. At this time the patient is on O2 at 2 liters at 97%. PAST MEDICAL HISTORY 1. Recurrent pneumothorax. 2. Severe COPD on O2 at 2 liters at home. 3. Arthritis. 4. Gastroesophageal reflux disease. 5. Chronic systolic heart failure with EF of 30%. 6. Some dysphagia. PAST SURGICAL HISTORY Prior chest tube placement. ALLERGIES No known allergies. MEDICATIONS Home meds include: 1. Nitro. 2. Coreg. 3. Aspirin. 4. Protonix. 5. Prednisone. SOCIAL HISTORY The patient has history of tobacco but quit 40 years ago. REVIEW OF SYSTEMS Review of systems as above in HPI. Other 12 systems unremarkable. PHYSICAL EXAMINATION VITAL SIGNS: Blood pressure 126/80, heart rate 75, temperature max 98.4. GENERAL: The patient is awake, alert, following commands. HEENT: Head is normocephalic, atraumatic. Pupils equal and reactive. Oral mucosa pink, moist. NECK: Supple. No JVD. HEART: Heart sounds S1-S2. Regular rate and rhythm. No audible rubs or gallops. LUNGS: Diminished on the right. He has two chest tubes, one a 28-Qatari and a 10-Qatari pigtail cath. The pigtail cath has a air leak. ABDOMEN: Soft, nontender. No masses or organomegaly. EXTREMITIES: No cyanosis, clubbing or edema. LABORATORY FINDINGS Shows hemoglobin 14, hematocrit of 43, white cell count 12.7, platelet count 203. Sodium 137, potassium 4.3, BUN 17, creatinine 0.76, mag of 2.0, AST 19, ALT 21. MRSA negative. Micro none available yet. IMAGING STUDIES CT chest as above. IMPRESSION This is a gentleman that we have seen in the past with recurrent spontaneous pneumothorax with severe COPD, bulla emphysema. At this time IR has been reconsulted for possible change out of the pigtail catheter. We will evaluate and continue to follow. If no improvement the patient will need to undergo right video-assisted thoracoscopy, possible thoracotomy and bleb resection. Dictated by: LANDON Hart Theodore SPENCER /1:02 PM /2:36 PM
--- NOTE | 2017-03-09 16:40 | RADRPT ---
EXAM DATE/TIME: 03/09/2017 14:13 [facility] COMPARISON: CHEST TUBE PLACEMENT, RIGHT, March 06, 2017, 13:29. INDICATIONS : Patient presents with pneumothorax in need of chest tube placemnt. MEDICAL HISTORY : Arthitis COPD GERD SURGICAL HISTORY : Bilateral knee replacement Chest tube placement ENCOUNTER: Subsequent ACUITY: 2 weeks PAIN SCORE: 0/10 LOCATION: N/A FLUORO TIME: 1.1 minutes IMAGE SERIES: 1 SEDATION TIME: 30 minutes MEDICATION(S): 1.) 1 mg midazolam (Versed) IV 2.) 75 mcg fentanyl (Sublimaze) IV DEVICE(S): 1.) 12 Nigerian non-locking catheter 30 cm Ramy PROCEDURE : 1. Fluoroscopically guided chest tube exchange. 2. Conscious sedation with continuous EKG and oximetry monitoring. The risks, benefits and alternatives to the procedure were explained and verbal and written consent w as obtained. The site was prepped in sterile fashion. Full sterile technique was used, including ca p, mask, sterile gloves and gown and a large sterile sheet. Hand hygiene and 2% chlorhexidine and/or betadine/alcohol prep was utilized per protocol for cutaneous antisepsis. The skin and subcutaneous tissues were infiltrated with local anesthetic solution. With fluoroscopic guidance the previously placed chest tube was exchanged for a new 12 Nigerian nonlock ing catheter. Post procedure imaging demonstrates satisfactory position of the tube. The catheter w as sutured in place and a Percu-Stay was applied. Conscious sedation was performed with the prescribed dosages and duration as above in the presence of an independent trained radiology nurse to assist in the monitoring of the patient. EKG and oximetry remained stable throughout the procedure. The patient tolerated the procedure well and there were no complications. The patient was sent to post anesthesia recovery in stable condition. CONCLUSION: Uncomplicated chest tube exchange as above. Jones Hurst MD on March 09, 2017 at 16:37 Board Certified Radiologist. This report was verified electronically.
--- NOTE | 2017-03-09 17:10 | HHI.PR ---
Subjective Remarks 81 YOWM with Rt PTX,COPD Chest tube to suction No Air leak Breathing better Tr to [facility] main Seen by Dr.Sohit Tony Had Chest tube exchanged by IR Objective Vital Signs Vital Signs Date Time Temp Pulse Resp B/P (MAP) Pulse Ox O2 Delivery O2 Flow Rate FiO2 03/09/17 16:48 97 Nasal Cannula 2.00 03/09/17 15:01 98.1 63 18 120/70 (87) 97 03/09/17 12:01 78 03/09/17 11:01 98.1 84 18 122/70 (87) 97 03/09/17 11:01 79 03/09/17 10:01 84 03/09/17 09:00 72 03/09/17 08:30 98.2 69 18 120/74 (89) 99 03/09/17 08:00 68 03/09/17 07:01 68 03/09/17 06:04 74 03/09/17 05:37 77 03/09/17 04:04 97.5 74 20 113/71 (85) 98 03/09/17 04:03 79 03/09/17 03:08 73 03/09/17 02:20 74 03/09/17 01:42 76 03/09/17 00:00 73 03/08/17 23:00 75 03/08/17 23:00 98.4 72 20 125/81 (96) 98 03/08/17 22:00 74 03/08/17 21:00 78 03/08/17 20:00 98.3 86 25 129/75 (93) 92 03/08/17 20:00 86 03/08/17 19:20 97 Nasal Cannula 2.00 03/08/17 19:00 78 03/08/17 18:00 72 I/O 03/08/17 03/08/17 03/08/17 03/09/17 03/09/17 03/09/17 07:00 15:00 23:00 07:00 15:00 23:00 Intake Total 640 ml 240 ml Output Total 240 ml 436 ml 441 ml Balance -240 ml 204 ml -201 ml Intake Oral 640 ml 240 ml Output Urine Total 200 ml 420 ml 400 ml Stool Total 0 ml 1 ml Chest Tube Drainage Total 40 ml 16 ml 40 ml Objective Remarks GENERAL: MBMN WM, NAD SKIN: Warm and dry. HEAD: Normocephalic. EYES: No scleral icterus. No injection or drainage. NECK: Supple, trachea midline. No JVD or lymphadenopathy. CARDIOVASCULAR: Regular rate and rhythm without murmurs, gallops, or rubs. RESPIRATORY: Breath sounds equal bilaterally. No accessory muscle use. Right chest tube in place GASTROINTESTINAL: Abdomen soft, non-tender, nondistended. MUSCULOSKELETAL: No cyanosis, or edema. BACK: Nontender without obvious deformity. No CVA tenderness. A/P Assessment and Plan Right PTX S/P Chest tube COPD HTN PLAN: Aerosol nebs Supplement 02 DW pt Chest tube to suction Jayro Hicks MD Mar 09, 2017 17:10
[2017-03-09] MEDS: CHLORHEXIDINE 0.12% (ORAL KIT) 15 ML CUP MT SCH (20:00)
[2017-03-09] MEDS: ENOXAPARIN SODIUM 40 MG/0.4 ML SYRINGE SQ SCH (20:21)
[2017-03-10] VITALS (29 sets, daily range): BP systolic 106–130; BP diastolic 60–80; PULSE 62–89; RESP 16–20; TEMP 97.6–98.8; O2SAT 96–99
[2017-03-10] MEDS: CHLORHEXIDINE GLUCONATE 2 % 1 PACK (2 CLOTHS) TOP SCH (02:57)
[2017-03-10] MEDS ORDERED: MORPHINE SULFATE 4 MG/ML INJ IV PUSH ONE (05:30)
--- NOTE | 2017-03-10 05:55 | RADRPT ---
EXAM DATE/TIME: 03/10/2017 05:33 [facility] COMPARISON: CHEST EXPIRATION ONLY, March 07, 2017, 8:12. INDICATIONS : Evaluate for pneumothorax. Right side chest tube. Short of breath. Right side chest pain. MEDICAL HISTORY : Chronic obstructive pulmonary disease. SURGICAL HISTORY : None. ENCOUNTER: Initial ACUITY: 1 day PAIN SCORE: 8/10 LOCATION: Right chest FINDINGS: There is a small caliber and a larger caliber right chest tube present with a tiny right pneumothorax . Basilar airspace disease and right upper lobe airspace disease are similar to March 07. Heart s ize enlarged. CONCLUSION: 1. Small caliber and larger caliber right chest tube present with a tiny right apical pneumothorax. B ilateral airspace disease similar to March 07. Warner Ortega MD on March 10, 2017 at 5:52 Board Certified Radiologist. This report was verified electronically.
--- NOTE | 2017-03-10 07:55 | HHI.PR ---
Subjective Remarks in no acute distress. says that he had some pain to the right chest last night which has resolved. no other complaints. d/w the RN and no other acute issues over night. Objective Vitals Vital Signs Date Time Temp Pulse Resp B/P (MAP) Pulse Ox O2 Delivery O2 Flow Rate FiO2 03/10/17 07:01 74 03/10/17 06:13 77 03/10/17 05:40 71 03/10/17 04:17 66 03/10/17 03:21 68 03/10/17 03:00 98.8 66 18 130/75 (93) 99 03/10/17 02:43 73 03/10/17 01:00 70 03/10/17 00:00 73 03/09/17 23:00 71 18 125/73 (90) 96 03/09/17 23:00 73 03/09/17 22:00 74 03/09/17 21:00 78 03/09/17 20:00 80 03/09/17 19:00 97.8 86 18 122/76 (91) 96 03/09/17 19:00 86 03/09/17 18:00 86 03/09/17 17:00 64 03/09/17 16:48 97 Nasal Cannula 2.00 03/09/17 16:00 64 03/09/17 15:01 98.1 63 18 120/70 (87) 97 03/09/17 13:00 72 03/09/17 12:01 78 03/09/17 11:01 98.1 84 18 122/70 (87) 97 03/09/17 11:01 79 03/09/17 10:01 84 03/09/17 09:00 72 03/09/17 08:30 98.2 69 18 120/74 (89) 99 03/09/17 08:00 68 I/O 03/09/17 03/09/17 03/09/17 03/10/17 03/10/17 03/10/17 07:00 15:00 23:00 07:00 15:00 23:00 Intake Total 240 ml 450 ml 480 ml Output Total 441 ml 300 ml 420 ml Balance -201 ml 150 ml 60 ml Intake Oral 240 ml 450 ml 480 ml Output Urine Total 400 ml 300 ml 350 ml Stool Total 1 ml 0 ml Chest Tube Drainage Total 40 ml 70 ml # Voids 2 # Bowel Movements 0 Imaging Last Impressions Chest X-Ray 03/10/17 0000 Signed Impressions: Service Date/Time: February 05:33 - CONCLUSION: 1. Small caliber and larger caliber right chest tube present with a tiny right apical pneumothorax. Bilateral airspace disease similar to March 07. Warner Ortega MD Chest Tube Change 03/09/17 1255 Signed Impressions: Service Date/Time: Thursday, March 09, 2017 14:13 - CONCLUSION: Uncomplicated chest tube exchange as above. Jones Hurst MD Chest CT 03/09/17 0000 Signed Impressions: Service Date/Time: Thursday, March 09, 2017 11:39 - CONCLUSION: 1. There is continued residual pneumothorax in spite of 2 chest tubes on the right. 2. The extensive subcutaneous emphysema which was seen on previous exam has improved. 3. Large hiatal hernia. Jones Hurst MD Objective Remarks GENERAL: This is a well-nourished, well-developed patient, in no apparent distress. CARDIOVASCULAR: Regular rate and regular rhythm without murmurs, gallops, or rubs. RESPIRATORY: Clear to auscultation. Breath sounds equal bilaterally. No wheezes , rales, or rhonchi. chest tube in place. GASTROINTESTINAL: Abdomen soft, non-tender, nondistended. Normal, active bowel sounds MUSCULOSKELETAL: Extremities without clubbing, cyanosis, or edema. NEURO: Alert & Oriented x4 to person, place, time, situation. Moves all ext x4 Procedures chest tube insertion/ exchange. Medications and IVs Current Medications Sodium Chloride (NS Flush) 2 ml UNSCH PRN IVF FLUSH AFTER USING IV ACCESS; Start 02/27/17 at 20:45; Stop 02/27/17 at 23:08; Status DC Albuterol/ Ipratropium (Duoneb Neb) 1 ampule Q15M INH ; Start 02/27/17 at 20:45 ; Stop 02/27/17 at 21:16; Status DC Lidocaine/ Epinephrine (Xylocaine-Epi 2%-1:100,000 Inj) 30 ml ONCE ONCE INFIL ; Start 02/27/17 at 21:00; Stop 02/27/17 at 21:02; Status DC Sodium Chloride 1,000 ml @ 42 mls/hr [id number] IV Last administered on 14:34; Start 02/27/17 at 22:33; Stop 03/02/17 at 12:53; Status DC Sodium Chloride (NS Flush) 2 ml UNSCH PRN IV FLUSH FLUSH AFTER USING IV ACCESS ; Start 02/27/17 at 22:45 Sodium Chloride (NS Flush) 2 ml BID IV FLUSH Last administered on 03/09/17 20: 21; Start 02/28/17 at 09:00 Acetaminophen (Tylenol) 650 mg Q6H PRN PO PAIN 1-10 AND/OR FEVER >101F Last administered on 03/10/17 04:19; Start 02/27/17 at 22:45 Albuterol/ Ipratropium (Duoneb Neb) 1 ampule Q6HR NEB NEB Last administered on 03/04/17 03:09; Start 02/28/17 at 04:00; Stop 03/04/17 at 03:59; Status DC Albuterol/ Ipratropium (Duoneb Neb) 1 ampule Q4HR NEB PRN INH SHORTNESS OF BREATH Last administered on 03/05/17 20:14; Start 02/27/17 at 22:45 Chlorhexidine Gluconate (Peridex 0.12% Liq) 15 ml BID@08,20 MT Last administered on 03/08/17 19:18; Start 02/28/17 at 08:00 Enoxaparin Sodium (Lovenox Inj) 40 mg Q24H SQ Last administered on 03/09/17 20 :21; Start 02/28/17 at 20:00 Miscellaneous Information 1 [id number] XX Last administered on 02/27/17 22:45; Start 02/27/17 at 22:45 Chlorhexidine Gluconate (Chlorhexidine 2% Cloth) Taper DAILY@04 TOP Last administered on 03/08/17 04:00; Start 02/28/17 at 04:00; Stop 02/24/18 at 03:59 Chlorhexidine Gluconate (Chlorhexidine 2% Cloth) 3 pack UNSCH PRN TOP HYGIENIC CARE; Start 02/27/17 at 22:45 Aspirin (Aspirin Chew) 81 mg DAILY CHEW Last administered on 03/09/17 08:59; Start 02/28/17 at 09:00 Carvedilol (Coreg) 3.125 mg Q12HR PO Last administered on 03/09/17 20:20; Start 02/28/17 at 09:00 Nitroglycerin (Nitrostat Sl) 0.4 mg Q5M PRN SL X 3 doses for chest pain; Start 02/27/17 at 23:15 Pantoprazole Sodium (Protonix) 40 mg DAILY PO Last administered on 03/09/17 08 :58; Start 02/28/17 at 09:00 Prednisone (Deltasone) 5 mg BID PO Last administered on 03/09/17 20:20; Start 02/28/17 at 09:00 Hydromorphone HCl (Dilaudid Pf Inj) 1 mg STK-MED ONCE IV Last administered on 14:29; Start 03/06/17 at 14:29; Stop 03/06/17 at 14:30; Status DC Midazolam HCl (Versed Inj) 1 mg STK-MED ONCE IV Last administered on 03/06/17 14:30; Start 03/06/17 at 14:30; Stop 03/06/17 at 14:31; Status DC Fentanyl Citrate (fentaNYL INJ) 100 mcg STK-MED ONCE .ROUTE Last administered on 03/09/17 14:10; Start 03/09/17 at 14:02; Stop 03/09/17 at 14:03; Status DC Midazolam HCl (Versed Inj) 2 mg STK-MED ONCE .ROUTE Last administered on 14:10; Start 03/09/17 at 14:02; Stop 03/09/17 at 14:03; Status DC Morphine Sulfate (Morphine Inj) 2 mg ONCE ONCE IV PUSH Last administered on 05:36; Start 03/10/17 at 05:30; Stop 03/10/17 at 05:31; Status DC A/P Assessment and Plan A/P (1) Pneumothorax, right Dual chest tube placed - s/p chest tube exchange on 03/09/17. CT surgery consult appreciated and plan for VATS if no improvement. pulmonary following. (2) COPD (chronic obstructive pulmonary disease) On home O2 supportive care, no exacerbation at this time patient on chronic steroids BID (3) Heart failure known systolic dysfunction and EF 30% continue BB, aspirin No evidence of decompensation at this time (4) Dysphagia modified diet, stable outpatient ST recommended Ozzie Pritchett MD Mar 10, 2017 07:55
[2017-03-10] MEDS: CHLORHEXIDINE 0.12% (ORAL KIT) 15 ML CUP MT SCH ×2 (08:00→20:00)
[2017-03-10] MEDS ORDERED: MORPHINE SULFATE 4 MG/ML INJ IV PUSH PRN (08:00)
[2017-03-10] MEDS: SODIUM CHLORIDE 0.9% FLUSH 10 ML FLUSH IV FLUSH SCH ×2 (09:00→21:00)
[2017-03-10] MEDS: CARVEDILOL 3.125 MG TAB PO SCH ×2 (09:11→20:58)
[2017-03-10] MEDS: predniSONE 5 MG TAB PO SCH ×2 (09:11→20:58)
[2017-03-10] MEDS: ASPIRIN 81 MG CHEW TAB CHEW SCH (09:11)
[2017-03-10] MEDS: PANTOPRAZOLE SOD 40 MG DELAYED RELEASE TAB PO SCH (09:11)
--- NOTE | 2017-03-10 10:35 | PD.CAR.PN ---
CVT Progress Note Subjective/Hospital Course: 81/ male , recurrent right PTX , admitted via ED right sided chest pain , # 28french chest tube placed in ED, then additional 10french pig tail cath placed 03/06 by IR, pig tail cath had +1-2 air leak, pt went back to IR yesterday and had pigtail cath changed out for a 12 norwegian pig tail cath , still has +1 air leak , PMH: severe COPD on chronic home 02, systolic HF EF 30%, dysphagia 03/10 still has +1-2 air leak from new 12 norwegian pig tail #28 norwegian cath no air leak minimal drainage CXR tiny right apical PTX continue medical therapy for now, will continue to monitor Objective: GENERAL: frail appearing male SKIN: Warm and dry.dressing in place / chest tube x 2 HEAD: Normocephalic. EYES: No scleral icterus. No injection or drainage. NECK: Supple, trachea midline. No JVD or lymphadenopathy. CARDIOVASCULAR: Regular rate and rhythm without murmurs, gallops, or rubs. RESPIRATORY: Breath sounds equal bilaterally. No accessory muscle use. diminished in bases, faint exp wheeze, right posterior lateral chest tube no air leak> wall suction 20cm , right anterior chest tube +1-2 air leak GASTROINTESTINAL: Abdomen soft, non-tender, nondistended. MUSCULOSKELETAL: No cyanosis, or edema. BACK: Nontender without obvious deformity. No CVA tenderness. Vital Signs Date Time Temp Pulse Resp B/P (MAP) Pulse Ox O2 Delivery O2 Flow Rate FiO2 03/10/17 07:01 74 03/10/17 06:13 77 03/10/17 05:40 71 03/10/17 04:17 66 03/10/17 03:21 68 03/10/17 03:00 98.8 66 18 130/75 (93) 99 03/10/17 02:43 73 03/10/17 01:00 70 03/10/17 00:00 73 03/09/17 23:00 71 18 125/73 (90) 96 03/09/17 23:00 73 03/09/17 22:00 74 03/09/17 21:00 78 03/09/17 20:00 80 03/09/17 19:00 97.8 86 18 122/76 (91) 96 03/09/17 19:00 86 03/09/17 18:00 86 03/09/17 17:00 64 03/09/17 16:48 97 Nasal Cannula 2.00 03/09/17 16:00 64 03/09/17 15:01 98.1 63 18 120/70 (87) 97 03/09/17 13:00 72 03/09/17 12:01 78 03/09/17 11:01 98.1 84 18 122/70 (87) 97 03/09/17 11:01 81 (1) Pneumothorax, right Plan: continue wall suction to both chest tubes for now, will continue to monitor if no improvement will re-eval for right VATS, possible bleb resection / pleurodesis (2) COPD (chronic obstructive pulmonary disease) Conchita Valadez Mar 10, 2017 10:35
--- NOTE | 2017-03-10 20:31 | HHI.PR ---
Subjective Remarks 81 YOWM with Rt PTX,COPD Chest tube to suction No Air leak Breathing better Tr to [facility] Has small apical ptx had pain last night, required MS Objective Vital Signs Vital Signs Date Time Temp Pulse Resp B/P (MAP) Pulse Ox O2 Delivery O2 Flow Rate FiO2 03/10/17 18:00 68 03/10/17 17:00 68 03/10/17 16:00 74 03/10/17 15:30 97.6 78 18 126/80 (95) 99 03/10/17 15:00 89 03/10/17 14:00 74 03/10/17 13:00 70 03/10/17 12:01 72 03/10/17 11:45 97.6 66 18 107/67 (80) 96 03/10/17 11:00 74 03/10/17 10:31 98 Nasal Cannula 2.00 03/10/17 10:00 78 03/10/17 09:00 62 03/10/17 08:45 97.7 64 18 125/75 (92) 98 03/10/17 08:00 66 03/10/17 07:01 74 03/10/17 06:13 77 03/10/17 05:40 71 03/10/17 04:17 66 03/10/17 03:21 68 03/10/17 03:00 98.8 66 18 130/75 (93) 99 03/10/17 02:43 73 03/10/17 01:00 70 03/10/17 00:00 73 03/09/17 23:00 71 18 125/73 (90) 96 03/09/17 23:00 73 03/09/17 22:00 74 03/09/17 21:00 78 I/O 03/09/17 03/09/17 03/09/17 03/10/17 03/10/17 03/10/17 07:00 15:00 23:00 07:00 15:00 23:00 Intake Total 240 ml 450 ml 480 ml 480 ml Output Total 441 ml 300 ml 420 ml 400 ml Balance -201 ml 150 ml 60 ml 80 ml Intake Oral 240 ml 450 ml 480 ml 480 ml Output Urine Total 400 ml 300 ml 350 ml 400 ml Stool Total 1 ml 0 ml Chest Tube Drainage Total 40 ml 70 ml # Voids 2 2 # Bowel Movements 0 1 Objective Remarks GENERAL: MBMN WM, NAD SKIN: Warm and dry. HEAD: Normocephalic. EYES: No scleral icterus. No injection or drainage. NECK: Supple, trachea midline. No JVD or lymphadenopathy. CARDIOVASCULAR: Regular rate and rhythm without murmurs, gallops, or rubs. RESPIRATORY: Breath sounds equal bilaterally. No accessory muscle use. Right chest tube in place GASTROINTESTINAL: Abdomen soft, non-tender, nondistended. MUSCULOSKELETAL: No cyanosis, or edema. BACK: Nontender without obvious deformity. No CVA tenderness. A/P Assessment and Plan Right PTX S/P Chest tube COPD HTN PLAN: Aerosol nebs Supplement 02 DW pt Chest tube to suction CXR in AM Jayro Hicks MD Mar 10, 2017 20:31
[2017-03-10] MEDS: ENOXAPARIN SODIUM 40 MG/0.4 ML SYRINGE SQ SCH (20:58)
[2017-03-11] VITALS (30 sets, daily range): BP systolic 103–122; BP diastolic 60–71; PULSE 60–86; RESP 16–18; TEMP 97.5–98.6; O2SAT 93–99
[2017-03-11] MEDS: CHLORHEXIDINE GLUCONATE 2 % 1 PACK (2 CLOTHS) TOP SCH (04:00)
--- NOTE | 2017-03-11 07:24 | HHI.PR ---
Subjective Remarks resting comfortably with no distress. chest tube in place. denies pain. d/w the RN and no acute issues over night. Objective Vitals Vital Signs Date Time Temp Pulse Resp B/P (MAP) Pulse Ox O2 Delivery O2 Flow Rate FiO2 03/11/17 06:00 69 03/11/17 05:00 69 03/11/17 04:00 68 03/11/17 03:00 97.7 71 16 109/60 (76) 99 03/11/17 03:00 86 03/11/17 02:00 70 03/11/17 01:00 81 03/11/17 00:00 74 03/10/17 23:00 71 03/10/17 23:00 98.0 74 16 108/60 (76) 96 03/10/17 22:00 76 03/10/17 21:00 76 03/10/17 20:00 82 03/10/17 19:46 Nasal Cannula 2.00 03/10/17 19:00 69 03/10/17 19:00 97.7 80 20 106/63 (77) 96 03/10/17 18:00 68 03/10/17 17:00 68 03/10/17 16:00 74 03/10/17 15:30 97.6 78 18 126/80 (95) 99 03/10/17 15:00 89 03/10/17 14:00 74 03/10/17 13:00 70 03/10/17 12:01 72 03/10/17 11:45 97.6 66 18 107/67 (80) 96 03/10/17 11:00 74 03/10/17 10:31 98 Nasal Cannula 2.00 03/10/17 10:00 78 03/10/17 09:00 62 03/10/17 08:45 97.7 64 18 125/75 (92) 98 03/10/17 08:00 66 I/O 03/10/17 03/10/17 03/10/17 03/11/17 03/11/17 03/11/17 07:00 15:00 23:00 07:00 15:00 23:00 Intake Total 480 ml 480 ml 240 ml Output Total 420 ml 400 ml 285 ml Balance 60 ml 80 ml -45 ml Intake Oral 480 ml 480 ml 240 ml Output Urine Total 350 ml 400 ml 250 ml Stool Total 0 ml Chest Tube Drainage Total 70 ml 35 ml # Voids 2 1 # Bowel Movements 1 Imaging Last Impressions Chest X-Ray 03/10/17 0000 Signed Impressions: Service Date/Time: February 05:33 - CONCLUSION: 1. Small caliber and larger caliber right chest tube present with a tiny right apical pneumothorax. Bilateral airspace disease similar to March 07. Warner Ortega MD Chest Tube Change 03/09/17 1255 Signed Impressions: Service Date/Time: Thursday, March 09, 2017 14:13 - CONCLUSION: Uncomplicated chest tube exchange as above. Jones Hurst MD Chest CT 03/09/17 0000 Signed Impressions: Service Date/Time: Thursday, March 09, 2017 11:39 - CONCLUSION: 1. There is continued residual pneumothorax in spite of 2 chest tubes on the right. 2. The extensive subcutaneous emphysema which was seen on previous exam has improved. 3. Large hiatal hernia. Jones Hurst MD Objective Remarks GENERAL: This is a well-nourished, well-developed patient, in no apparent distress. CARDIOVASCULAR: Regular rate and regular rhythm without murmurs, gallops, or rubs. RESPIRATORY: Clear to auscultation. Breath sounds equal bilaterally. No wheezes , rales, or rhonchi. chest tube in place. GASTROINTESTINAL: Abdomen soft, non-tender, nondistended. Normal, active bowel sounds MUSCULOSKELETAL: Extremities without clubbing, cyanosis, or edema. NEURO: Alert & Oriented x4 to person, place, time, situation. Moves all ext x4 Procedures chest tube insertion/ exchange. Medications and IVs Current Medications Sodium Chloride (NS Flush) 2 ml UNSCH PRN IVF FLUSH AFTER USING IV ACCESS; Start 02/27/17 at 20:45; Stop 02/27/17 at 23:08; Status DC Albuterol/ Ipratropium (Duoneb Neb) 1 ampule Q15M INH ; Start 02/27/17 at 20:45 ; Stop 02/27/17 at 21:16; Status DC Lidocaine/ Epinephrine (Xylocaine-Epi 2%-1:100,000 Inj) 30 ml ONCE ONCE INFIL ; Start 02/27/17 at 21:00; Stop 02/27/17 at 21:02; Status DC Sodium Chloride 1,000 ml @ 42 mls/hr [id number] IV Last administered on 14:34; Start 02/27/17 at 22:33; Stop 03/02/17 at 12:53; Status DC Sodium Chloride (NS Flush) 2 ml UNSCH PRN IV FLUSH FLUSH AFTER USING IV ACCESS ; Start 02/27/17 at 22:45 Sodium Chloride (NS Flush) 2 ml BID IV FLUSH Last administered on 03/10/17 21: 00; Start 02/28/17 at 09:00 Acetaminophen (Tylenol) 650 mg Q6H PRN PO FEVER/ PAIN 1-5 Last administered on 03/10/17 04:19; Start 02/27/17 at 22:45 Albuterol/ Ipratropium (Duoneb Neb) 1 ampule Q6HR NEB NEB Last administered on 03/04/17 03:09; Start 02/28/17 at 04:00; Stop 03/04/17 at 03:59; Status DC Albuterol/ Ipratropium (Duoneb Neb) 1 ampule Q4HR NEB PRN INH SHORTNESS OF BREATH Last administered on 03/05/17 20:14; Start 02/27/17 at 22:45 Chlorhexidine Gluconate (Peridex 0.12% Liq) 15 ml BID@08,20 MT Last administered on 03/08/17 19:18; Start 02/28/17 at 08:00 Enoxaparin Sodium (Lovenox Inj) 40 mg Q24H SQ Last administered on 03/10/17 20 :58; Start 02/28/17 at 20:00 Miscellaneous Information 1 Q361D XX Last administered on 02/27/17 22:45; Start 02/27/17 at 22:45 Chlorhexidine Gluconate (Chlorhexidine 2% Cloth) Taper DAILY@04 TOP Last administered on 03/08/17 04:00; Start 02/28/17 at 04:00; Stop 02/24/18 at 03:59 Chlorhexidine Gluconate (Chlorhexidine 2% Cloth) 3 pack UNSCH PRN TOP HYGIENIC CARE; Start 02/27/17 at 22:45 Aspirin (Aspirin Chew) 81 mg DAILY CHEW Last administered on 03/10/17 09:11; Start 02/28/17 at 09:00 Carvedilol (Coreg) 3.125 mg Q12HR PO Last administered on 03/10/17 20:58; Start 02/28/17 at 09:00 Nitroglycerin (Nitrostat Sl) 0.4 mg Q5M PRN SL X 3 doses for chest pain; Start 02/27/17 at 23:15 Pantoprazole Sodium (Protonix) 40 mg DAILY PO Last administered on 03/10/17 09 :11; Start 02/28/17 at 09:00 Prednisone (Deltasone) 5 mg BID PO Last administered on 03/10/17 20:58; Start 02/28/17 at 09:00 Hydromorphone HCl (Dilaudid Pf Inj) 1 mg STK-MED ONCE IV Last administered on 14:29; Start 03/06/17 at 14:29; Stop 03/06/17 at 14:30; Status DC Midazolam HCl (Versed Inj) 1 mg STK-MED ONCE IV Last administered on 03/06/17 14:30; Start 03/06/17 at 14:30; Stop 03/06/17 at 14:31; Status DC Fentanyl Citrate (fentaNYL INJ) 100 mcg STK-MED ONCE .ROUTE Last administered on 03/09/17 14:10; Start 03/09/17 at 14:02; Stop 03/09/17 at 14:03; Status DC Midazolam HCl (Versed Inj) 2 mg STK-MED ONCE .ROUTE Last administered on 14:10; Start 03/09/17 at 14:02; Stop 03/09/17 at 14:03; Status DC Morphine Sulfate (Morphine Inj) 2 mg ONCE ONCE IV PUSH Last administered on 05:36; Start 03/10/17 at 05:30; Stop 03/10/17 at 05:31; Status DC Acetaminophen/ Hydrocodone Bitart ([employer] 5-325 Mg) 1 tab Q4H PRN PO PAIN 6-10 ; Start 03/10/17 at 08:00 Morphine Sulfate (Morphine Inj) 2 mg Q4H PRN IV PUSH BREAKTHROUGH PAIN; Start 03/10/17 at 08:00 A/P Assessment and Plan A/P (1) Pneumothorax, right Dual chest tube placed - s/p chest tube exchange on 03/09/17. CT surgery consult appreciated; medical treatment for now. pulmonary following. (2) COPD (chronic obstructive pulmonary disease) On home O2 supportive care, no exacerbation at this time patient on chronic steroids BID (3) Heart failure known systolic dysfunction and EF 30% continue BB, aspirin No evidence of decompensation at this time (4) Dysphagia modified diet, stable outpatient ST recommended PT consulted. Discharge Planning case management for [facility]. Ozzie Pritchett MD Mar 11, 2017 07:24
[2017-03-11 07:35] LABS: AUTOMATED NEUTROPHIL # 8.2 TH/MM3 (1.8-7.7); BASOPHIL % 0.4 % (0.0-2.0); EOSINOPHIL # 0.3 TH/MM3 (0-0.4); EOSINOPHIL % 2.7 % (0.0-4.0); HEMATOCRIT 41.1 % (39.0-51.0); HEMO FLAGS DIFF FINAL; LYMPH % 8.1 % (9.0-44.0); LYMPHOCYTE # 0.8 TH/MM3 (1.0-4.8); MEAN CELL VOLUME 88.8 FL (80.0-100.0); MEAN CORPUSCULAR HEMOGLOBIN 28.9 PG (27.0-34.0); MEAN CORPUSCULAR HGB CONC 32.6 % (32.0-36.0); MONO % 8.2 % (0.0-8.0); NEUT % 80.6 % (16.0-70.0); PLATELET COUNT 269 TH/MM3 (150-450); RED BLOOD COUNT 4.63 MIL/MM3 (4.50-5.90); RED CELL DISTRIBUTION WIDTH 14.5 % (11.6-17.2); WHITE BLOOD COUNT 10.2 TH/MM3 (4.0-11.0)
[2017-03-11 07:55] LABS: BICARBONATE 28.9 MEQ/L (21.0-32.0); POTASSIUM 4.2 MEQ/L (3.5-5.1)
[2017-03-11] MEDS: CARVEDILOL 3.125 MG TAB PO SCH ×2 (08:14→21:08)
[2017-03-11] MEDS: PANTOPRAZOLE SOD 40 MG DELAYED RELEASE TAB PO SCH (08:14)
[2017-03-11] MEDS: ASPIRIN 81 MG CHEW TAB CHEW SCH (08:14)
[2017-03-11] MEDS: predniSONE 5 MG TAB PO SCH ×2 (08:14→21:08)
[2017-03-11] MEDS: SODIUM CHLORIDE 0.9% FLUSH 10 ML FLUSH IV FLUSH SCH ×2 (09:00→21:08)
--- NOTE | 2017-03-11 13:24 | PD.CAR.PN ---
CVT Progress Note Subjective/Hospital Course: 81/ male , recurrent right PTX , admitted via ED right sided chest pain , # 28french chest tube placed in ED, then additional 10french pig tail cath placed 03/06 by IR, pig tail cath had +1-2 air leak, pt went back to IR yesterday and had pigtail cath changed out for a 12 stateless pig tail cath , still has +1 air leak , PMH: severe COPD on chronic home 02, systolic HF EF 30%, dysphagia 03/10 still has +1-2 air leak from new 12 stateless pig tail #28 stateless cath no air leak minimal drainage CXR tiny right apical PTX continue medical therapy for now, will continue to monitor 03/11 right pig tail cath +1-2 airleak on suction right 28 stateless no air leak f/u cxr no surgery for now Objective: GENERAL: A&O x 2, up in chair SKIN: Warm and dry. HEAD: Normocephalic. EYES: No scleral icterus. No injection or drainage. NECK: Supple, trachea midline. No JVD or lymphadenopathy. CARDIOVASCULAR: Regular rate and rhythm without murmurs, gallops, or rubs. RESPIRATORY: Breath sounds equal bilaterally. No accessory muscle use. diminished n bases right > left chest tube x 2 to wall suction, +1-2 air leak right pig tail cath no air leak in large bore chest tube pleuravac GASTROINTESTINAL: Abdomen soft, non-tender, nondistended. MUSCULOSKELETAL: No cyanosis, or edema. BACK: Nontender without obvious deformity. No CVA tenderness. Vital Signs Date Time Temp Pulse Resp B/P (MAP) Pulse Ox O2 Delivery O2 Flow Rate FiO2 03/11/17 12:01 68 03/11/17 11:57 93 03/11/17 11:15 97.5 72 18 103/62 (76) 98 03/11/17 11:01 70 03/11/17 10:01 82 03/11/17 09:00 68 03/11/17 08:30 97.9 60 18 106/60 (75) 97 03/11/17 08:00 66 03/11/17 07:01 66 03/11/17 06:00 69 03/11/17 05:00 69 03/11/17 04:00 68 03/11/17 03:00 97.7 71 16 109/60 (76) 99 03/11/17 03:00 86 03/11/17 02:00 70 03/11/17 01:00 81 03/11/17 00:00 74 03/10/17 23:00 71 03/10/17 23:00 98.0 74 16 108/60 (76) 96 03/10/17 22:00 76 03/10/17 21:00 76 03/10/17 20:00 82 03/10/17 19:46 Nasal Cannula 2.00 03/10/17 19:00 69 03/10/17 19:00 97.7 80 20 106/63 (77) 96 03/10/17 18:00 68 03/10/17 17:00 68 03/10/17 16:00 74 03/10/17 15:30 97.6 78 18 126/80 (95) 99 03/10/17 15:00 89 03/10/17 14:00 74 Labs: Laboratory Tests Test 03/11/17 06:12 White Blood Count 10.2 TH/MM3 (4.0-11.0) Red Blood Count 4.63 MIL/MM3 (4.50-5.90) Hemoglobin 13.4 GM/DL (13.0-17.0) Hematocrit 41.1 % (39.0-51.0) Mean Corpuscular Volume 88.8 FL (80.0-100.0) Mean Corpuscular Hemoglobin 28.9 PG (27.0-34.0) Mean Corpuscular Hemoglobin Concent 32.6 % (32.0-36.0) Red Cell Distribution Width 14.5 % (11.6-17.2) Platelet Count 269 TH/MM3 (150-450) Mean Platelet Volume 8.0 FL (7.0-11.0) Neutrophils (%) (Auto) 80.6 % (16.0-70.0) Lymphocytes (%) (Auto) 8.1 % (9.0-44.0) Monocytes (%) (Auto) 8.2 % (0.0-8.0) Eosinophils (%) (Auto) 2.7 % (0.0-4.0) Basophils (%) (Auto) 0.4 % (0.0-2.0) Neutrophils # (Auto) 8.2 TH/MM3 (1.8-7.7) Lymphocytes # (Auto) 0.8 TH/MM3 (1.0-4.8) Monocytes # (Auto) 0.8 TH/MM3 (0-0.9) Eosinophils # (Auto) 0.3 TH/MM3 (0-0.4) Basophils # (Auto) 0.0 TH/MM3 (0-0.2) CBC Comment DIFF FINAL Differential Comment Blood Urea Nitrogen 25 MG/DL (7-18) Creatinine 0.76 MG/DL (0.60-1.30) Random Glucose 105 MG/DL (74-106) Calcium Level 8.4 MG/DL (8.5-10.1) Sodium Level 138 MEQ/L (136-145) Potassium Level 4.2 MEQ/L (3.5-5.1) Chloride Level 103 MEQ/L (98-107) Carbon Dioxide Level 28.9 MEQ/L (21.0-32.0) Anion Gap 6 MEQ/L (5-15) Estimat Glomerular Filtration Rate 99 ML/MIN (>89) Result Diagram: 03/11/1761103/11/17611 (1) Pneumothorax, right Plan: continue wall suction to both chest tubes for now, will continue to monitor no change / to be re-evaluated by Dr Tony on Tuesday if no improvement will re-eval for right VATS, possible bleb resection / pleurodesis (2) COPD (chronic obstructive pulmonary disease) Conchita Valadez Mar 11, 2017 13:24
--- NOTE | 2017-03-11 16:31 | HHI.PR ---
Subjective Remarks 81 YOWM with Rt PTX,COPD Chest tube to suction Small Air leak Breathing better Tr to [facility] main Objective Vital Signs Vital Signs Date Time Temp Pulse Resp B/P (MAP) Pulse Ox O2 Delivery O2 Flow Rate FiO2 03/11/17 12:01 68 03/11/17 11:57 93 03/11/17 11:15 97.5 72 18 103/62 (76) 98 03/11/17 11:01 70 03/11/17 10:01 82 03/11/17 09:00 68 03/11/17 08:30 97.9 60 18 106/60 (75) 97 03/11/17 08:00 66 03/11/17 07:01 66 03/11/17 06:00 69 03/11/17 05:00 69 03/11/17 04:00 68 03/11/17 03:00 97.7 71 16 109/60 (76) 99 03/11/17 03:00 86 03/11/17 02:00 70 03/11/17 01:00 81 03/11/17 00:00 74 03/10/17 23:00 71 03/10/17 23:00 98.0 74 16 108/60 (76) 96 03/10/17 22:00 76 03/10/17 21:00 76 03/10/17 20:00 82 03/10/17 19:46 Nasal Cannula 2.00 03/10/17 19:00 69 03/10/17 19:00 97.7 80 20 106/63 (77) 96 03/10/17 18:00 68 03/10/17 17:00 68 I/O 03/10/17 03/10/17 03/10/17 03/11/17 03/11/17 03/11/17 07:00 15:00 23:00 07:00 15:00 23:00 Intake Total 480 ml 480 ml 240 ml Output Total 420 ml 445 ml 285 ml 30 ml Balance 60 ml 35 ml -45 ml -30 ml Intake Oral 480 ml 480 ml 240 ml Output Urine Total 350 ml 400 ml 250 ml Stool Total 0 ml Chest Tube Drainage Total 70 ml 45 ml 35 ml 30 ml # Voids 2 1 # Bowel Movements 1 Result Diagram: 03/11/1761103/11/17611 Objective Remarks GENERAL: MBMN WM, NAD SKIN: Warm and dry. HEAD: Normocephalic. EYES: No scleral icterus. No injection or drainage. NECK: Supple, trachea midline. No JVD or lymphadenopathy. CARDIOVASCULAR: Regular rate and rhythm without murmurs, gallops, or rubs. RESPIRATORY: Breath sounds equal bilaterally. No accessory muscle use. Right chest tube in place GASTROINTESTINAL: Abdomen soft, non-tender, nondistended. MUSCULOSKELETAL: No cyanosis, or edema. BACK: Nontender without obvious deformity. No CVA tenderness. A/P Assessment and Plan Right PTX S/P Chest tube COPD HTN PLAN: Aerosol nebs Supplement 02 DW pt Chest tube to suction Jayro Hicks MD Mar 11, 2017 16:31
[2017-03-11] MEDS: CHLORHEXIDINE 0.12% (ORAL KIT) 15 ML CUP MT SCH (20:00)
[2017-03-11] MEDS: ENOXAPARIN SODIUM 40 MG/0.4 ML SYRINGE SQ SCH (21:08)
[2017-03-12] VITALS (29 sets, daily range): BP systolic 106–127; BP diastolic 65–82; PULSE 67–98; RESP 16–20; TEMP 97.4–97.9; O2SAT 93–99
[2017-03-12] MEDS: CHLORHEXIDINE GLUCONATE 2 % 1 PACK (2 CLOTHS) TOP SCH ×2 (02:56→21:42)
--- NOTE | 2017-03-12 07:35 | HHI.PR ---
Subjective Remarks f/u; pneumothorax resting comfortably with no chest pain or sob. no new complaints. Objective Vitals Vital Signs Date Time Temp Pulse Resp B/P (MAP) Pulse Ox O2 Delivery O2 Flow Rate FiO2 03/12/17 06:00 72 03/12/17 05:00 70 03/12/17 04:00 72 03/12/17 03:42 76 16 106/67 (80) 97 03/12/17 03:00 77 03/12/17 02:00 72 03/12/17 01:00 74 03/12/17 00:00 74 03/11/17 23:26 79 18 115/60 (78) 95 03/11/17 23:00 78 03/11/17 22:00 78 03/11/17 21:00 76 03/11/17 20:00 74 03/11/17 19:55 98.6 75 18 118/71 (87) 97 03/11/17 19:49 97 Nasal Cannula 2.00 03/11/17 19:00 72 03/11/17 17:01 70 03/11/17 16:01 70 03/11/17 15:15 98.6 72 18 122/62 (82) 99 03/11/17 15:00 83 03/11/17 14:00 68 03/11/17 13:00 66 03/11/17 12:01 68 03/11/17 11:57 93 03/11/17 11:15 97.5 72 18 103/62 (76) 98 03/11/17 11:01 70 03/11/17 10:01 82 03/11/17 09:00 68 03/11/17 08:30 97.9 60 18 106/60 (75) 97 03/11/17 08:00 66 I/O 03/11/17 03/11/17 03/11/17 03/12/17 03/12/17 03/12/17 07:00 15:00 23:00 07:00 15:00 23:00 Intake Total 240 ml 720 ml 240 ml Output Total 285 ml 30 ml 400 ml 470 ml Balance -45 ml -30 ml 320 ml -230 ml Intake Oral 240 ml 720 ml 240 ml Output Urine Total 250 ml 350 ml 400 ml Chest Tube Drainage Total 35 ml 30 ml 50 ml 70 ml # Voids 1 1 # Bowel Movements 1 Result Diagram: 03/11/17 0612 03/11/17 0612 Imaging Last Impressions Chest X-Ray 03/10/17 0000 Signed Impressions: Service Date/Time: February 05:33 - CONCLUSION: 1. Small caliber and larger caliber right chest tube present with a tiny right apical pneumothorax. Bilateral airspace disease similar to March 07. Warner Ortega MD Chest Tube Change 03/09/17 1255 Signed Impressions: Service Date/Time: Thursday, March 09, 2017 14:13 - CONCLUSION: Uncomplicated chest tube exchange as above. Jones Hurst MD Chest CT 03/09/17 0000 Signed Impressions: Service Date/Time: Thursday, March 09, 2017 11:39 - CONCLUSION: 1. There is continued residual pneumothorax in spite of 2 chest tubes on the right. 2. The extensive subcutaneous emphysema which was seen on previous exam has improved. 3. Large hiatal hernia. Jones Hurst MD Objective Remarks GENERAL: in no apparent distress. CARDIOVASCULAR: Regular rate and regular rhythm without murmurs, gallops, or rubs. RESPIRATORY: Clear to auscultation. Breath sounds equal bilaterally. No wheezes , rales, or rhonchi. chest tube in place. GASTROINTESTINAL: Abdomen soft, non-tender, nondistended. Normal, active bowel sounds MUSCULOSKELETAL: Extremities without clubbing, cyanosis, or edema. NEURO: Alert & Oriented x4 to person, place, time, situation. Moves all ext x4 Procedures chest tube insertion/ exchange. Medications and IVs Current Medications Sodium Chloride (NS Flush) 2 ml UNSCH PRN IVF FLUSH AFTER USING IV ACCESS; Start 02/27/17 at 20:45; Stop 02/27/17 at 23:08; Status DC Albuterol/ Ipratropium (Duoneb Neb) 1 ampule Q15M INH ; Start 02/27/17 at 20:45 ; Stop 02/27/17 at 21:16; Status DC Lidocaine/ Epinephrine (Xylocaine-Epi 2%-1:100,000 Inj) 30 ml ONCE ONCE INFIL ; Start 02/27/17 at 21:00; Stop 02/27/17 at 21:02; Status DC Sodium Chloride 1,000 ml @ 42 mls/hr [id number] IV Last administered on t 14:34; Start 02/27/17 at 22:33; Stop 03/02/17 at 12:53; Status DC Sodium Chloride (NS Flush) 2 ml UNSCH PRN IV FLUSH FLUSH AFTER USING IV ACCESS ; Start 02/27/17 at 22:45 Sodium Chloride (NS Flush) 2 ml BID IV FLUSH Last administered on 03/11/17 21: 08; Start 02/28/17 at 09:00 Acetaminophen (Tylenol) 650 mg Q6H PRN PO FEVER/ PAIN 1-5 Last administered on 03/10/17 04:19; Start 02/27/17 at 22:45 Albuterol/ Ipratropium (Duoneb Neb) 1 ampule Q6HR NEB NEB Last administered on 03/04/17 03:09; Start 02/28/17 at 04:00; Stop 03/04/17 at 03:59; Status DC Albuterol/ Ipratropium (Duoneb Neb) 1 ampule Q4HR NEB PRN INH SHORTNESS OF BREATH Last administered on 03/05/17 20:14; Start 02/27/17 at 22:45 Chlorhexidine Gluconate (Peridex 0.12% Liq) 15 ml BID@08,20 MT Last administered on 03/08/17 19:18; Start 02/28/17 at 08:00 Enoxaparin Sodium (Lovenox Inj) 40 mg Q24H SQ Last administered on 03/11/17 21 :08; Start 02/28/17 at 20:00 Miscellaneous Information 1 Q361D XX Last administered on 02/27/17 22:45; Start 02/27/17 at 22:45 Chlorhexidine Gluconate (Chlorhexidine 2% Cloth) Taper DAILY@04 TOP Last administered on 03/08/17 04:00; Start 02/28/17 at 04:00; Stop 02/24/18 at 03:59 Chlorhexidine Gluconate (Chlorhexidine 2% Cloth) 3 pack UNSCH PRN TOP HYGIENIC CARE; Start 02/27/17 at 22:45 Aspirin (Aspirin Chew) 81 mg DAILY CHEW Last administered on 03/11/17 08:14; Start 02/28/17 at 09:00 Carvedilol (Coreg) 3.125 mg Q12HR PO Last administered on 03/11/17 21:08; Start 02/28/17 at 09:00 Nitroglycerin (Nitrostat Sl) 0.4 mg Q5M PRN SL X 3 doses for chest pain; Start 02/27/17 at 23:15 Pantoprazole Sodium (Protonix) 40 mg DAILY PO Last administered on 03/11/17 08 :14; Start 02/28/17 at 09:00 Prednisone (Deltasone) 5 mg BID PO Last administered on 03/11/17 21:08; Start 02/28/17 at 09:00 Hydromorphone HCl (Dilaudid Pf Inj) 1 mg STK-MED ONCE IV Last administered on 14:29; Start 03/06/17 at 14:29; Stop 03/06/17 at 14:30; Status DC Midazolam HCl (Versed Inj) 1 mg STK-MED ONCE IV Last administered on 03/06/17 14:30; Start 03/06/17 at 14:30; Stop 03/06/17 at 14:31; Status DC Fentanyl Citrate (fentaNYL INJ) 100 mcg STK-MED ONCE .ROUTE Last administered on 03/09/17 14:10; Start 03/09/17 at 14:02; Stop 03/09/17 at 14:03; Status DC Midazolam HCl (Versed Inj) 2 mg STK-MED ONCE .ROUTE Last administered on 14:10; Start 03/09/17 at 14:02; Stop 03/09/17 at 14:03; Status DC Morphine Sulfate (Morphine Inj) 2 mg ONCE ONCE IV PUSH Last administered on 05:36; Start 03/10/17 at 05:30; Stop 03/10/17 at 05:31; Status DC Acetaminophen/ Hydrocodone Bitart ([place] 5-325 Mg) 1 tab Q4H PRN PO PAIN 6-10 ; Start 03/10/17 at 08:00 Morphine Sulfate (Morphine Inj) 2 mg Q4H PRN IV PUSH BREAKTHROUGH PAIN; Start 03/10/17 at 08:00 A/P Assessment and Plan A/P (1) Pneumothorax, right Dual chest tube placed - s/p chest tube exchange on 03/09/17. CT surgery follow-up appreciated;no surgery for now. pulmonary following. (2) COPD (chronic obstructive pulmonary disease) On home O2 supportive care, no exacerbation at this time patient on chronic steroids continue with neb treatment. (3) Heart failure known systolic dysfunction and EF 30% continue BB, aspirin No evidence of decompensation at this time (4) Dysphagia modified diet, stable outpatient ST recommended DVT prophylaxis with Lovenox. PT consulted. Discharge Planning case management consulted for [facility]. Ozzie Pritchett MD Mar 12, 2017 07:35
[2017-03-12] MEDS: CHLORHEXIDINE 0.12% (ORAL KIT) 15 ML CUP MT SCH ×2 (08:00→20:00)
[2017-03-12] MEDS: PANTOPRAZOLE SOD 40 MG DELAYED RELEASE TAB PO SCH (09:29)
[2017-03-12] MEDS: predniSONE 5 MG TAB PO SCH ×2 (09:29→21:31)
[2017-03-12] MEDS: ASPIRIN 81 MG CHEW TAB CHEW SCH (09:29)
[2017-03-12] MEDS: CARVEDILOL 3.125 MG TAB PO SCH ×2 (09:29→21:31)
[2017-03-12] MEDS: SODIUM CHLORIDE 0.9% FLUSH 10 ML FLUSH IV FLUSH SCH ×2 (09:30→21:31)
[2017-03-12] MEDS: ENOXAPARIN SODIUM 40 MG/0.4 ML SYRINGE SQ SCH (21:31)
[2017-03-13] VITALS (31 sets, daily range): BP systolic 98–116; BP diastolic 57–71; PULSE 59–84; RESP 15–18; TEMP 97.4–98.2; O2SAT 95–99
--- NOTE | 2017-03-13 06:02 | RADRPT ---
EXAM DATE/TIME: 03/13/2017 05:28 [place] COMPARISON: CT THORAX W/O CONTRAST, March 09, 2017, 11:39. CHEST SINGLE AP, March 08, 2017, 17:58. INDICATIONS : Shortness of breath, possible pulmonary disease. MEDICAL HISTORY : Chronic obstructive pulmonary disease. SURGICAL HISTORY : None. ENCOUNTER: Subsequent ACUITY: 3 weeks PAIN SCORE: 0/10 LOCATION: Bilateral chest FINDINGS: The larger right-sided chest tube has been partially withdrawn since March 08 and March 10 co mparison. Small caliber right chest tube remains in the right lung apex without significant pneumotho rax. Mild airspace disease in the lungs remains. Hiatal hernia. Cardiomegaly. CONCLUSION: 1. Right chest tube has been partially withdrawn. Small caliber right chest tube at right lung apex i s unchanged. No significant pneumothorax. Stable bilateral airspace disease. Large hiatal hernia. Warner Ortega MD on March 13, 2017 at 5:58 Board Certified Radiologist. This report was verified electronically.
[2017-03-13] MEDS: CHLORHEXIDINE 0.12% (ORAL KIT) 15 ML CUP MT SCH ×2 (08:00→20:00)
[2017-03-13] MEDS: SODIUM CHLORIDE 0.9% FLUSH 10 ML FLUSH IV FLUSH SCH ×2 (09:00→21:39)
[2017-03-13] MEDS: predniSONE 5 MG TAB PO SCH ×2 (09:50→21:39)
[2017-03-13] MEDS: CARVEDILOL 3.125 MG TAB PO SCH ×2 (09:50→21:39)
[2017-03-13] MEDS: ASPIRIN 81 MG CHEW TAB CHEW SCH (09:50)
[2017-03-13] MEDS: PANTOPRAZOLE SOD 40 MG DELAYED RELEASE TAB PO SCH (09:50)
--- NOTE | 2017-03-13 16:12 | HHI.PR ---
Subjective Remarks Follow up for right pneumothorax. Patient is currently doing well. Daughter is at bedside. No chest pain, SOB, fever, chills. Objective Vitals Vital Signs Date Time Temp Pulse Resp B/P (MAP) Pulse Ox O2 Delivery O2 Flow Rate FiO2 03/13/17 15:20 97.9 65 17 115/64 (81) 97 03/13/17 14:00 75 03/13/17 13:00 79 03/13/17 12:03 98.0 81 16 115/67 (83) 95 03/13/17 12:00 84 03/13/17 11:07 99 Nasal Cannula 2.00 03/13/17 11:00 82 03/13/17 10:00 74 03/13/17 09:00 60 03/13/17 08:00 59 03/13/17 07:30 97.9 62 15 116/65 (82) 99 03/13/17 07:00 68 03/13/17 06:00 72 03/13/17 05:00 66 03/13/17 04:00 66 03/13/17 03:00 98.2 67 18 111/68 (82) 98 03/13/17 03:00 69 03/13/17 02:00 72 03/13/17 01:00 72 03/13/17 00:00 74 03/12/17 23:00 80 03/12/17 23:00 97.8 79 18 111/65 (80) 93 03/12/17 22:00 98 03/12/17 21:00 78 03/12/17 20:00 84 03/12/17 19:42 97.4 88 20 112/72 (85) 97 03/12/17 19:00 88 03/12/17 18:00 88 03/12/17 17:07 96 Nasal Cannula 2.00 03/12/17 17:00 71 I/O 03/12/17 03/12/17 03/12/17 03/13/17 03/13/17 03/13/17 07:00 15:00 23:00 07:00 15:00 23:00 Intake Total 240 ml 480 ml 480 ml Output Total 470 ml 535 ml 332 ml Balance -230 ml -55 ml 148 ml Intake Oral 240 ml 480 ml 480 ml Output Urine Total 400 ml 525 ml 200 ml Chest Tube Drainage Total 70 ml 10 ml 132 ml Result Diagram: 9/29/17 0612 03/11/17 0612 Imaging Last Impressions Chest X-Ray 03/13/17 0600 Signed Impressions: Service Date/Time: Monday, March 13, 2017 05:28 - CONCLUSION: 1. Right chest tube has been partially withdrawn. Small caliber right chest tube at right lung apex is unchanged. No significant pneumothorax. Stable bilateral airspace disease. Large hiatal hernia. Warner Ortega MD Chest Tube Change 03/09/17 1255 Signed Impressions: Service Date/Time: Thursday, March 09, 2017 14:13 - CONCLUSION: Uncomplicated chest tube exchange as above. Jones Hurst MD Chest CT 03/09/17 0000 Signed Impressions: Service Date/Time: Thursday, March 09, 2017 11:39 - CONCLUSION: 1. There is continued residual pneumothorax in spite of 2 chest tubes on the right. 2. The extensive subcutaneous emphysema which was seen on previous exam has improved. 3. Large hiatal hernia. Jones Hurst MD Objective Remarks GENERAL: Alert, NAD. SKIN: Warm and dry. HEAD: Normocephalic. EYES: No scleral icterus. No injection or drainage. NECK: Supple, trachea midline. No JVD or lymphadenopathy. CARDIOVASCULAR: Regular rate and rhythm without murmurs, gallops, or rubs. RESPIRATORY: Breath sounds equal bilaterally. No accessory muscle use. Right sided chest tube in place. GASTROINTESTINAL: Abdomen soft, non-tender, nondistended. MUSCULOSKELETAL: No cyanosis, or edema. BACK: Nontender without obvious deformity. No CVA tenderness. Procedures chest tube insertion/ exchange. A/P Problem List: (1) Pneumothorax, right ICD Code: J93.9 - Pneumothorax, unspecified Status: Acute (2) COPD (chronic obstructive pulmonary disease) ICD Code: J44.9 - Chronic obstructive pulmonary disease, unspecified Status: Acute (3) Heart failure ICD Code: I50.9 - Heart failure, unspecified (4) Dysphagia ICD Code: R13.10 - Dysphagia, unspecified Assessment and Plan Mr. Guerra is a pleasant 81 year old male with a history of CHF, COPD and previous right sided pneumothorax who was admitted on 02/27/2017 due to sudden onset of right sided chest pain. ED work indicated large right sided pneumothorax. A 28-Yi chest tube was inserted. He continued to have persistent small apical pneumothorax. Subsequently, a 10-Yi pigtail catheter was placed. Cardiothoracic surgery was consulted due to persistent air leak, possible need for video assisted thoracoscopy. - Pneumothorax, right - Dual chest tube placed - s/p chest tube exchange on 03/09/17. - CT surgery following, if no improvement will re-eval for right sided VATS, possible bleb resection / pleurodesis. - pulmonary following. - COPD (chronic obstructive pulmonary disease) - Continue supplemental O2 to maintain O2 sat > 90%. - supportive care, no exacerbation at this time - patient on chronic steroids, prednisone 5mg BID. - continue with neb treatment. 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 - known systolic dysfunction and EF 30% - continue Carvedilol 3.125mg Q12hrs, aspirin 81mg Qday. - No evidence of decompensation at this time - Dysphagia - modified diet, stable - outpatient ST recommended Full code. Lovenox. Ana Olivera DO Mar 13, 2017 16:12
[2017-03-13] MEDS: ENOXAPARIN SODIUM 40 MG/0.4 ML SYRINGE SQ SCH (21:40)
[2017-03-14] VITALS (27 sets, daily range): BP systolic 108–125; BP diastolic 64–73; PULSE 57–86; RESP 16–18; TEMP 97.4–98.1; O2SAT 95–100
[2017-03-14] MEDS: CHLORHEXIDINE GLUCONATE 2 % 1 PACK (2 CLOTHS) TOP SCH (04:00)
[2017-03-14] MEDS: CHLORHEXIDINE 0.12% (ORAL KIT) 15 ML CUP MT SCH ×2 (08:00→20:00)
[2017-03-14] MEDS: predniSONE 5 MG TAB PO SCH ×2 (10:25→20:37)
[2017-03-14] MEDS: ASPIRIN 81 MG CHEW TAB CHEW SCH (10:25)
[2017-03-14] MEDS: PANTOPRAZOLE SOD 40 MG DELAYED RELEASE TAB PO SCH (10:26)
[2017-03-14] MEDS: SODIUM CHLORIDE 0.9% FLUSH 10 ML FLUSH IV FLUSH SCH ×2 (10:26→20:38)
[2017-03-14] MEDS: CARVEDILOL 3.125 MG TAB PO SCH ×2 (10:26→20:37)
--- NOTE | 2017-03-14 10:36 | RADRPT ---
EXAM DATE/TIME: 03/14/2017 09:47 [facility] COMPARISON: CHEST SINGLE AP, March 13, 2017, 5:28. INDICATIONS : Evaluate right side chest tubes and pneumothorax, short of breath MEDICAL HISTORY : Chronic obstructive pulmonary disease. SURGICAL HISTORY : chest tube x 2 ENCOUNTER: Subsequent ACUITY: 3 weeks PAIN SCORE: 0/10 LOCATION: Right chest FINDINGS: The cardiac silhouette is enlarged in transverse diameter. A moderate size hiatal hernia is present. A right chest tube is in place. There is no evidence of pneumothorax. The larger chest tube is outsid e of the hemithorax and can be removed. There is subsegmental atelectasis in the both bases. CONCLUSION: 1. There is no evidence of pneumothorax. The larger chest tube is outside the hemithorax and can be removed. Jeanmarie Vera MD on March 14, 2017 at 10:32 Board Certified Radiologist. This report was verified electronically.
--- NOTE | 2017-03-14 11:35 | HHI.PR ---
Subjective Remarks Follow up for right pneumothorax. Patient is currently doing well. Sitting at the side of his bed. No fever or chills. He is on nasal cannula. Objective Vitals Vital Signs Date Time Temp Pulse Resp B/P (MAP) Pulse Ox O2 Delivery O2 Flow Rate FiO2 03/14/17 07:54 97.6 68 16 113/64 (80) 95 03/14/17 07:29 97 21 03/14/17 06:00 66 03/14/17 05:00 70 03/14/17 04:00 76 03/14/17 03:34 72 16 108/66 (80) 96 03/14/17 03:00 66 03/14/17 02:00 62 03/14/17 01:00 60 03/14/17 00:00 64 03/13/17 23:50 65 18 98/57 (71) 95 03/13/17 23:00 73 03/13/17 22:00 82 03/13/17 21:39 97 Nasal Cannula 2.00 03/13/17 21:00 70 03/13/17 20:00 76 03/13/17 19:40 97.4 80 16 114/71 (85) 99 03/13/17 19:00 82 03/13/17 18:00 78 03/13/17 17:00 65 03/13/17 16:00 63 03/13/17 15:20 97.9 65 17 115/64 (81) 97 03/13/17 15:00 67 03/13/17 14:00 75 03/13/17 13:00 79 03/13/17 12:03 98.0 81 16 115/67 (83) 95 03/13/17 12:00 84 I/O 03/13/17 03/13/17 03/13/17 03/14/17 03/14/17 03/14/17 07:00 15:00 23:00 07:00 15:00 23:00 Intake Total 480 ml 720 ml 200 ml Output Total 332 ml 800 ml 280 ml Balance 148 ml -80 ml -80 ml Intake Oral 480 ml 720 ml 200 ml Output Urine Total 200 ml 800 ml 250 ml Chest Tube Drainage Total 132 ml 30 ml Result Diagram: 03/11/1761103/11/17611 Imaging Last Impressions Chest X-Ray 10/1/17 0600 Signed Impressions: Service Date/Time: Monday, March 13, 2017 05:28 - CONCLUSION: 1. Right chest tube has been partially withdrawn. Small caliber right chest tube at right lung apex is unchanged. No significant pneumothorax. Stable bilateral airspace disease. Large hiatal hernia. Warner Ortega MD Chest Tube Change 03/09/17 1255 Signed Impressions: Service Date/Time: Thursday, March 09, 2017 14:13 - CONCLUSION: Uncomplicated chest tube exchange as above. Jones Hurst MD Chest CT 03/09/17 0000 Signed Impressions: Service Date/Time: Thursday, March 09, 2017 11:39 - CONCLUSION: 1. There is continued residual pneumothorax in spite of 2 chest tubes on the right. 2. The extensive subcutaneous emphysema which was seen on previous exam has improved. 3. Large hiatal hernia. Jones Hurst MD Objective Remarks GENERAL: Alert, NAD. SKIN: Warm and dry. HEAD: Normocephalic. EYES: No scleral icterus. No injection or drainage. NECK: Supple, trachea midline. No JVD or lymphadenopathy. CARDIOVASCULAR: Regular rate and rhythm without murmurs, gallops, or rubs. RESPIRATORY: Breath sounds equal bilaterally. No accessory muscle use. Right sided chest tube in place. GASTROINTESTINAL: Abdomen soft, non-tender, nondistended. MUSCULOSKELETAL: No cyanosis, or edema. BACK: Nontender without obvious deformity. No CVA tenderness. Procedures chest tube insertion/ exchange. A/P Problem List: (1) Pneumothorax, right ICD Code: J93.9 - Pneumothorax, unspecified Status: Acute (2) COPD (chronic obstructive pulmonary disease) ICD Code: J44.9 - Chronic obstructive pulmonary disease, unspecified Status: Acute (3) Heart failure ICD Code: I50.9 - Heart failure, unspecified (4) Dysphagia ICD Code: R13.10 - Dysphagia, unspecified Assessment and Plan Mr. Guerra is a pleasant 81 year old male with a history of CHF, COPD and previous right sided pneumothorax who was admitted on 02/27/2017 due to sudden onset of right sided chest pain. ED work indicated large right sided pneumothorax. A 28-Monegasque chest tube was inserted. He continued to have persistent small apical pneumothorax. Subsequently, a 10-Monegasque pigtail catheter was placed. Cardiothoracic surgery was consulted due to persistent air leak, possible need for video assisted thoracoscopy. - Pneumothorax, right - Dual chest tube placed - s/p chest tube exchange on 03/09/17. - CT surgery following, if no improvement will re-eval for right sided VATS, possible bleb resection / pleurodesis. - pulmonary following. - Interventional radiology will reassess today to see if chest tubes can be discontinued. - COPD (chronic obstructive pulmonary disease) - Continue supplemental O2 to maintain O2 sat > 90%. - supportive care, no exacerbation at this time - patient on chronic steroids, prednisone 5mg BID. - continue with neb treatment. 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 - known systolic dysfunction and EF 30% - continue Carvedilol 3.125mg Q12hrs, aspirin 81mg Qday. - No evidence of decompensation at this time - Dysphagia - modified diet, stable - outpatient ST recommended Full code. Lovenox. Discharge plan: Once chest tubes are removed and chest x-ray shows no significant pneumothorax, patient can potentially be discharged home. Ana Olivera DO Mar 14, 2017 11:35 am
--- NOTE | 2017-03-14 12:28 | RADRPT ---
EXAM DATE/TIME: 03/06/2017 13:29 [facility] COMPARISON: No previous studies available for comparison. INDICATIONS : Patient with right pneumothorax in need of right chest tube placement. MEDICAL HISTORY : 1.Pneumothorax SURGICAL HISTORY : 1.Chest tube placement 2.Bilateral knee replacement ENCOUNTER: Initial ACUITY: 4 - 6 days PAIN SCORE: 0/10 FLUORO TIME: 1.5 minutes IMAGE SERIES: 3 SEDATION TIME: 15 minutes MEDICATION(S): 1.) 1 mg midazolam (Versed) IV 2.) 1 mg hydromorphone (Dilaudid) IV DEVICE(S): 1.) 10 Kyrgyz non-locking catheter theodore PROCEDURE : 1. Fluoroscopically guided chest tube placement. 2. Conscious sedation with continuous EKG and oximetry monitoring. The risks, benefits and alternatives to the procedure were explained and verbal and written consent w as obtained. The site was prepped in sterile fashion. Full sterile technique was used, including ca p, mask, sterile gloves and gown and a large sterile sheet. Hand hygiene and 2% chlorhexidine and/or betadine/alcohol prep was utilized per protocol for cutaneous antisepsis. The skin and subcutaneous tissues were infiltrated with local anesthetic solution. With fluoroscopic guidance the chest was punctured between the first and second interspace and the pr escribed catheter was placed in the lung apex. Wall suction was applied. Post procedure images demon strate satisfactory position of the tube. The catheter was sutured in place and a Percu-Stay was caity lied. Conscious sedation was performed with the prescribed dosages and duration as above in the presence of an independent trained radiology nurse to assist in the monitoring of the patient. EKG and oximetry remained stable throughout the procedure. The patient tolerated the procedure well and there were n o complications. The patient was sent to post anesthesia recovery in stable condition. CONCLUSION: Uncomplicated chest tube placement as above. Peyman Dave MD on March 14, 2017 at 12:26 Board Certified Radiologist. This report was verified electronically.
--- NOTE | 2017-03-14 13:37 | RADRPT ---
EXAM DATE/TIME: 03/14/2017 13:12 [facility] COMPARISON: CHEST SINGLE AP, March 13, 2017, 5:28. CHEST SINGLE AP, March 14, 2017, 9:47. INDICATIONS : Pneumothorax. MEDICAL HISTORY : Chronic obstructive pulmonary disease. SURGICAL HISTORY : chest tube x 2 ENCOUNTER: Subsequent ACUITY: 3 weeks PAIN SCORE: 0/10 LOCATION: Right chest FINDINGS: A single view of the chest demonstrates stable position of right apical [place] loop thoracostomy tube w ith no significant pneumothorax. Surgical chest tube is outside the chest wall in the subcutaneous ti ssues. Stable interstitial scarring in the right upper lung. Atelectatic changes most prominent in th e left base. Large hiatal hernia. Heart size remains prominent but well compensated. CONCLUSION: 1. No pneumothorax. Right apical [place] loop catheter is unchanged in position. 2. Large bore surgical chest tube is now completely within the soft tissues of the right chest. 3. Stable right apical interstitial scarring with stable left basilar atelectatic changes. Peyman Dave MD on March 14, 2017 at 13:34 Board Certified Radiologist. This report was verified electronically.
--- NOTE | 2017-03-14 18:15 | HHI.PR ---
Subjective Remarks 81 YOWM with Rt PTX,COPD Chest tube to suction Breathing better One Chest tube still has air leak Objective Vital Signs Vital Signs Date Time Temp Pulse Resp B/P (MAP) Pulse Ox O2 Delivery O2 Flow Rate FiO2 03/14/17 18:01 74 03/14/17 17:00 76 03/14/17 16:00 62 03/14/17 15:00 64 03/14/17 15:00 98.1 74 17 97 03/14/17 14:00 59 03/14/17 13:00 57 03/14/17 12:00 64 03/14/17 11:00 97.9 62 16 125/68 (87) 99 03/14/17 11:00 79 03/14/17 10:00 80 03/14/17 09:00 66 03/14/17 08:00 66 03/14/17 07:54 97.6 68 16 113/64 (80) 95 03/14/17 07:29 97 21 03/14/17 07:00 65 03/14/17 06:00 66 03/14/17 05:00 70 03/14/17 04:00 76 03/14/17 03:34 72 16 108/66 (80) 96 03/14/17 03:00 66 03/14/17 02:00 62 03/14/17 01:00 60 03/14/17 00:00 64 03/13/17 23:50 65 18 98/57 (71) 95 03/13/17 23:00 73 03/13/17 22:00 82 03/13/17 21:39 97 Nasal Cannula 2.00 03/13/17 21:00 70 03/13/17 20:00 76 03/13/17 19:40 97.4 80 16 114/71 (85) 99 03/13/17 19:00 82 I/O 03/13/17 03/13/17 03/13/17 03/14/17 03/14/17 03/14/17 07:00 15:00 23:00 07:00 15:00 23:00 Intake Total 480 ml 720 ml 200 ml Output Total 332 ml 800 ml 280 ml Balance 148 ml -80 ml -80 ml Intake Oral 480 ml 720 ml 200 ml Output Urine Total 200 ml 800 ml 250 ml Chest Tube Drainage Total 132 ml 30 ml Result Diagram: 03/11/1761103/11/17611 Objective Remarks GENERAL: MBMN WM, NAD SKIN: Warm and dry. HEAD: Normocephalic. EYES: No scleral icterus. No injection or drainage. NECK: Supple, trachea midline. No JVD or lymphadenopathy. CARDIOVASCULAR: Regular rate and rhythm without murmurs, gallops, or rubs. RESPIRATORY: Breath sounds equal bilaterally. No accessory muscle use. Right chest tube in place GASTROINTESTINAL: Abdomen soft, non-tender, nondistended. MUSCULOSKELETAL: No cyanosis, or edema. BACK: Nontender without obvious deformity. No CVA tenderness. A/P Assessment and Plan Right PTX S/P Chest tube COPD HTN PLAN: Aerosol nebs Supplement 02 DW pt Chest tube to suction Wean 02 Jayro Hicks MD Mar 14, 2017 18:15
[2017-03-14] MEDS: ENOXAPARIN SODIUM 40 MG/0.4 ML SYRINGE SQ SCH (20:37)
[2017-03-15] VITALS (27 sets, daily range): BP systolic 107–133; BP diastolic 62–78; PULSE 53–100; RESP 13–18; TEMP 97.5–98.4; O2SAT 96–100
[2017-03-15] MEDS: CHLORHEXIDINE GLUCONATE 2 % 1 PACK (2 CLOTHS) TOP SCH (04:00)
[2017-03-15] MEDS: CHLORHEXIDINE 0.12% (ORAL KIT) 15 ML CUP MT SCH ×2 (08:00→20:00)
--- NOTE | 2017-03-15 08:56 | RADRPT ---
EXAM DATE/TIME: 03/15/2017 08:23 [facility] COMPARISON: CHEST SINGLE AP, March 14, 2017, 13:12. INDICATIONS : Pneumothorax. MEDICAL HISTORY : None. SURGICAL HISTORY : None. ENCOUNTER: Subsequent ACUITY: 2 weeks PAIN SCORE: 0/10 LOCATION: chest FINDINGS: Right apical pigtail thoracostomy tube is stable in good position. There is no evidence of pneumothor ax. Right apical pleural thickening and right upper lobe and suprahilar infiltrate are unchanged. Min imal basilar parenchymal opacities persist. Cardiac contours are grossly stable. CONCLUSION: No significant change. No pneumothorax Jerome Marin MD on March 15, 2017 at 8:54 Board Certified Radiologist. This report was verified electronically.
[2017-03-15] MEDS: CARVEDILOL 3.125 MG TAB PO SCH ×2 (09:00→20:46)
[2017-03-15] MEDS: SODIUM CHLORIDE 0.9% FLUSH 10 ML FLUSH IV FLUSH SCH ×3 (09:44→20:47)
[2017-03-15] MEDS: predniSONE 5 MG TAB PO SCH ×2 (09:45→20:46)
[2017-03-15] MEDS: PANTOPRAZOLE SOD 40 MG DELAYED RELEASE TAB PO SCH (09:45)
[2017-03-15] MEDS: ASPIRIN 81 MG CHEW TAB CHEW SCH (09:46)
--- NOTE | 2017-03-15 12:12 | PD.CAR.PN ---
CVT Progress Note Subjective/Hospital Course: 81/ male , recurrent right PTX , admitted via ED right sided chest pain , # 28french chest tube placed in ED, then additional 10french pig tail cath placed 03/06 by IR, pig tail cath had +1-2 air leak, pt went back to IR yesterday and had pigtail cath changed out for a 12 sudanese pig tail cath , still has +1 air leak , PMH: severe COPD on chronic home 02, systolic HF EF 30%, dysphagia 03/10 still has +1-2 air leak from new 12 sudanese pig tail #28 sudanese cath no air leak minimal drainage CXR tiny right apical PTX continue medical therapy for now, will continue to monitor 03/11 right pig tail cath +1-2 airleak on suction right 28 sudanese no air leak f/u cxr no surgery for now 03/14 right large bore chest tube apparently fell out per nursing vaseline occlusive dressing applied IR evaluate pig tail cath, pt still has air leak, continue suction no PTX on CXR will discuss with Dr Tony Objective: GENERAL: SKIN: Warm and dry. right pig tail cath in place / HEAD: Normocephalic. EYES: No scleral icterus. No injection or drainage. NECK: Supple, trachea midline. No JVD or lymphadenopathy. CARDIOVASCULAR: Regular rate and rhythm without murmurs, gallops, or rubs. RESPIRATORY: Breath sounds equal bilaterally. No accessory muscle use. diminished in bases GASTROINTESTINAL: Abdomen soft, non-tender, nondistended. MUSCULOSKELETAL: No cyanosis, or edema. BACK: Nontender without obvious deformity. No CVA tenderness. Vital Signs Date Time Temp Pulse Resp B/P (MAP) Pulse Ox O2 Delivery O2 Flow Rate FiO2 03/15/17 11:00 68 03/15/17 10:00 61 03/15/17 09:00 53 03/15/17 08:00 58 03/15/17 07:15 97.7 58 13 121/68 (85) 96 03/15/17 07:00 58 03/15/17 07:00 58 03/15/17 06:00 64 03/15/17 05:00 60 03/15/17 04:00 60 03/15/17 03:30 97.5 61 18 107/62 (77) 99 03/15/17 03:00 64 03/15/17 02:00 63 03/15/17 01:00 71 03/15/17 00:00 70 03/14/17 23:00 97.4 72 18 113/73 (86) 98 03/14/17 23:00 72 03/14/17 22:00 80 03/14/17 21:00 80 03/14/17 20:00 74 03/14/17 20:00 97.9 74 18 120/70 (87) 100 03/14/17 19:42 21 03/14/17 19:00 86 03/14/17 18:01 74 03/14/17 17:00 76 03/14/17 16:00 62 03/14/17 15:00 64 03/14/17 15:00 98.1 74 17 97 03/14/17 14:00 59 03/14/17 13:00 57 Result Diagram: 03/11/17 0612 03/11/17 06 (1) Pneumothorax, right Plan: right large bore chest tube fell out per nursing continue pig tial cath to suction per IR re-eval by Dr Tony if no improvement will re-eval for right VATS, possible bleb resection / pleurodesis (2) COPD (chronic obstructive pulmonary disease) Conchita Valadez Mar 15, 2017 12:11
--- NOTE | 2017-03-15 12:41 | HHI.PR ---
Subjective Remarks Follow up for right pneumothorax. Patient is doing well. Resting in bed. Chest tube in place, still leaking air. Objective Vitals Vital Signs Date Time Temp Pulse Resp B/P (MAP) Pulse Ox O2 Delivery O2 Flow Rate FiO2 03/15/17 12:00 70 03/15/17 11:00 68 03/15/17 11:00 98.0 65 17 119/70 (86) 100 03/15/17 10:00 61 03/15/17 09:00 53 03/15/17 08:00 58 03/15/17 07:15 97.7 58 13 121/68 (85) 96 03/15/17 07:00 58 03/15/17 07:00 58 03/15/17 06:00 64 03/15/17 05:00 60 03/15/17 04:00 60 03/15/17 03:30 97.5 61 18 107/62 (77) 99 03/15/17 03:00 64 03/15/17 02:00 63 03/15/17 01:00 71 03/15/17 00:00 70 03/14/17 23:00 97.4 72 18 113/73 (86) 98 03/14/17 23:00 72 03/14/17 22:00 80 03/14/17 21:00 80 03/14/17 20:00 74 03/14/17 20:00 97.9 74 18 120/70 (87) 100 03/14/17 19:42 21 03/14/17 19:00 86 03/14/17 18:01 74 03/14/17 17:00 76 03/14/17 16:00 62 03/14/17 15:00 64 03/14/17 15:00 98.1 74 17 97 03/14/17 14:00 59 03/14/17 13:00 57 I/O 03/14/17 03/14/17 03/14/17 03/15/17 03/15/17 03/15/17 07:00 15:00 23:00 07:00 15:00 23:00 Intake Total 200 ml 700 ml 240 ml Output Total 280 ml 560 ml 250 ml Balance -80 ml 140 ml -10 ml Intake Oral 200 ml 700 ml 240 ml Output Urine Total 250 ml 500 ml 250 ml Chest Tube Drainage Total 30 ml 60 ml 0 ml # Bowel Movements 0 Result Diagram: 03/11/17 0612 03/11/17 0612 Imaging Last Impressions Chest X-Ray 03/15/17 0813 Signed Impressions: Service Date/Time: Wednesday, March 15, 2017 08:23 - CONCLUSION: No significant change. No pneumothorax Jerome Marin MD Chest Tube Change 03/09/17 1255 Signed Impressions: Service Date/Time: Thursday, March 09, 2017 14:13 - CONCLUSION: Uncomplicated chest tube exchange as above. Jones Hurst MD Chest CT 03/09/17 0000 Signed Impressions: Service Date/Time: Thursday, March 09, 2017 11:39 - CONCLUSION: 1. There is continued residual pneumothorax in spite of 2 chest tubes on the right. 2. The extensive subcutaneous emphysema which was seen on previous exam has improved. 3. Large hiatal hernia. Jones Hurst MD Chest Tube Insertion 03/06/17 0000 Signed Impressions: Service Date/Time: Monday, March 06, 2017 13:29 - CONCLUSION: Uncomplicated chest tube placement as above. Peyman Dave MD Objective Remarks GENERAL: Alert, NAD. SKIN: Warm and dry. HEAD: Normocephalic. EYES: No scleral icterus. No injection or drainage. NECK: Supple, trachea midline. No JVD or lymphadenopathy. CARDIOVASCULAR: Regular rate and rhythm without murmurs, gallops, or rubs. RESPIRATORY: Breath sounds equal bilaterally. No accessory muscle use. Right sided chest tube in place. GASTROINTESTINAL: Abdomen soft, non-tender, nondistended. MUSCULOSKELETAL: No cyanosis, or edema. BACK: Nontender without obvious deformity. No CVA tenderness. Procedures chest tube insertion/ exchange. A/P Problem List: (1) Pneumothorax, right ICD Code: J93.9 - Pneumothorax, unspecified Status: Acute (2) COPD (chronic obstructive pulmonary disease) ICD Code: J44.9 - Chronic obstructive pulmonary disease, unspecified Status: Acute (3) Heart failure ICD Code: I50.9 - Heart failure, unspecified (4) Dysphagia ICD Code: R13.10 - Dysphagia, unspecified Assessment and Plan Mr. Guerra is a pleasant 81 year old male with a history of CHF, COPD and previous right sided pneumothorax who was admitted on 02/27/2017 due to sudden onset of right sided chest pain. ED work indicated large right sided pneumothorax. A 28-Belgian chest tube was inserted. He continued to have persistent small apical pneumothorax. Subsequently, a 10-Belgian pigtail catheter was placed. Cardiothoracic surgery was consulted due to persistent air leak, possible need for video assisted thoracoscopy. - Pneumothorax, right - Dual chest tube placed - s/p chest tube exchange on 03/09/17. - CT surgery following, if no improvement will re-eval for right sided VATS, possible bleb resection / pleurodesis. - pulmonary following. - CXR done today shows no pneumothorax. - COPD (chronic obstructive pulmonary disease) - Continue supplemental O2 to maintain O2 sat > 90%. - supportive care, no exacerbation at this time - patient on chronic steroids, prednisone 5mg BID. - continue with neb treatment. 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 - known systolic dysfunction and EF 30% - continue Carvedilol 3.125mg Q12hrs, aspirin 81mg Qday. - No evidence of decompensation at this time - Dysphagia - modified diet, stable - outpatient ST recommended Full code. Lovenox. Ana Olivera DO Mar 15, 2017 12:41 pm
[2017-03-15] MEDS ORDERED: ceFAZolin 2 GM PREMIX 50 ML IV SCH (15:15)
[2017-03-15] MEDS ORDERED: CHLORHEXIDINE GLUCONATE 4% SOLN 120 ML BTL TOPICAL SCH (15:15)
[2017-03-15] MEDS ORDERED: CEFAZOLIN INJ 500 MG in SODIUM CHLORIDE 0.9% IRR BTL 500 ML IRRIGATION SCH (15:15)
[2017-03-15] MEDS ORDERED: SODIUM CHLORIDE 0.9% FLUSH 10 ML FLUSH IV FLUSH PRN (15:15)
[2017-03-15] MEDS: ACETAMINOPHEN/HYDROcodone 325 MG/5 MG TAB PO PRN (18:37)
[2017-03-15 18:46] LABS: BLOOD, URINE NEG (NEG); COMMENT (UR) CULT NOT INDICATED; CULTURE IF INDICATED CULT NOT INDICATED; GLUCOSE,URINE NEG (NEG); KETONE, URINE NEG (NEG); MUCUS URINE FEW /lpf (OCC); NITRITE,URINE NEG (NEG); URINE COLOR YELLOW (YELLW/STRAW)
--- NOTE | 2017-03-15 19:14 | HHI.PR ---
Subjective Remarks 81 YOWM with Rt PTX,COPD Chest tube to suction Breathing better Large bore chest tube fell off Small chest tube with air leak Objective Vital Signs Vital Signs Date Time Temp Pulse Resp B/P (MAP) Pulse Ox O2 Delivery O2 Flow Rate FiO2 03/15/17 18:00 82 03/15/17 17:00 89 03/15/17 16:00 83 03/15/17 15:00 97.9 83 17 120/78 (92) 98 03/15/17 15:00 79 03/15/17 14:00 81 03/15/17 13:00 75 03/15/17 12:00 70 03/15/17 11:00 68 03/15/17 11:00 98.0 65 17 119/70 (86) 100 03/15/17 10:00 61 03/15/17 09:00 53 03/15/17 08:00 58 03/15/17 07:15 97.7 58 13 121/68 (85) 96 03/15/17 07:00 58 03/15/17 07:00 58 03/15/17 06:00 64 03/15/17 05:00 60 03/15/17 04:00 60 03/15/17 03:30 97.5 61 18 107/62 (77) 99 03/15/17 03:00 64 03/15/17 02:00 63 03/15/17 01:00 71 03/15/17 00:00 70 03/14/17 23:00 97.4 72 18 113/73 (86) 98 03/14/17 23:00 72 03/14/17 22:00 80 03/14/17 21:00 80 03/14/17 20:00 74 03/14/17 20:00 97.9 74 18 120/70 (87) 100 03/14/17 19:42 21 I/O 03/14/17 03/14/17 03/14/17 03/15/17 03/15/17 03/15/17 07:00 15:00 23:00 07:00 15:00 23:00 Intake Total 200 ml 700 ml 240 ml 500 ml Output Total 280 ml 560 ml 250 ml 600 ml Balance -80 ml 140 ml -10 ml -100 ml Intake Oral 200 ml 700 ml 240 ml 500 ml Output Urine Total 250 ml 500 ml 250 ml 600 ml Chest Tube Drainage Total 30 ml 60 ml 0 ml # Bowel Movements 0 Result Diagram: 03/11/1761103/11/17611 Objective Remarks GENERAL: MBMN WM, NAD SKIN: Warm and dry. HEAD: Normocephalic. EYES: No scleral icterus. No injection or drainage. NECK: Supple, trachea midline. No JVD or lymphadenopathy. CARDIOVASCULAR: Regular rate and rhythm without murmurs, gallops, or rubs. RESPIRATORY: Breath sounds equal bilaterally. No accessory muscle use. Right chest tube in place GASTROINTESTINAL: Abdomen soft, non-tender, nondistended. MUSCULOSKELETAL: No cyanosis, or edema. BACK: Nontender without obvious deformity. No CVA tenderness. A/P Assessment and Plan Right PTX S/P Chest tube COPD HTN Persistant air leak PLAN: Aerosol nebs Supplement 02 DW pt Chest tube to suction Wean 02 Dr. Tony evaluating for VATS Jayro Hicks MD Mar 15, 2017 19:14
[2017-03-15] MEDS: ENOXAPARIN SODIUM 40 MG/0.4 ML SYRINGE SQ SCH (20:46)
[2017-03-16] VITALS (26 sets, daily range): BP systolic 115–131; BP diastolic 67–74; PULSE 60–92; RESP 16; TEMP 97.8–98.6; O2SAT 95–98
[2017-03-16] MEDS: CHLORHEXIDINE GLUCONATE 2 % 1 PACK (2 CLOTHS) TOP SCH ×2 (04:00→21:11)
[2017-03-16] MEDS: CHLORHEXIDINE 0.12% (ORAL KIT) 15 ML CUP MT SCH ×2 (07:06→20:00)
[2017-03-16] MEDS: CARVEDILOL 3.125 MG TAB PO SCH ×2 (08:34→21:11)
[2017-03-16] MEDS: SODIUM CHLORIDE 0.9% FLUSH 10 ML FLUSH IV FLUSH SCH ×4 (08:35→21:00)
[2017-03-16] MEDS: PANTOPRAZOLE SOD 40 MG DELAYED RELEASE TAB PO SCH (08:35)
[2017-03-16] MEDS: predniSONE 5 MG TAB PO SCH ×2 (08:35→21:11)
[2017-03-16] MEDS: ASPIRIN 81 MG CHEW TAB CHEW SCH (08:35)
--- NOTE | 2017-03-16 13:47 | HHI.PR ---
Subjective Remarks Follow up for right pneumothorax. Patient is sitting at the side of his bed. Denies any acute concerns. Objective Vitals Vital Signs Date Time Temp Pulse Resp B/P (MAP) Pulse Ox O2 Delivery O2 Flow Rate FiO2 03/16/17 12:00 98.4 65 16 115/67 (83) 95 03/16/17 12:00 77 03/16/17 11:24 95 21 03/16/17 11:00 78 03/16/17 10:00 68 03/16/17 09:00 74 03/16/17 08:00 60 03/16/17 08:00 98.6 64 16 131/74 (93) 98 03/16/17 07:00 60 03/16/17 07:00 60 03/16/17 06:00 60 03/16/17 05:00 63 03/16/17 04:00 62 03/16/17 03:00 97.8 69 16 119/73 (88) 98 03/16/17 03:00 72 03/16/17 02:24 96 03/16/17 02:00 76 03/16/17 01:00 85 03/16/17 00:00 76 03/15/17 23:30 98.4 84 16 122/73 (89) 97 03/15/17 23:00 80 03/15/17 22:00 80 03/15/17 21:00 82 03/15/17 20:00 94 03/15/17 20:00 97.7 87 18 133/77 (95) 97 03/15/17 19:43 21 03/15/17 19:00 100 03/15/17 18:00 82 03/15/17 17:00 89 03/15/17 16:00 83 03/15/17 15:00 97.9 83 17 120/78 (92) 98 03/15/17 15:00 79 03/15/17 14:00 81 I/O 03/15/17 03/15/17 03/15/17 03/16/17 03/16/17 03/16/17 07:00 15:00 23:00 07:00 15:00 23:00 Intake Total 240 ml 500 ml 480 ml Output Total 250 ml 600 ml 240 ml Balance -10 ml -100 ml 240 ml Intake Oral 240 ml 500 ml 480 ml Output Urine Total 250 ml 600 ml 200 ml Chest Tube Drainage Total 0 ml 40 ml # Bowel Movements 0 0 Imaging Last Impressions Chest X-Ray 03/15/17 0813 Signed Impressions: Service Date/Time: Wednesday, March 15, 2017 08:23 - CONCLUSION: No significant change. No pneumothorax Jerome Marin MD Chest Tube Change 03/09/17 1255 Signed Impressions: Service Date/Time: Thursday, March 09, 2017 14:13 - CONCLUSION: Uncomplicated chest tube exchange as above. Jones Hurst MD Chest CT 03/09/17 0000 Signed Impressions: Service Date/Time: Thursday, March 09, 2017 11:39 - CONCLUSION: 1. There is continued residual pneumothorax in spite of 2 chest tubes on the right. 2. The extensive subcutaneous emphysema which was seen on previous exam has improved. 3. Large hiatal hernia. Jones Hurst MD Chest Tube Insertion 03/06/17 0000 Signed Impressions: Service Date/Time: Monday, March 06, 2017 13:29 - CONCLUSION: Uncomplicated chest tube placement as above. Peyman Dave MD Objective Remarks GENERAL: Alert, NAD. SKIN: Warm and dry. HEAD: Normocephalic. EYES: No scleral icterus. No injection or drainage. NECK: Supple, trachea midline. No JVD or lymphadenopathy. CARDIOVASCULAR: Regular rate and rhythm without murmurs, gallops, or rubs. RESPIRATORY: Breath sounds equal bilaterally. No accessory muscle use. Right sided chest tube in place. GASTROINTESTINAL: Abdomen soft, non-tender, nondistended. MUSCULOSKELETAL: No cyanosis, or edema. BACK: Nontender without obvious deformity. No CVA tenderness. Procedures chest tube insertion/ exchange. A/P Problem List: (1) Pneumothorax, right ICD Code: J93.9 - Pneumothorax, unspecified Status: Acute (2) COPD (chronic obstructive pulmonary disease) ICD Code: J44.9 - Chronic obstructive pulmonary disease, unspecified Status: Acute (3) Heart failure ICD Code: I50.9 - Heart failure, unspecified (4) Dysphagia ICD Code: R13.10 - Dysphagia, unspecified Assessment and Plan Mr. Guerra is a pleasant 81 year old male with a history of CHF, COPD and previous right sided pneumothorax who was admitted on 02/27/2017 due to sudden onset of right sided chest pain. ED work indicated large right sided pneumothorax. A 28-Emirati chest tube was inserted. He continued to have persistent small apical pneumothorax. Subsequently, a 10-Emirati pigtail catheter was placed. Cardiothoracic surgery was consulted due to persistent air leak, possible need for video assisted thoracoscopy. - Pneumothorax, right - Dual chest tube placed - s/p chest tube exchange on 03/09/17. Large-bore chest tube fell off. Patient has a small chest tube. - Continues to have air leak - unable to discontinue small chest tube - CT surgery following, if no improvement will re-eval for right sided VATS, possible bleb resection / pleurodesis. - pulmonary following. - COPD (chronic obstructive pulmonary disease) - Continue supplemental O2 to maintain O2 sat > 90%. - supportive care, no exacerbation at this time - patient on chronic steroids, prednisone 5mg BID. - continue with neb treatment. 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 - known systolic dysfunction and EF 30% - continue Carvedilol 3.125mg Q12hrs, aspirin 81mg Qday. - No evidence of decompensation at this time - Dysphagia - modified diet, stable - outpatient ST recommended Full code. Lovenox. Discussed with cardiothoracic surgery. Ana Olivera DO Mar 16, 2017 1:46 pm
[2017-03-16] MEDS: ACETAMINOPHEN/HYDROcodone 325 MG/5 MG TAB PO PRN (15:31)
--- NOTE | 2017-03-16 16:29 | HHI.PR ---
Subjective Remarks 81 YOWM with Rt PTX,COPD Chest tube to suction Breathing better Small chest tube with air leak Daughter at BS. Objective Vital Signs Vital Signs Date Time Temp Pulse Resp B/P (MAP) Pulse Ox O2 Delivery O2 Flow Rate FiO2 03/16/17 16:19 16 03/16/17 16:00 78 03/16/17 16:00 98.4 75 16 123/72 (89) 98 03/16/17 15:00 76 03/16/17 14:00 92 03/16/17 13:00 64 03/16/17 12:00 98.4 65 16 115/67 (83) 95 03/16/17 12:00 77 03/16/17 11:24 95 21 03/16/17 11:00 78 03/16/17 10:00 68 03/16/17 09:00 74 03/16/17 08:00 60 03/16/17 08:00 98.6 64 16 131/74 (93) 98 03/16/17 07:00 60 03/16/17 07:00 60 03/16/17 06:00 60 03/16/17 05:00 63 03/16/17 04:00 62 03/16/17 03:00 97.8 69 16 119/73 (88) 98 03/16/17 03:00 72 03/16/17 02:24 96 03/16/17 02:00 76 03/16/17 01:00 85 03/16/17 00:00 76 03/15/17 23:30 98.4 84 16 122/73 (89) 97 03/15/17 23:00 80 03/15/17 22:00 80 03/15/17 21:00 82 03/15/17 20:00 94 03/15/17 20:00 97.7 87 18 133/77 (95) 97 03/15/17 19:43 21 03/15/17 19:00 100 03/15/17 18:00 82 03/15/17 17:00 89 I/O 03/15/17 03/15/17 03/15/17 03/16/17 03/16/17 03/16/17 07:00 15:00 23:00 07:00 15:00 23:00 Intake Total 240 ml 500 ml 480 ml Output Total 250 ml 600 ml 240 ml Balance -10 ml -100 ml 240 ml Intake Oral 240 ml 500 ml 480 ml Output Urine Total 250 ml 600 ml 200 ml Chest Tube Drainage Total 0 ml 40 ml # Bowel Movements 0 0 Objective Remarks GENERAL: MBMN WM, NAD SKIN: Warm and dry. HEAD: Normocephalic. EYES: No scleral icterus. No injection or drainage. NECK: Supple, trachea midline. No JVD or lymphadenopathy. CARDIOVASCULAR: Regular rate and rhythm without murmurs, gallops, or rubs. RESPIRATORY: Breath sounds equal bilaterally. No accessory muscle use. Right chest tube in place GASTROINTESTINAL: Abdomen soft, non-tender, nondistended. MUSCULOSKELETAL: No cyanosis, or edema. BACK: Nontender without obvious deformity. No CVA tenderness. A/P Assessment and Plan Right PTX S/P Chest tube COPD HTN Persistant air leak PLAN: Aerosol nebs Supplement 02 DW pt Chest tube to suction Wean 02 Dr. Tony evaluating for VATS DW pt and daughter Yared Hickscam Kathleen MD Mar 16, 2017 16:29
[2017-03-16] MEDS: ENOXAPARIN SODIUM 40 MG/0.4 ML SYRINGE SQ SCH (21:11)
[2017-03-17] VITALS (23 sets, daily range): BP systolic 111–129; BP diastolic 63–80; PULSE 54–86; RESP 16–18; TEMP 97.5–98.4; O2SAT 96–98
[2017-03-17] MEDS: CHLORHEXIDINE 0.12% (ORAL KIT) 15 ML CUP MT SCH ×2 (07:03→20:00)
[2017-03-17 07:14] LABS: BASOPHIL # 0.1 TH/MM3 (0-0.2); EOSINOPHIL # 0.2 TH/MM3 (0-0.4); EOSINOPHIL % 1.7 % (0.0-4.0); HEMATOCRIT 40.1 % (39.0-51.0); HEMO FLAGS DIFF FINAL; LYMPH % 7.7 % (9.0-44.0); LYMPHOCYTE # 0.7 TH/MM3 (1.0-4.8); MEAN CELL VOLUME 88.4 FL (80.0-100.0); MEAN CORPUSCULAR HEMOGLOBIN 29.1 PG (27.0-34.0); MEAN CORPUSCULAR HGB CONC 32.9 % (32.0-36.0); MONO % 6.8 % (0.0-8.0); NEUT % 82.8 % (16.0-70.0); PLATELET COUNT 311 TH/MM3 (150-450); RED BLOOD COUNT 4.54 MIL/MM3 (4.50-5.90); RED CELL DISTRIBUTION WIDTH 14.2 % (11.6-17.2); WHITE BLOOD COUNT 9.7 TH/MM3 (4.0-11.0)
[2017-03-17] MEDS: PANTOPRAZOLE SOD 40 MG DELAYED RELEASE TAB PO SCH (08:05)
[2017-03-17] MEDS: CARVEDILOL 3.125 MG TAB PO SCH ×2 (08:06→20:44)
[2017-03-17] MEDS: predniSONE 5 MG TAB PO SCH ×2 (08:06→20:44)
[2017-03-17] MEDS: ACETAMINOPHEN/HYDROcodone 325 MG/5 MG TAB PO PRN (08:06)
[2017-03-17] MEDS: ASPIRIN 81 MG CHEW TAB CHEW SCH (08:06)
[2017-03-17] MEDS: SODIUM CHLORIDE 0.9% FLUSH 10 ML FLUSH IV FLUSH SCH ×4 (08:06→20:44)
--- NOTE | 2017-03-17 12:02 | HHI.PR ---
Subjective Remarks Follow up for right pneumothorax. Patient is currently doing well. No chest pain, shortness of breath, fever or chills. Chest tube is in place. Objective Vitals Vital Signs Date Time Temp Pulse Resp B/P (MAP) Pulse Ox O2 Delivery O2 Flow Rate FiO2 03/17/17 08:59 16 03/17/17 08:00 61 03/17/17 08:00 97.8 65 16 129/80 (96) 97 03/17/17 04:39 97.7 76 119/71 (87) 98 03/17/17 04:00 62 03/17/17 03:00 68 03/17/17 02:00 70 03/17/17 01:00 70 03/17/17 00:00 97.8 71 123/73 (90) 98 03/17/17 00:00 84 03/16/17 23:00 70 03/16/17 22:00 76 03/16/17 21:00 78 03/16/17 20:00 97.8 71 123/73 (90) 98 03/16/17 20:00 76 03/16/17 19:00 74 03/16/17 18:00 78 03/16/17 17:00 74 03/16/17 16:00 78 03/16/17 16:00 98.4 75 16 123/72 (89) 98 03/16/17 15:00 76 03/16/17 14:00 92 03/16/17 13:00 64 I/O 03/16/17 03/16/17 03/16/17 03/17/17 03/17/17 03/17/17 07:00 15:00 23:00 07:00 15:00 23:00 Intake Total 480 ml 620 ml 480 ml Output Total 240 ml 735 ml 550 ml Balance 240 ml -115 ml -70 ml Intake Oral 480 ml 620 ml 480 ml Output Urine Total 200 ml 675 ml 500 ml Chest Tube Drainage Total 40 ml 60 ml 50 ml # Bowel Movements 0 1 Result Diagram: 03/17/17 0630 Imaging Last Impressions Chest X-Ray 03/15/17 0813 Signed Impressions: Service Date/Time: Wednesday, March 15, 2017 08:23 - CONCLUSION: No significant change. No pneumothorax Jerome Marin MD Chest Tube Change 03/09/17 1255 Signed Impressions: Service Date/Time: Thursday, March 09, 2017 14:13 - CONCLUSION: Uncomplicated chest tube exchange as above. Jones Hurst MD Chest CT 03/09/17 0000 Signed Impressions: Service Date/Time: Thursday, March 09, 2017 11:39 - CONCLUSION: 1. There is continued residual pneumothorax in spite of 2 chest tubes on the right. 2. The extensive subcutaneous emphysema which was seen on previous exam has improved. 3. Large hiatal hernia. Jones Hurst MD Chest Tube Insertion 03/06/17 0000 Signed Impressions: Service Date/Time: Monday, March 06, 2017 13:29 - CONCLUSION: Uncomplicated chest tube placement as above. Peyman Dave MD Objective Remarks GENERAL: Alert, NAD. SKIN: Warm and dry. HEAD: Normocephalic. EYES: No scleral icterus. No injection or drainage. NECK: Supple, trachea midline. No JVD or lymphadenopathy. CARDIOVASCULAR: Regular rate and rhythm without murmurs, gallops, or rubs. RESPIRATORY: Breath sounds equal bilaterally. No accessory muscle use. Right sided chest tube in place. GASTROINTESTINAL: Abdomen soft, non-tender, nondistended. MUSCULOSKELETAL: No cyanosis, or edema. BACK: Nontender without obvious deformity. No CVA tenderness. Procedures chest tube insertion/ exchange. A/P Problem List: (1) Pneumothorax, right ICD Code: J93.9 - Pneumothorax, unspecified Status: Acute (2) COPD (chronic obstructive pulmonary disease) ICD Code: J44.9 - Chronic obstructive pulmonary disease, unspecified Status: Acute (3) Heart failure ICD Code: I50.9 - Heart failure, unspecified (4) Dysphagia ICD Code: R13.10 - Dysphagia, unspecified Assessment and Plan Mr. Guerra is a pleasant 81 year old male with a history of CHF, COPD and previous right sided pneumothorax who was admitted on 02/27/2017 due to sudden onset of right sided chest pain. ED work indicated large right sided pneumothorax. A 28-English chest tube was inserted. He continued to have persistent small apical pneumothorax. Subsequently, a 10-English pigtail catheter was placed. Cardiothoracic surgery was consulted due to persistent air leak, possible need for video assisted thoracoscopy. - Pneumothorax, right - Dual chest tube placed - s/p chest tube exchange on 9/27/17. Large-bore chest tube fell off. Patient has a small chest tube. - Continues to have air leak - unable to discontinue small chest tube - CT surgery following, if no improvement will re-eval for right sided VATS, possible bleb resection / pleurodesis. - Nothing by mouth midnight for probable surgical intervention in the morning. - pulmonary following. - COPD (chronic obstructive pulmonary disease) - Continue supplemental O2 to maintain O2 sat > 90%. - supportive care, no exacerbation at this time - patient on chronic steroids, prednisone 5mg BID. - continue with neb treatment. 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 - known systolic dysfunction and EF 30% - continue Carvedilol 3.125mg Q12hrs, aspirin 81mg Qday. - No evidence of decompensation at this time - Dysphagia - modified diet, stable - outpatient ST recommended Full code. Lovenox. Discussed with cardiothoracic surgery. Ana Olivera DO Mar 17, 2017 12:02 pm
--- NOTE | 2017-03-17 15:36 | PD.CAR.PN ---
CVT Progress Note Subjective/Hospital Course: 81/ male , recurrent right PTX , admitted via ED right sided chest pain , # 28french chest tube placed in ED, then additional 10french pig tail cath placed 03/06 by IR, pig tail cath had +1-2 air leak, pt went back to IR yesterday and had pigtail cath changed out for a 12 citizen [place] pig tail cath , still has +1 air leak , PMH: severe COPD on chronic home , systolic HF EF 30%, dysphagia 03/10 still has +1-2 air leak from new 12 [place] pig tail #28 [place] cath no air leak minimal drainage CXR tiny right apical PTX continue medical therapy for now, will continue to monitor 03/11 right pig tail cath +1-2 airleak on suction right 28 citizen [place] no air leak f/u cxr no surgery for now 03/14 right large bore chest tube apparently fell out per nursing vaseline occlusive dressing applied IR evaluate pig tail cath, pt still has air leak, continue suction no PTX on CXR will discuss with Dr Tony 03/15 pt eval , no change in air leak from pig tail cath scheduled for right video assisted thoracoscopy, possible thoracotomy , bleb resection and pleurodesis on friday 03/16 still has air leak 03/17 nursing spoke with daughter she is aware of her father's high risk due to poor lung compliance but understands that he needs surgery , he is still scheduled for surgery in am Objective: GENERAL: SKIN: Warm and dry. HEAD: Normocephalic. EYES: No scleral icterus. No injection or drainage. NECK: Supple, trachea midline. No JVD or lymphadenopathy. CARDIOVASCULAR: Regular rate and rhythm without murmurs, gallops, or rubs. RESPIRATORY: diminished throughout, right pigtail cath in place, + 4 air leak to wall suction GASTROINTESTINAL: Abdomen soft, non-tender, nondistended. MUSCULOSKELETAL: No cyanosis, or edema. BACK: Nontender without obvious deformity. No CVA tenderness. Vital Signs Date Time Temp Pulse Resp B/P (MAP) Pulse Ox O2 Delivery O2 Flow Rate FiO2 03/17/17 12:00 98.1 69 16 111/63 (79) 96 03/17/17 12:00 67 03/17/17 11:00 68 03/17/17 10:00 54 03/17/17 09:00 60 03/17/17 08:59 16 10/5/17 08:00 61 03/17/17 08:00 97.8 65 16 129/80 (96) 97 03/17/17 07:00 56 03/17/17 04:39 97.7 76 119/71 (87) 98 03/17/17 04:00 62 03/17/17 03:00 68 03/17/17 02:00 70 03/17/17 01:00 70 03/17/17 00:00 97.8 71 123/73 (90) 98 03/17/17 00:00 84 03/16/17 23:00 70 03/16/17 22:00 76 03/16/17 21:00 78 03/16/17 20:00 97.8 71 123/73 (90) 98 03/16/17 20:00 76 03/16/17 19:00 74 03/16/17 18:00 78 03/16/17 17:00 74 03/16/17 16:00 78 03/16/17 16:00 98.4 75 16 123/72 (89) 98 Labs: Laboratory Tests Test 03/17/17 06:30 White Blood Count 9.7 TH/MM3 (4.0-11.0) Red Blood Count 4.54 MIL/MM3 (4.50-5.90) Hemoglobin 13.2 GM/DL (13.0-17.0) Hematocrit 40.1 % (39.0-51.0) Mean Corpuscular Volume 88.4 FL (80.0-100.0) Mean Corpuscular Hemoglobin 29.1 PG (27.0-34.0) Mean Corpuscular Hemoglobin Concent 32.9 % (32.0-36.0) Red Cell Distribution Width 14.2 % (11.6-17.2) Platelet Count 311 TH/MM3 (150-450) Mean Platelet Volume 7.8 FL (7.0-11.0) Neutrophils (%) (Auto) 82.8 % (16.0-70.0) Lymphocytes (%) (Auto) 7.7 % (9.0-44.0) Monocytes (%) (Auto) 6.8 % (0.0-8.0) Eosinophils (%) (Auto) 1.7 % (0.0-4.0) Basophils (%) (Auto) 1.0 % (0.0-2.0) Neutrophils # (Auto) 8.0 TH/MM3 (1.8-7.7) Lymphocytes # (Auto) 0.7 TH/MM3 (1.0-4.8) Monocytes # (Auto) 0.7 TH/MM3 (0-0.9) Eosinophils # (Auto) 0.2 TH/MM3 (0-0.4) Basophils # (Auto) 0.1 TH/MM3 (0-0.2) CBC Comment DIFF FINAL Differential Comment Result Diagram: 03/17/17 0630 (1) Pneumothorax, right Plan: continue pig tial cath to suction for right VATS, possible bleb resection / pleurodesis in am (2) COPD (chronic obstructive pulmonary disease) Conchita Valadez Mar 17, 2017 15:36
--- NOTE | 2017-03-17 16:38 | HHI.PR ---
Subjective Remarks 81 YOWM with Rt PTX,COPD Chest tube to suction Breathing better Small chest tube with air leak Daughter at BS. [place] for surgery in AM Objective Vital Signs Vital Signs Date Time Temp Pulse Resp B/P (MAP) Pulse Ox O2 Delivery O2 Flow Rate FiO2 03/17/17 16:00 98.4 71 18 119/72 (88) 97 03/17/17 16:00 86 03/17/17 15:00 72 03/17/17 14:00 66 03/17/17 13:00 54 03/17/17 12:00 98.1 69 16 111/63 (79) 96 03/17/17 12:00 67 03/17/17 11:00 68 03/17/17 10:00 54 03/17/17 09:00 60 03/17/17 08:59 16 03/17/17 08:00 61 03/17/17 08:00 97.8 65 16 129/80 (96) 97 03/17/17 07:00 56 03/17/17 04:39 97.7 76 119/71 (87) 98 03/17/17 04:00 62 03/17/17 03:00 68 03/17/17 02:00 70 03/17/17 01:00 70 03/17/17 00:00 97.8 71 123/73 (90) 98 03/17/17 00:00 84 03/16/17 23:00 70 03/16/17 22:00 76 03/16/17 21:00 78 03/16/17 20:00 97.8 71 123/73 (90) 98 03/16/17 20:00 76 03/16/17 19:00 74 03/16/17 18:00 78 03/16/17 17:00 74 I/O 03/16/17 03/16/17 03/16/17 03/17/17 03/17/17 03/17/17 07:00 15:00 23:00 07:00 15:00 23:00 Intake Total 480 ml 620 ml 480 ml Output Total 240 ml 735 ml 550 ml Balance 240 ml -115 ml -70 ml Intake Oral 480 ml 620 ml 480 ml Output Urine Total 200 ml 675 ml 500 ml Chest Tube Drainage Total 40 ml 60 ml 50 ml # Bowel Movements 0 1 Result Diagram: 03/17/17629 Objective Remarks GENERAL: MBMN WM, NAD SKIN: Warm and dry. HEAD: Normocephalic. EYES: No scleral icterus. No injection or drainage. NECK: Supple, trachea midline. No JVD or lymphadenopathy. CARDIOVASCULAR: Regular rate and rhythm without murmurs, gallops, or rubs. RESPIRATORY: Breath sounds equal bilaterally. No accessory muscle use. Right chest tube in place GASTROINTESTINAL: Abdomen soft, non-tender, nondistended. MUSCULOSKELETAL: No cyanosis, or edema. BACK: Nontender without obvious deformity. No CVA tenderness. A/P Assessment and Plan Right PTX S/P Chest tube COPD HTN Persistant air leak PLAN: Aerosol nebs Supplement 02 ROSEMARY pt Chest tube to suction Wean 02 Surgery in AM ROSEMARY pt and daughter FabiolaJayro Kathleen MD Mar 17, 2017 16:38
[2017-03-17] MEDS: CHLORHEXIDINE GLUCONATE 2 % 1 PACK (2 CLOTHS) TOP SCH (20:45)
[2017-03-18] VITALS (22 sets, daily range): BP systolic 109–160; BP diastolic 63–89; PULSE 60–86; RESP 14–18; TEMP 97.4–98.4; O2SAT 93–100
[2017-03-18 07:03] LABS: ALT (GPT) 33 U/L (12-78); ANION GAP 6 MEQ/L (5-15); AST (GOT) 23 U/L (15-37); BICARBONATE 30.5 MEQ/L (21.0-32.0); BLOOD UREA NITROGEN 19 MG/DL (7-18); CHLORIDE 102 MEQ/L (98-107); GLOMERULAR FILTRATION RATE 114 ML/MIN (>89); POTASSIUM 4.4 MEQ/L (3.5-5.1); SODIUM (NA) 138 MEQ/L (136-145)
[2017-03-18 07:05] LABS: ALKALINE PHOSPHATASE 93 U/L (45-117); TOTAL BILIRUBIN ADULT 0.4 MG/DL (0.2-1.0)
[2017-03-18] MEDS ORDERED: POVIDONE IODINE 5% (ANTISEPSIS KIT) 4 APPLICATIONS EACH NARE PRN (08:45)
[2017-03-18] MEDS ORDERED: METOPROLOL TARTRATE 25 MG TAB PO PRN (08:45)
[2017-03-18] MEDS ORDERED: LACTATED RINGER'S 1000 ML IV PRN (08:45)
[2017-03-18] MEDS ORDERED: CHLORHEXIDINE GLUCONATE 2 % 1 PACK (2 CLOTHS) TOPICAL PRN (08:45)
[2017-03-18] MEDS ORDERED: INSULIN HUMAN REGULAR 1,000 UNITS/10 ML VIAL SQ PRN (08:45)
[2017-03-18] MEDS ORDERED: SODIUM CHLORID 0.9% 500 ML IV PRN (08:45)
[2017-03-18 09:05] LABS: PROTHROMBIN TIME - PATIENT 10.6 SEC (9.8-11.6)
[2017-03-18] MEDS: ASPIRIN 81 MG CHEW TAB CHEW SCH (09:52)
[2017-03-18] MEDS: predniSONE 5 MG TAB PO SCH ×2 (09:52→21:58)
[2017-03-18] MEDS: SODIUM CHLORIDE 0.9% FLUSH 10 ML FLUSH IV FLUSH SCH ×3 (09:52→21:59)
[2017-03-18] MEDS: PANTOPRAZOLE SOD 40 MG DELAYED RELEASE TAB PO SCH (09:52)
[2017-03-18] MEDS: CARVEDILOL 3.125 MG TAB PO SCH ×2 (09:52→21:58)
[2017-03-18] MEDS ORDERED: ONDANSETRON HCL 4 MG/2 ML VIAL IV PUSH ONE (12:00)
[2017-03-18] MEDS ORDERED: NORMOSOL R INJ 1,000 ML IV ONE (12:00)
[2017-03-18] MEDS ORDERED: NEOSTIGMINE 3 MG/3 ML SYR IV ONE (12:00)
[2017-03-18] MEDS ORDERED: DEXAMETHASONE SOD PHOS 4 MG/ML VIAL IV ONE (12:00)
[2017-03-18] MEDS ORDERED: SODIUM CHLORID 0.9% 500 ML INJ 500 ML IV ONE (12:00)
[2017-03-18] MEDS ORDERED: BUPIVACAINE LIPOSO PF 1.3% INJ 20 ML, DEXAMETHASONE INJ 4 MG, MORPHINE INJ 8 MG in SODI... IRRIGATION ONE (12:00)
[2017-03-18] MEDS ORDERED: LIDOCAINE HCL 1% PF 5 ML AMPULE OTHER ONE (12:00)
[2017-03-18] MEDS ORDERED: ROCURONIUM INJ 50 MG/5 ML SYRINGE IV PUSH ONE (12:00)
[2017-03-18] MEDS ORDERED: ePHEDrine/NS 25 MG/5 ML SYR IV ONE (12:00)
[2017-03-18] MEDS ORDERED: SODIUM CHLOR 0.9% 250 ML INJ 250 ML IV ONE (12:00)
[2017-03-18] MEDS ORDERED: PHENYLEPH/NS 1000 MCG/10 ML SYR IV ONE (12:00)
[2017-03-18] MEDS ORDERED: GLYCOPYRROLATE 1 MG/5 ML SYRINGE IV PUSH ONE (12:00)
[2017-03-18] MEDS ORDERED: PROPOFOL 200 MG/20 ML AMP IV ONE (12:00)
[2017-03-18] MEDS ORDERED: HYDROmorphone HCL PF 2 MG/ML VIAL ONE (12:10)
[2017-03-18] MEDS ORDERED: SUGAMMADEX SODIUM 200 MG/2 ML VIAL IV PUSH ONE ×2 (12:10)
[2017-03-18] MEDS ORDERED: KETAMINE HCL 500 MG/5 ML VIAL ONE (12:10)
[2017-03-18] MEDS ORDERED: ACETAMINOPHEN 1000 MG/100 ML 100 ML IV ONE (12:10)
[2017-03-18] MEDS ORDERED: ceFAZolin 2 GM PREMIX 50 ML ONE (12:56)
--- NOTE | 2017-03-18 13:11 | PD.CAR.PN ---
CVT Progress Note Subjective/Hospital Course: 81/ male , recurrent right PTX , admitted via ED right sided chest pain , # 28french chest tube placed in ED, then additional 10french pig tail cath placed 03/06 by IR, pig tail cath had +1-2 air leak, pt went back to IR yesterday and had pigtail cath changed out for a 12 citizen [place] pig tail cath , still has +1 air leak , PMH: severe COPD on chronic home , systolic HF EF 30%, dysphagia 03/10 still has +1-2 air leak from new 12 citizen [place] pig tail #28 citizen [place] cath no air leak minimal drainage CXR tiny right apical PTX continue medical therapy for now, will continue to monitor 03/11 right pig tail cath +1-2 airleak on suction right 28 citizen of [place] no air leak f/u cxr no surgery for now 03/14 right large bore chest tube apparently fell out per nursing vaseline occlusive dressing applied IR evaluate pig tail cath, pt still has air leak, continue suction no PTX on CXR will discuss with Dr Tony 03/15 pt eval , no change in air leak from pig tail cath scheduled for right video assisted thoracoscopy, possible thoracotomy , bleb resection and pleurodesis on friday 03/16 still has air leak 03/17 nursing spoke with daughter she is aware of her father's high risk due to poor lung compliance but understands that he needs surgery , he is still scheduled for surgery in am 03/18 for surgery today, still has air leak Objective: GENERAL: SKIN: Warm and dry. chest tube right upper chest wall, still has + 3-4 air leak HEAD: Normocephalic. EYES: No scleral icterus. No injection or drainage. NECK: Supple, trachea midline. No JVD or lymphadenopathy. CARDIOVASCULAR: Regular rate and rhythm without murmurs, gallops, or rubs. RESPIRATORY: Breath sounds equal bilaterally. No accessory muscle use. very diminished throughout GASTROINTESTINAL: Abdomen soft, non-tender, nondistended. MUSCULOSKELETAL: No cyanosis, or edema. BACK: Nontender without obvious deformity. No CVA tenderness. Vital Signs Date Time Temp Pulse Resp B/P (MAP) Pulse Ox O2 Delivery O2 Flow Rate FiO2 03/18/17 07:30 97.4 86 18 117/85 (96) 93 03/18/17 06:00 60 03/18/17 05:00 60 03/18/17 04:26 97.8 78 113/70 (84) 98 03/18/17 04:00 64 03/18/17 03:00 65 03/18/17 02:00 62 03/18/17 01:00 68 03/18/17 00:00 72 03/18/17 00:00 97.7 73 116/63 (80) 98 03/17/17 23:00 72 03/17/17 22:00 72 03/17/17 21:00 74 03/17/17 20:00 97.5 82 124/74 (91) 97 03/17/17 20:00 74 03/17/17 19:00 63 03/17/17 18:00 66 03/17/17 17:00 64 03/17/17 16:00 98.4 71 18 119/72 (88) 97 03/17/17 16:00 86 03/17/17 15:00 72 03/17/17 14:00 66 Labs: Laboratory Tests Test 03/18/17 06:15 03/18/17 07:46 Blood Urea Nitrogen 19 MG/DL (7-18) Creatinine 0.67 MG/DL (0.60-1.30) Random Glucose 89 MG/DL (74-106) Total Protein 6.7 GM/DL (6.4-8.2) Albumin 2.4 GM/DL (3.4-5.0) Calcium Level 8.4 MG/DL (8.5-10.1) Alkaline Phosphatase 93 U/L (45-117) Aspartate Amino Transf (AST/SGOT) 23 U/L (15-37) Alanine Aminotransferase (ALT/SGPT) 33 U/L (12-78) Total Bilirubin 0.4 MG/DL (0.2-1.0) Sodium Level 138 MEQ/L (136-145) Potassium Level 4.4 MEQ/L (3.5-5.1) Chloride Level 102 MEQ/L (98-107) Carbon Dioxide Level 30.5 MEQ/L (21.0-32.0) Anion Gap 6 MEQ/L (5-15) Estimat Glomerular Filtration Rate 114 ML/MIN (>89) Prothrombin Time 10.6 SEC (9.8-11.6) Prothromb Time International Ratio 1.0 RATIO Result Diagram: 03/17/17 0630 03/18/17 0615 (1) Pneumothorax, right Plan: continue pig tial cath to suction for right VATS, possible bleb resection / pleurodesis today (2) COPD (chronic obstructive pulmonary disease) Conchita Valadez Mar 18, 2017 13:11
[2017-03-18] MEDS ORDERED: ACETAMINOPHEN/HYDROcodone 325 MG/5 MG TAB PO PRN (15:30)
[2017-03-18] MEDS ORDERED: RESP: ALBUTEROL 2.5 MG/3 ML NEB (PRN) NEB (15:30)
[2017-03-18] MEDS ORDERED: ACETAMINOPHEN 325 MG TAB PO PRN (15:30)
[2017-03-18] MEDS ORDERED: ONDANSETRON HCL 4 MG/2 ML VIAL IV PUSH PRN (15:30)
[2017-03-18] MEDS ORDERED: MAGNESIUM HYDROXIDE SUSP 30 ML CUP PO PRN (15:30)
[2017-03-18] MEDS ORDERED: ACETAMINOPHEN 1000 MG/100 ML 100 ML IV SCH (15:30)
[2017-03-18] MEDS ORDERED: Post-op Orders (for Pharmacy) MISC OTHER ONE (15:30)
[2017-03-18] MEDS: KETOROLAC TROMETHAMINE 30 MG/ML (IVP) VIAL IV PUSH SCH ×2 (15:30→21:59)
[2017-03-18] MEDS: RESP: ALBUTEROL 2.5 MG/3 ML NEB (SCH) NEB ×2 (16:00→22:00)
[2017-03-18] MEDS ORDERED: *morphine SULFATE 8 MG/ML PERIprocedure ONLY ONE (16:02)
--- NOTE | 2017-03-18 16:56 | HHI.PR ---
Subjective Remarks Follow up for right pneumothorax. Patient was seen this morning. Patient is resting in bed well. No fever, chills, chest pain. Chest tube in place. Patient is scheduled for surgical intervention today. Objective Vitals Vital Signs Date Time Temp Pulse Resp B/P (MAP) Pulse Ox O2 Delivery O2 Flow Rate FiO2 03/18/17 16:30 63 16 153/82 (105) 94 Nasal Cannula 4 03/18/17 16:15 68 16 155/80 (105) 95 Nasal Cannula 4 03/18/17 16:00 69 16 150/81 (104) 98 Nasal Cannula 4 03/18/17 15:56 97.3 73 16 142/82 (102) 100 Nasal Cannula 4 03/18/17 11:00 63 03/18/17 11:00 97.4 63 18 109/70 (83) 98 03/18/17 08:00 64 03/18/17 08:00 97.5 64 18 118/75 (89) 98 03/18/17 07:30 () 03/18/17 06:00 60 03/18/17 05:00 60 03/18/17 04:26 97.8 78 113/70 (84) 98 03/18/17 04:00 64 03/18/17 03:00 65 03/18/17 02:00 62 03/18/17 01:00 68 03/18/17 00:00 72 03/18/17 00:00 97.7 73 116/63 (80) 98 03/17/17 23:00 72 03/17/17 22:00 72 03/17/17 21:00 74 03/17/17 20:00 97.5 82 124/74 (91) 97 03/17/17 20:00 74 03/17/17 19:00 63 03/17/17 18:00 66 03/17/17 17:00 64 I/O 03/17/17 03/17/17 03/17/17 03/18/17 03/18/17 03/18/17 07:00 15:00 23:00 07:00 15:00 23:00 Intake Total 480 ml 780 ml 1500 ml Output Total 550 ml 750 ml 450 ml 1750 ml Balance -70 ml 30 ml -450 ml -250 ml Intake Oral 480 ml 780 ml Other 1500 ml Output Urine Total 500 ml 750 ml 400 ml 550 ml Chest Tube Drainage Total 50 ml 50 ml Estimated Blood Loss 200 ml Other 1000 ml # Bowel Movements 1 0 Result Diagram: 03/17/17 0630 03/18/17 0615 Imaging Last Impressions Chest X-Ray 03/18/17 0000 Signed Impressions: Service Date/Time: Saturday, March 18, 2017 16:21 - CONCLUSION: 1. Interval right thoracostomy with well-positioned apical large bore chest tube. No significant pneumothorax. 2. Progression of right upper lobe mixed interstitial and airspace opacities. 3. Left subclavian central line with tip in the proximal SVC. 4. Cardiomegaly. Samir Saldana MD Chest Tube Change 03/09/17 1255 Signed Impressions: Service Date/Time: Thursday, March 09, 2017 14:13 - CONCLUSION: Uncomplicated chest tube exchange as above. Jones Hurst MD Chest CT 03/09/17 0000 Signed Impressions: Service Date/Time: Thursday, March 09, 2017 11:39 - CONCLUSION: 1. There is continued residual pneumothorax in spite of 2 chest tubes on the right. 2. The extensive subcutaneous emphysema which was seen on previous exam has improved. 3. Large hiatal hernia. Jones Hurst MD Chest Tube Insertion 03/06/17 0000 Signed Impressions: Service Date/Time: Monday, March 06, 2017 13:29 - CONCLUSION: Uncomplicated chest tube placement as above. Peyman Dave MD Objective Remarks GENERAL: Alert, NAD. SKIN: Warm and dry. HEAD: Normocephalic. EYES: No scleral icterus. No injection or drainage. NECK: Supple, trachea midline. No JVD or lymphadenopathy. CARDIOVASCULAR: Regular rate and rhythm without murmurs, gallops, or rubs. RESPIRATORY: Breath sounds equal bilaterally. No accessory muscle use. Right sided chest tube in place. GASTROINTESTINAL: Abdomen soft, non-tender, nondistended. MUSCULOSKELETAL: No cyanosis, or edema. BACK: Nontender without obvious deformity. No CVA tenderness. Procedures chest tube insertion/ exchange. 03/18/2017 Procedure: 1. Right Posterolateral Muscle Sparing Mini-Thoracotomy 2. Repair of Bronchopleural Fistula 3. Bullae Resection 4. Lysis of Adhesions 5. Mechanical and Betadine Pleurodesis 6. Intercostal Nerve Block A/P Problem List: (1) Pneumothorax, right ICD Code: J93.9 - Pneumothorax, unspecified Status: Acute (2) COPD (chronic obstructive pulmonary disease) ICD Code: J44.9 - Chronic obstructive pulmonary disease, unspecified Status: Acute (3) Heart failure ICD Code: I50.9 - Heart failure, unspecified (4) Dysphagia ICD Code: R13.10 - Dysphagia, unspecified Assessment and Plan Mr. Guerra is a pleasant 81 year old male with a history of CHF, COPD and previous right sided pneumothorax who was admitted on 02/27/2017 due to sudden onset of right sided chest pain. ED work indicated large right sided pneumothorax. A 28-Greek chest tube was inserted. He continued to have persistent small apical pneumothorax. Subsequently, a 10-Greek pigtail catheter was placed. Cardiothoracic surgery was consulted due to persistent air leak, possible need for video assisted thoracoscopy. - Pneumothorax, right - Dual chest tube placed - s/p chest tube exchange on 03/09/17. Large-bore chest tube fell off. Patient has a small chest tube. - Continues to have air leak - unable to discontinue small chest tube - CT surgery following. Patient underwent surgical intervention on 2016. - pulmonary following. - COPD (chronic obstructive pulmonary disease) - Continue supplemental O2 to maintain O2 sat > 90%. - supportive care, no exacerbation at this time - patient on chronic steroids, prednisone 5mg BID. - continue with neb treatment. 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 - known systolic dysfunction and EF 30% - continue Carvedilol 3.125mg Q12hrs, aspirin 81mg Qday. - No evidence of decompensation at this time - Dysphagia - modified diet, stable - outpatient ST recommended Full code. Lovenox. Discharge plan: Per Cardiothoracic surgery recommendations. Ana Olivera DO Mar 18, 2017 16:56
--- NOTE | 2017-03-18 17:10 | RADRPT ---
EXAM DATE/TIME: 03/18/2017 16:21 [facility] COMPARISON: CHEST SINGLE AP, March 15, 2017, 8:23. INDICATIONS : S/P Thoractomy MEDICAL HISTORY : Chronic obstructive pulmonary disease SURGICAL HISTORY : None. ENCOUNTER: Subsequent ACUITY: 4 - 6 days PAIN SCORE: 0/10 LOCATION: Bilateral chest FINDINGS: Interval right thoracotomy with placement of large bore chest tube near the right lung apex. Slight i ncreased interstitial and scattered air space opacities in the right upper lobe. Left subclavian cent ral line with tip in the proximal SVC. No significant pneumothorax. Cardiac silhouette is enlarged. S ubcutaneous emphysema in the right chest wall. CONCLUSION: 1. Interval right thoracostomy with well-positioned apical large bore chest tube. No significant pneu mothorax. 2. Progression of right upper lobe mixed interstitial and airspace opacities. 3. Left subclavian central line with tip in the proximal SVC. 4. Cardiomegaly. Samir Saldana MD on March 18, 2017 at 17:06 Board Certified Radiologist. This report was verified electronically.
--- NOTE | 2017-03-18 17:24 | PD.OP ---
cc: Don Tony MD Operative Report Date of Surgery: Mar 18, 2017 Preoperative Diagnosis: Postoperative Diagnosis: Procedure: 1. Right Posterolateral Muscle Sparing Mini-Thoracotomy 2. Repair of Bronchopleural Fistula 3. Bullae Resection 4. Lysis of Adhesions 5. Mechanical and Betadine Pleurodesis 6. Intercostal Nerve Block Surgeon: Don Tony Health Education Aide(s): Ivan Castorena Operation and Findings: PREOPERATIVE DIAGNOSIS 1. Bronchopleural Fistula 2. Severe Bullous Emphysema 3. Severe Left Ventricular Dysfunction POSTOPERATIVE DIAGNOSIS same PROCEDURES 1. Right Posterolateral Muscle Sparing Mini-Thoracotomy 2. Repair of Bronchopleural Fistula 3. Bullae Resection 4. Lysis of Adhesions 5. Mechanical and Betadine Pleurodesis 6. Intercostal Nerve Block SURGEON Don Tony MD C APPLICATION DEVELOPER DANA Merritt ANESTHESIA General double-lumen endotracheal. ADA ACCOMMODATION CONSULTANT BERTHA Bowman MD DRAINS [address] COUNTS Needle, sponge, and instrument counts were correct. COMPLICATIONS None. INDICATION FOR PROCEDURE The patient is a 81 yo gentleman with severe bullous emphysema, cardiomyopathy and a non-resolving bronchopleural fistula presenting for surgical resection of above pathology. DESCRIPTION OF PROCEDURE The patient was brought to the operating suite and placed in supine position. Following satisfactory induction of general double-lumen endotracheal anesthesia , the patient was placed in the left lateral decubitus position. The pigtail catheter was removed and the right chest and surrounding area was then prepped and draped in the usual sterile fashion. A standard muscle-sparing posterolateral mini thoracotomy was performed and the serratus anterior muscle spared. The pleural space was entered. Exploration of the chest revealed dense adhesions involving the entire right lung and the mediastinal pleura as well as the chest wall. The right upper lobe was severely bullous with active air-leak and BPF. The adhesions were divided carefully, particularly where they were densely adherent to the right pulmonary artery, SVC, Azygous vein and Phrenic nerve with care being taken to avoid injuries to these structures. The apical segment of the right upper lobe was then resected using the SATISH stapler, including the area of the BPF. Specimen was removed from the chest. Submersion of the lung under saline and inflation revealed no additional air-leaks or areas of BPF. Diluted betadine and mechanical pleurodesis was performed circumferentially. At this point the closure was undertaken. A 32-Japanese chest tube was placed. Intercostal nerve block was performed at the level of the incision and 3 rib spaces above and below using Exparel with Decadron solution. The pericostal space was approximated with interrupted #1 Vicryl sutures in a pericostal fashion. The serratus fascia and Latissimus dorsi were closed with running 0-Vicryl and the remaining wounds closed with 3-0, and 4-0 Monocryl. The patient tolerated the procedure well and postoperatively went to the PACU in stable condition. Don Tony MD Mar 18, 2017 17:24
--- NOTE | 2017-03-18 18:05 | HHI.PR ---
Subjective Remarks 81 YOWM with Rt PTX,COPD Had right Thoracotomy with repair of BP fistula, pleurodesis Chest tube to suction Sleeping. Objective Vital Signs Vital Signs Date Time Temp Pulse Resp B/P (MAP) Pulse Ox O2 Delivery O2 Flow Rate FiO2 03/18/17 18:02 18 03/18/17 17:25 98.4 60 18 160/89 (112) 98 03/18/17 16:45 68 16 146/71 (96) 94 Nasal Cannula 4 03/18/17 16:30 63 16 153/82 (105) 94 Nasal Cannula 4 03/18/17 16:15 68 16 155/80 (105) 95 Nasal Cannula 4 03/18/17 16:00 69 16 150/81 (104) 98 Nasal Cannula 4 03/18/17 15:56 97.3 73 16 142/82 (102) 100 Nasal Cannula 4 03/18/17 11:00 63 03/18/17 11:00 97.4 63 18 109/70 (83) 98 03/18/17 08:00 64 03/18/17 08:00 97.5 64 18 118/75 (89) 98 03/18/17 07:30 () 03/18/17 06:00 60 03/18/17 05:00 60 03/18/17 04:26 97.8 78 113/70 (84) 98 03/18/17 04:00 64 03/18/17 03:00 65 03/18/17 02:00 62 03/18/17 01:00 68 03/18/17 00:00 72 03/18/17 00:00 97.7 73 116/63 (80) 98 03/17/17 23:00 72 03/17/17 22:00 72 03/17/17 21:00 74 03/17/17 20:00 97.5 82 124/74 (91) 97 03/17/17 20:00 74 03/17/17 19:00 63 I/O 03/17/17 03/17/17 03/17/17 03/18/17 03/18/17 03/18/17 07:00 15:00 23:00 07:00 15:00 23:00 Intake Total 480 ml 780 ml 1500 ml Output Total 550 ml 750 ml 450 ml 1750 ml Balance -70 ml 30 ml -450 ml -250 ml Intake Oral 480 ml 780 ml Other 1500 ml Output Urine Total 500 ml 750 ml 400 ml 550 ml Chest Tube Drainage Total 50 ml 50 ml Estimated Blood Loss 200 ml Other 1000 ml # Bowel Movements 1 0 Result Diagram: 03/17/1762903/18/17614 Objective Remarks GENERAL: MBMN WM, NAD SKIN: Warm and dry. HEAD: Normocephalic. EYES: No scleral icterus. No injection or drainage. NECK: Supple, trachea midline. No JVD or lymphadenopathy. CARDIOVASCULAR: Regular rate and rhythm without murmurs, gallops, or rubs. RESPIRATORY: Breath sounds equal bilaterally. No accessory muscle use. Right chest tube in place GASTROINTESTINAL: Abdomen soft, non-tender, nondistended. MUSCULOSKELETAL: No cyanosis, or edema. BACK: Nontender without obvious deformity. No CVA tenderness. A/P Assessment and Plan Right PTX S/P Rt Thoracotomy COPD HTN PLAN: Aerosol nebs Supplement 02 DW pt Chest tube to suction Wean 02 Jayro Hicks MD Mar 18, 2017 18:05
[2017-03-18] MEDS ORDERED: DO NOT ADM ANY ANTICOAGULANT DRUGS PRN (18:45)
[2017-03-18] MEDS: CHLORHEXIDINE 0.12% (ORAL KIT) 15 ML CUP MT SCH (20:00)
[2017-03-18] MEDS ORDERED: PANTOPRAZOLE SOD 40 MG DELAYED RELEASE TAB PO SCH (21:00)
[2017-03-18] MEDS: DOCUSATE CALCIUM 240 MG CAP PO SCH (21:58)
[2017-03-19] VITALS (25 sets, daily range): BP systolic 101–146; BP diastolic 56–73; PULSE 73–92; RESP 16–18; TEMP 97.2–97.9; O2SAT 96–99
[2017-03-19] MEDS: KETOROLAC TROMETHAMINE 30 MG/ML (IVP) VIAL IV PUSH SCH ×2 (02:56→09:16)
[2017-03-19] MEDS: CHLORHEXIDINE GLUCONATE 2 % 1 PACK (2 CLOTHS) TOP SCH ×2 (04:00→19:56)
[2017-03-19] MEDS: RESP: ALBUTEROL 2.5 MG/3 ML NEB (SCH) NEB ×2 (04:00→09:31)
--- NOTE | 2017-03-19 05:21 | RADRPT ---
EXAM DATE/TIME: 03/19/2017 04:44 [facility] COMPARISON: CHEST SINGLE AP, March 18, 2017, 16:21. INDICATIONS : Shortness of breath, possible pulmonary disease. MEDICAL HISTORY : Chronic obstructive pulmonary disease. SURGICAL HISTORY : Thoracotomy ENCOUNTER: Subsequent ACUITY: 1 week PAIN SCORE: 0/10 LOCATION: Bilateral chest FINDINGS: A single portable frontal view of the chest shows no significant change. Left subclavian central line and right-sided thoracostomy tube. No pneumothorax. Large hiatal hernia. Mild cardiomegaly. Consolid ation involving the right upper lobe. No effusions. A small amount of subcutaneous air overlying the right chest. CONCLUSION: Unchanged exam as detailed above. Ge Guerra Jr., MD on March 19, 2017 at 5:19 Board Certified Radiologist. This report was verified electronically.
[2017-03-19] MEDS: CHLORHEXIDINE 0.12% (ORAL KIT) 15 ML CUP MT SCH ×2 (08:00→19:56)
[2017-03-19] MEDS: predniSONE 5 MG TAB PO SCH ×2 (09:15→22:11)
[2017-03-19] MEDS: PANTOPRAZOLE SOD 40 MG DELAYED RELEASE TAB PO SCH (09:15)
[2017-03-19] MEDS: CARVEDILOL 3.125 MG TAB PO SCH ×2 (09:15→22:11)
[2017-03-19] MEDS: ASPIRIN 81 MG CHEW TAB CHEW SCH (09:16)
[2017-03-19] MEDS: ENOXAPARIN SODIUM 40 MG/0.4 ML SYRINGE SQ SCH (09:17)
[2017-03-19] MEDS: SODIUM CHLORIDE 0.9% FLUSH 10 ML FLUSH IV FLUSH SCH ×2 (09:18→21:00)
--- NOTE | 2017-03-19 09:39 | PD.CAR.PN ---
CVT Progress Note Subjective/Hospital Course: 81/ male , recurrent right PTX , admitted via ED right sided chest pain , # 28french chest tube placed in ED, then additional 10french pig tail cath placed 03/06 by IR, pig tail cath had +1-2 air leak, pt went back to IR yesterday and had pigtail cath changed out for a 12 greek pig tail cath , still has +1 air leak , PMH: severe COPD on chronic home , systolic HF EF 30%, dysphagia 03/10 still has +1-2 air leak from new 12 greek pig tail #28 greek cath no air leak minimal drainage CXR tiny right apical PTX continue medical therapy for now, will continue to monitor 03/11 right pig tail cath +1-2 airleak on suction right 28 greek no air leak f/u cxr no surgery for now 03/14 right large bore chest tube apparently fell out per nursing vaseline occlusive dressing applied IR evaluate pig tail cath, pt still has air leak, continue suction no PTX on CXR will discuss with Dr Tony 03/15 pt eval , no change in air leak from pig tail cath scheduled for right video assisted thoracoscopy, possible thoracotomy , bleb resection and pleurodesis on friday 03/16 still has air leak 03/17 nursing spoke with daughter she is aware of her father's high risk due to poor lung compliance but understands that he needs surgery , he is still scheduled for surgery in am 03/18 for surgery today, still has air leak Procedure: 1. Right Posterolateral Muscle Sparing Mini-Thoracotomy 2. Repair of Bronchopleural Fistula 3. Bullae Resection 4. Lysis of Adhesions 5. Mechanical and Betadine Pleurodesis 6. Intercostal Nerve Block 03/19 Doing well No air-leak Ambulate Maintain CT to suction for now Bronchodilators as already doing Objective: Vital Signs Date Time Temp Pulse Resp B/P (MAP) Pulse Ox O2 Delivery O2 Flow Rate FiO2 03/19/17 09:31 98 Nasal Cannula 2.00 03/19/17 08:00 97 Nasal Cannula 2.00 03/19/17 08:00 87 03/19/17 08:00 97.2 87 16 117/64 (81) 97 03/19/17 06:03 87 03/19/17 05:00 86 03/19/17 04:00 97.9 84 16 114/67 (83) 97 03/19/17 04:00 86 03/19/17 04:00 16 03/19/17 03:00 97 Nasal Cannula 2.00 03/19/17 03:00 84 03/19/17 02:00 88 03/19/17 01:00 82 03/19/17 00:14 96 Nasal Cannula 2.00 03/19/17 00:00 86 03/19/17 00:00 97.6 80 16 114/73 (87) 98 03/18/17 23:00 82 03/18/17 23:00 98 Nasal Cannula 2.00 03/18/17 22:00 70 03/18/17 21:00 60 03/18/17 20:00 97.5 67 14 121/69 (86) 100 03/18/17 20:00 62 03/18/17 19:00 100 Nasal Cannula 3.00 03/18/17 19:00 64 03/18/17 18:00 64 03/18/17 17:25 98.4 60 18 160/89 (112) 98 03/18/17 17:00 65 03/18/17 16:45 68 16 146/71 (96) 94 Nasal Cannula 4 03/18/17 16:30 63 16 153/82 (105) 94 Nasal Cannula 4 03/18/17 16:15 68 16 155/80 (105) 95 Nasal Cannula 4 03/18/17 16:00 69 16 150/81 (104) 98 Nasal Cannula 4 03/18/17 15:56 97.3 73 16 142/82 (102) 100 Nasal Cannula 4 03/18/17 11:00 63 03/18/17 11:00 97.4 63 18 109/70 (83) 98 03/18/17 10:00 68 Result Diagram: 03/17/17 0630 03/18/17 0615 (1) Pneumothorax, right Plan: continue pig tial cath to suction for right VATS, possible bleb resection / pleurodesis today (2) COPD (chronic obstructive pulmonary disease) Don Tony MD Mar 19, 2017 09:39
[2017-03-19] MEDS: ACETAMINOPHEN/HYDROcodone 325 MG/5 MG TAB PO PRN (16:49)
--- NOTE | 2017-03-19 19:53 | HHI.PR ---
Subjective Remarks alert no sob Objective Vital Signs Date Time Temp Pulse Resp B/P (MAP) Pulse Ox O2 Delivery O2 Flow Rate FiO2 03/19/17 18:00 89 03/19/17 17:52 16 03/19/17 17:00 84 03/19/17 16:09 81 03/19/17 16:09 97.7 81 16 102/56 (71) 96 03/19/17 15:00 96 Nasal Cannula 2.00 03/19/17 15:00 81 03/19/17 14:00 79 03/19/17 13:00 88 03/19/17 12:00 97.9 84 16 101/56 (71) 98 03/19/17 12:00 84 03/19/17 11:00 84 03/19/17 11:00 98 Nasal Cannula 2.00 03/19/17 10:41 16 03/19/17 10:00 73 03/19/17 09:31 98 Nasal Cannula 2.00 03/19/17 09:00 73 03/19/17 08:00 97 Nasal Cannula 2.00 03/19/17 08:00 87 03/19/17 08:00 97.2 87 16 117/64 (81) 97 03/19/17 06:03 87 03/19/17 05:00 86 03/19/17 04:00 97.9 84 16 114/67 (83) 97 03/19/17 04:00 86 03/19/17 03:00 97 Nasal Cannula 2.00 03/19/17 03:00 84 03/19/17 02:00 88 03/19/17 01:00 82 03/19/17 00:14 96 Nasal Cannula 2.00 03/19/17 00:00 86 03/19/17 00:00 97.6 80 16 114/73 (87) 98 03/18/17 23:00 82 03/18/17 23:00 98 Nasal Cannula 2.00 03/18/17 22:00 70 03/18/17 21:00 60 03/18/17 20:00 97.5 67 14 121/69 (86) 100 03/18/17 20:00 62 I/O 03/18/17 03/18/17 03/18/17 03/19/17 03/19/17 03/19/17 07:00 15:00 23:00 07:00 15:00 23:00 Intake Total 1550 ml 220 ml 100 ml 400 ml Output Total 450 ml 1800 ml 370 ml Balance -450 ml -250 ml 220 ml 100 ml 30 ml Intake Oral 50 ml 120 ml 300 ml IV Total 100 ml 100 ml 100 ml Other 1500 ml Output Urine Total 400 ml 550 ml 300 ml Chest Tube Drainage Total 50 ml 50 ml 70 ml Estimated Blood Loss 200 ml Other 1000 ml # Voids 0 0 # Bowel Movements 0 0 Result Diagram: 03/17/1730 03/18/17 0615 Objective Remarks GENERAL: SKIN: Warm and dry. HEAD: Atraumatic. Normocephalic. EYES: Pupils equal and round. No scleral icterus. No injection or drainage. ENT: No nasal bleeding or discharge. Mucous membranes pink and moist. NECK: Trachea midline. No JVD. CARDIOVASCULAR: Regular rate and rhythm. RESPIRATORY: No accessory muscle use. Clear to auscultation. Breath sounds equal bilaterally. GASTROINTESTINAL: Abdomen soft, non-tender, nondistended. Hepatic and splenic margins not palpable. MUSCULOSKELETAL: Extremities without clubbing, cyanosis, or edema. No obvious deformities. NEUROLOGICAL: Awake and alert. No obvious cranial nerve deficits. Motor grossly within normal limits. Five out of 5 muscle strength in the arms and legs. Normal speech. PSYCHIATRIC: Appropriate mood and affect; insight and judgment normal. Assessment and Plan Assessment and Plan s/p bronchopleural fistula repair plan remove chest tube when possible Maximo Marsh MD Mar 19, 2017 19:53
[2017-03-19] MEDS: DOCUSATE CALCIUM 240 MG CAP PO SCH (22:11)
[2017-03-20] VITALS (28 sets, daily range): BP systolic 113–144; BP diastolic 7–77; PULSE 62–93; RESP 18–20; TEMP 97.4–98.1; O2SAT 95–100
[2017-03-20] MEDS: RESP: ALBUTEROL 2.5 MG/3 ML NEB (SCH) NEB ×4 (03:18→21:15)
[2017-03-20] MEDS: CHLORHEXIDINE 0.12% (ORAL KIT) 15 ML CUP MT SCH ×2 (08:00→19:26)
[2017-03-20] MEDS: predniSONE 5 MG TAB PO SCH ×2 (10:09→21:13)
[2017-03-20] MEDS: PANTOPRAZOLE SOD 40 MG DELAYED RELEASE TAB PO SCH (10:09)
[2017-03-20] MEDS: ASPIRIN 81 MG CHEW TAB CHEW SCH (10:09)
[2017-03-20] MEDS: ENOXAPARIN SODIUM 40 MG/0.4 ML SYRINGE SQ SCH (10:09)
[2017-03-20] MEDS: SODIUM CHLORIDE 0.9% FLUSH 10 ML FLUSH IV FLUSH SCH ×2 (10:10→21:13)
--- NOTE | 2017-03-20 10:51 | PD.CAR.PN ---
CVT Progress Note Subjective/Hospital Course: 81/ male , recurrent right PTX , admitted via ED right sided chest pain , # 28french chest tube placed in ED, then additional 10french pig tail cath placed 03/06 by IR, pig tail cath had +1-2 air leak, pt went back to IR yesterday and had pigtail cath changed out for a 12 niuean pig tail cath , still has +1 air leak , PMH: severe COPD on chronic home , systolic HF EF 30%, dysphagia 03/10 still has +1-2 air leak from new 12 niuean pig tail #28 niuean cath no air leak minimal drainage CXR tiny right apical PTX continue medical therapy for now, will continue to monitor 03/11 right pig tail cath +1-2 airleak on suction right 28 niuean no air leak f/u cxr no surgery for now 03/14 right large bore chest tube apparently fell out per nursing vaseline occlusive dressing applied IR evaluate pig tail cath, pt still has air leak, continue suction no PTX on CXR will discuss with Dr Tony 03/15 pt eval , no change in air leak from pig tail cath scheduled for right video assisted thoracoscopy, possible thoracotomy , bleb resection and pleurodesis on friday 03/16 still has air leak 03/17 nursing spoke with daughter she is aware of her father's high risk due to poor lung compliance but understands that he needs surgery , he is still scheduled for surgery in am 03/18 for surgery today, still has air leak Procedure: 1. Right Posterolateral Muscle Sparing Mini-Thoracotomy 2. Repair of Bronchopleural Fistula 3. Bullae Resection 4. Lysis of Adhesions 5. Mechanical and Betadine Pleurodesis 6. Intercostal Nerve Block 03/19 Doing well No air-leak Ambulate Maintain CT to suction for now Bronchodilators as already doing 03/20 CT to water seal Nurse reports intermittent air-leak. None observed by me. Change old CT site packing BID Ambulate Objective: Vital Signs Date Time Temp Pulse Resp B/P (MAP) Pulse Ox O2 Delivery O2 Flow Rate FiO2 03/20/17 10:10 98 Nasal Cannula 2.00 03/20/17 07:00 95 Nasal Cannula 2.00 03/20/17 07:00 97.8 88 18 119/67 (84) 95 03/20/17 07:00 69 03/20/17 06:00 67 03/20/17 05:00 69 03/20/17 04:00 70 03/20/17 03:00 98 Nasal Cannula 2.00 03/20/17 03:00 73 03/20/17 03:00 97.5 78 18 113/7 (42) 98 03/20/17 02:00 74 03/20/17 01:00 78 03/20/17 00:00 98.1 82 18 126/69 (88) 97 03/20/17 00:00 80 03/20/17 00:00 97 Nasal Cannula 2.00 03/19/17 23:00 82 03/19/17 22:00 99 Nasal Cannula 2.00 03/19/17 22:00 74 03/19/17 22:00 97.5 78 18 146/73 (97) 99 03/19/17 21:00 92 03/19/17 20:00 82 03/19/17 19:00 90 03/19/17 18:00 89 03/19/17 17:52 16 03/19/17 17:00 84 03/19/17 16:09 81 03/19/17 16:09 97.7 81 16 102/56 (71) 96 03/19/17 15:00 96 Nasal Cannula 2.00 03/19/17 15:00 81 03/19/17 14:00 79 03/19/17 13:00 88 03/19/17 12:00 97.9 84 16 101/56 (71) 98 03/19/17 12:00 84 03/19/17 11:00 84 03/19/17 11:00 98 Nasal Cannula 2.00 Result Diagram: 03/17/17 0630 03/18/17 0615 (1) Pneumothorax, right Plan: continue pig tial cath to suction for right VATS, possible bleb resection / pleurodesis today (2) COPD (chronic obstructive pulmonary disease) (3) Bronchopleural fistula (4) Bullous emphysema (5) S/P thoracotomy Don Tony MD Mar 20, 2017 10:50
[2017-03-20] MEDS: CARVEDILOL 3.125 MG TAB PO SCH ×2 (11:29→21:13)
--- NOTE | 2017-03-20 13:15 | HHI.PR ---
Subjective Remarks Delayed entry for 03/19/2017 Follow up for right pneumothorax. Patient is doing well post surgery. No acute concerns. Objective Vitals Vital Signs Date Time Temp Pulse Resp B/P (MAP) Pulse Ox O2 Delivery O2 Flow Rate FiO2 03/20/17 12:00 71 03/20/17 11:00 72 03/20/17 11:00 95 Nasal Cannula 2.00 03/20/17 11:00 97.6 62 18 144/77 (99) 97 03/20/17 10:10 98 Nasal Cannula 2.00 03/20/17 10:00 85 03/20/17 09:00 85 03/20/17 08:00 68 03/20/17 07:00 95 Nasal Cannula 2.00 03/20/17 07:00 97.8 88 18 119/67 (84) 95 03/20/17 07:00 69 03/20/17 06:00 67 03/20/17 05:00 69 03/20/17 04:00 70 03/20/17 03:00 98 Nasal Cannula 2.00 03/20/17 03:00 73 03/20/17 03:00 97.5 78 18 113/7 (42) 98 03/20/17 02:00 74 03/20/17 01:00 78 03/20/17 00:00 98.1 82 18 126/69 (88) 97 03/20/17 00:00 80 03/20/17 00:00 97 Nasal Cannula 2.00 03/19/17 23:00 82 03/19/17 22:00 99 Nasal Cannula 2.00 03/19/17 22:00 74 03/19/17 22:00 97.5 78 18 146/73 (97) 99 03/19/17 21:00 92 03/19/17 20:00 82 03/19/17 19:00 90 03/19/17 18:00 89 03/19/17 17:52 16 03/19/17 17:00 84 03/19/17 16:09 81 03/19/17 16:09 97.7 81 16 102/56 (71) 96 03/19/17 15:00 96 Nasal Cannula 2.00 03/19/17 15:00 81 03/19/17 14:00 79 I/O 10/7/17 10/7/17 03/19/17 03/20/17 03/20/17 03/20/17 07:00 15:00 23:00 07:00 15:00 23:00 Intake Total 220 ml 100 ml 400 ml 240 ml Output Total 370 ml 555 ml Balance 220 ml 100 ml 30 ml -315 ml Intake Oral 120 ml 300 ml 240 ml IV Total 100 ml 100 ml 100 ml Output Urine Total 300 ml 375 ml Chest Tube Drainage Total 70 ml 180 ml # Voids 0 # Bowel Movements 0 0 Result Diagram: 03/17/1762903/18/17614 Objective Remarks GENERAL: Alert, NAD. SKIN: Warm and dry. HEAD: Normocephalic. EYES: No scleral icterus. No injection or drainage. NECK: Supple, trachea midline. No JVD or lymphadenopathy. CARDIOVASCULAR: Regular rate and rhythm without murmurs, gallops, or rubs. RESPIRATORY: Breath sounds equal bilaterally. No accessory muscle use. Right sided chest tube in place. GASTROINTESTINAL: Abdomen soft, non-tender, nondistended. MUSCULOSKELETAL: No cyanosis, or edema. BACK: Nontender without obvious deformity. No CVA tenderness. Procedures chest tube insertion/ exchange. 03/18/2017 Procedure: 1. Right Posterolateral Muscle Sparing Mini-Thoracotomy 2. Repair of Bronchopleural Fistula 3. Bullae Resection 4. Lysis of Adhesions 5. Mechanical and Betadine Pleurodesis 6. Intercostal Nerve Block A/P Problem List: (1) Pneumothorax, right ICD Code: J93.9 - Pneumothorax, unspecified Status: Acute (2) COPD (chronic obstructive pulmonary disease) ICD Code: J44.9 - Chronic obstructive pulmonary disease, unspecified Status: Acute (3) Heart failure ICD Code: I50.9 - Heart failure, unspecified (4) Dysphagia ICD Code: R13.10 - Dysphagia, unspecified Assessment and Plan Mr. Guerra is a pleasant 81 year old male with a history of CHF, COPD and previous right sided pneumothorax who was admitted on 02/27/2017 due to sudden onset of right sided chest pain. ED work indicated large right sided pneumothorax. A 28-Dominican chest tube was inserted. He continued to have persistent small apical pneumothorax. Subsequently, a 10-Dominican pigtail catheter was placed. Cardiothoracic surgery was consulted due to persistent air leak, possible need for video assisted thoracoscopy. - Pneumothorax, right - Dual chest tube placed - s/p chest tube exchange on 03/09/17. Large-bore chest tube fell off. Patient has a small chest tube. - Continues to have air leak - unable to discontinue small chest tube - CT surgery following. Patient underwent surgical intervention on 2016. Chest tube to suction. - pulmonary following. - COPD (chronic obstructive pulmonary disease) - Continue supplemental O2 to maintain O2 sat > 90%. - supportive care, no exacerbation at this time - patient on chronic steroids, prednisone 5mg BID. - continue with neb treatment. 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 - known systolic dysfunction and EF 30% - continue Carvedilol 3.125mg Q12hrs, aspirin 81mg Qday. - No evidence of decompensation at this time - Dysphagia - modified diet, stable - outpatient ST recommended Full code. Lovenox. Ana Olivera DO Mar 20, 2017 13:15
--- NOTE | 2017-03-20 13:15 | HHI.PR ---
Subjective Remarks Follow up for right pneumothorax. Patient is resting in bed. Per patient's request, patient was not disturbed. Per RN, no acute issues. Objective Vitals Vital Signs Date Time Temp Pulse Resp B/P (MAP) Pulse Ox O2 Delivery O2 Flow Rate FiO2 03/20/17 12:00 71 03/20/17 11:00 72 03/20/17 11:00 95 Nasal Cannula 2.00 03/20/17 11:00 97.6 62 18 144/77 (99) 97 03/20/17 10:10 98 Nasal Cannula 2.00 03/20/17 10:00 85 03/20/17 09:00 85 03/20/17 08:00 68 03/20/17 07:00 95 Nasal Cannula 2.00 03/20/17 07:00 97.8 88 18 119/67 (84) 95 03/20/17 07:00 69 03/20/17 06:00 67 03/20/17 05:00 69 03/20/17 04:00 70 03/20/17 03:00 98 Nasal Cannula 2.00 03/20/17 03:00 73 03/20/17 03:00 97.5 78 18 113/7 (42) 98 03/20/17 02:00 74 03/20/17 01:00 78 03/20/17 00:00 98.1 82 18 126/69 (88) 97 03/20/17 00:00 80 03/20/17 00:00 97 Nasal Cannula 2.00 03/19/17 23:00 82 03/19/17 22:00 99 Nasal Cannula 2.00 03/19/17 22:00 74 03/19/17 22:00 97.5 78 18 146/73 (97) 99 03/19/17 21:00 92 03/19/17 20:00 82 03/19/17 19:00 90 03/19/17 18:00 89 03/19/17 17:52 16 03/19/17 17:00 84 03/19/17 16:09 81 03/19/17 16:09 97.7 81 16 102/56 (71) 96 03/19/17 15:00 96 Nasal Cannula 2.00 03/19/17 15:00 81 03/19/17 14:00 79 I/O 10/7/17 03/19/17 03/19/17 03/20/17 03/20/17 03/20/17 07:00 15:00 23:00 07:00 15:00 23:00 Intake Total 220 ml 100 ml 400 ml 240 ml Output Total 370 ml 555 ml Balance 220 ml 100 ml 30 ml -315 ml Intake Oral 120 ml 300 ml 240 ml IV Total 100 ml 100 ml 100 ml Output Urine Total 300 ml 375 ml Chest Tube Drainage Total 70 ml 180 ml # Voids 0 # Bowel Movements 0 0 Result Diagram: 03/17/17 0630 03/18/17 0615 Objective Remarks GENERAL: Sleeping. No acute distress. SKIN: Warm and dry. HEAD: Normocephalic. EYES: No scleral icterus. No injection or drainage. NECK: Supple, trachea midline. No JVD or lymphadenopathy. CARDIOVASCULAR: Regular rate and rhythm without murmurs, gallops, or rubs. RESPIRATORY: Breath sounds equal bilaterally. No accessory muscle use. Right sided chest tube in place. GASTROINTESTINAL: Abdomen soft, non-tender, nondistended. MUSCULOSKELETAL: No cyanosis, or edema. BACK: Nontender without obvious deformity. No CVA tenderness. Procedures chest tube insertion/ exchange. 03/18/2017 Procedure: 1. Right Posterolateral Muscle Sparing Mini-Thoracotomy 2. Repair of Bronchopleural Fistula 3. Bullae Resection 4. Lysis of Adhesions 5. Mechanical and Betadine Pleurodesis 6. Intercostal Nerve Block A/P Problem List: (1) Pneumothorax, right ICD Code: J93.9 - Pneumothorax, unspecified Status: Acute (2) COPD (chronic obstructive pulmonary disease) ICD Code: J44.9 - Chronic obstructive pulmonary disease, unspecified Status: Acute (3) Heart failure ICD Code: I50.9 - Heart failure, unspecified (4) Dysphagia ICD Code: R13.10 - Dysphagia, unspecified Assessment and Plan Mr. Guerra is a pleasant 81 year old male with a history of CHF, COPD and previous right sided pneumothorax who was admitted on 02/27/2017 due to sudden onset of right sided chest pain. ED work indicated large right sided pneumothorax. A 28-Ivorian chest tube was inserted. He continued to have persistent small apical pneumothorax. Subsequently, a 10-Ivorian pigtail catheter was placed. Cardiothoracic surgery was consulted due to persistent air leak, possible need for video assisted thoracoscopy. - Pneumothorax, right - Dual chest tube placed - s/p chest tube exchange on 03/09/17. Large-bore chest tube fell off. Patient has a small chest tube. - Continues to have air leak - unable to discontinue small chest tube - CT surgery following. Patient underwent surgical intervention on 2016. Chest tube remains on suction. - pulmonary following. - COPD (chronic obstructive pulmonary disease) - Continue supplemental O2 to maintain O2 sat > 90%. - supportive care, no exacerbation at this time - patient on chronic steroids, prednisone 5mg BID. - continue with neb treatment. 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 - known systolic dysfunction and EF 30% - continue Carvedilol 3.125mg Q12hrs, aspirin 81mg Qday. - No evidence of decompensation at this time - Dysphagia - modified diet, stable - outpatient ST recommended Full code. Lovenox. Ana Olivera DO Mar 20, 2017 13:15
[2017-03-20] MEDS: ACETAMINOPHEN/HYDROcodone 325 MG/5 MG TAB PO PRN (15:35)
--- NOTE | 2017-03-20 16:10 | HHI.PR ---
Subjective Remarks alert no sob Objective Vital Signs Date Time Temp Pulse Resp B/P (MAP) Pulse Ox O2 Delivery O2 Flow Rate FiO2 03/20/17 14:00 93 03/20/17 13:00 65 03/20/17 12:00 71 03/20/17 11:00 72 03/20/17 11:00 95 Nasal Cannula 2.00 03/20/17 11:00 97.6 62 18 144/77 (99) 97 03/20/17 10:10 98 Nasal Cannula 2.00 03/20/17 10:00 85 03/20/17 09:00 85 03/20/17 08:00 68 03/20/17 07:00 95 Nasal Cannula 2.00 03/20/17 07:00 97.8 88 18 119/67 (84) 95 03/20/17 07:00 69 03/20/17 06:00 67 03/20/17 05:00 69 03/20/17 04:00 70 03/20/17 03:00 98 Nasal Cannula 2.00 03/20/17 03:00 73 03/20/17 03:00 97.5 78 18 113/7 (42) 98 03/20/17 02:00 74 03/20/17 01:00 78 03/20/17 00:00 98.1 82 18 126/69 (88) 97 03/20/17 00:00 80 03/20/17 00:00 97 Nasal Cannula 2.00 03/19/17 23:00 82 03/19/17 22:00 99 Nasal Cannula 2.00 03/19/17 22:00 74 03/19/17 22:00 97.5 78 18 146/73 (97) 99 03/19/17 21:00 92 03/19/17 20:00 82 03/19/17 19:00 90 03/19/17 18:00 89 03/19/17 17:52 16 03/19/17 17:00 84 I/O 03/19/17 03/19/17 03/19/17 03/20/17 03/20/17 03/20/17 07:00 15:00 23:00 07:00 15:00 23:00 Intake Total 220 ml 100 ml 400 ml 240 ml Output Total 370 ml 555 ml Balance 220 ml 100 ml 30 ml -315 ml Intake Oral 120 ml 300 ml 240 ml IV Total 100 ml 100 ml 100 ml Output Urine Total 300 ml 375 ml Chest Tube Drainage Total 70 ml 180 ml # Voids 0 # Bowel Movements 0 0 Result Diagram: 03/17/17 0630 03/18/17 0615 Objective Remarks GENERAL: SKIN: Warm and dry. HEAD: Atraumatic. Normocephalic. EYES: Pupils equal and round. No scleral icterus. No injection or drainage. ENT: No nasal bleeding or discharge. Mucous membranes pink and moist. NECK: Trachea midline. No JVD. CARDIOVASCULAR: Regular rate and rhythm. RESPIRATORY: No accessory muscle use. Clear to auscultation. Breath sounds equal bilaterally. GASTROINTESTINAL: Abdomen soft, non-tender, nondistended. Hepatic and splenic margins not palpable. MUSCULOSKELETAL: Extremities without clubbing, cyanosis, or edema. No obvious deformities. NEUROLOGICAL: Awake and alert. No obvious cranial nerve deficits. Motor grossly within normal limits. Five out of 5 muscle strength in the arms and legs. Normal speech. PSYCHIATRIC: Appropriate mood and affect; insight and judgment normal. Assessment and Plan Assessment and Plan s/p bronchopleural fistula repair plan remove chest tube when possible Maximo Marsh MD Mar 20, 2017 16:10
[2017-03-20] MEDS: CHLORHEXIDINE GLUCONATE 2 % 1 PACK (2 CLOTHS) TOP SCH (19:26)
[2017-03-20] MEDS ORDERED: ALUMINUM/MAGNESIUM/SIMETH 30 ML CUP PO ONE (20:45)
[2017-03-20] MEDS: DOCUSATE CALCIUM 240 MG CAP PO SCH (21:13)
[2017-03-21] VITALS (28 sets, daily range): BP systolic 106–137; BP diastolic 58–71; PULSE 65–101; RESP 18–20; TEMP 97.5–98; O2SAT 95–99
[2017-03-21] MEDS: RESP: ALBUTEROL 2.5 MG/3 ML NEB (SCH) NEB ×4 (04:00→21:13)
[2017-03-21] MEDS: CHLORHEXIDINE 0.12% (ORAL KIT) 15 ML CUP MT SCH ×2 (08:00→20:00)
[2017-03-21] MEDS: SODIUM CHLORIDE 0.9% FLUSH 10 ML FLUSH IV FLUSH SCH ×2 (09:00→20:41)
[2017-03-21] MEDS: ASPIRIN 81 MG CHEW TAB CHEW SCH (09:26)
[2017-03-21] MEDS: CARVEDILOL 3.125 MG TAB PO SCH ×2 (09:26→20:40)
[2017-03-21] MEDS: predniSONE 5 MG TAB PO SCH ×2 (09:26→20:40)
[2017-03-21] MEDS: PANTOPRAZOLE SOD 40 MG DELAYED RELEASE TAB PO SCH (09:26)
[2017-03-21] MEDS: ENOXAPARIN SODIUM 40 MG/0.4 ML SYRINGE SQ SCH (09:26)
--- NOTE | 2017-03-21 16:41 | PD.CAR.PN ---
CVT Progress Note Subjective/Hospital Course: 81/ male , recurrent right PTX , admitted via ED right sided chest pain , # 28french chest tube placed in ED, then additional 10french pig tail cath placed 03/06 by IR, pig tail cath had +1-2 air leak, pt went back to IR yesterday and had pigtail cath changed out for a 12 omani pig tail cath , still has +1 air leak , PMH: severe COPD on chronic home , systolic HF EF 30%, dysphagia 03/10 still has +1-2 air leak from new 12 omani pig tail #28 omani cath no air leak minimal drainage CXR tiny right apical PTX continue medical therapy for now, will continue to monitor 03/11 right pig tail cath +1-2 airleak on suction right 28 omani no air leak f/u cxr no surgery for now 03/14 right large bore chest tube apparently fell out per nursing vaseline occlusive dressing applied IR evaluate pig tail cath, pt still has air leak, continue suction no PTX on CXR will discuss with Dr Tony 03/15 pt eval , no change in air leak from pig tail cath scheduled for right video assisted thoracoscopy, possible thoracotomy , bleb resection and pleurodesis on friday 03/16 still has air leak 03/17 nursing spoke with daughter she is aware of her father's high risk due to poor lung compliance but understands that he needs surgery , he is still scheduled for surgery in am 03/18 for surgery today, still has air leak Procedure: 1. Right Posterolateral Muscle Sparing Mini-Thoracotomy 2. Repair of Bronchopleural Fistula 3. Bullae Resection 4. Lysis of Adhesions 5. Mechanical and Betadine Pleurodesis 6. Intercostal Nerve Block 03/19 Doing well No air-leak Ambulate Maintain CT to suction for now Bronchodilators as already doing 03/20 CT to water seal Nurse reports intermittent air-leak. None observed by me. Change old CT site packing BID Ambulate 03/21 continue aceves seal , evaluate for chest tube in am cxr pending in am no air leak pulm toileting Objective: GENERAL: SKIN: Warm and dry. HEAD: Normocephalic. EYES: No scleral icterus. No injection or drainage. NECK: Supple, trachea midline. No JVD or lymphadenopathy. CARDIOVASCULAR: Regular rate and rhythm without murmurs, gallops, or rubs. RESPIRATORY: Breath sounds equal bilaterally. No accessory muscle use. chest tube to water seal , no air leak GASTROINTESTINAL: Abdomen soft, non-tender, nondistended. MUSCULOSKELETAL: No cyanosis, or edema. BACK: Nontender without obvious deformity. No CVA tenderness. Vital Signs Date Time Temp Pulse Resp B/P (MAP) Pulse Ox O2 Delivery O2 Flow Rate FiO2 03/21/17 16:00 100 Nasal Cannula 2.00 03/21/17 16:00 86 03/21/17 15:00 76 03/21/17 14:00 86 03/21/17 13:00 82 03/21/17 13:00 88 03/21/17 12:00 100 Nasal Cannula 2.00 03/21/17 12:00 98.0 73 18 106/58 (74) 99 03/21/17 12:00 86 03/21/17 11:00 76 03/21/17 10:18 Nasal Cannula 3.00 03/21/17 10:00 88 03/21/17 09:54 97.9 73 18 124/64 (84) 99 03/21/17 09:00 86 03/21/17 08:00 88 03/21/17 08:00 100 Nasal Cannula 2.00 03/21/17 08:00 118/66 (83) 03/21/17 07:00 100 03/21/17 06:00 81 03/21/17 05:00 65 03/21/17 04:00 73 03/21/17 03:45 97.6 73 18 117/63 (81) 99 03/21/17 03:45 99 Nasal Cannula 2.00 03/21/17 03:00 78 03/21/17 02:00 73 03/21/17 01:00 67 03/21/17 00:00 71 03/20/17 23:20 97.4 76 20 138/74 (95) 96 03/20/17 23:20 96 Nasal Cannula 2.00 03/20/17 23:00 73 03/20/17 22:00 74 03/20/17 21:17 99 Nasal Cannula 2.00 03/20/17 21:00 84 03/20/17 20:20 100 Nasal Cannula 2.00 03/20/17 20:20 97.4 77 20 132/66 (88) 100 03/20/17 20:00 76 03/20/17 19:00 84 03/20/17 18:00 87 03/20/17 17:00 62 Result Diagram: 03/17/17 0630 03/18/17 0615 (1) Pneumothorax, right Plan: continue pig tial cath to aceves seal s/p right VATS, possible bleb resection / pleurodesis today OOB, ambulate pt/ ot (2) COPD (chronic obstructive pulmonary disease) (3) Bronchopleural fistula (4) Bullous emphysema (5) S/P thoracotomy Conchita Valadez Mar 21, 2017 16:41
--- NOTE | 2017-03-21 16:46 | HHI.PR ---
Subjective Remarks 81 YOWM with Rt PTX,COPD Had right Thoracotomy with repair of BP fistula, pleurodesis Chest tube to water seal Denies CP Objective Vital Signs Vital Signs Date Time Temp Pulse Resp B/P (MAP) Pulse Ox O2 Delivery O2 Flow Rate FiO2 03/21/17 16:00 100 Nasal Cannula 2.00 03/21/17 16:00 86 03/21/17 15:00 76 03/21/17 14:00 86 03/21/17 13:00 82 03/21/17 13:00 88 03/21/17 12:00 100 Nasal Cannula 2.00 03/21/17 12:00 98.0 73 18 106/58 (74) 99 03/21/17 12:00 86 03/21/17 11:00 76 03/21/17 10:18 Nasal Cannula 3.00 03/21/17 10:00 88 03/21/17 09:54 97.9 73 18 124/64 (84) 99 03/21/17 09:00 86 03/21/17 08:00 88 03/21/17 08:00 100 Nasal Cannula 2.00 03/21/17 08:00 118/66 (83) 03/21/17 07:00 100 03/21/17 06:00 81 03/21/17 05:00 65 03/21/17 04:00 73 03/21/17 03:45 97.6 73 18 117/63 (81) 99 03/21/17 03:45 99 Nasal Cannula 2.00 03/21/17 03:00 78 03/21/17 02:00 73 03/21/17 01:00 67 03/21/17 00:00 71 03/20/17 23:20 97.4 76 20 138/74 (95) 96 03/20/17 23:20 96 Nasal Cannula 2.00 03/20/17 23:00 73 03/20/17 22:00 74 03/20/17 21:17 99 Nasal Cannula 2.00 03/20/17 21:00 84 03/20/17 20:20 100 Nasal Cannula 2.00 03/20/17 20:20 97.4 77 20 132/66 (88) 100 03/20/17 20:00 76 03/20/17 19:00 84 03/20/17 18:00 87 03/20/17 17:00 62 I/O 03/20/17 03/20/17 03/20/17 03/21/17 03/21/17 03/21/17 07:00 15:00 23:00 07:00 15:00 23:00 Intake Total 240 ml 400 ml 240 ml Output Total 555 ml 660 ml 580 ml Balance -315 ml -260 ml -340 ml Intake Oral 240 ml 400 ml 240 ml Output Urine Total 375 ml 550 ml 550 ml Chest Tube Drainage Total 180 ml 110 ml 30 ml # Voids 4 # Bowel Movements 0 0 0 Result Diagram: 03/17/17 0630 03/18/1715 Objective Remarks GENERAL: MBMN WM, NAD SKIN: Warm and dry. HEAD: Normocephalic. EYES: No scleral icterus. No injection or drainage. NECK: Supple, trachea midline. No JVD or lymphadenopathy. CARDIOVASCULAR: Regular rate and rhythm without murmurs, gallops, or rubs. RESPIRATORY: Breath sounds equal bilaterally. No accessory muscle use. Right chest tube in place GASTROINTESTINAL: Abdomen soft, non-tender, nondistended. MUSCULOSKELETAL: No cyanosis, or edema. BACK: Nontender without obvious deformity. No CVA tenderness. A/P Assessment and Plan Right PTX S/P Rt Thoracotomy COPD HTN PLAN: Aerosol nebs Supplement 02 DW pt Chest tube to water seal. CXR in AM. Jayro Hicks MD Mar 21, 2017 16:46
--- NOTE | 2017-03-21 16:58 | HHI.PR ---
Subjective Remarks Follow up for right pneumothorax. Patient is resting in bed well. No chest pain , SOB, fever, chills. His chest tube is in place. Objective Vitals Vital Signs Date Time Temp Pulse Resp B/P (MAP) Pulse Ox O2 Delivery O2 Flow Rate FiO2 03/21/17 16:00 100 Nasal Cannula 2.00 03/21/17 16:00 86 03/21/17 15:00 76 03/21/17 14:00 86 03/21/17 13:00 82 03/21/17 13:00 88 03/21/17 12:00 100 Nasal Cannula 2.00 03/21/17 12:00 98.0 73 18 106/58 (74) 99 03/21/17 12:00 86 03/21/17 11:00 76 03/21/17 10:18 Nasal Cannula 3.00 03/21/17 10:00 88 03/21/17 09:54 97.9 73 18 124/64 (84) 99 03/21/17 09:00 86 03/21/17 08:00 88 03/21/17 08:00 100 Nasal Cannula 2.00 03/21/17 08:00 118/66 (83) 03/21/17 07:00 100 03/21/17 06:00 81 03/21/17 05:00 65 03/21/17 04:00 73 03/21/17 03:45 97.6 73 18 117/63 (81) 99 03/21/17 03:45 99 Nasal Cannula 2.00 03/21/17 03:00 78 03/21/17 02:00 73 03/21/17 01:00 67 03/21/17 00:00 71 03/20/17 23:20 97.4 76 20 138/74 (95) 96 03/20/17 23:20 96 Nasal Cannula 2.00 03/20/17 23:00 73 03/20/17 22:00 74 03/20/17 21:17 99 Nasal Cannula 2.00 03/20/17 21:00 84 03/20/17 20:20 100 Nasal Cannula 2.00 03/20/17 20:20 97.4 77 20 132/66 (88) 100 03/20/17 20:00 76 03/20/17 19:00 84 03/20/17 18:00 87 03/20/17 17:00 62 I/O 03/20/17 03/20/17 03/20/17 03/21/17 03/21/17 03/21/17 07:00 15:00 23:00 07:00 15:00 23:00 Intake Total 240 ml 400 ml 240 ml Output Total 555 ml 660 ml 580 ml Balance -315 ml -260 ml -340 ml Intake Oral 240 ml 400 ml 240 ml Output Urine Total 375 ml 550 ml 550 ml Chest Tube Drainage Total 180 ml 110 ml 30 ml # Voids 4 # Bowel Movements 0 0 0 Result Diagram: 03/17/17 0630 03/18/17 0615 Imaging Last Impressions Chest X-Ray 03/19/17 0500 Signed Impressions: Service Date/Time: Sunday, March 19, 2017 04:44 - CONCLUSION: Unchanged exam as detailed above. Ge Guerra Jr., MD Chest Tube Change 03/09/17 1255 Signed Impressions: Service Date/Time: Thursday, March 09, 2017 14:13 - CONCLUSION: Uncomplicated chest tube exchange as above. Jones Hurst MD Chest CT 03/09/17 0000 Signed Impressions: Service Date/Time: Thursday, March 09, 2017 11:39 - CONCLUSION: 1. There is continued residual pneumothorax in spite of 2 chest tubes on the right. 2. The extensive subcutaneous emphysema which was seen on previous exam has improved. 3. Large hiatal hernia. Jones Hurst MD Chest Tube Insertion 03/06/17 0000 Signed Impressions: Service Date/Time: Monday, March 06, 2017 13:29 - CONCLUSION: Uncomplicated chest tube placement as above. Peyman Dave MD Objective Remarks GENERAL: Sleeping. No acute distress. SKIN: Warm and dry. HEAD: Normocephalic. EYES: No scleral icterus. No injection or drainage. NECK: Supple, trachea midline. No JVD or lymphadenopathy. CARDIOVASCULAR: Regular rate and rhythm without murmurs, gallops, or rubs. RESPIRATORY: Breath sounds equal bilaterally. No accessory muscle use. Right sided chest tube in place. GASTROINTESTINAL: Abdomen soft, non-tender, nondistended. MUSCULOSKELETAL: No cyanosis, or edema. BACK: Nontender without obvious deformity. No CVA tenderness. Procedures chest tube insertion/ exchange. 03/18/2017 Procedure: 1. Right Posterolateral Muscle Sparing Mini-Thoracotomy 2. Repair of Bronchopleural Fistula 3. Bullae Resection 4. Lysis of Adhesions 5. Mechanical and Betadine Pleurodesis 6. Intercostal Nerve Block A/P Problem List: (1) Pneumothorax, right ICD Code: J93.9 - Pneumothorax, unspecified Status: Acute (2) COPD (chronic obstructive pulmonary disease) ICD Code: J44.9 - Chronic obstructive pulmonary disease, unspecified Status: Acute (3) Heart failure ICD Code: I50.9 - Heart failure, unspecified (4) Dysphagia ICD Code: R13.10 - Dysphagia, unspecified Assessment and Plan Mr. Guerra is a pleasant 81 year old male with a history of CHF, COPD and previous right sided pneumothorax who was admitted on 02/27/2017 due to sudden onset of right sided chest pain. ED work indicated large right sided pneumothorax. A 28-Swazi chest tube was inserted. He continued to have persistent small apical pneumothorax. Subsequently, a 10-Swazi pigtail catheter was placed. Cardiothoracic surgery was consulted due to persistent air leak, possible need for video assisted thoracoscopy. - Pneumothorax, right - Dual chest tube placed - s/p chest tube exchange on 03/09/17. Large-bore chest tube fell off. Patient has a small chest tube. - Continues to have air leak - unable to discontinue small chest tube - CT surgery following. Patient underwent surgical intervention on 2016. Chest tube to water seal. - pulmonary following. - CXR in the AM. - COPD (chronic obstructive pulmonary disease) - Continue supplemental O2 to maintain O2 sat > 90%. - supportive care, no exacerbation at this time - patient on chronic steroids, prednisone 5mg BID. - continue with neb treatment. 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 - known systolic dysfunction and EF 30% - continue Carvedilol 3.125mg Q12hrs, aspirin 81mg Qday. - No evidence of decompensation at this time - Dysphagia - modified diet, stable - outpatient ST recommended Full code. Lovenox. Ana Olivera DO Mar 21, 2017 16:58
[2017-03-21] MEDS: DOCUSATE CALCIUM 240 MG CAP PO SCH (20:41)
[2017-03-22] VITALS (29 sets, daily range): BP systolic 108–128; BP diastolic 59–73; PULSE 61–87; RESP 18–22; TEMP 97.8–98.2; O2SAT 95–99
[2017-03-22] MEDS: CHLORHEXIDINE GLUCONATE 2 % 1 PACK (2 CLOTHS) TOP SCH (04:00)
[2017-03-22] MEDS: RESP: ALBUTEROL 2.5 MG/3 ML NEB (SCH) NEB ×4 (04:35→20:58)
--- NOTE | 2017-03-22 05:08 | RADRPT ---
EXAM DATE/TIME: 03/22/2017 04:27 [facility] COMPARISON: CHEST SINGLE AP, March 19, 2017, 4:44. INDICATIONS : Short of breath. MEDICAL HISTORY : Chronic obstructive pulmonary disease. SURGICAL HISTORY : Thoracotomy ENCOUNTER: Subsequent ACUITY: 3 weeks PAIN SCORE: 0/10 LOCATION: Bilateral chest FINDINGS: Right thoracostomy tube remains in place. No pneumothorax. Left subclavian central line is stable. Th ere is persistent right suprahilar infiltrate in left base infiltrate which are grossly stable. Cardi ac contours are unchanged. CONCLUSION: Little change from previous exam Jerome Marin MD on March 22, 2017 at 5:06 Board Certified Radiologist. This report was verified electronically.
[2017-03-22] MEDS: CHLORHEXIDINE 0.12% (ORAL KIT) 15 ML CUP MT SCH ×2 (07:03→20:00)
[2017-03-22] MEDS: SODIUM CHLORIDE 0.9% FLUSH 10 ML FLUSH IV FLUSH SCH ×2 (09:00→21:38)
[2017-03-22] MEDS: predniSONE 5 MG TAB PO SCH ×2 (09:06→21:38)
[2017-03-22] MEDS: CARVEDILOL 3.125 MG TAB PO SCH ×2 (09:06→21:38)
[2017-03-22] MEDS: ENOXAPARIN SODIUM 40 MG/0.4 ML SYRINGE SQ SCH (09:06)
[2017-03-22] MEDS: ASPIRIN 81 MG CHEW TAB CHEW SCH (09:07)
[2017-03-22] MEDS: PANTOPRAZOLE SOD 40 MG DELAYED RELEASE TAB PO SCH (09:07)
--- NOTE | 2017-03-22 10:24 | HHI.PR ---
Subjective Remarks 81 YOWM with Rt PTX,COPD Had right Thoracotomy with repair of BP fistula, pleurodesis Chest tube to water seal Denies CP Slept well CXR No PTX Chest tube drained 130 cc Objective Vital Signs Vital Signs Date Time Temp Pulse Resp B/P (MAP) Pulse Ox O2 Delivery O2 Flow Rate FiO2 03/22/17 08:00 68 03/22/17 08:00 98.0 80 22 126/68 (87) 99 03/22/17 07:35 98 Nasal Cannula 2.00 03/22/17 07:00 72 03/22/17 06:02 66 03/22/17 05:02 70 03/22/17 04:09 80 03/22/17 04:02 97.9 80 22 128/73 (91) 99 03/22/17 04:02 99 Nasal Cannula 2.00 03/22/17 03:34 69 03/22/17 02:43 66 03/22/17 01:40 67 03/22/17 00:10 70 03/21/17 23:26 97.8 76 18 137/71 (93) 95 03/21/17 23:26 95 Nasal Cannula 2.00 03/21/17 23:25 73 03/21/17 22:20 72 03/21/17 21:42 87 03/21/17 21:14 97 Nasal Cannula 2.00 03/21/17 20:18 81 03/21/17 19:42 97.5 85 20 125/67 (86) 98 03/21/17 19:42 101 03/21/17 19:42 98 Nasal Cannula 2.00 03/21/17 18:00 86 03/21/17 17:00 82 03/21/17 16:00 98.0 73 18 119/62 (81) 99 03/21/17 16:00 100 Nasal Cannula 2.00 03/21/17 16:00 86 03/21/17 15:00 76 03/21/17 14:00 86 03/21/17 13:00 82 03/21/17 13:00 88 03/21/17 12:00 100 Nasal Cannula 2.00 03/21/17 12:00 98.0 73 18 106/58 (74) 99 03/21/17 12:00 86 03/21/17 11:00 76 I/O 1003/21/17 03/21/17 03/22/17 03/22/17 03/22/17 07:00 15:00 23:00 07:00 15:00 23:00 Intake Total 240 ml 775 ml 200 ml Output Total 580 ml 635 ml 840 ml Balance -340 ml 140 ml -640 ml Intake Oral 240 ml 775 ml 200 ml Output Urine Total 550 ml 575 ml 700 ml Chest Tube Drainage Total 30 ml 60 ml 140 ml # Bowel Movements 0 1 Result Diagram: 03/18/17 0615 Objective Remarks GENERAL: MBMN WM, NAD SKIN: Warm and dry. HEAD: Normocephalic. EYES: No scleral icterus. No injection or drainage. NECK: Supple, trachea midline. No JVD or lymphadenopathy. CARDIOVASCULAR: Regular rate and rhythm without murmurs, gallops, or rubs. RESPIRATORY: Breath sounds equal bilaterally. No accessory muscle use. Right chest tube in place GASTROINTESTINAL: Abdomen soft, non-tender, nondistended. MUSCULOSKELETAL: No cyanosis, or edema. BACK: Nontender without obvious deformity. No CVA tenderness. A/P Assessment and Plan Right PTX S/P Rt Thoracotomy COPD HTN PLAN: Aerosol nebs Supplement 02 DW pt Chest tube to water seal. Jayro Hicks MD Mar 22, 2017 10:24
--- NOTE | 2017-03-22 13:32 | HHI.PR ---
Subjective Remarks Follow up for right pneumothorax. Patient is resting in bed, denies any chest pain, shortness of breath, fever or chills. He remains on room air. His chest tube is in place currently to water seal. Objective Vitals Vital Signs Date Time Temp Pulse Resp B/P (MAP) Pulse Ox O2 Delivery O2 Flow Rate FiO2 03/22/17 13:00 82 03/22/17 12:00 80 03/22/17 11:50 96 Nasal Cannula 2.00 03/22/17 11:48 97.8 76 18 122/72 (89) 95 03/22/17 11:00 84 03/22/17 10:00 78 03/22/17 09:00 72 03/22/17 08:00 68 03/22/17 08:00 98.0 80 22 126/68 (87) 99 03/22/17 07:35 98 Nasal Cannula 2.00 03/22/17 07:00 72 03/22/17 06:02 66 03/22/17 05:02 70 03/22/17 04:09 80 03/22/17 04:02 97.9 80 22 128/73 (91) 99 03/22/17 04:02 99 Nasal Cannula 2.00 03/22/17 03:34 69 03/22/17 02:43 66 03/22/17 01:40 67 03/22/17 00:10 70 03/21/17 23:26 97.8 76 18 137/71 (93) 95 03/21/17 23:26 95 Nasal Cannula 2.00 03/21/17 23:25 73 03/21/17 22:20 72 03/21/17 21:42 87 03/21/17 21:14 97 Nasal Cannula 2.00 03/21/17 20:18 81 03/21/17 19:42 97.5 85 20 125/67 (86) 98 03/21/17 19:42 101 03/21/17 19:42 98 Nasal Cannula 2.00 03/21/17 18:00 86 03/21/17 17:00 82 03/21/17 16:00 98.0 73 18 119/62 (81) 99 03/21/17 16:00 100 Nasal Cannula 2.00 03/21/17 16:00 86 03/21/17 15:00 76 03/21/17 14:00 86 I/O 03/21/17 03/21/17 03/21/17 03/22/17 03/22/17 03/22/17 07:00 15:00 23:00 07:00 15:00 23:00 Intake Total 240 ml 775 ml 200 ml Output Total 580 ml 635 ml 840 ml Balance -340 ml 140 ml -640 ml Intake Oral 240 ml 775 ml 200 ml Output Urine Total 550 ml 575 ml 700 ml Chest Tube Drainage Total 30 ml 60 ml 140 ml # Bowel Movements 0 1 Result Diagram: 03/18/17 0615 Imaging Last Impressions Chest X-Ray 03/22/17 0600 Signed Impressions: Service Date/Time: Wednesday, March 22, 2017 04:27 - CONCLUSION: Little change from previous exam Jerome Marin MD Chest Tube Change 03/09/17 1255 Signed Impressions: Service Date/Time: Thursday, March 09, 2017 14:13 - CONCLUSION: Uncomplicated chest tube exchange as above. Jones Hurst MD Chest CT 03/09/17 0000 Signed Impressions: Service Date/Time: Thursday, March 09, 2017 11:39 - CONCLUSION: 1. There is continued residual pneumothorax in spite of 2 chest tubes on the right. 2. The extensive subcutaneous emphysema which was seen on previous exam has improved. 3. Large hiatal hernia. Jones Hurst MD Chest Tube Insertion 03/06/17 0000 Signed Impressions: Service Date/Time: Monday, March 06, 2017 13:29 - CONCLUSION: Uncomplicated chest tube placement as above. Peyman Dave MD Objective Remarks GENERAL: Sleeping. No acute distress. SKIN: Warm and dry. HEAD: Normocephalic. EYES: No scleral icterus. No injection or drainage. NECK: Supple, trachea midline. No JVD or lymphadenopathy. CARDIOVASCULAR: Regular rate and rhythm without murmurs, gallops, or rubs. RESPIRATORY: Breath sounds equal bilaterally. No accessory muscle use. Right sided chest tube in place. GASTROINTESTINAL: Abdomen soft, non-tender, nondistended. MUSCULOSKELETAL: No cyanosis, or edema. BACK: Nontender without obvious deformity. No CVA tenderness. Procedures chest tube insertion/ exchange. 03/18/2017 Procedure: 1. Right Posterolateral Muscle Sparing Mini-Thoracotomy 2. Repair of Bronchopleural Fistula 3. Bullae Resection 4. Lysis of Adhesions 5. Mechanical and Betadine Pleurodesis 6. Intercostal Nerve Block A/P Problem List: (1) Pneumothorax, right ICD Code: J93.9 - Pneumothorax, unspecified Status: Acute (2) COPD (chronic obstructive pulmonary disease) ICD Code: J44.9 - Chronic obstructive pulmonary disease, unspecified Status: Acute (3) Heart failure ICD Code: I50.9 - Heart failure, unspecified (4) Dysphagia ICD Code: R13.10 - Dysphagia, unspecified Assessment and Plan Mr. Guerra is a pleasant 81 year old male with a history of CHF, COPD and previous right sided pneumothorax who was admitted on 02/27/2017 due to sudden onset of right sided chest pain. ED work indicated large right sided pneumothorax. A 28-Spanish chest tube was inserted. He continued to have persistent small apical pneumothorax. Subsequently, a 10-Spanish pigtail catheter was placed. Cardiothoracic surgery was consulted due to persistent air leak, possible need for video assisted thoracoscopy. - Pneumothorax, right - Dual chest tube placed - s/p chest tube exchange on 03/09/17. Large-bore chest tube fell off. Patient has a small chest tube. - Continues to have air leak - unable to discontinue small chest tube - CT surgery following. Patient underwent surgical intervention on 2016. Chest tube to water seal. - pulmonary following. - CXR today shows persistent right suprahilar infiltrates. CXR reviewed by me on 03/22/2017. - COPD (chronic obstructive pulmonary disease) - Continue supplemental O2 to maintain O2 sat > 90%. - supportive care, no exacerbation at this time - patient on chronic steroids, prednisone 5mg BID. - continue with neb treatment. 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 - known systolic dysfunction and EF 30% - continue Carvedilol 3.125mg Q12hrs, aspirin 81mg Qday. - No evidence of decompensation at this time - Dysphagia - modified diet, stable - outpatient ST recommended Full code. Lovenox. Discharge plan: Chest tube still in place and still draining. Ana Olievra DO Mar 22, 2017 1:32 pm
--- NOTE | 2017-03-22 16:42 | PD.CAR.PN ---
CVT Progress Note Subjective/Hospital Course: 81/ male , recurrent right PTX , admitted via ED right sided chest pain , # 28french chest tube placed in ED, then additional 10french pig tail cath placed 03/06 by IR, pig tail cath had +1-2 air leak, pt went back to IR yesterday and had pigtail cath changed out for a 12 jamaican pig tail cath , still has +1 air leak , PMH: severe COPD on chronic home , systolic HF EF 30%, dysphagia 03/10 still has +1-2 air leak from new 12 jamaican pig tail #28 jamaican cath no air leak minimal drainage CXR tiny right apical PTX continue medical therapy for now, will continue to monitor 03/11 right pig tail cath +1-2 airleak on suction right 28 jamaican no air leak f/u cxr no surgery for now 03/14 right large bore chest tube apparently fell out per nursing vaseline occlusive dressing applied IR evaluate pig tail cath, pt still has air leak, continue suction no PTX on CXR will discuss with Dr Tony 03/15 pt eval , no change in air leak from pig tail cath scheduled for right video assisted thoracoscopy, possible thoracotomy , bleb resection and pleurodesis on friday 03/16 still has air leak 03/17 nursing spoke with daughter she is aware of her father's high risk due to poor lung compliance but understands that he needs surgery , he is still scheduled for surgery in am 03/18 for surgery today, still has air leak Procedure: 1. Right Posterolateral Muscle Sparing Mini-Thoracotomy 2. Repair of Bronchopleural Fistula 3. Bullae Resection 4. Lysis of Adhesions 5. Mechanical and Betadine Pleurodesis 6. Intercostal Nerve Block 03/19 Doing well No air-leak Ambulate Maintain CT to suction for now Bronchodilators as already doing 03/20 CT to water seal Nurse reports intermittent air-leak. None observed by me. Change old CT site packing BID Ambulate 03/21 continue aceves seal , evaluate for chest tube in am cxr pending in am no air leak pulm toileting 03/22 cxr no ptx, ct dc without difficulty leave current dressing in place x 48 hrs daily dressing and packing change to right upper chest wound daily recheck cxr in am, if stable , ok to transfer to SNF Objective: GENERAL: SKIN: Warm and dry. dressing in place right upper chest wall with packing dressing over chest tube site in place , very poor skin turgor HEAD: Normocephalic. EYES: No scleral icterus. No injection or drainage. NECK: Supple, trachea midline. No JVD or lymphadenopathy. CARDIOVASCULAR: Regular rate and rhythm without murmurs, gallops, or rubs. RESPIRATORY: Breath sounds equal bilaterally. No accessory muscle use. diminished bilaterally GASTROINTESTINAL: Abdomen soft, non-tender, nondistended. MUSCULOSKELETAL: No cyanosis, or edema. BACK: Nontender without obvious deformity. No CVA tenderness. Vital Signs Date Time Temp Pulse Resp B/P (MAP) Pulse Ox O2 Delivery O2 Flow Rate FiO2 03/22/17 15:51 96 2.00 03/22/17 15:00 80 03/22/17 14:00 80 03/22/17 13:00 82 03/22/17 12:00 80 03/22/17 11:50 96 Nasal Cannula 2.00 03/22/17 11:48 97.8 76 18 122/72 (89) 95 03/22/17 11:00 84 03/22/17 10:00 78 03/22/17 09:00 72 03/22/17 08:00 68 03/22/17 08:00 98.0 80 22 126/68 (87) 99 03/22/17 07:35 98 Nasal Cannula 2.00 03/22/17 07:00 72 03/22/17 06:02 66 03/22/17 05:02 70 03/22/17 04:09 80 03/22/17 04:02 97.9 80 22 128/73 (91) 99 03/22/17 04:02 99 Nasal Cannula 2.00 03/22/17 03:34 69 03/22/17 02:43 66 03/22/17 01:40 67 03/22/17 00:10 70 03/21/17 23:26 97.8 76 18 137/71 (93) 95 03/21/17 23:26 95 Nasal Cannula 2.00 03/21/17 23:25 73 03/21/17 22:20 72 03/21/17 21:42 87 03/21/17 21:14 97 Nasal Cannula 2.00 03/21/17 20:18 81 03/21/17 19:42 97.5 85 20 125/67 (86) 98 03/21/17 19:42 101 03/21/17 19:42 98 Nasal Cannula 2.00 03/21/17 18:00 86 03/21/17 17:00 82 Result Diagram: 03/18/17 0615 (1) Pneumothorax, right Plan: chest tube removed eval cxr in am , if stable , the ok to dc pt s/p right VATS, possible bleb resection / pleurodesis today OOB, ambulate pt/ ot (2) COPD (chronic obstructive pulmonary disease) (3) Bronchopleural fistula (4) Bullous emphysema (5) S/P thoracotomy Conchita Valadez Mar 22, 2017 16:42
[2017-03-22] MEDS ORDERED: ACETAMINOPHEN/HYDROcodone 325 MG/5 MG TAB PO PRN ×2 (20:15)
[2017-03-22] MEDS: DOCUSATE CALCIUM 240 MG CAP PO SCH (21:38)
[2017-03-23] VITALS (17 sets, daily range): BP systolic 116–121; BP diastolic 60–72; PULSE 68–93; RESP 18; TEMP 97–98.2; O2SAT 96–100
[2017-03-23] MEDS: RESP: ALBUTEROL 2.5 MG/3 ML NEB (SCH) NEB ×3 (03:32→15:59)
[2017-03-23] MEDS: CHLORHEXIDINE GLUCONATE 2 % 1 PACK (2 CLOTHS) TOP SCH (03:41)
--- NOTE | 2017-03-23 04:33 | RADRPT ---
EXAM DATE/TIME: 03/23/2017 03:55 [facility] COMPARISON: CHEST SINGLE AP, March 22, 2017, 4:27. INDICATIONS : Short of breath. MEDICAL HISTORY : Chronic obstructive pulmonary disease. SURGICAL HISTORY : None. ENCOUNTER: Subsequent ACUITY: 2 weeks PAIN SCORE: 0/10 LOCATION: Bilateral chest FINDINGS: There has been interval removal of right thoracostomy tube. Left subclavian central line has been rem jay. There is no evidence of pneumothorax. Right apical and superhilar parenchymal opacity is grossl y stable. Mild opacity at the left base is slightly improved. Cardiac contours are unchanged. CONCLUSION: Central line and thoracostomy tube removal. Continued slight improvement in aeration Jerome Marin MD on March 23, 2017 at 4:30 Board Certified Radiologist. This report was verified electronically.
[2017-03-23] MEDS: CHLORHEXIDINE 0.12% (ORAL KIT) 15 ML CUP MT SCH (08:00)
[2017-03-23] MEDS: SODIUM CHLORIDE 0.9% FLUSH 10 ML FLUSH IV FLUSH SCH (08:08)
[2017-03-23] MEDS: predniSONE 5 MG TAB PO SCH (08:08)
[2017-03-23] MEDS: ENOXAPARIN SODIUM 40 MG/0.4 ML SYRINGE SQ SCH (08:08)
[2017-03-23] MEDS: ASPIRIN 81 MG CHEW TAB CHEW SCH (08:08)
[2017-03-23] MEDS: CARVEDILOL 3.125 MG TAB PO SCH (08:08)
[2017-03-23] MEDS: PANTOPRAZOLE SOD 40 MG DELAYED RELEASE TAB PO SCH (08:08)
[2017-03-23] MEDS ORDERED: IPRASOL INH (10:21)
--- NOTE | 2017-03-23 10:24 | HHI.DS ---
Discharge Summary Admission Date Feb 27, 2017 at 22:36 Discharge Date: Mar 23, 2017 Admitting Diagnosis right pneumothorax, elevated troponin I (1) Pneumothorax, right ICD Code: J93.9 - Pneumothorax, unspecified Status: Acute (2) COPD (chronic obstructive pulmonary disease) ICD Code: J44.9 - Chronic obstructive pulmonary disease, unspecified Status: Acute (3) Heart failure ICD Code: I50.9 - Heart failure, unspecified (4) Dysphagia ICD Code: R13.10 - Dysphagia, unspecified Procedures chest tube insertion/ exchange. 03/18/2017 Procedure: 1. Right Posterolateral Muscle Sparing Mini-Thoracotomy 2. Repair of Bronchopleural Fistula 3. Bullae Resection 4. Lysis of Adhesions 5. Mechanical and Betadine Pleurodesis 6. Intercostal Nerve Block Brief History - From Admission The patient presented to the ED with complains of midline substernal chest discomfort and shortness of breath for several hours. He does have a history of pneumothorax. He is not sure that he has the same pain as he did previously a pneumothorax. He does have a history of COPD and is oxygen dependent on 2 L nasal cannula. Laboratory and imaging studies were performed in the ED the patient was noted to have a right pneumothorax a chest tube was placed, repeat chest x-ray showed small residual apical right pneumothorax. Critical care medicine was consulted for management. History PFSH Past Medical History Arthritis: Yes Asthma: No Autoimmune Disease: No Heart Rhythm Problems: No Cancer: No Cardiovascular Problems: No High Cholesterol: No Chest Pain: No Congestive Heart Failure: No COPD: Yes Cerebrovascular Accident: No Diabetes: No Diminished Hearing: No Endocrine: No Gastrointestinal Disorders: Yes GERD: Yes Glaucoma: No Genitourinary: No Headaches: No Hepatitis: No Hiatal Hernia: No Hypertension: No Immune Disorder: No Implanted Vascular Access Dvce: Yes Kidney Stones: No Musculoskeletal: Yes Neurologic: No Psychiatric: No Respiratory: No Immunizations Current: Yes Myocardial Infarction: No Renal Failure: No Seizures: No Sleep Apnea: No Thyroid Disease: No Ulcer: No Past Surgical History Abdominal Surgery: No AICD: No Cardiac Surgery: No Ear Surgery: No Endocrine Surgery: No Eye Surgery: No Genitourinary Surgery: No Joint Replacement: Yes (BILATERAL KNEE) Oral Surgery: No Pacemaker: No Thoracic Surgery: No Other Surgery: Yes Social History Alcohol Use: Yes (SOCIALLY) Tobacco Use: No Substance Use: No Allergies-Medications Allergies-Medications (Allergen,Severity, Reaction): Coded Allergies: *MDRO Multi-Drug Resistant Organism (Verified Adverse Reaction, Unknown, MRSA, 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 - 07/16/16 Reported Meds & Prescriptions Reported Meds & Active Scripts Active Pantoprazole (Pantoprazole Sodium) 40 Mg Tab 40 Mg PO DAILY Nitrostat SL (Nitroglycerin) 0.4 Mg Subl 0.4 Mg SL Q5M PRN Coreg (Carvedilol) 3.125 Mg Tab 3.125 Mg PO Q12HR Reported Prednisone 5 Mg Tab 5 Mg PO BID Aspirin Children's (Aspirin) 81 Mg Chew 81 Mg CHEW DAILY ROS Review of Systems Except as stated in HPI: all other systems reviewed are Neg Imaging Last Impressions Chest X-Ray 03/23/17 0600 Signed Impressions: Service Date/Time: Thursday, March 23, 2017 03:55 - CONCLUSION: Central line and thoracostomy tube removal. Continued slight improvement in aeration Jerome Marin MD Chest Tube Change 03/09/17 1255 Signed Impressions: Service Date/Time: Thursday, March 09, 2017 14:13 - CONCLUSION: Uncomplicated chest tube exchange as above. Jones Hurst MD Chest CT 03/09/17 0000 Signed Impressions: Service Date/Time: Thursday, March 09, 2017 11:39 - CONCLUSION: 1. There is continued residual pneumothorax in spite of 2 chest tubes on the right. 2. The extensive subcutaneous emphysema which was seen on previous exam has improved. 3. Large hiatal hernia. Jones Hurst MD Chest Tube Insertion 03/06/17 0000 Signed Impressions: Service Date/Time: Monday, March 06, 2017 13:29 - CONCLUSION: Uncomplicated chest tube placement as above. Peyman Dave MD PE at Discharge General: Elderly male in no acute distress. Sitting up in a chair. Heart: Regular rate and rhythm. No murmur. Lungs: Clear to auscultation bilaterally. No wheezes, rales, or rhonchi. Breathing is nonlabored. Abdomen: Soft, nontender, nondistended. Extremities: No lower extremity edema. Psych: Alert and oriented. Pt update on day of discharge The patient has no complaints today. He states "I'm getting out today". Denies chest pain or dyspnea. No coughing. Hospital Course Patient was admitted to the critical care service for management of right pneumothorax. Chest tube was placed in the emergency department. Pulmonology was consulted. Patient continued to have pneumothorax. A second chest tube was placed without resolution the pneumothorax. Cardiothoracic surgery was consulted. Patient underwent video-assisted thoracoscopy. Chest tubes were removed. His symptoms improved and was cleared for discharge by cardiothoracic surgery. Arrangements were made for discharge home with home health care. Pt Condition on Discharge: Stable Discharge Disposition: Disch w/ Home Health Serv Discharge Time: > 30 minutes Discharge Instructions DIET: Follow Instructions for: As Tolerated, No Restrictions Speech Therapy-Diet Recommends: Honey Thickened Liquids, Mechanical Soft, Chopped Meat w/Gravy Activities you can perform: Regular-No Restrictions Follow up Referrals: PCP Follow-up - 1 Week SNF/CARE HOME/ Surgical - 1 Week with Maite Bowman MD New Medications: Ipratropium-Albuterol Neb (Duoneb) 0.5-2.5 Mg/3 Ml Neb 1 AMPULE INH Q4HR NEB PRN for SHORTNESS OF BREATH, #30 ML 0 Refills Continued Medications: Aspirin (Aspirin Children's) 81 Mg Chew 81 MG CHEW DAILY, TAB 0 Refills Carvedilol (Coreg) 3.125 Mg Tab 3.125 MG PO Q12HR for Prevent Heart Failure, #60 TAB Nitroglycerin SL (Nitrostat SL) 0.4 Mg Subl 0.4 MG SL Q5M PRN for X 3 doses for chest pain, #30 MG Pantoprazole (Pantoprazole) 40 Mg Tab 40 MG PO DAILY for Manage Heartburn, #30 TAB Prednisone (Prednisone) 5 Mg Tab 5 MG PO BID, TAB 0 Refills John Rodriguez MD Mar 23, 2017 10:24
--- NOTE | 2017-03-23 11:23 | PD.CAR.PN ---
CVT Progress Note Subjective/Hospital Course: 81/ male , recurrent right PTX , admitted via ED right sided chest pain , # 28french chest tube placed in ED, then additional 10french pig tail cath placed 03/06 by IR, pig tail cath had +1-2 air leak, pt went back to IR yesterday and had pigtail cath changed out for a 12 equatorial guinean pig tail cath , still has +1 air leak , PMH: severe COPD on chronic home , systolic HF EF 30%, dysphagia 03/10 still has +1-2 air leak from new 12 equatorial guinean pig tail #28 equatorial guinean cath no air leak minimal drainage CXR tiny right apical PTX continue medical therapy for now, will continue to monitor 03/11 right pig tail cath +1-2 airleak on suction right 28 equatorial guinean no air leak f/u cxr no surgery for now 03/14 right large bore chest tube apparently fell out per nursing vaseline occlusive dressing applied IR evaluate pig tail cath, pt still has air leak, continue suction no PTX on CXR will discuss with Dr Tony 03/15 pt eval , no change in air leak from pig tail cath scheduled for right video assisted thoracoscopy, possible thoracotomy , bleb resection and pleurodesis on friday 03/16 still has air leak 03/17 nursing spoke with daughter she is aware of her father's high risk due to poor lung compliance but understands that he needs surgery , he is still scheduled for surgery in am 03/18 for surgery today, still has air leak Procedure: 1. Right Posterolateral Muscle Sparing Mini-Thoracotomy 2. Repair of Bronchopleural Fistula 3. Bullae Resection 4. Lysis of Adhesions 5. Mechanical and Betadine Pleurodesis 6. Intercostal Nerve Block 03/19 Doing well No air-leak Ambulate Maintain CT to suction for now Bronchodilators as already doing 03/20 CT to water seal Nurse reports intermittent air-leak. None observed by me. Change old CT site packing BID Ambulate 03/21 continue aceves seal , evaluate for chest tube in am cxr pending in am no air leak pulm toileting 03/22 cxr no ptx, ct dc without difficulty leave current dressing in place x 48 hrs daily dressing and packing change to right upper chest wound daily recheck cxr in am, if stable , ok to transfer to SNF 03/23 CXR stable, no PTX, stable for transfer or discharge to rehab on room air 02 continue daily dressing changes with iodoform to right upper chest wall wound ok to shower in am Objective: GENERAL: SKIN: Warm and dry. dressing D&I right upper chest / 0.5x0.25 cm deep wound / granulating well right chest tube site with dressing in place right lateral chest wall HEAD: Normocephalic. EYES: No scleral icterus. No injection or drainage. NECK: Supple, trachea midline. No JVD or lymphadenopathy. CARDIOVASCULAR: Regular rate and rhythm without murmurs, gallops, or rubs. RESPIRATORY: Breath sounds equal bilaterally. No accessory muscle use. diminished in bases GASTROINTESTINAL: Abdomen soft, non-tender, nondistended. MUSCULOSKELETAL: No cyanosis, or edema. BACK: Nontender without obvious deformity. No CVA tenderness. Vital Signs Date Time Temp Pulse Resp B/P (MAP) Pulse Ox O2 Delivery O2 Flow Rate FiO2 03/23/17 10:47 86 03/23/17 09:05 81 03/23/17 08:47 100 Room Air 03/23/17 08:47 97.0 84 18 121/65 (83) 100 03/23/17 08:47 85 03/23/17 06:25 68 03/23/17 05:13 77 03/23/17 04:17 75 03/23/17 03:48 96 Nasal Cannula 2.00 03/23/17 03:48 98.0 74 18 119/60 (79) 96 03/23/17 03:17 77 03/23/17 02:13 75 03/23/17 01:12 93 03/23/17 00:41 80 03/22/17 23:40 99 Nasal Cannula 2.00 03/22/17 23:40 84 03/22/17 23:15 98.2 81 18 108/59 (75) 98 03/22/17 22:05 74 03/22/17 21:00 74 03/22/17 21:00 96 Nasal Cannula 2.00 03/22/17 20:15 72 03/22/17 19:51 98.1 73 20 114/64 (81) 97 03/22/17 19:51 99 Nasal Cannula 2.00 03/22/17 19:25 77 03/22/17 18:00 86 03/22/17 17:00 87 03/22/17 16:00 82 03/22/17 16:00 98.0 84 18 114/72 (86) 95 03/22/17 16:00 97 Nasal Cannula 2.00 03/22/17 15:51 96 2.00 03/22/17 15:00 80 03/22/17 14:00 80 03/22/17 13:00 82 03/22/17 12:00 80 03/22/17 11:50 96 Nasal Cannula 2.00 03/22/17 11:48 97.8 76 18 122/72 (89) 95 Telemetry: NSR (1) Pneumothorax, right Plan: CXR stable post chest tube removal yesterday s/p right VATS, possible bleb resection / pleurodesis ok to dc today f/u with Dr Tony in 2 weeks (2) COPD (chronic obstructive pulmonary disease) (3) Bronchopleural fistula (4) Bullous emphysema (5) S/P thoracotomy Conchita Valadez Mar 23, 2017 11:23
--- NOTE | 2017-03-23 11:59 | HHI.DCPOC ---
Discharge Care Plan Diagnosis: (1) Pneumothorax, right (2) COPD (chronic obstructive pulmonary disease) Goals to Promote Your Health * To prevent worsening of your condition and complications * To maintain your health at the optimal level Directions to Meet Your Goals Take your medications as prescribed Follow your dietary instruction Follow activity as directed Keep your appointments as scheduled Take your immunizations and boosters as scheduled If your symptoms worsen call your PCP, if no PCP go to Urgent Care Center or Emergency Room Smoking is Dangerous to Your Health. Avoid second hand smoke Call the 24-hour hour crisis hotline for domestic abuse at John Rodriguez MD Mar 23, 2017 11:59
--- NOTE | 2017-03-23 16:12 | HHI.FF ---
Face to Face Verification Diagnosis: (1) Pneumothorax, right (2) COPD (chronic obstructive pulmonary disease) Physical Therapy Order: Evaluate and Treat Occupational Therapy Order: Evaluate and Treat Home Health Nursing Order: Wound care and dressing changes (Chest tube wounds) Nursing assessment with vital signs I have seen patient Shahid Guerra on 03/23/17. My clinical findings support the need for the requested home health care services because: Patient has SOB I certify that my clinical findings support that this patient is homebound because: Hx COPD- exertion dyspnea/weakness John Rodriguez MD Mar 23, 2017 16:12
== END 2017-03-23 16:57 | disposition home health service (06) | DRG 163 ==
LOC: PHED 20:28 → PHEDA 22:36 → PHICU 02-28 01:31 → PH5A 03-03 20:51 → PHICU 03-06 15:00 → HCIN 03-08 23:41 → HCPC 03-18 17:20
PROVIDERS: ADMIT Family Medicine; ATTEND Family Medicine
PROC: 0W9930Z Drainage of Right Pleural Cavity with Drainage Device, Percutaneous Approach (ICD-10-PCS; 2017-02-27)
PROC: 3E0F7GC Introduction of Other Therapeutic Substance into Respiratory Tract, Via Natural or Artificial Opening (ICD-10-PCS; 2017-03-09)
PROC: 0BBF0ZX Excision of Right Lower Lung Lobe, Open Approach, Diagnostic (ICD-10-PCS; 2017-03-18)
PROC: 0BB Respiratory System, Excision (ICD-10-PCS; 2017-03-18)
PROC: 3E0F7GC Introduction of Other Therapeutic Substance into Respiratory Tract, Via Natural or Artificial Opening (ICD-10-PCS; 2017-03-18)
PROC: 0W9930Z Drainage of Right Pleural Cavity with Drainage Device, Percutaneous Approach (ICD-10-PCS; 2017-03-18)
PROC: 2W04XYZ Change Other Device on Chest Wall (ICD-10-PCS; 2017-03-18)
PROC: 3E0T3BZ Introduction of Anesthetic Agent into Peripheral Nerves and Plexi, Percutaneous Approach (ICD-10-PCS; 2017-03-18)
PROC: 0B5N0ZZ Destruction of Right Pleura, Open Approach (ICD-10-PCS; principal; 2017-03-18 12:39)
DX: J93.83 Other pneumothorax (principal); J86.0 Pyothorax with fistula; I42.9 Cardiomyopathy, unspecified; I50.22 Chronic systolic (congestive) heart failure; I11.0 Hypertensive heart disease with heart failure; J44.9 Chronic obstructive pulmonary disease, unspecified; R13.10 Dysphagia, unspecified; J43.9 Emphysema, unspecified; Z99.81 Dependence on supplemental oxygen; R74.8 Abnormal levels of other serum enzymes; K21.9 Gastro-esophageal reflux disease without esophagitis; M19.90 Unspecified osteoarthritis, unspecified site; Z96.653 Presence of artificial knee joint, bilateral; Z86.14 Personal history of Methicillin resistant Staphylococcus aureus infection; Z87.891 Personal history of nicotine dependence; J93.82 Other air leak; Z79.52 Long term (current) use of systemic steroids
CPT/HCPCS: 32551; 71010; 71020; 71250; 76937; 80048; 80053; 81001; 82550; 83735; 83880; 84100; 84484; 85025; 85610; 86850; 86900; 86901; 87640; 87641; 88307; 93005; 94150; 94640; 94664; 99152; 99153; C1729; C1769; C9290; J0131; J0690; J1100; J1170; J1650; J1885; J2250; J2270; J2370; J2405; J2710; J3010; J7030; J7040; J7050; J7512; J7613

== ENCOUNTER 2018-05-04 14:58 | Inpatient (IN) ==
[2018-05-04] MEDS ORDERED: Sod Chloride 0.9% Inj 1,000 ML IV.SIG SCH (16:45)
--- NOTE | 2018-05-04 16:50 | ED ---
HPI General Chief complaint: Shortness of Breath/Dyspnea Stated complaint: difficulty swallowing x 2 weeks Time Seen by Provider: 05/04/18 16:26 Source: patient and family Mode of arrival: ambulatory Limitations: no limitations History of Present Illness HPI narrative: Patient presents with history of dysphagia for the last 3 days. Patient now has difficulty ingesting both solids and liquids. In addition to this patient has had shortness of breath with exertion. Patient is chronically on nasal O2 at home and is maintained at 2 L/min. Patient has long history of COPD. Related Data Home Medications Medication Instructions Recorded Confirmed aspirin [Aspir-81] 81 mg PO DAILY 05/04/18 05/04/18 carvedilol 3.125 mg PO BID 05/04/18 05/04/18 ferrous sulfate 325 mg PO DAILY 05/04/18 05/04/18 pantoprazole 40 mg PO DAILY 05/04/18 05/04/18 prednisone 5 mg PO DAILY 05/04/18 05/04/18 Allergies Allergy/AdvReac Type Severity Reaction Status Date / Time No Known Allergies Allergy Verified 05/04/18 15:39 Review of Systems ROS: all other systems reviewed are negative [facility] Medical History Medical History COPD (chronic obstructive pulmonary disease) (Acute) Collapse, lung (Acute) GERD (gastroesophageal reflux disease) (Acute) Hypertension (Acute) Surgical History Surgical History H/O knee surgery (Acute) Social History Social History Second Hand Smoke Exposure: No Smoking Status: Former smoker Tobacco Type: Cigarettes How Often Do You Have a Drink Containing Alcohol: Never Recent Travel in [facility] within the Last 8 Weeks: No Recent Out of Country Travel within the Last 8 Weeks: No Immunization History Tetanus Immunization: <5 Years Exam Narrative Exam Narrative: GENERAL: Moderate chronic respiratory distress on nasal O2. SKIN: Focused skin assessment warm/dry. HEAD: Atraumatic. Normocephalic. EYES: Pupils equal and round. No scleral icterus. No injection or drainage. ENT: No nasal bleeding or discharge. Mucous membranes pink and moist. NECK: Trachea midline. No JVD. CARDIOVASCULAR: Irregular rhythm with sinus rhythm and bigeminy and frequent runs of PVCs to a max of 7. No murmur appreciated. RESPIRATORY: No accessory muscle use. Clear to auscultation. Breath sounds decreased bilaterally with crepitant rales to bases increased rales on left base. GASTROINTESTINAL: Abdomen soft, non-tender, nondistended. Hepatic and splenic margins not palpable. MUSCULOSKELETAL: No obvious deformities. No clubbing. No cyanosis. No edema. NEUROLOGICAL: Awake and alert. No obvious cranial nerve deficits. Motor grossly within normal limits. Normal speech. PSYCHIATRIC: Appropriate mood and affect; insight and judgment normal. Course Reevaluation(s) Reevaluation #1: Patient responded to amiodarone with resolution of bigeminy and ventricular tachycardia. Multiple evaluations required to give additional medications to control arrhythmia. Patient placed on antibiotics for his pneumonia. Dysphagia will be evaluated as an inpatient Time: 08:30 Initial Documented Vital Signs Temperature 97.9 F 05/04/18 15:04 Pulse Rate 62 05/04/18 15:04 Respiratory Rate 22 05/04/18 15:04 Blood Pressure 145/68 H 05/04/18 15:04 Pulse Oximetry 94 L 05/04/18 15:04 Last Documented Vital Signs Temperature 98.1 F 05/04/18 18:15 Pulse Rate 82 05/04/18 22:00 Respiratory Rate 16 05/04/18 22:00 Blood Pressure 112/63 05/04/18 22:00 Pulse Oximetry 98 05/04/18 18:59 Critical Care Time Critical Care Time: Yes Total Critical Care Time: 60 Attestation: Not necessary Medical Decision Making [facility] Narrative Medical decision making narrative: Patient required admission due to dysphagia, ventricular tachycardia and pneumonia Medical Screen Exam Complete: Yes Emergency Medical Condition: Yes Lab Data Result diagrams: 05/04/18 16:45 05/04/18 16:45 Lab Results 05/04/18 05/04/18 05/04/18 Range/Units 16:45 16:45 16:45 CBC w Diff Auto diff final WBC 17.9 H (4.0-11.0) th/mm3 RBC 5.31 (4.50-5.90) mil/mm3 Hgb 15.6 (13.0-17.0) gm/dL Hct 48.0 (39.0-51.0) % MCV 90.3 (80.0-100.0) fL MCH 29.5 (27.0-34.0) pg MCHC 32.6 (32.0-36.0) % RDW 14.4 (11.6-17.2) % Plt Count 234 (150-450) th/mm3 MPV 9.3 (7.0-11.0) fL Neut % (Auto) 88.9 H (16.0-70.0) % Lymph % (Auto) 3.3 L (9.0-44.0) % [place] % (Auto) 5.7 (0.0-8.0) % Eos % (Auto) 0.3 (0.0-4.0) % Baso % (Auto) 1.8 (0.0-2.0) % Neut # (Auto) 15.9 H (1.8-7.7) th/mm3 Lymph # (Auto) 0.6 L (1.0-4.8) th/mm3 [place] # (Auto) 1.0 H (0.0-0.9) th/mm3 Eos # (Auto) 0.1 (0.0-0.4) th/mm3 Baso # (Auto) 0.3 H (0.0-0.2) th/mm3 WBC Differential . Differential Comment . Sodium 142 (136-145) meq/L Potassium 4.0 (3.5-5.1) meq/L Chloride 104 (98-107) meq/L Carbon Dioxide 28.9 (21.0-32.0) meq/L Anion Gap 9 (5-15) meq/L BUN 24 H (7-18) mg/dL Creatinine 0.94 (0.60-1.30) mg/dL Estimated GFR 77 L (>89) mL/min POC Glucose (68-110) mg/dl Random Glucose 61 L (74-106) mg/dL Lactic Acid (0.4-2.0) mmol/L Calcium 8.6 (8.5-10.1) mg/dL Magnesium (1.5-2.5) mg/dL Total Bilirubin 1.8 H (0.2-1.0) mg/dL AST 25 (15-37) U/L ALT 23 (12-78) U/L Alkaline Phosphatase 88 (45-117) U/L Troponin I Less than 0.02 L (0.02-0.05) ng/mL B-Natriuretic Peptide 576 H (0-100) pg/mL Total Protein 8.4 H (6.4-8.2) g/dL Albumin 3.3 L (3.4-5.0) g/dL 05/04/18 05/04/18 05/04/18 Range/Units 16:45 18:00 18:18 CBC w Diff WBC (4.0-11.0) th/mm3 RBC (4.50-5.90) mil/mm3 Hgb (13.0-17.0) gm/dL Hct (39.0-51.0) % MCV (80.0-100.0) fL MCH (27.0-34.0) pg MCHC (32.0-36.0) % RDW (11.6-17.2) % Plt Count (150-450) th/mm3 MPV (7.0-11.0) fL Neut % (Auto) (16.0-70.0) % Lymph % (Auto) (9.0-44.0) % [place] % (Auto) (0.0-8.0) % Eos % (Auto) (0.0-4.0) % Baso % (Auto) (0.0-2.0) % Neut # (Auto) (1.8-7.7) th/mm3 Lymph # (Auto) (1.0-4.8) th/mm3 [place] # (Auto) (0.0-0.9) th/mm3 Eos # (Auto) (0.0-0.4) th/mm3 Baso # (Auto) (0.0-0.2) th/mm3 WBC Differential Differential Comment Sodium (136-145) meq/L Potassium (3.5-5.1) meq/L Chloride (98-107) meq/L Carbon Dioxide (21.0-32.0) meq/L Anion Gap (5-15) meq/L BUN (7-18) mg/dL Creatinine (0.60-1.30) mg/dL Estimated GFR (>89) mL/min POC Glucose 80 (68-110) mg/dl Random Glucose (74-106) mg/dL Lactic Acid 2.1 H (0.4-2.0) mmol/L Calcium (8.5-10.1) mg/dL Magnesium 2.2 (1.5-2.5) mg/dL Total Bilirubin (0.2-1.0) mg/dL AST (15-37) U/L ALT (12-78) U/L Alkaline Phosphatase (45-117) U/L Troponin I (0.02-0.05) ng/mL B-Natriuretic Peptide (0-100) pg/mL Total Protein (6.4-8.2) g/dL Albumin (3.4-5.0) g/dL 05/04/18 Range/Units 21:27 CBC w Diff WBC (4.0-11.0) th/mm3 RBC (4.50-5.90) mil/mm3 Hgb (13.0-17.0) gm/dL Hct (39.0-51.0) % MCV (80.0-100.0) fL MCH (27.0-34.0) pg MCHC (32.0-36.0) % RDW (11.6-17.2) % Plt Count (150-450) th/mm3 MPV (7.0-11.0) fL Neut % (Auto) (16.0-70.0) % Lymph % (Auto) (9.0-44.0) % [place] % (Auto) (0.0-8.0) % Eos % (Auto) (0.0-4.0) % Baso % (Auto) (0.0-2.0) % Neut # (Auto) (1.8-7.7) th/mm3 Lymph # (Auto) (1.0-4.8) th/mm3 [place] # (Auto) (0.0-0.9) th/mm3 Eos # (Auto) (0.0-0.4) th/mm3 Baso # (Auto) (0.0-0.2) th/mm3 WBC Differential Differential Comment Sodium (136-145) meq/L Potassium (3.5-5.1) meq/L Chloride (98-107) meq/L Carbon Dioxide (21.0-32.0) meq/L Anion Gap (5-15) meq/L BUN (7-18) mg/dL Creatinine (0.60-1.30) mg/dL Estimated GFR (>89) mL/min POC Glucose (68-110) mg/dl Random Glucose (74-106) mg/dL Lactic Acid (0.4-2.0) mmol/L Calcium (8.5-10.1) mg/dL Magnesium (1.5-2.5) mg/dL Total Bilirubin (0.2-1.0) mg/dL AST (15-37) U/L ALT (12-78) U/L Alkaline Phosphatase (45-117) U/L Troponin I 0.02 (0.02-0.05) ng/mL B-Natriuretic Peptide (0-100) pg/mL Total Protein (6.4-8.2) g/dL Albumin (3.4-5.0) g/dL Imaging Data Radiologist's impression: Chest X-Ray 05/04/18 16:26 CONCLUSION: Left lower lobe pneumonia. Discharge Plan Discharge Disposition Patient Disposition: 30 Still Patient Physicians Team ED Provider: Hayes Wallace Primary Care Provider: Julian Bunn Attending Provider: Andres Muir Other Providers: Demarcus Rodríguez Discharge Interventions Interventions: Vital Signs Last Done: 05/04/18 22:00 Status ED Status: Admitted Patient
[2018-05-04 16:54] LABS: Baso # (Auto) 0.3 th/mm3 (0.0-0.2); Baso % (Auto) 1.8 % (0.0-2.0); Eos # (Auto) 0.1 th/mm3 (0.0-0.4); Eos % (Auto) 0.3 % (0.0-4.0); Hemoglobin 15.6 gm/dL (13.0-17.0); Lymph # (Auto) 0.6 th/mm3 (1.0-4.8); Lymph % (Auto) 3.3 % (9.0-44.0); Mean Corpuscular HGB Conc 32.6 % (32.0-36.0); Mean Corpuscular Hemoglobin 29.5 pg (27.0-34.0); Mean Corpuscular Volume 90.3 fL (80.0-100.0); Mean Platelet Volume 9.3 fL (7.0-11.0); Mono % (Auto) 5.7 % (0.0-8.0); Neut # (Auto) 15.9 th/mm3 (1.8-7.7); Neut % (Auto) 88.9 % (16.0-70.0); Platelet Count 234 th/mm3 (150-450); Red Blood Count 5.31 mil/mm3 (4.50-5.90); Red Cell Distribution Width 14.4 % (11.6-17.2)
[2018-05-04] MEDS ORDERED: PROCAINAMIDE IV.CONT SCH ×2 (17:00)
[2018-05-04] MEDS ORDERED: DEXTROSE 5% IV.CONT SCH ×2 (17:00)
[2018-05-04] MEDS ORDERED: WATER IV.CONT SCH ×2 (17:00)
[2018-05-04 17:02] LABS: Chloride 104 meq/L (98-107); Sodium 142 meq/L (136-145)
[2018-05-04] MEDS ORDERED: Amiodarone Inj 150 MG in Dextrose 5% in Water Inj 97 ML IV.SIG ONE ×4 (17:04→19:35)
[2018-05-04 17:05] LABS: Calcium 8.6 mg/dL (8.5-10.1)
[2018-05-04 17:06] LABS: Albumin 3.3 g/dL (3.4-5.0); Anion Gap 9 meq/L (5-15); Blood Urea Nitrogen 24 mg/dL (7-18); Carbon Dioxide 28.9 meq/L (21.0-32.0); Glucose,Random 61 mg/dL (74-106)
[2018-05-04 17:09] LABS: Alanine Aminotransferase 23 U/L (12-78); Aspartate Aminotransferase 25 U/L (15-37); Glomerular Filtration Rate 77 mL/min (>89)
[2018-05-04 17:11] LABS: Total Protein 8.4 g/dL (6.4-8.2)
[2018-05-04 17:12] LABS: Alkaline Phosphatase 88 U/L (45-117)
[2018-05-04 17:30] LABS: White Blood Count 17.9 th/mm3 (4.0-11.0)
--- NOTE | 2018-05-04 17:35 | XR ---
EXAM DATE: 05/04/2018 5:27 PM EST AGE/SEX: 82 years / Male INDICATIONS: . Cough and shortness of breath. CLINICAL DATA: This is the patient's initial encounter. Patient reports that signs and symptoms have been present for 3 days and indicates a pain score of 0/10. MEDICAL/SURGICAL HISTORY: Chronic obstructive pulmonary disease. None. COMPARISON: [facility] [place], CHEST SINGLE AP, 03/23/2017. . FINDINGS: Ill-defined infiltrate seen left base, appears to mainly be in the lower lobe and probably acute. The re is some patchy parenchymal opacification of the right upper lobe that is more chronic appearing. N o pleural effusion demonstrated on either side. No pneumothorax. Heart size stable, upper limits of normal. CONCLUSION: Left lower lobe pneumonia. Electronically signed by: Jerome Naranjo MD 05/04/2018 5:34 PM EST
[2018-05-04] MEDS ORDERED: Azithromycin Inj 500 MG in Sodium Chlor 0.9% Inj 250 ML IV.SIG ONE (17:56)
[2018-05-04] MEDS ORDERED: Sodium Chloride 0.45 % Inj 1,000 ML IV.CONT SCH (18:45)
[2018-05-04] MEDS: Aspirin 325 MG Tablet PO SCH (21:31)
[2018-05-05 06:51] LABS: Baso # (Auto) 0.1 th/mm3 (0.0-0.2); Baso % (Auto) 0.6 % (0.0-2.0); Eos # (Auto) 0.1 th/mm3 (0.0-0.4); Eos % (Auto) 0.9 % (0.0-4.0); Hematocrit 42.5 % (39.0-51.0); Hemoglobin 13.9 gm/dL (13.0-17.0); Mean Corpuscular HGB Conc 32.7 % (32.0-36.0); Mean Corpuscular Volume 88.8 fL (80.0-100.0); Mean Platelet Volume 8.4 fL (7.0-11.0); Mono # (Auto) 0.8 th/mm3 (0.0-0.9); Mono % (Auto) 6.8 % (0.0-8.0); Neut # (Auto) 10.3 th/mm3 (1.8-7.7); Neut % (Auto) 83.7 % (16.0-70.0); Platelet Count 227 th/mm3 (150-450); Red Blood Count 4.78 mil/mm3 (4.50-5.90); White Blood Count 12.3 th/mm3 (4.0-11.0)
[2018-05-05 07:15] LABS: Platelet Estimate Normal (Normal); Platelet Morphology Normal (Normal); RBC Morphology Normal (Normal)
--- NOTE | 2018-05-05 08:52 | P.HP ---
History of Present Illness Primary Care Physician: Julian Bunn MD Chief Complaint: Difficulty swallowing History of Present Illness: 82-year-old male with known history of chronic hypoxic respiratory failure, chronic objective pulmonary disease who presented to hospital for evaluation of dysphagia. Patient states for last few weeks he has been having difficulty in swallowing liquids and solids which is progressively gotten worse up until 3 days ago he started noticing liquids pooling in the back of his throat and he feels as if he was inhaling the liquid. He did not get any better so he came to the emergency department for evaluation. Upon evaluation patient was found to have criteria to meet sepsis with leukocytosis, tachycardia , left lung pneumonia. ER documentation indicates that patient had ventricular tachycardia while in the emergency department. Patient was given amiodarone with good response. Presently the EKGs are showing atrial fibrillation with PVC 's. Telemetry indicating bigeminy. Patient denies any chest pain, shortness of breath, lightheadedness, dizziness, palpitations, diaphoresis. It was recommended by the ER physician that the patient be admitted to the hospital with cardiology consultation. - Diagnosis (1) Sepsis (2) Bigeminy (3) Dysphagia (4) Pneumonia involving left lung Inpatient Certification: I certify that the inpatient services were ordered in accordance with Medicare regulations governing the order. This includes certification that hospital inpatient services are reasonable and necessary and in the case of services not specified as inpatient-only under 42 CFR 419.22(n), that they are appropriately provided as inpatient services in accordance to with the 2-midnight benchmark under 43 CFR 412.3(e) Estimated Total Length of Stay (Days): 2 Plans for Post Hospital Care: Not yet determined Review of Systems All other systems reviewed negative except as stated in HPI Gastrointestinal: Reports difficulty swallowing PMFSH - History History Provided By: Patient - Medical History Medical History: Medical History (Last Updated 05/05/18 @ 08:35 by JONO Cancino) COPD (chronic obstructive pulmonary disease) Chronic respiratory failure with hypoxia Collapse, lung GERD (gastroesophageal reflux disease) Hypertension - Surgical History Surgical History: Surgical History (Last Updated 05/05/18 @ 08:35 by JONO Cancino) H/O knee surgery History of chest tube placement - Family History Family History: Family History (Last Updated 05/05/18 @ 08:35 by John J Valentino, PA) Father History of brain tumor - Tobacco History Second Hand Smoke Exposure: No Tobacco Use In Past 30 Days: No Smoking Status: Former smoker Tobacco Type: Cigarettes - Alcohol History How Often Do You Have a Drink Containing Alcohol: Never - Travel History Recent Travel in the [place] Within the Last 8 Weeks: No Recent Travel Out of the Country Within the Last 8 Weeks: No - Immunization History Tetanus Immunization: <5 Years Medications and Allergies Active Medications: Active Medications Aspirin (Aspirin) 325 mg PO DAILY [facility] Last Admin: 05/04/18 21:31 Dose: 325 mg Atorvastatin Calcium (Lipitor) 40 mg PO HS [facility] Last Admin: 05/04/18 21:30 Dose: 40 mg Carvedilol (Coreg) 3.125 mg PO BID [facility] Last Admin: 05/04/18 21:30 Dose: 3.125 mg Ferrous Sulfate (Ferosul) 325 mg PO DAILY [facility] Amiodarone HCl 450 mg/ (Dextrose) 250 mls @ 50 mls/hr IV.CONT TITRATE PRN; Protocol PRN Reason: Per Protocol Last Admin: 05/05/18 01:07 Dose: 0.5 mg/min, 16.66 mls/hr Levofloxacin/Dextrose (Levaquin 750 Mg Premix Inj) 150 mls @ 100 mls/hr IV.SIG Q24H [facility] Sodium Chloride (Ns Flush) 2 ml IV.FLUSH BID [facility] Last Admin: 05/04/18 21:32 Dose: 2 ml Sodium Chloride (Ns Flush) 2 ml IV.FLUSH PRN PRN PRN Reason: FLUSH AFTER USING IV ACCESS Allergies Allergy/AdvReac Type Severity Reaction Status Date / Time No Known Allergies Allergy Verified 05/04/18 15:39 Home Medications Medication Instructions Recorded Confirmed Type aspirin [Aspir-81] 81 mg PO DAILY 05/04/18 05/04/18 History carvedilol 3.125 mg PO BID 05/04/18 05/04/18 History ferrous sulfate 325 mg PO DAILY 05/04/18 05/04/18 History pantoprazole 40 mg PO DAILY 05/04/18 05/04/18 History prednisone 5 mg PO DAILY 05/04/18 05/04/18 History Exam Vital signs: Vital Signs 05/04/18 15:04 05/04/18 15:35 05/04/18 16:26 Temperature 97.9 F Pulse Rate 62 99 H Respiratory Rate 22 22 Blood Pressure 145/68 H Pulse Oximetry 94 L 98 98 05/04/18 17:03 05/04/18 18:15 05/04/18 18:59 Temperature 98.1 F Pulse Rate 100 H 82 82 Respiratory Rate 22 22 16 Blood Pressure 137/66 134/64 118/62 Pulse Oximetry 96 96 98 05/04/18 22:00 05/05/18 01:00 05/05/18 03:00 Temperature 98.3 F Pulse Rate 82 72 66 Respiratory Rate 16 16 16 Blood Pressure 112/63 112/67 125/61 Pulse Oximetry 97 95 05/05/18 05:39 Temperature Pulse Rate 75 Respiratory Rate 16 Blood Pressure 116/61 Pulse Oximetry 96 Intake & Output 05/04/18 05/05/18 05/05/18 18:59 06:59 18:59 Intake Total 600 / 600 750 / 750 Balance 600 / 600 750 / 750 Weight 60.6 kg Intake: IV 600 / 600 750 / 750 Cordarone Inj 450 MG In D5W Inj 250 / 250 241 ML @ 1.5 MG/MIN 50 mls/hr IV.CONT TITRATE PRN Rx#: [id number] Cordarone Inj 150 MG In D5W Inj 100 / 100 100 / 100 97 ML @ 600 mls/hr IV.SIG ONCE ONE Rx#:[id number] Azithromycin Inj 500 MG In NS 250 / 250 Inj 250 ML @ 250 mls/hr IV.SIG ONCE ONE Rx#:[id number] Levaquin 750 mg Premix Inj 150 150 / 150 ML @ 100 mls/hr IV.SIG ONCE ONE Rx#:[id number] NS Inj 1,000 ML @ 1000 mls/hr 500 / 500 IV.SIG BOLUS TEJA Rx#:[id number] Narrative: GENERAL: Well-developed, frail and cachectic, in no acute distress. alert and orientated HEENT: Head is normocephalic without any lesions or masses noted. Facial features are symmetric. Eyes: Pupils equal round reactive to light. Extraocular muscles are intact. Conjunctivae were clear. Oropharyngeal: Pharynx without any erythema edema. Tongue is midline without deviation. Buccal mucosa is moist without any masses or lesions. Dentition in poor repair NECK: Supple without any masses. Trachea midline no deviation. No JVD, no bruits are appreciated CARDIAC: Irregular rhythm, irregular rate. S1/S2 are heard. No murmurs gallops or rubs. LUNGS: Clear to auscultation bilaterally. No wheeze, rhonchi or rales. No use of accessory muscles on inspiration or expiration. ABDOMEN: Soft, nontender. Nondistended. Bowel sounds heard in all 4 quadrants. No organomegaly or masses. Negative rebound, negative guarding EXTREMITIES: No edema, pulses are equal bilaterally. No cyanosis or clubbing NEUROLOGY: Mood and affect appear appropriate. Cranial nerves II through XII grossly intact. Muscle strength 5/5 in upper and lower extremities bilaterally. Deep tendon reflexes are 2+ in upper and lower extremities bilaterally. Results - Labs CBC & Chem 7: 05/05/18 06:33 05/04/18 16:45 Labs: Laboratory Results - last 24 hr 05/04/18 05/04/18 05/04/18 16:45 16:45 16:45 CBC w Diff Auto diff final WBC 17.9 H RBC 5.31 Hgb 15.6 Hct 48.0 MCV 90.3 MCH 29.5 MCHC 32.6 RDW 14.4 Plt Count 234 MPV 9.3 Neut % (Auto) 88.9 H Lymph % (Auto) 3.3 L [place] % (Auto) 5.7 Eos % (Auto) 0.3 Baso % (Auto) 1.8 Neut # (Auto) 15.9 H Lymph # (Auto) 0.6 L [place] # (Auto) 1.0 H Eos # (Auto) 0.1 Baso # (Auto) 0.3 H WBC Differential . Diff Scan Differential Comment . Platelet Estimate Platelet Morphology RBC Morphology Sodium 142 Potassium 4.0 Chloride 104 Carbon Dioxide 28.9 Anion Gap 9 BUN 24 H Creatinine 0.94 Estimated GFR 77 L POC Glucose Random Glucose 61 L Lactic Acid Calcium 8.6 Magnesium Total Bilirubin 1.8 H AST 25 ALT 23 Alkaline Phosphatase 88 Troponin I Less than 0.02 L B-Natriuretic Peptide 576 H Total Protein 8.4 H Albumin 3.3 L 05/04/18 05/04/18 05/04/18 16:45 18:00 18:18 CBC w Diff WBC RBC Hgb Hct MCV MCH MCHC RDW Plt Count MPV Neut % (Auto) Lymph % (Auto) [place] % (Auto) Eos % (Auto) Baso % (Auto) Neut # (Auto) Lymph # (Auto) [place] # (Auto) Eos # (Auto) Baso # (Auto) WBC Differential Diff Scan Differential Comment Platelet Estimate Platelet Morphology RBC Morphology Sodium Potassium Chloride Carbon Dioxide Anion Gap BUN Creatinine Estimated GFR POC Glucose 80 Random Glucose Lactic Acid 2.1 H Calcium Magnesium 2.2 Total Bilirubin AST ALT Alkaline Phosphatase Troponin I B-Natriuretic Peptide Total Protein Albumin 05/04/18 05/05/18 21:27 06:33 CBC w Diff Slide review pending WBC 12.3 H RBC 4.78 Hgb 13.9 Hct 42.5 MCV 88.8 MCH 29.0 MCHC 32.7 RDW 14.0 Plt Count 227 MPV 8.4 Neut % (Auto) 83.7 H Lymph % (Auto) 8.0 L [place] % (Auto) 6.8 Eos % (Auto) 0.9 Baso % (Auto) 0.6 Neut # (Auto) 10.3 H Lymph # (Auto) 1.0 [place] # (Auto) 0.8 Eos # (Auto) 0.1 Baso # (Auto) 0.1 WBC Differential . Diff Scan Auto diff confirmed Differential Comment . Platelet Estimate Normal Platelet Morphology Normal RBC Morphology Normal Sodium Potassium Chloride Carbon Dioxide Anion Gap BUN Creatinine Estimated GFR POC Glucose Random Glucose Lactic Acid Calcium Magnesium Total Bilirubin AST ALT Alkaline Phosphatase Troponin I 0.02 B-Natriuretic Peptide Total Protein Albumin - Imaging Impressions Chest X-Ray 05/04/18 16:26 CONCLUSION: Left lower lobe pneumonia. Caprini VTE Risk Assessment Caprini VTE Risk Assessment: Moderate/High Risk (score >= 2) Caprini Risk Assessment Model: Point Value = 1 Point Value = 2 Point Value = 3 Point Value = 5 Age 41-60 Minor surgery BMI > 25 kg/m2 Swollen legs Varicose veins or History of unexplained or recurrent spontaneous Oral contraceptives or hormone replacement Sepsis (< 1 month) Serious lung disease, including pneumonia (< 1 month) Abnormal pulmonary function Acute myocardial infarction Congestive heart failure (< 1 month) History of inflammatory bowel disease Medical patient at bed rest Age 61-74 Arthroscopic surgery Major open surgery (> 45 min) Laparoscopic surgery (> 45 min) Malignancy Confined to bed (> 72 hours) Immobilizing plaster cast Central venous access Age >= 75 History of VTE Family history of VTE Factor V Leiden Prothrombin [id number] Lupus anticoagulant Anticardiolipin antibodies Elevated serum homocysteine Heparin-induced thrombocytopenia Other congenital or acquired thrombophilia Stroke (< 1 month) Elective arthroplasty Hip, pelvis, or leg fracture Acute spinal cord injury (< 1 month) Prophylaxis Regimen: Total Risk Factor Score Risk Level Prophylaxis Regimen 0-1 Low Early ambulation 2 Moderate Order ONE of the following: *Sequential Compression Device (SCD) *Heparin 5000 units SQ BID 3-4 Higher Order ONE of the following medications: *Heparin 5000 units SQ TID *Enoxaparin/Lovenox 40 mg SQ daily (WT < 150 kg, CrCl > 30 mL/min) *Enoxaparin/Lovenox 30 mg SQ daily (WT < 150 kg, CrCl > 10-29 mL/min) *Enoxaparin/Lovenox 30 mg SQ BID (WT < 150 kg, CrCl > 30 mL/min) AND/OR *Sequential Compression Device (SCD) 5 or more Highest Order ONE of the following medications: *Heparin 5000 units SQ TID (Preferred with Epidurals) *Enoxaparin/Lovenox 40 mg SQ daily (WT < 150 kg, CrCl > 30 mL/min) *Enoxaparin/Lovenox 30 mg SQ daily (WT < 150 kg, CrCl > 10-29 mL/min) *Enoxaparin/Lovenox 30 mg SQ BID (WT < 150 kg, CrCl > 30 mL/min) AND *Sequential Compression Device (SCD) Assessment and Plan - Assessment (1) Sepsis Code(s): A41.9 - Sepsis, unspecified organism Status: Acute (2) Bigeminy Code(s): I49.9 - Cardiac arrhythmia, unspecified Status: Acute (3) Dysphagia Code(s): R13.10 - Dysphagia, unspecified Status: Acute (4) Pneumonia involving left lung Code(s): J18.9 - Pneumonia, unspecified organism Status: Acute - Plan Sepsis -Patient met criteria on admission with leukocytosis, tachycardia, lactic acidosis, left lung pneumonia -Chest x-ray did indicate left lower lung pneumonia -Patient was started on Levaquin/Zithromax for antibiotics, will change antibiotic coverage to Zosyn, Zithromax, Flagyl for ICU community-acquired pneumonia and possible aspiration pneumonia -Continue to monitor blood cultures Arrhythmia -ER documentation indicating ventricular tachycardia which improved after the use of amiodarone -EKGs are indicating atrial fibrillation with PVCs -Telemetry appears to have sinus rhythm with aberrant PVCs, occasional bigeminy -Thus far patient's troponin level has remained normal, continue to trend cardiac enzymes and serial EKGs -Patient continues on amiodarone IV at this time -Cardiology consulted for further recommendation -Echocardiogram has been ordered -Patient continued on Coreg Left lung pneumonia -Given the patient has been experiencing dysphagia with aspiration. Patient's antibiotics will need to be changed to appropriate coverage -Continue O2 supplementation maintain O2 sat greater than 92% -Obtain sputum culture -Duo nebs to 6 hours while awake and every 2 hours as needed Dysphagia -We will obtain speech therapy evaluation, patient will likely need modified barium swallow -Further recommendations per speech therapy evaluation with possible GI consultation, further imaging studies -Patient will remain n.p.o. until evaluated by speech therapy -Chest x-ray was done in emergency department which upon reviewing it myself indicates possible deviation of trachea and esophagus in the upper chest. Discussed with radiologist who recommended CT scan of the chest without IV contrast. Hypertension -Home medication continued Chronic hypoxic respiratory failure, chronic obstructive pulmonary disease -Patient continued on oxygen, nebulizers\ DVT prevention -Subcutaneous heparin
[2018-05-05] MEDS: Heparin - SQ 10,000 UNITS/ML Vial SQ SCH ×2 (09:00→21:23)
[2018-05-05] MEDS: Piperacil/Tazo 4.5 GM Premix 4.5 GM/100 ML BAG IV.SIG SCH ×3 (10:15→21:23)
--- NOTE | 2018-05-05 10:23 | MB ---
cc: Demarcus Rodríguez MD DATE: 05/05/2018 REASON FOR CONSULTATION: Evaluation of arrhythmias. HISTORY OF PRESENT ILLNESS: Shahid Guerra is an 82-year-old man with a known cardiomyopathy. He had an echo, 07/23/2017, showing an ejection fraction of 30% to 35%. He had a nuclear stress test, 07/26/2016, showing an EF of 43%. He is on carvedilol, but at an extremely low dose, 3.125 p.o. b.i.d. 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 Main problem he has had, is he has lost 50 pounds in the last 3 months. He has developed inability to swallow in the last 3 weeks, which has gotten severely bad for the past couple of days. He has not had a workup yet to determine why he has had weight loss. He denies any anginal chest pain. Denies any significant palpitation, syncope or presyncope. I am told that while he was in the ER, he had runs of V-tach, but there were no strips saved. There is evidence for ventricular bigeminy. He was put on IV amiodarone, which apparently resolved the runs of ventricular tachycardia he was having. He is now just having PVCs on telemetry. PAST MEDICAL HISTORY: Includes oxygen-dependent COPD. He quit smoking many years ago. Gastroesophageal reflux disease, hypertension, chronic first degree AV block, recurrent right pneumothorax, first 07/16/2016, and then 02/18/2017, and ended up having surgery by Dr. Baker, 03/18/2017, with stapling of a bronchopleural fistula. Remote history of MRSA, osteoarthritis, status post bilateral knee replacements. FAMILY HISTORY: Positive for brain tumor. SOCIAL HISTORY: He is . He quit smoking 40 years ago. Lives with his daughter. PHYSICAL EXAMINATION: GENERAL: Elderly white male, very thin. VITAL SIGNS: Charted. HEENT: Unremarkable. NECK: No JVD or bruits. CHEST: Shows diminished breath sounds. CARDIAC: S1, S2. Regular rate and rhythm. I am not hearing any murmurs or gallops. ABDOMEN: Soft. EXTREMITIES: Reveal no peripheral edema. DIAGNOSTIC DATA: Chest x-ray to me shows cardiomegaly and marked tracheal deviation. The radiologist read it as left lower lobe pneumonia. EKG shows sinus rhythm with bigeminy and a strain pattern in aVL and first-degree AV block. Preliminary look at the echo shows an EF about 40%. Troponins are normal. Albumin is depressed at 3.3. Bilirubin is elevated at 1.8. Hematocrit was normal, but white blood cell count is elevated. Creatinine is 0.94. IMPRESSION: Ventricular arrhythmias in the setting of a background cardiomyopathy. His ejection fraction seems to be about 40%. He has responded to amiodarone. I am going to go ahead and continue this, 200 mg once a day. The elephant in the room here is the 50-pound weight loss, inability to swallow, and the chest x-ray, to me, looks suggestive of a mass. The primary team is ordering a chest CT, and this will need to be further evaluated. Further therapy to be determined. MD GAGAN Juarez/mykel , 09:53 AM , 10:00 AM
[2018-05-05] MEDS: Aspirin 325 MG Tablet PO SCH (10:28)
[2018-05-05] MEDS: Ferrous Sulfate 325 MG Tablet PO SCH (10:28)
[2018-05-05 10:35] LABS: Troponin I 0.02 ng/mL (0.02-0.05)
--- NOTE | 2018-05-05 11:14 | CT ---
EXAM DATE: 05/05/2018 10:45 AM EST AGE/SEX: 82 years / Male INDICATIONS: Abnormal chest x-ray. Dysphagia. Evaluate for mass. CLINICAL DATA: This is the patient's initial encounter. Patient reports that signs and symptoms have been present for 1 day and indicates a pain score of 0/10. MEDICAL/SURGICAL HISTORY: Chronic obstructive pulmonary disease. Gastroesophageal reflux disease. Hypertension. None. RADIATION DOSE: 6.69 CTDI (mGy) COMPARISON: [facility], CT GUIDED CHEST TUBE PLACEMENT RIGHT, 07/16/2016. . TECHNIQUE: Multiple contiguous axial images were obtained through the chest during bolus infusion of 60 ml Omnipaque 350 (iohexol) nonionic water-soluble contrast as a single exam dose. Images were obtained in suspended respiration using multiple row detector helical technique. Using automated exp osure control and adjustment of the mA and/or kV according to patient size, radiation dose was kept a s low as reasonably achievable to obtain optimal diagnostic quality images. DICOM format image data is available electronically for review and comparison. FINDINGS: Lungs: Severe nonspecific fibrotic lung disease is noted. Extensive honeycombing with septal thicken ing is seen throughout the right upper lobe. There is peripheral fibrotic disease with honeycombing s een in the left upper and lower lobes as well. Mediastinum: An air-containing intestinal loop is identified in the posterior mediastinum characteri stic of a large hernia. The esophagus is identified along the left lateral margin and does not appear distended or thickened. The large hernia sac also contains the stomach and gastroesophageal junction . Measures 16.7 cm in width. Pleurae: No evidence of focal thickening or pleural effusion. Axillae: Unremarkable. Bony Structures: Unremarkable. Miscellaneous: The examination was extended to include the upper abdomen, and both adrenal glands ar e normal in size and configuration. CONCLUSION: 1. 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 Hernia measures 16.7 cm in width. 2. Large posterior mediastinal transit diaphragmatic hernia containing stomach, gastroesophageal cam ction and a loop of intestine which may be the transverse colon. Predisposition to volvulus is of cli nical concern. 3. Extensive bilateral nonspecific fibrotic disease with honeycombing and septal thickening. Electronically signed by: Adam Martines MD 05/05/2018 11:13 AM EST
[2018-05-05 13:56] LABS: Bilirubin,Urine Negative (Negative); Clarity,Urine Clear (Clear); Color,Urine Yellow (Yellw/Straw); Glucose,Urine (UA) Negative (Negative); Leukocyte Esterase,Urine Negative (Negative); Nitrite,Urine Negative (Negative); PH,Urine 5.5 (5.0-8.5); Specific Gravity,Urine 1.025 (1.002-1.035); Urobilinogen,Urine 0.2 mg/dL (Less than 2)
[2018-05-05 13:57] LABS: Collection Time,Urine 1346 hours
--- NOTE | 2018-05-05 16:06 | ECHRPT ---
Indication: Cardiomyopathy CONCLUSIONS Normal left ventricular size. Wall thickness is normal. The left ventricular systolic function is uihunncq-fj-dmeqyuo reduced with an estimated ejection fra ction in the range of 35-40%. Mild to moderate mitral valve regurgitation. Ntfq-xd-towvhysm aortic valve regurgitation. There is mild tricuspid valve regurgitation. The estimated pulmonary arterial pressure is 43 mmHg. BP: 153 / 72 HR: 70 Rhythm: MEASUREMENTS (Male / Female) Normal Values Technical Quality:Fair 2D ECHO LV Diastolic Diameter PLAX 4.7 cm 4.2 - 5.9 / 3.9 - 5.3 cm LV Systolic Diameter PLAX 3.8 cm IVS Diastolic Thickness 0.9 cm 0.6 - 1.0 / 0.6 - 0.9 cm LVPW Diastolic Thickness 0.9 cm 0.6 - 1.0 / 0.6 - 0.9 cm LV Relative Wall Thickness 0.4 RV Internal Dim ED PLAX 2.0 cm LVOT Diameter 2.4 cm Aortic Root Diameter 2.5 cm LA Systolic Diameter LX 3.1 cm 3.0 - 4.0 / 2.7 - 3.8 cm DOPPLER AV Peak Velocity 138.0 cm/s AV Peak Gradient 7.6 mmHg AI Peak Velocity 445.5 cm/s AI Peak Gradient 79.4 mmHg AI Pressure Half Time 702.0 ms LVOT Peak Velocity 88.4 cm/s LVOT Peak Gradient 3.1 mmHg AV Area Cont Eq pk 2.9 cm Mitral E Point Velocity 50.3 cm/s Mitral A Point Velocity 105.0 cm/s Mitral E to A Ratio 0.5 LV E' Lateral Velocity 8.3 cm/s Mitral E to LV E' Lateral Ratio 6.1 LV E' Septal Velocity 4.8 cm/s Mitral E to LV E' Septal Ratio 10.5 TR Peak Velocity 286.0 cm/s TR Peak Gradient 32.7 mmHg Right Atrial Pressure 10.0 mmHg Pulmonary Artery Systolic Pressu 42.7 mmHg Right Ventricular Systolic Press 42.7 mmHg PV Peak Velocity 86.9 cm/s PV Peak Gradient 3.0 mmHg FINDINGS LEFT VENTRICLE Normal left ventricular size. Wall thickness is normal. The left ventricular systolic function is soqbxlrc-mh-gyfpaqv reduced with an estimated ejection fra ction in the range of 35-40%. RIGHT VENTRICLE Normal right ventricular size and systolic function. LEFT ATRIUM The left atrial size is normal. RIGHT ATRIUM The right atrial size is normal. ATRIAL SEPTUM Normal atrial septal thickness without atrial level shunting by limited color doppler interrogation. AORTA The aortic root and proximal ascending aorta are normal in size on limited imaging. MITRAL VALVE Mild mitral valve regurgitation. AORTIC VALVE Uksj-to-rwgprbtf aortic valve regurgitation. TRICUSPID VALVE There is mild tricuspid valve regurgitation. The estimated pulmonary arterial pressure is 43 mmHg. PULMONARY VALVE No pulmonary valve regurgitation or stenosis. VESSELS The inferior vena cava was not well visualized. PERICARDIUM No pericardial effusion. Cesar Moser MD, FACC, [facility] [place] (Electronically Signed) Final Date:05 May 2018 16:04
--- NOTE | 2018-05-05 16:45 | CT ---
EXAM DATE: 05/05/2018 4:40 PM EST AGE/SEX: 82 years / Male INDICATIONS: Dysphagia. CLINICAL DATA: This is the patient's initial encounter. Patient reports that signs and symptoms have been present for 2 days and indicates a pain score of 0/10. MEDICAL/SURGICAL HISTORY: Chronic obstructive pulmonary disease. Gastroesophageal reflux disease. Hypertension. None. RADIATION DOSE: 58.37 CTDI (mGy) COMPARISON: No prior exams available for comparison. TECHNIQUE: CT of the head without contrast. Using automated exposure control and adjustment of the mA and/or kV according to patient size, radiation dose was kept as low as reasonably achievable to ob tain optimal diagnostic quality images. DICOM format image data is available electronically for revi ew and comparison. FINDINGS: Cerebrum: The ventricles are normal for age with mild to moderate atrophic change with sulcal and ve ntricular prominence. Periventricular white matter lucencies are present characteristic of chronic sm all vessel ischemic change. No evidence of midline shift, mass lesion, hemorrhage or acute infarction . No extraaxial fluid collections are seen. Posterior Fossa: The cerebellum and brainstem are intact. The 4th ventricle is midline. The cerebe llopontine angle is unremarkable. Extracranial: The visualized portion of the orbits is intact. Skull: The calvaria is intact. No evidence of skull fracture. CONCLUSION: 1. No acute hemorrhage or mass effect. 2. Mild to moderate atrophic change and chronic small vessel ischemic changes. . Electronically signed by: Mehdi Romano MD 05/05/2018 4:44 PM EST
[2018-05-05] MEDS ORDERED: Azithromycin Inj 500 MG in Sodium Chlor 0.9% Inj 250 ML IV.SIG SCH (17:00)
--- NOTE | 2018-05-05 18:38 | ECG ---
Date Performed: 05/04/2018 Time Performed: 18:47:00 PTAGE: 82 years EKG: THE UNDERLYING RHYTHM APPEARS TO BE SINUS WITH PVCs Compared to previous tracing, bigeminy is no longer present ABNORMAL RHYTHM ECG PREVIOUS TRACING : 05/04/2018 17.52 DOCTOR: Demarcus Rodríguez Interpretating Date/Time 05/05/2018 18:37:07
--- NOTE | 2018-05-05 18:38 | ECG ---
Date Performed: 05/04/2018 Time Performed: 17:52:57 PTAGE: 82 years EKG: Sinus rhythm WITH FIRST DEGREE AV BLOCK VENTRICULAR BIGEMINY LEFT ATRIAL ABNORMALITY Compared to previous tracing , the bigeminy and left atrial abnormality are new ABNORMAL ECG PREVIOUS TRACING : 02/27/2017 22.12 DOCTOR: Demarcus Rodríguez Interpretating Date/Time 05/05/2018 18:36:20
--- NOTE | 2018-05-05 18:38 | ECG ---
Date Performed: 05/05/2018 Time Performed: 09:07:35 PTAGE: 82 years EKG: Sinus rhythm WITH FIRST DEGREE AV BLOCK WITH FREQUENT VENTRICULAR PREMATURE COMPLEXES LEFT ATRIAL ENLARGEMENT Sin ce the previous tracing, no significant change noted ABNORMAL ECG PREVIOUS TRACING : 05/04/2018 18.47 DOCTOR: Demarcus Rodríguez Interpretating Date/Time 05/05/2018 18:37:54
[2018-05-06] MEDS: Piperacil/Tazo 4.5 GM Premix 4.5 GM/100 ML BAG IV.SIG SCH ×3 (05:01→15:22)
[2018-05-06 06:29] LABS: Potassium 3.9 meq/L (3.5-5.1)
[2018-05-06 06:32] LABS: Baso % (Auto) 0.2 % (0.0-2.0); Eos % (Auto) 0.3 % (0.0-4.0); Hematocrit 43.4 % (39.0-51.0); Hemoglobin 14.3 gm/dL (13.0-17.0); Lymph # (Auto) 0.6 th/mm3 (1.0-4.8); Lymph % (Auto) 6.4 % (9.0-44.0); Mean Corpuscular Hemoglobin 29.5 pg (27.0-34.0); Mean Corpuscular Volume 89.2 fL (80.0-100.0); Mean Platelet Volume 8.2 fL (7.0-11.0); Mono # (Auto) 0.7 th/mm3 (0.0-0.9); Mono % (Auto) 7.3 % (0.0-8.0); Neut # (Auto) 8.6 th/mm3 (1.8-7.7); Neut % (Auto) 85.8 % (16.0-70.0); Platelet Count 229 th/mm3 (150-450); Red Blood Count 4.87 mil/mm3 (4.50-5.90); Red Cell Distribution Width 13.8 % (11.6-17.2); White Blood Count 9.9 th/mm3 (4.0-11.0)
[2018-05-06 06:32] LABS: Calcium 8.1 mg/dL (8.5-10.1); Carbon Dioxide 25.6 meq/L (21.0-32.0)
[2018-05-06] MEDS: Heparin - SQ 10,000 UNITS/ML Vial SQ SCH ×2 (09:51→20:57)
[2018-05-06] MEDS: Aspirin 325 MG Tablet PO SCH (10:01)
[2018-05-06] MEDS: Ferrous Sulfate 325 MG Tablet PO SCH (10:02)
[2018-05-06] MEDS: Amiodarone 200 MG Tablet PO SCH (10:02)
--- NOTE | 2018-05-06 11:03 | P.PNIM ---
Subjective Interval history: 82-year-old male who is seen examined today for follow-up on dysphagia, arrhythmia. Patient lying in bed comfortable. Patient is still n.p.o. due to severe oral phase dysphagia. Patient still having frequent PVCs. Blood pressure appears to be stable. Patient remains afebrile. Physical Exam Vital signs: Vital Signs 05/05/18 12:00 05/05/18 13:17 05/05/18 16:00 Temperature 97.5 F L 97.5 F L Pulse Rate 71 Respiratory Rate 20 Blood Pressure Pulse Oximetry 05/05/18 20:00 05/05/18 20:06 05/05/18 21:00 Temperature 97.5 F L Pulse Rate 74 74 76 Respiratory Rate 31 H 22 15 Blood Pressure 126/70 130/76 Pulse Oximetry 92 L 94 L 99 05/06/18 00:00 05/06/18 02:43 05/06/18 04:00 Temperature 98 F 97.7 F Pulse Rate 74 76 78 Respiratory Rate 13 15 19 Blood Pressure 136/66 136/39 L 133/65 Pulse Oximetry 98 94 L 97 05/06/18 07:35 05/06/18 08:00 Temperature 98.5 F Pulse Rate 78 Respiratory Rate 20 Blood Pressure Pulse Oximetry 94 L Intake & Output 05/05/18 05/06/18 05/06/18 18:59 06:59 18:59 Intake Total 775 / 775 200 / 200 0 / 0 Output Total 200 / 200 100 / 100 Balance 575 / 575 200 / 200 -100 / -100 Weight 55.7 kg 56.8 kg Intake: IV 775 / 775 200 / 200 Cordarone Inj 450 MG In D5W Inj 125 / 125 241 ML @ 1.5 MG/MIN 50 mls/hr IV.CONT TITRATE PRN Rx#: [id number] Azithromycin Inj 500 MG In NS 250 / 250 Inj 250 ML @ 250 mls/hr IV.SIG Q24H TEJA Rx#:[id number] Zosyn 4.5 GM Premix 4.5 gm In 200 / 200 100 / 100 100 ml @ 200 mls/hr IV.SIG Q6H TEJA Rx#:[id number] Flagyl 500 MG Inj 100 ML @ 100 200 / 200 100 / 100 mls/hr IV.SIG Q8H TEJA Rx#: [id number] Oral 0 / 0 0 / 0 Output: Urine 200 / 200 100 / 100 Other: Post Void Residual 500 Date of Last Bowel Movement 05/04/18 05/04/18 Weight On Admission 55.7 kg Narrative: GENERAL: Well-developed, frail and cachectic, in no acute distress. alert and orientated HEENT: Head is normocephalic without any lesions or masses noted. Facial features are symmetric. Eyes: Extraocular muscles are intact. NECK: Supple without any masses. Trachea midline no deviation. No JVD, CARDIAC: Irregular rhythm, irregular rate. S1/S2 are heard. No murmurs gallops or rubs. LUNGS: Clear to auscultation bilaterally. No wheeze, rhonchi or rales. No use of accessory muscles on inspiration or expiration. ABDOMEN: Soft, nontender. Nondistended. Bowel sounds heard in all 4 quadrants. No organomegaly or masses. Negative rebound, negative guarding EXTREMITIES: No edema, pulses are equal bilaterally. No cyanosis or clubbing NEUROLOGY: Mood and affect appear appropriate. Cranial nerves II through XII grossly intact. Moving all extremities, speech is clear Results - Labs CBC & Chem 7: 05/06/18 06:05 05/06/18 06:00 Laboratory Results - last 24 hr 05/05/18 05/05/18 05/05/18 06:33 09:01 13:46 CBC w Diff WBC RBC Hgb Hct MCV MCH MCHC RDW Plt Count MPV Neut % (Auto) Lymph % (Auto) [place] % (Auto) Eos % (Auto) Baso % (Auto) Neut # (Auto) Lymph # (Auto) [place] # (Auto) Eos # (Auto) Baso # (Auto) WBC Differential Differential Comment Sodium Potassium Chloride Carbon Dioxide Anion Gap BUN Creatinine Estimated GFR Random Glucose Calcium Total Creatine Kinase 45 Troponin I 0.02 Procalcitonin 0.86 H Ur Collection Type Clean catch Urine Color Yellow Urine Clarity Clear Urine pH 5.5 Ur Specific [place] 1.025 Urine Protein Negative Urine Glucose (UA) Negative Urine Ketones 15 H Urine Occult Blood Negative Urine Nitrate Negative Urine Bilirubin Negative Urine Urobilinogen 0.2 Ur Leukocyte Esterase Negative Micro UA Comment Culture not ind Ur Microscopic Review Microscopic reviewed Urine Culture Comments Culture not ind Urine Collection Time 1346 05/06/18 05/06/18 06:00 06:05 CBC w Diff Auto diff final WBC 9.9 RBC 4.87 Hgb 14.3 Hct 43.4 MCV 89.2 MCH 29.5 MCHC 33.0 RDW 13.8 Plt Count 229 MPV 8.2 Neut % (Auto) 85.8 H Lymph % (Auto) 6.4 L [place] % (Auto) 7.3 Eos % (Auto) 0.3 Baso % (Auto) 0.2 Neut # (Auto) 8.6 H Lymph # (Auto) 0.6 L [place] # (Auto) 0.7 Eos # (Auto) 0.0 Baso # (Auto) 0.0 WBC Differential . Differential Comment . Sodium 142 Potassium 3.9 Chloride 104 Carbon Dioxide 25.6 Anion Gap 12 BUN 22 H Creatinine 1.10 Estimated GFR 64 L Random Glucose 54 L Calcium 8.1 L Total Creatine Kinase Troponin I Procalcitonin Ur Collection Type Urine Color Urine Clarity Urine pH Ur Specific [place] Urine Protein Urine Glucose (UA) Urine Ketones Urine Occult Blood Urine Nitrate Urine Bilirubin Urine Urobilinogen Ur Leukocyte Esterase Micro UA Comment Ur Microscopic Review Urine Culture Comments Urine Collection Time Microbiology 05/05/18 10:50 Sputum - Expectorated Sputum Gram Stain - Final 05/04/18 18:00 Blood - Line Aerobic Blood Culture - Preliminary No growth in 1 day 05/04/18 18:00 Blood - Line Anaerobic Blood Culture - Preliminary No growth in 1 day 05/04/18 18:05 Blood - Line Aerobic Blood Culture - Preliminary No growth in 1 day 05/04/18 18:05 Blood - Line Anaerobic Blood Culture - Preliminary No growth in 1 day - Imaging Impressions Chest CT 05/05/18 00:00 CONCLUSION: 1. Large central diaphragmatic hernia with cranial displacement of stomach, gastroesophageal junction and a loop of intestine. Hernia measures 16.7 cm in width. 2. Large posterior mediastinal transit diaphragmatic hernia containing stomach , gastroesophageal junction and a loop of intestine which may be the transverse colon. Predisposition to volvulus is of clinical concern. 3. Extensive bilateral nonspecific fibrotic disease with honeycombing and septal thickening. Head CT 05/05/18 15:29 CONCLUSION: 1. No acute hemorrhage or mass effect. 2. Mild to moderate atrophic change and chronic small vessel ischemic changes. . - Procedures ECHOCARDIOGRAM CONCLUSIONS Normal left ventricular size. Wall thickness is normal. The left ventricular systolic function is tngzixvw-bb-dyrqtnc reduced with an estimated ejection fraction in the range of 35-40%. Mild to moderate mitral valve regurgitation. Irsc-qb-nwrpqfnq aortic valve regurgitation. There is mild tricuspid valve regurgitation. The estimated pulmonary arterial pressure is 43 mmHg. Assessment and Plan - Assessment (1) Sepsis Code(s): A41.9 - Sepsis, unspecified organism Status: Acute (2) Bigeminy Code(s): I49.9 - Cardiac arrhythmia, unspecified Status: Acute (3) Dysphagia Code(s): R13.10 - Dysphagia, unspecified Status: Acute (4) Pneumonia involving left lung Code(s): J18.9 - Pneumonia, unspecified organism Status: Acute - Plan Dysphagia -Speech therapy did evaluation. Had extensive conversation with them yesterday. Patient has severe oral phase dysphagia. And absolute n.p.o. at this time until further evaluation -CT of the chest was performed due to abnormal chest x-ray. 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 Hernia measures 16.7 cm. -CT of the brain was performed to evaluate for any previous stroke that could cause neurological component of dysphagia. CT of the brain was negative -Gastroenterology did evaluate the patient and recommending upper GI study with Gastrografin -Patient remain n.p.o. at this time -Awaiting further evaluation to determine if patient is a candidate at this time for an NG tube, feeding tube. -May need radiology for placement of NG tube or Dobbhoff Diaphragmatic hernia -Awaiting upper GI study for further recommendations -Consult general surgery for further recommendations Arrhythmia -ER documentation indicating ventricular tachycardia which improved after the use of amiodarone -EKGs are indicating atrial fibrillation with PVCs -Telemetry appears to have sinus rhythm with aberrant PVCs, occasional bigeminy -Patient has been ruled out for acute coronary event with serial cardiac enzymes that are negative -Cardiology consulted for further recommendation and recommended continuation of amiodarone p.o. -Echocardiogram indicating cardiomyopathy with ejection fraction 35-40%. -Patient continued on Coreg Sepsis, resolved -Patient met criteria on admission with leukocytosis, tachycardia, lactic acidosis, left lung pneumonia -Chest x-ray did indicate left lower lung pneumonia -CT scan was done of the chest which did not indicate any pneumonia or infiltrate -Patient was started on Levaquin/Zithromax for antibiotics, changed antibiotic coverage to Zosyn, Zithromax, Flagyl for ICU community-acquired pneumonia and possible aspiration pneumonia -We will discontinue antibiotics at this time -Blood cultures are negative for 1 day Chronic hypoxic respiratory failure, chronic obstructive pulmonary disease, Fibrotic lung disease -Continue O2 supplementation maintain O2 sat greater than 92% -Sputum culture showing heavy growth of predominant gaby, budding yeast e -Duo nebs to 6 hours while awake and every 2 hours as needed Hypertension -Home medication continued DVT prevention -Subcutaneous heparin
--- NOTE | 2018-05-06 12:26 | MB ---
cc: Bob Edwards MD DATE: 05/06/2018 REASON FOR CONSULTATION: Dysphagia. HISTORY OF PRESENT ILLNESS: This is an 82-year-old male patient with past medical history of chronic obstructive pulmonary disease and a history of respiratory failure, who presented to the hospital complaining of progressive dysphagia to liquid and solids. The symptoms started several days ago and progressively increasing to a degree that he was not able to swallow anything, feeling the food was stuck up in his throat. The patient had significant weight loss, over 50 pounds over a period of time. The patient denies any other associated symptoms except for occasional constipation. The patient never had any previous endoscopic evaluation in the past. He had an imaging study when he came to the emergency room that showed a large central diaphragmatic hernia with cranial displacement of the stomach with part of gastroesophageal junction and also a loop of intestine within this hernia. The hernia size measurement was a 16.7 cm in width, possibility of also a transverse colon within the hernia. The patient at the current time is being monitored in the ICU unit for atrial fibrillation with frequent PVCs. The patient denies any other associated symptoms. GI consulted for further evaluation of dysphagia. PAST MEDICAL HISTORY: Chronic obstructive pulmonary disease, previous respiratory failure secondary to hypoxemia, history of lung collapse, gastroesophageal reflux disease, hypertension. PAST SURGICAL HISTORY: History of knee surgery and history of chest tube placement in the past. REVIEW OF SYSTEMS: All other systems reviewed, negative except the ones I mentioned in the history of present illness. FAMILY HISTORY: Positive for brain tumor in his father. PSYCHOSOCIAL HISTORY: The patient does not drink alcohol. Denies IV drug abuse. MEDICATIONS: 1. Aspirin. 2. Atorvastatin. 3. Carvedilol. 4. Ferrous sulfate. 5. Amiodarone. ALLERGIES: NO KNOWN DRUG ALLERGIES. PHYSICAL EXAMINATION: GENERAL: The patient is in the critical care unit under observation with mild shortness of breath. He is monitored showing atrial fibrillation with bigeminy, hemodynamically stable. HEAD AND NECK: Normocephalic, atraumatic. Pupils equal and reactive to light. NECK: Supple neck. No lymphadenopathy. No thyromegaly. CHEST: Clear to auscultation, slight crackles in the bases. No wheezing. ABDOMEN: Soft, nontender. No hepatosplenomegaly. No palpable masses. EXTREMITIES: Normal pulses. No edema. NEUROLOGIC: Cranial nerves 2-12 grossly intact. No focal or motor deficits. SKIN: No rashes. LABORATORY DATA: White count of 9.9 today comparing to 17.9 on admission day. Hemoglobin of 14.3, hematocrit 43.4 with normal indices, platelet count within normal limits. Chemistry showing normal electrolytes and kidney function. Liver enzymes within normal limits. CT scan of the head unremarkable. CT of the chest as mentioned in history of present illness. ASSESSMENT AND PLAN: An 82-year-old male patient with multiple cardiopulmonary disorders being evaluated for 1. New onset dysphagia to solid and liquid mainly in the oropharyngeal area. 2. CT scan showing a large hiatal hernia over 16 cm with possible bowel within the hernia as well. Other than the stomach, possible transverse colon. 3. Unstable from a cardiopulmonary stand of view. RECOMMENDATIONS: We will continue keeping him n.p.o. for the time being. Continue cardiac and pulmonary workup. Will need to do a Gastrografin upper GI study to evaluate the narrowing and to rule out malignancy. At a certain point when the patient is more stable, will need a surgical consultation for possible fundoplication. We will follow with you. Further recommendations to follow based on the imaging finding. Thank you for the consult. MD JOSE MANUEL Rivera/minh , 10:49 AM , 11:00 AM
--- NOTE | 2018-05-06 14:36 | FL ---
EXAM DATE: 05/06/2018 2:16 PM EST AGE/SEX: 82 years / Male INDICATIONS: Dysphagia and difficulty swallowing. CLINICAL DATA: This is the patient's initial encounter. Patient reports that signs and symptoms have been present for 4 - 6 days and indicates a pain score of 8/10. MEDICAL/SURGICAL HISTORY: . Weight loss, diaphragmatic hernia. None. COMPARISON: [facility], [place] BARIUM SWALLOW, 01/13/2017. . FLUORO TIME: 1,0 IMAGE COUNT: 10 FINDINGS: A Gastrografin study was requested. The patient was given a small amount of Gastrografin orally. The patient experienced difficulty swallowing. Aspiration was noted. No additional contrast was administe red. Contrast was seen to extend into the stomach. The stomach is above the hemidiaphragm in a hiatal hernia. CONCLUSION: Very limited study given the rapid nearly immediate aspiration of Gastrografin. Some obstruction was not seen but very little contrast was seen in the evaluation of the pharynx and esophagus is incomplete. Given the difficulty in swallowing and the aspiration, the patient may benefit from consultation with speech pathology. Electronically signed by: Jerome Dowd MD 05/06/2018 2:35 PM EST
[2018-05-06] MEDS ORDERED: Diatrizoate Meglum/Diatrizoate Sod Liq 120 ML Bottle (for RAD diag) PO ONE (15:09)
[2018-05-06] MEDS: KCL 20 mEq/D5W/NaCl 0.45% Inj 1,000 ML IV.CONT SCH (16:21)
--- NOTE | 2018-05-06 16:22 | P.CON ---
History of Present Illness Consult date: 05/06/18 Primary Care Provider: Julian Bunn MD Chief Complaint: Difficulty swallowing History of Present Illness: Patient is an 82-year-old male with history of oxygen dependent COPD who presented for evaluation of dysphasia. The patient had reports that for the last 5 days he has been unable to swallow liquids and solids. Patient came to the ED for evaluation. I have been consulted for the patient's hiatal hernia in which most of his stomach and some small intestine is in the chest cavity. The patient underwent upper GI study earlier today the patient was unable to complete this as he had some pooling of contrast in the back of his mouth but could not swallow anything. Patient just underwent speech therapy evaluation and he cannot tolerate any liquids including ice without aspirating. Patient has a left lung pneumonia at the current time he was noted to have some bigeminy when he was initially admitted. He is having no chest pain or abdominal pain at this time. Patient's daughter is present at the bedside during this exam PMFSH - History History Provided By: Patient - Medical History Medical History: Medical History (Last Reviewed 05/06/18 @ 14:49 by Gracie Kay) COPD (chronic obstructive pulmonary disease) Chronic respiratory failure with hypoxia Collapse, lung GERD (gastroesophageal reflux disease) Hypertension - Surgical History Surgical History: Surgical History (Last Reviewed 05/05/18 @ 14:03 by Kim Vincent) H/O knee surgery History of chest tube placement - Family History Family History: Family History (Last Updated 05/05/18 @ 08:35 by JONO Cancino) Father History of brain tumor - Tobacco History Second Hand Smoke Exposure: No Tobacco Use In Past 30 Days: No Smoking Status: Former smoker Tobacco Type: Cigarettes - Alcohol History How Often Do You Have a Drink Containing Alcohol: Never - Substance Use History Substance History: No History of Abuse - Travel History Recent Travel in the [place] Within the Last 8 Weeks: No Recent Travel Out of the Country Within the Last 8 Weeks: No - Immunization History Tetanus Immunization: <5 Years Hx Influenza Vaccine This Season: Yes Medications and Allergies Active Medications: Active Medications Albuterol (Duoneb Neb (Prn)) 1 ampul NEB Q2HR NEB PRN PRN Reason: SHORTNESS OF BREATH/WHEEZING Albuterol (Duoneb Neb ([place])) 1 ampul NEB Q6HR WHILE AWAKE NEB [facility] Last Admin: 05/06/18 15:01 Dose: 1 ampul Amiodarone HCl (Cordarone) 200 mg PO DAILY [facility] Last Admin: 05/06/18 10:02 Dose: Not Given Aspirin (Aspirin) 325 mg PO DAILY [facility] Last Admin: 05/06/18 10:01 Dose: Not Given Atorvastatin Calcium (Lipitor) 40 mg PO HS [facility] Last Admin: 05/05/18 21:24 Dose: Not Given Carvedilol (Coreg) 3.125 mg PO BID [facility] Last Admin: 05/06/18 10:02 Dose: Not Given Ferrous Sulfate (Ferosul) 325 mg PO DAILY [facility] Last Admin: 05/06/18 10:02 Dose: Not Given Heparin Sodium (Porcine) (Heparin Inj) 5,000 units SQ Q12HR [facility] Last Admin: 05/06/18 09:51 Dose: 5,000 units Amiodarone HCl 450 mg/ (Dextrose) 250 mls @ 50 mls/hr IV.CONT TITRATE PRN; Protocol PRN Reason: Per Protocol Last Titration: 05/05/18 09:45 Dose: Infused Potassium Chloride/Dextrose/Sod Cl (D5w/1/2ns + Kcl 20 Meq Inj) 1,000 mls @ 84 mls/hr IV.CONT .[id number] [facility] Sodium Chloride (Ns Flush) 2 ml IV.FLUSH BID [facility] Last Admin: 05/06/18 11:09 Dose: Not Given Sodium Chloride (Ns Flush) 2 ml IV.FLUSH PRN PRN PRN Reason: FLUSH AFTER USING IV ACCESS Allergies Allergy/AdvReac Type Severity Reaction Status Date / Time No Known Allergies Allergy Verified 05/04/18 15:39 Home Medications Medication Instructions Recorded Confirmed Type aspirin [Aspir-81] 81 mg PO DAILY 05/04/18 05/04/18 History carvedilol 3.125 mg PO BID 05/04/18 05/04/18 History ferrous sulfate 325 mg PO DAILY 05/04/18 05/04/18 History pantoprazole 40 mg PO DAILY 05/04/18 05/04/18 History prednisone 5 mg PO DAILY 05/04/18 05/04/18 History Physical Exam Vital signs: Vital Signs 05/05/18 20:00 05/05/18 20:06 05/05/18 21:00 Temperature 97.5 F L Pulse Rate 74 74 76 Respiratory Rate 31 H 22 15 Blood Pressure 126/70 130/76 Pulse Oximetry 92 L 94 L 99 05/06/18 00:00 05/06/18 02:43 05/06/18 04:00 Temperature 98 F 97.7 F Pulse Rate 74 76 78 Respiratory Rate 13 15 19 Blood Pressure 136/66 136/39 L 133/65 Pulse Oximetry 98 94 L 97 05/06/18 05:00 05/06/18 06:00 05/06/18 06:12 Temperature Pulse Rate 78 74 72 Respiratory Rate 19 24 22 Blood Pressure 129/60 Pulse Oximetry 97 05/06/18 07:00 05/06/18 07:35 05/06/18 07:57 Temperature Pulse Rate 78 78 82 Respiratory Rate 14 20 24 Blood Pressure 132/70 Pulse Oximetry 94 L 05/06/18 08:00 05/06/18 08:21 05/06/18 09:00 Temperature 98.5 F Pulse Rate 84 82 82 Respiratory Rate 24 18 16 Blood Pressure 134/68 Pulse Oximetry 96 05/06/18 09:41 05/06/18 10:00 05/06/18 11:00 Temperature Pulse Rate 80 78 74 Respiratory Rate 29 H 24 15 Blood Pressure 119/63 Pulse Oximetry 96 98 05/06/18 11:26 05/06/18 12:00 05/06/18 15:01 Temperature 98.6 F Pulse Rate 74 76 82 Respiratory Rate 13 17 21 Blood Pressure 137/85 Pulse Oximetry 96 99 Intake & Output 05/05/18 05/06/18 05/06/18 18:59 06:59 18:59 Intake Total 775 / 775 300 / 300 300 / 300 Output Total 200 / 200 100 / 100 Balance 575 / 575 300 / 300 200 / 200 Weight 55.7 kg 56.8 kg Intake: IV 775 / 775 300 / 300 300 / 300 Cordarone Inj 450 MG In D5W Inj 125 / 125 241 ML @ 1.5 MG/MIN 50 mls/hr IV.CONT TITRATE PRN Rx#: [id number] Azithromycin Inj 500 MG In NS 250 / 250 Inj 250 ML @ 250 mls/hr IV.SIG Q24H [facility] Rx#:[id number] Zosyn 4.5 GM Premix 4.5 gm In 200 / 200 200 / 200 200 / 200 100 ml @ 200 mls/hr IV.SIG Q6H [facility] Rx#:[id number] Flagyl 500 MG Inj 100 ML @ 100 200 / 200 100 / 100 100 / 100 mls/hr IV.SIG Q8H [facility] Rx#: [id number] Oral 0 / 0 0 / 0 Output: Urine 200 / 200 100 / 100 Other: Post Void Residual 500 Date of Last Bowel Movement 05/04/18 05/04/18 05/04/18 Weight On Admission 55.7 kg - Constitutional no acute distress - Routine Neck Exam Present: supple - Routine Respiratory Exam Present: CTA bilaterally - Routine Cardiovascular Exam Present: RRR - Routine Abdominal Exam Present: soft Comments: No tenderness or guarding; no evidence of hernia defects. - Routine Skin Exam Present: intact, ecchymosis (On both forearms) - Routine Neurological Exam Present: alert - Detailed Neurological Exam: Coma Scale Eye Opening: Spontaneous Verbal Response: Oriented - Routine Psychiatric Exam Present: normal affect Results - Labs CBC & Chem 7: 05/06/18 06:05 05/06/18 06:00 Labs: Laboratory Results - last 24 hr 05/06/18 05/06/18 06:00 06:05 CBC w Diff Auto diff final WBC 9.9 RBC 4.87 Hgb 14.3 Hct 43.4 MCV 89.2 MCH 29.5 MCHC 33.0 RDW 13.8 Plt Count 229 MPV 8.2 Neut % (Auto) 85.8 H Lymph % (Auto) 6.4 L [place] % (Auto) 7.3 Eos % (Auto) 0.3 Baso % (Auto) 0.2 Neut # (Auto) 8.6 H Lymph # (Auto) 0.6 L [place] # (Auto) 0.7 Eos # (Auto) 0.0 Baso # (Auto) 0.0 WBC Differential . Differential Comment . Sodium 142 Potassium 3.9 Chloride 104 Carbon Dioxide 25.6 Anion Gap 12 BUN 22 H Creatinine 1.10 Estimated GFR 64 L Random Glucose 54 L Calcium 8.1 L - Imaging Impressions Head CT 05/05/18 15:29 CONCLUSION: 1. No acute hemorrhage or mass effect. 2. Mild to moderate atrophic change and chronic small vessel ischemic changes. . Upper GI/Barium Swallow X-Ray 05/06/18 00:00 CONCLUSION: Very limited study given the rapid nearly immediate aspiration of Gastrografin. Some obstruction was not seen but very little contrast was seen in the evaluation of the pharynx and esophagus is incomplete. Given the difficulty in swallowing and the aspiration, the patient may benefit from consultation with speech pathology. Assessment and Plan - Assessment (1) Hiatal hernia Code(s): K44.9 - Diaphragmatic hernia without obstruction or gangrene Status: Acute Plan: Would not recommend any surgery at the present time as the patient has a left lung pneumonia and is a steroid dependent, oxygen dependent COPD patient. Placing a feeding tube would be problematic and would require a general anesthetic which is not ideal for this patient at this time. (2) Dysphagia Code(s): R13.10 - Dysphagia, unspecified Status: Acute Plan: Head CT is negative for acute changes. Patient likely had some sort of CVA that is causing his dysphasia. Underlying cause needs to be determined and simply fixing his hiatal hernia will not address this. He is not a candidate for a PEG tube due to his hiatal hernia. May consider radiologic placement of a jejunal feeding tube so that he can receive calories. This would not require a general anesthetic, although I have discussed with the daughter that this would require him to be on a pump for at least 12 hours a day. (3) Sepsis Code(s): A41.9 - Sepsis, unspecified organism Status: Acute (4) Pneumonia involving left lung Code(s): J18.9 - Pneumonia, unspecified organism Status: Acute (5) Steroid-dependent chronic obstructive pulmonary disease Code(s): J44.9 - Chronic obstructive pulmonary disease, unspecified Status: Acute - Plan Discussed Condition With: Daughter Nurse Patient - Attending Attestation I attest that I had a [id number] encounter with the patient on the same day, and personally performed and documented my assessment and findings in the medical record. The following services were provided during this hospital visit: Chart data review, vital sign assessments/reviewing monitor data Review of consultation notes if present Medication orders/review and/or management Ordering and/or reviewing lab tests Ordering and/or interpreting/reviewing x-rays and/or diagnostic studies Care of the patient and discussion of the patient with the care team Documentation time To help prompt me to consider important information that might be impacting today's encounter and assessment, Information from prior notes written by myself or my colleagues may have been "brought forward/copy and pasted" into today's note.
--- NOTE | 2018-05-06 17:14 | CT ---
EXAM DATE: 05/06/2018 5:02 PM EST AGE/SEX: 82 years / Male INDICATIONS: Dysphagia. Aspiration. CLINICAL DATA: This is the patient's initial encounter. Patient reports that signs and symptoms have been present for 2 days and indicates a pain score of 5/10. MEDICAL/SURGICAL HISTORY: Chronic obstructive pulmonary disease. Gastroesophageal reflux disease. Hypertension. None. RADIATION DOSE: 12.14 CTDI (mGy) COMPARISON: [facility], SWALLOW W GASTROGRAFIN, 05/06/2018. . TECHNIQUE: Helical acquisition was performed using a multirow detector CT scanner without contrast. Using automated exposure control and adjustment of the mA and/or kV according to patient size, radiat ion dose was kept as low as reasonably achievable to obtain optimal diagnostic quality images. DICOM format image data is available electronically for review and comparison. FINDINGS: NASOPHARYNX: The nasopharyngeal airway has a normal configuration. No mucosal thickening. OROPHARYNX: The intrinsic muscles of the tongue are symmetric. The tonsillar pillars are intact. T he prevertebral soft tissues are not significantly thickened. LARYNX: The supraglottic, glottic, and infraglottic structures are intact. PARAPHARYNGEAL: The parapharyngeal space is intact. SALIVARY GLANDS: The parotid and submandibular glands are intact. LYMPH NODES: No enlarged or necrotic-appearing nodes. THYROID: Homogeneous enhancement without evidence of nodule. BONES: Severe degenerative spondylosis of the cervical spine with grade 2 anterolisthesis of C5 on C 6. CONCLUSION: 1. 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 T his does result in significant mass effect in the inferior oropharynx and may partially contribute to patient's dysphasia. 2. Otherwise, unremarkable unenhanced CT examination of the cervical soft tissues. Electronically signed by: Samir Saldana MD 05/06/2018 5:13 PM EST
--- NOTE | 2018-05-06 17:22 | P.PNCA ---
Subjective Interval history: Unable to swallow Medications and Allergies Active Medications: Active Medications Albuterol (Duoneb Neb (Prn)) 1 ampul NEB Q2HR NEB PRN PRN Reason: SHORTNESS OF BREATH/WHEEZING Albuterol (Duoneb Neb ([facility])) 1 ampul NEB Q6HR WHILE AWAKE NEB [facility] Last Admin: 05/06/18 15:01 Dose: 1 ampul Amiodarone HCl (Cordarone) 200 mg PO DAILY [facility] Last Admin: 05/06/18 10:02 Dose: Not Given Aspirin (Aspirin) 325 mg PO DAILY [facility] Last Admin: 05/06/18 10:01 Dose: Not Given Atorvastatin Calcium (Lipitor) 40 mg PO HS [facility] Last Admin: 05/05/18 21:24 Dose: Not Given Carvedilol (Coreg) 3.125 mg PO BID [facility] Last Admin: 05/06/18 10:02 Dose: Not Given Ferrous Sulfate (Ferosul) 325 mg PO DAILY [facility] Last Admin: 05/06/18 10:02 Dose: Not Given Heparin Sodium (Porcine) (Heparin Inj) 5,000 units SQ Q12HR [facility] Last Admin: 05/06/18 09:51 Dose: 5,000 units Amiodarone HCl 450 mg/ (Dextrose) 250 mls @ 50 mls/hr IV.CONT TITRATE PRN; Protocol PRN Reason: Per Protocol Last Titration: 05/05/18 09:45 Dose: Infused Potassium Chloride/Dextrose/Sod Cl (D5w/1/2ns + Kcl 20 Meq Inj) 1,000 mls @ 84 mls/hr IV.CONT .[id number] [facility] Last Admin: 05/06/18 16:21 Dose: 84 mls/hr Thiamine HCl 100 mg/ Sodium (Chloride) 101 mls @ 100 mls/hr IV.SIG DAILY [facility] Sodium Chloride (Ns Flush) 2 ml IV.FLUSH BID [facility] Last Admin: 05/06/18 11:09 Dose: Not Given Sodium Chloride (Ns Flush) 2 ml IV.FLUSH PRN PRN PRN Reason: FLUSH AFTER USING IV ACCESS Allergies Allergy/AdvReac Type Severity Reaction Status Date / Time No Known Allergies Allergy Verified 05/04/18 15:39 Home Medications Medication Instructions Recorded Confirmed Type aspirin [Aspir-81] 81 mg PO DAILY 05/04/18 05/04/18 History carvedilol 3.125 mg PO BID 05/04/18 05/04/18 History ferrous sulfate 325 mg PO DAILY 05/04/18 05/04/18 History pantoprazole 40 mg PO DAILY 05/04/18 05/04/18 History prednisone 5 mg PO DAILY 05/04/18 05/04/18 History Physical Exam Vital signs: Vital Signs 05/05/18 20:00 05/05/18 20:06 05/05/18 21:00 Temperature 97.5 F L Pulse Rate 74 74 76 Respiratory Rate 31 H 22 15 Blood Pressure 126/70 130/76 Pulse Oximetry 92 L 94 L 99 05/06/18 00:00 05/06/18 02:43 05/06/18 04:00 Temperature 98 F 97.7 F Pulse Rate 74 76 78 Respiratory Rate 13 15 19 Blood Pressure 136/66 136/39 L 133/65 Pulse Oximetry 98 94 L 97 05/06/18 05:00 05/06/18 06:00 05/06/18 06:12 Temperature Pulse Rate 78 74 72 Respiratory Rate 19 24 22 Blood Pressure 129/60 Pulse Oximetry 97 05/06/18 07:00 05/06/18 07:35 05/06/18 07:57 Temperature Pulse Rate 78 78 82 Respiratory Rate 14 20 24 Blood Pressure 132/70 Pulse Oximetry 94 L 05/06/18 08:00 05/06/18 08:21 05/06/18 09:00 Temperature 98.5 F Pulse Rate 84 82 82 Respiratory Rate 24 18 16 Blood Pressure 134/68 Pulse Oximetry 96 05/06/18 09:41 05/06/18 10:00 05/06/18 11:00 Temperature Pulse Rate 80 78 74 Respiratory Rate 29 H 24 15 Blood Pressure 119/63 Pulse Oximetry 96 98 05/06/18 11:26 05/06/18 12:00 05/06/18 15:01 Temperature 98.6 F Pulse Rate 74 76 82 Respiratory Rate 13 17 21 Blood Pressure 137/85 Pulse Oximetry 96 99 Intake & Output 05/05/18 05/06/18 05/06/18 18:59 06:59 18:59 Intake Total 775 / 775 300 / 300 300 / 300 Output Total 200 / 200 100 / 100 Balance 575 / 575 300 / 300 200 / 200 Weight 55.7 kg 56.8 kg Intake: IV 775 / 775 300 / 300 300 / 300 Cordarone Inj 450 MG In D5W Inj 125 / 125 241 ML @ 1.5 MG/MIN 50 mls/hr IV.CONT TITRATE PRN Rx#: [id number] Azithromycin Inj 500 MG In NS 250 / 250 Inj 250 ML @ 250 mls/hr IV.SIG Q24H [facility] Rx#:[id number] Zosyn 4.5 GM Premix 4.5 gm In 200 / 200 200 / 200 200 / 200 100 ml @ 200 mls/hr IV.SIG Q6H [facility] Rx#:[id number] Flagyl 500 MG Inj 100 ML @ 100 200 / 200 100 / 100 100 / 100 mls/hr IV.SIG Q8H [facility] Rx#: [id number] Oral 0 / 0 0 / 0 Output: Urine 200 / 200 100 / 100 Other: Post Void Residual 500 Date of Last Bowel Movement 05/04/18 05/04/18 05/04/18 Weight On Admission 55.7 kg Narrative: GENERAL: thin, malnourished appearing in no acute distress. alert and orientated HEENT: AT/NC. NECK: No JVD, CARDIAC: S1S2 regularly irregular (trigeminy, 2-4 beats of MMVT on tele asymptomatic. LUNGS: Clear to auscultation bilaterally. No wheeze, rhonchi or rales. No use of accessory muscles on inspiration or expiration. ABDOMEN: Soft, nontender. EXTREMITIES: No edema, pulses are equal bilaterally. No cyanosis or clubbing Results 05/06/18 06:05 05/06/18 06:00 Cardiac Enzymes 05/04/18 05/04/18 05/05/18 Range/Units 16:45 21:27 09:01 Troponin I 0.02 0.02 (0.02-0.05) ng/mL B-Natriuretic Peptide 576 H (0-100) pg/mL Coagulation 05/04/18 Range/Units 16:45 B-Natriuretic Peptide 576 H (0-100) pg/mL CBC 05/04/18 05/05/18 05/06/18 Range/Units 16:45 06:33 06:05 WBC 17.9 H 12.3 H 9.9 (4.0-11.0) th/mm3 RBC 4.78 4.87 (4.50-5.90) mil/mm3 Hgb 13.9 14.3 (13.0-17.0) gm/dL Hct 42.5 43.4 (39.0-51.0) % Plt Count 227 229 (150-450) th/mm3 Neut # (Auto) 10.3 H 8.6 H (1.8-7.7) th/mm3 Lymph # (Auto) 1.0 0.6 L (1.0-4.8) th/mm3 [place] # (Auto) 0.8 0.7 (0.0-0.9) th/mm3 Eos # (Auto) 0.1 0.0 (0.0-0.4) th/mm3 Baso # (Auto) 0.1 0.0 (0.0-0.2) th/mm3 Comprehensive Metabolic Panel 05/06/18 Range/Units 06:00 Sodium 142 (136-145) meq/L Potassium 3.9 (3.5-5.1) meq/L Chloride 104 (98-107) meq/L Carbon Dioxide 25.6 (21.0-32.0) meq/L BUN 22 H (7-18) mg/dL Creatinine 1.10 (0.60-1.30) mg/dL Calcium 8.1 L (8.5-10.1) mg/dL Intake and Output 05/06/18 05/06/18 05/06/18 06:59 14:59 22:59 Intake Total 200 / 200 200 / 200 100 / 100 Output Total 100 / 100 Balance 200 / 200 100 / 100 100 / 100 Intake: IV 200 / 200 200 / 200 100 / 100 Zosyn 4.5 GM Premix 4.5 gm In 100 / 100 100 / 100 100 / 100 100 ml @ 200 mls/hr IV.SIG Q6H [facility] Rx#:[id number] Flagyl 500 MG Inj 100 ML @ 100 100 / 100 100 / 100 mls/hr IV.SIG Q8H [facility] Rx#: [id number] Oral 0 / 0 Output: Urine 100 / 100 Other: Post Void Residual 500 Date of Last Bowel Movement 05/04/18 Weight 56.8 kg - Imaging and Cardiology Imaging: Impressions Chest X-Ray 05/04/18 16:26 CONCLUSION: Left lower lobe pneumonia. Chest CT 05/05/18 00:00 CONCLUSION: 1. Large central diaphragmatic hernia with cranial displacement of stomach, gastroesophageal junction and a loop of intestine. Hernia measures 16.7 cm in width. 2. Large posterior mediastinal transit diaphragmatic hernia containing stomach , gastroesophageal junction and a loop of intestine which may be the transverse colon. Predisposition to volvulus is of clinical concern. 3. Extensive bilateral nonspecific fibrotic disease with honeycombing and septal thickening. Head CT 05/05/18 15:29 CONCLUSION: 1. No acute hemorrhage or mass effect. 2. Mild to moderate atrophic change and chronic small vessel ischemic changes. . Soft Tissue Neck CT 05/06/18 00:00 CONCLUSION: 1. 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 This does result in significant mass effect in the inferior oropharynx and may partially contribute to patient's dysphasia. 2. Otherwise, unremarkable unenhanced CT examination of the cervical soft tissues. Upper GI/Barium Swallow X-Ray 05/06/18 00:00 CONCLUSION: Very limited study given the rapid nearly immediate aspiration of Gastrografin. Some obstruction was not seen but very little contrast was seen in the evaluation of the pharynx and esophagus is incomplete. Given the difficulty in swallowing and the aspiration, the patient may benefit from consultation with speech pathology. Assessment and Plan - Assessment (1) Malnourished Code(s): E46 - Unspecified protein-calorie malnutrition Status: Acute (2) Non-sustained ventricular tachycardia Code(s): I47.2 - Ventricular tachycardia Status: Acute (3) Cardiomyopathy Code(s): I42.9 - Cardiomyopathy, unspecified Status: Acute Plan: Lori-SPECT to evaluate possible ischemic etiology for his cardiomyopathy. Add IV thiamine for possible beri-beri. He is cleared by cardiology for EGD/ PEG tube.
[2018-05-06] MEDS: Thiamine Inj 100 MG in Sodium Chlor 0.9% Inj 100 ML IV.SIG SCH (18:38)
[2018-05-07] MEDS: KCL 20 mEq/D5W/NaCl 0.45% Inj 1,000 ML IV.CONT SCH ×2 (04:38→18:54)
[2018-05-07] MEDS: Heparin - SQ 10,000 UNITS/ML Vial SQ SCH ×2 (09:24→20:36)
[2018-05-07] MEDS: Thiamine Inj 100 MG in Sodium Chlor 0.9% Inj 100 ML IV.SIG SCH (09:26)
[2018-05-07] MEDS ORDERED: Regadenoson Inj 0.4 MG/5 ML Syringe IV.PUSH ONE (10:08)
--- NOTE | 2018-05-07 10:26 | P.PNIM ---
Subjective Interval history: 82-year-old male seen arrhythmia, dysphagia. Patient still n.p.o., unable to take anything by mouth. Patient undergoing myocardial perfusion study today for further evaluation. Patient states that he wants to eat a sandwich. I notified him that the way things are going that he will probably need to have a feeding tube for nutrition. Patient states that he does not want one at this time. He states that he needs his throat dilated so he can eat. Vital signs are stable. Patient remains afebrile. Physical Exam Vital signs: Vital Signs 05/06/18 11:00 05/06/18 11:26 05/06/18 12:00 Temperature 98.6 F Pulse Rate 74 74 76 Respiratory Rate 15 13 17 Blood Pressure 137/85 Pulse Oximetry 98 96 99 05/06/18 13:00 05/06/18 13:10 05/06/18 14:05 Temperature Pulse Rate 80 76 Respiratory Rate 28 H 22 Blood Pressure 129/71 Pulse Oximetry 98 99 89 L 05/06/18 15:00 05/06/18 15:01 05/06/18 15:23 Temperature Pulse Rate 78 82 84 Respiratory Rate 17 21 17 Blood Pressure 117/61 Pulse Oximetry 95 96 05/06/18 16:00 05/06/18 16:36 05/06/18 17:00 Temperature 98.9 F Pulse Rate 86 84 80 Respiratory Rate 26 H 19 21 Blood Pressure 126/65 Pulse Oximetry 97 97 05/06/18 19:33 05/06/18 20:00 05/07/18 00:00 Temperature 98.1 F 97.3 F L Pulse Rate 84 86 82 Respiratory Rate 18 19 17 Blood Pressure 148/59 H 139/60 Pulse Oximetry 95 96 94 L 05/07/18 04:00 05/07/18 07:30 Temperature 98.6 F Pulse Rate 80 70 Respiratory Rate 14 19 Blood Pressure 123/70 Pulse Oximetry 97 Intake & Output 05/06/18 05/07/18 05/07/18 18:59 06:59 18:59 Intake Total 300 / 300 1101 / 1101 Output Total 100 / 100 675 / 675 Balance 200 / 200 426 / 426 Weight 56.4 kg Intake: IV 300 / 300 1101 / 1101 D5W/1/2NS + KCL 20 mEq Inj 1, 1000 / 1000 000 ML @ 84 mls/hr IV.CONT . [id number] [facility] Rx#:[id number] Zosyn 4.5 GM Premix 4.5 gm In 200 / 200 100 ml @ 200 mls/hr IV.SIG Q6H [facility] Rx#:[id number] Thiamine Inj 100 MG In NS Inj 101 / 101 100 ML @ 100 mls/hr IV.SIG DAILY [facility] Rx#:[id number] Flagyl 500 MG Inj 100 ML @ 100 100 / 100 mls/hr IV.SIG Q8H [facility] Rx#: [id number] Oral 0 / 0 Output: Urine 100 / 100 675 / 675 Other: Date of Last Bowel Movement 05/04/18 05/04/18 Narrative: GENERAL: Well-developed, frail and cachectic, in no acute distress. alert and orientated HEENT: Head is normocephalic without any lesions or masses noted. Facial features are symmetric. Eyes: Extraocular muscles are intact. NECK: Supple without any masses. Trachea midline no deviation. No JVD, CARDIAC: Irregular rhythm, irregular rate. S1/S2 are heard. No murmurs gallops or rubs. LUNGS: Clear to auscultation bilaterally. No wheeze, rhonchi or rales. No use of accessory muscles on inspiration or expiration. ABDOMEN: Soft, nontender. Nondistended. Bowel sounds heard in all 4 quadrants. No organomegaly or masses. Negative rebound, negative guarding EXTREMITIES: No edema, pulses are equal bilaterally. No cyanosis or clubbing NEUROLOGY: Mood and affect appear appropriate. Cranial nerves II through XII grossly intact. Moving all extremities, speech is clear Results - Labs CBC & Chem 7: 05/06/18 06:05 05/06/18 06:00 Laboratory Results - last 24 hr 05/06/18 05/07/18 18:07 07:50 POC Glucose 80 124 H Microbiology 05/05/18 10:50 Sputum - Expectorated Sputum Gram Stain - Final 05/05/18 10:50 Sputum - Expectorated Sputum Sputum Culture - Preliminary Heavy growth normal respiratory gaby at 24 hours 05/04/18 18:00 Blood - Line Aerobic Blood Culture - Preliminary No growth in 2 days 05/04/18 18:00 Blood - Line Anaerobic Blood Culture - Preliminary No growth in 2 days 05/04/18 18:05 Blood - Line Aerobic Blood Culture - Preliminary No growth in 2 days 05/04/18 18:05 Blood - Line Anaerobic Blood Culture - Preliminary No growth in 2 days - Imaging Impressions Soft Tissue Neck CT 05/06/18 00:00 CONCLUSION: 1. 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 This does result in significant mass effect in the inferior oropharynx and may partially contribute to patient's dysphasia. 2. Otherwise, unremarkable unenhanced CT examination of the cervical soft tissues. Upper GI/Barium Swallow X-Ray 05/06/18 00:00 CONCLUSION: Very limited study given the rapid nearly immediate aspiration of Gastrografin. Some obstruction was not seen but very little contrast was seen in the evaluation of the pharynx and esophagus is incomplete. Given the difficulty in swallowing and the aspiration, the patient may benefit from consultation with speech pathology. - Procedures ECHOCARDIOGRAM CONCLUSIONS Normal left ventricular size. Wall thickness is normal. The left ventricular systolic function is [id number] reduced with an estimated ejection fraction in the range of 35-40%. Mild to moderate mitral valve regurgitation. [id number]-fymulpto aortic valve regurgitation. There is mild tricuspid valve regurgitation. The estimated pulmonary arterial pressure is 43 mmHg. Assessment and Plan - Assessment (1) Sepsis Code(s): A41.9 - Sepsis, unspecified organism Status: Acute (2) Bigeminy Code(s): I49.9 - Cardiac arrhythmia, unspecified Status: Acute (3) Dysphagia Code(s): R13.10 - Dysphagia, unspecified Status: Acute (4) Pneumonia involving left lung Code(s): J18.9 - Pneumonia, unspecified organism Status: Acute - Plan Dysphagia -Speech therapy did evaluation. Discussed with speech therapy extensively. Patient has severe oral phase dysphagia. And absolute n.p.o. at this time until further evaluation -CT of the chest was performed due to abnormal chest x-ray. 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 Hernia measures 16.7 cm. -CT of the brain was performed to evaluate for any previous stroke that could cause neurological component of dysphagia. CT of the brain was negative -Gastroenterology did evaluate the patient and recommending upper GI study with Gastrografin -Upper GI study with Gastrografin: Patient had severe signs of aspiration. Very little amount of contrast made it into the esophagus. -Patient will require endoscopy for further evaluation -Patient remain n.p.o. at this time -General surgery indicated that patient not a candidate for PEG tube that he would require conventional radiology to place a J-tube Diaphragmatic hernia -Consult general surgery for further recommendations -They indicate that correction of the diaphragmatic hernia is not the cause of the patient's underlying condition, that needs to be corrected first Arrhythmia -ER documentation indicating ventricular tachycardia which improved after the use of amiodarone -EKGs are indicating atrial fibrillation with PVCs -Telemetry appears to have sinus rhythm with aberrant PVCs, occasional bigeminy -Patient has been ruled out for acute coronary event with serial cardiac enzymes that are negative -Cardiology consulted for further recommendation and recommended continuation of amiodarone p.o. -Echocardiogram indicating cardiomyopathy with ejection fraction 35-40%. -Patient continued on Coreg -Myocardial perfusion study was requested by transportation economics teacher Sepsis, resolved -Patient met criteria on admission with leukocytosis, tachycardia, lactic acidosis, left lung pneumonia -Chest x-ray did indicate left lower lung pneumonia -CT scan was done of the chest which did not indicate any pneumonia or infiltrate -Patient is asymptomatic, afebrile, no leukocytosis -Antibiotics were discontinued -Blood cultures are negative for 2 day Chronic hypoxic respiratory failure, chronic obstructive pulmonary disease, Fibrotic lung disease -Continue O2 supplementation maintain O2 sat greater than 92% -Sputum culture showing heavy growth of predominant gaby, budding yeast e -Duo nebs to 6 hours while awake and every 2 hours as needed Hypertension -Home medication continued DVT prevention -Subcutaneous heparin
--- NOTE | 2018-05-07 11:31 | P.DIET ---
Nutritional Evaluation Type of nutrition evaluation: initial Nutrition screening: Weight Loss > 10 lbs Screening comments: Pt reports a poor appetite, difficulty swallowing and a 50lb wt loss over the past 3 months. Pt refuses a feeding tube at this time. "I just want my throat stretched so I can eat". Objective - Diagnosis PNA, Tachycardia - Objective % IBW: 83 (IBW: 67.3kg) Body Weight Used for Calculations: Actual (55.7kg) Energy Needs - Lower Range (kCal/kg): 33 Energy Needs - Upper Range (kCal/kg): 38 Lower Limit kCal/kg (kCals): 1,838 Upper Limit kCal/kg (kCals): 2,117 Lower Limit Protein Factor (Grams per Kg): 1.1 Upper Limit Protein Factor (Grams per Kg): 1.4 Lower Protein Needs (Protein): 61 Upper Protein Needs (Protein): 78 Fluid Factor (ml/kg): 33 Estimated Fluid Needs (ml): 1,838 Dietitian Reviewed in Medical Record: Current diet, Curent medications, Intake & Output, Labs, Medical history Diet Order: NPO Speech Therapy Recommendations: Yes Objective Comments: PMH: Chronic respiratory failure with hypoxia, COPD, GERD, HTN Meds include: Cardarone, IV Multivit Assessment Assessment: Pt at high nutritional risk r/t recent significant wt loss and current severe dysphagia. Pt is NPO per speech. Noted PEG tube not an option r/t pt's hiatal hernia. A J-tube may be placed however pt is refusing at this time. Pt's nutritional needs as assessed above. If pt has a J-tube placed, (at least a 10 Vincentian), recommend TF Jevity 1.5 with goal rate 55 ml/hr to provide 1980kcals, 84gms protein and 1003mls free water. 300mls free water flushes q 8 hrs are needed to meet pt's fluid needs. Will monitor clinical course. Recommendations: Pt NPO r/t severe dysphagia If J-tube placed TF recs above. Dietitian to Monitor: Lab values, Intake & Output, Weight change, Medical course
--- NOTE | 2018-05-07 11:40 | NM ---
EXAM DATE: 05/07/2018 11:03 AM EST AGE/SEX: 82 years / Male INDICATIONS:Coronary artery disease. . CLINICAL DATA: This is the patient's initial encounter. Patient reports that signs and symptoms have been present for 1 day and indicates a pain score of 3/10. MEDICAL/SURGICAL HISTORY: Hypertension. Chronic obstructive pulmonary disease. . Knee surgery. COMPARISON: C, MYOCARDIAL PERF PHARM SPECT, 07/26/2016. . DOSE: 8.1 mCi Tc 99m Myoview at rest 25.6 mCi [id number] at stress 0.4 mg Lexiscan STRESS SYMPTOMS: None. EJECTION FRACTION: 49 % TECHNIQUE: The patient underwent pharmacologic stress with infusion of prescribed dose. Continuous ECG tracing was monitored during stress. Gated SPECT imaging was performed after stress and conventi onal SPECT imaging was performed at rest. The examination was performed on a SPECT/CT scanner, both attenuation and non-corrected datasets were reviewed. FINDINGS: Distribution: The maximum perfused segment at stress is in the inferior wall. Perfusion Study: There is decreased perfusion over the left apical region. There is decreased perfu regis throughout the lateral wall. These areas are matched on the stress and rest images. An area of i schemia is not seen. Gated Study: There are intact wall motion and wall thickening without hypokinetic or dyskinetic segm ents. The ejection fraction is calculated at 49%. RISK CATEGORY: Intermediate (1-3 % Annual Mortality Rate) CONCLUSION: 1. No areas of ischemia are seen. 2. Decreased activity at the apex and left lateral wall mass on the stress and rest images concernin g for prior infarction. Electronically signed by: Jerome Dowd MD 05/07/2018 11:39 AM EST
[2018-05-07] MEDS: Aspirin 325 MG Tablet PO SCH (11:44)
[2018-05-07] MEDS: Amiodarone 200 MG Tablet PO SCH (11:44)
[2018-05-07] MEDS: Ferrous Sulfate 325 MG Tablet PO SCH (11:45)
[2018-05-07] MEDS: FOLIC ACID IV.SIG SCH ×5 (14:00)
[2018-05-07] MEDS: MULTIVITAMIN IV.SIG SCH ×5 (14:00)
[2018-05-07] MEDS: THIAMINE IV.SIG SCH ×5 (14:00)
[2018-05-07] MEDS: [UNRECOGNIZED DRUG - OTHER] IV.SIG SCH ×5 (14:00)
--- NOTE | 2018-05-07 16:25 | P.PNCA ---
Medications and Allergies Active Medications: Active Medications Albuterol (Duoneb Neb (Prn)) 1 ampul NEB Q2HR NEB PRN PRN Reason: SHORTNESS OF BREATH/WHEEZING Albuterol (Duoneb Neb (Payton)) 1 ampul NEB Q6HR WHILE AWAKE NEB [facility] Last Admin: 05/07/18 13:53 Dose: 1 ampul Amiodarone HCl (Cordarone) 200 mg PO DAILY [facility] Last Admin: 05/07/18 11:44 Dose: Not Given Aspirin (Aspirin) 325 mg PO DAILY [facility] Last Admin: 05/07/18 11:44 Dose: Not Given Atorvastatin Calcium (Lipitor) 40 mg PO HS [facility] Last Admin: 05/06/18 20:11 Dose: Not Given Carvedilol (Coreg) 3.125 mg PO BID [facility] Last Admin: 05/07/18 11:44 Dose: Not Given Ferrous Sulfate (Ferosul) 325 mg PO DAILY [facility] Last Admin: 05/07/18 11:45 Dose: Not Given Heparin Sodium (Porcine) (Heparin Inj) 5,000 units SQ Q12HR [facility] Last Admin: 05/07/18 09:24 Dose: 5,000 units Amiodarone HCl 450 mg/ (Dextrose) 250 mls @ 50 mls/hr IV.CONT TITRATE PRN; Protocol PRN Reason: Per Protocol Last Titration: 05/05/18 09:45 Dose: Infused Potassium Chloride/Dextrose/Sod Cl (D5w/1/2ns + Kcl 20 Meq Inj) 1,000 mls @ 84 mls/hr IV.CONT .[id number] [facility] Last Admin: 05/07/18 04:38 Dose: 84 mls/hr Multivitamins 10 ml/ Thiamine HCl 100 mg/ Folic Acid 1 mg/Sodium Chloride 77 meq /Dextrose 530.45 mls @ 127.8 mls/hr IV.SIG Q24H [facility] Last Admin: 05/07/18 14:00 Dose: 127.8 mls/hr Sodium Chloride (Ns Flush) 2 ml IV.FLUSH BID [facility] Last Admin: 05/07/18 09:26 Dose: 2 ml Sodium Chloride (Ns Flush) 2 ml IV.FLUSH PRN PRN PRN Reason: FLUSH AFTER USING IV ACCESS Allergies Allergy/AdvReac Type Severity Reaction Status Date / Time No Known Allergies Allergy Verified 05/04/18 15:39 Home Medications Medication Instructions Recorded Confirmed Type aspirin [Aspir-81] 81 mg PO DAILY 05/04/18 05/04/18 History carvedilol 3.125 mg PO BID 05/04/18 05/04/18 History ferrous sulfate 325 mg PO DAILY 05/04/18 05/04/18 History pantoprazole 40 mg PO DAILY 05/04/18 05/04/18 History prednisone 5 mg PO DAILY 05/04/18 05/04/18 History Physical Exam Vital signs: Vital Signs 05/06/18 16:36 05/06/18 17:00 05/06/18 19:33 Temperature 98.9 F Pulse Rate 84 80 84 Respiratory Rate 19 21 18 Blood Pressure 126/65 Pulse Oximetry 97 95 05/06/18 20:00 05/07/18 00:00 05/07/18 04:00 Temperature 98.1 F 97.3 F L 98.6 F Pulse Rate 86 82 80 Respiratory Rate 19 17 14 Blood Pressure 148/59 H 139/60 123/70 Pulse Oximetry 96 94 L 05/07/18 07:30 05/07/18 08:00 05/07/18 13:55 Temperature Pulse Rate 70 75 77 Respiratory Rate 19 20 Blood Pressure Pulse Oximetry 97 Intake & Output 05/06/18 05/07/18 05/07/18 18:59 06:59 18:59 Intake Total 300 / 300 1101 / 1101 101 / 101 Output Total 100 / 100 675 / 675 Balance 200 / 200 426 / 426 101 / 101 Weight 56.4 kg Intake: IV 300 / 300 1101 / 1101 101 / 101 D5W/1/2NS + KCL 20 mEq Inj 1, 1000 / 1000 000 ML @ 84 mls/hr IV.CONT . [id number] [facility] Rx#:[id number] Zosyn 4.5 GM Premix 4.5 gm In 200 / 200 100 ml @ 200 mls/hr IV.SIG Q6H [facility] Rx#:[id number] Thiamine Inj 100 MG In NS Inj 101 / 101 101 / 101 100 ML @ 100 mls/hr IV.SIG DAILY [facility] Rx#:[id number] Flagyl 500 MG Inj 100 ML @ 100 100 / 100 mls/hr IV.SIG Q8H [facility] Rx#: [id number] Oral 0 / 0 Output: Urine 100 / 100 675 / 675 Other: Date of Last Bowel Movement 05/04/18 05/04/18 Results 05/06/18 06:05 05/06/18 06:00 CBC 05/06/18 Range/Units 06:05 WBC 9.9 (4.0-11.0) th/mm3 RBC 4.87 (4.50-5.90) mil/mm3 Hgb 14.3 (13.0-17.0) gm/dL Hct 43.4 (39.0-51.0) % Plt Count 229 (150-450) th/mm3 Neut # (Auto) 8.6 H (1.8-7.7) th/mm3 Lymph # (Auto) 0.6 L (1.0-4.8) th/mm3 [place] # (Auto) 0.7 (0.0-0.9) th/mm3 Eos # (Auto) 0.0 (0.0-0.4) th/mm3 Baso # (Auto) 0.0 (0.0-0.2) th/mm3 Comprehensive Metabolic Panel 05/06/18 Range/Units 06:00 Sodium 142 (136-145) meq/L Potassium 3.9 (3.5-5.1) meq/L Chloride 104 (98-107) meq/L Carbon Dioxide 25.6 (21.0-32.0) meq/L BUN 22 H (7-18) mg/dL Creatinine 1.10 (0.60-1.30) mg/dL Calcium 8.1 L (8.5-10.1) mg/dL Intake and Output 05/07/18 05/07/18 05/07/18 06:59 14:59 22:59 Intake Total 1000 / 1000 101 / 101 Output Total 675 / 675 Balance 325 / 325 101 / 101 Intake: IV 1000 / 1000 101 / 101 D5W/1/2NS + KCL 20 mEq Inj 1, 1000 / 1000 000 ML @ 84 mls/hr IV.CONT . [id number] [facility] Rx#:[id number] Thiamine Inj 100 MG In NS Inj 101 / 101 100 ML @ 100 mls/hr IV.SIG DAILY [facility] Rx#:[id number] Output: Urine 675 / 675 Other: Weight 56.4 kg - Imaging and Cardiology Imaging: Impressions Head CT 05/05/18 15:29 CONCLUSION: 1. No acute hemorrhage or mass effect. 2. Mild to moderate atrophic change and chronic small vessel ischemic changes. . Soft Tissue Neck CT 05/06/18 00:00 CONCLUSION: 1. 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 This does result in significant mass effect in the inferior oropharynx and may partially contribute to patient's dysphasia. 2. Otherwise, unremarkable unenhanced CT examination of the cervical soft tissues. Upper GI/Barium Swallow X-Ray 05/06/18 00:00 CONCLUSION: Very limited study given the rapid nearly immediate aspiration of Gastrografin. Some obstruction was not seen but very little contrast was seen in the evaluation of the pharynx and esophagus is incomplete. Given the difficulty in swallowing and the aspiration, the patient may benefit from consultation with speech pathology. Myocardial Perfusion Scan Nuc Med 05/07/18 17:16 CONCLUSION: 1. No areas of ischemia are seen. 2. Decreased activity at the apex and left lateral wall mass on the stress and rest images concerning for prior infarction. Assessment and Plan - Assessment (1) Malnourished Code(s): E46 - Unspecified protein-calorie malnutrition Status: Acute (2) Non-sustained ventricular tachycardia Code(s): I47.2 - Ventricular tachycardia Status: Acute (3) Cardiomyopathy Code(s): I42.9 - Cardiomyopathy, unspecified Status: Acute Plan: Lori-SPECT to evaluate possible ischemic etiology for his cardiomyopathy. Add IV thiamine for possible beri-beri. He is cleared by cardiology for EGD/ PEG tube. - Plan Nuclear stress test indicates prior infarction - no ischemia. Patient is cleared for EGDE. Needs ACEI/BB/Amio 200mg daily once PO med route available. Cardiology avail prn.
[2018-05-07] MEDS ORDERED: Metoprolol Inj 5 MG/5 ML Vial IV.PUSH PRN (20:21)
[2018-05-08] MEDS: KCL 20 mEq/D5W/NaCl 0.45% Inj 1,000 ML IV.CONT SCH (06:25)
[2018-05-08] MEDS: Amiodarone 200 MG Tablet PO SCH (09:32)
[2018-05-08] MEDS: Aspirin 325 MG Tablet PO SCH (09:32)
[2018-05-08] MEDS: Ferrous Sulfate 325 MG Tablet PO SCH (09:32)
--- NOTE | 2018-05-08 09:40 | P.PNIM ---
Subjective Interval history: 82-year-old male who is seen examined today for follow-up on dysphagia , ventricular arrhythmia. Patient resting comfortably. Denies any new complaints. Still asking if he can have a sandwich. Vital signs are stable. Patient remains afebrile. Physical Exam Vital signs: Vital Signs 05/07/18 11:08 05/07/18 12:00 05/07/18 13:00 Temperature 98.7 F Pulse Rate 74 76 70 Respiratory Rate 16 26 H 13 Blood Pressure 127/69 Pulse Oximetry 93 L 93 L 97 05/07/18 13:24 05/07/18 13:55 05/07/18 14:00 Temperature Pulse Rate 70 77 72 Respiratory Rate 13 20 13 Blood Pressure 113/70 Pulse Oximetry 98 99 05/07/18 15:00 05/07/18 16:00 05/07/18 17:00 Temperature 98.8 F Pulse Rate 78 76 76 Respiratory Rate 17 14 14 Blood Pressure Pulse Oximetry 99 98 95 05/07/18 19:00 05/07/18 19:18 05/07/18 20:00 Temperature 97.5 F L Pulse Rate 72 70 79 Respiratory Rate 20 14 Blood Pressure 114/66 Pulse Oximetry 98 99 05/08/18 00:00 05/08/18 02:00 05/08/18 04:00 Temperature 98.4 F 97.8 F Pulse Rate 82 74 70 Respiratory Rate 18 21 13 Blood Pressure 112/68 118/69 Pulse Oximetry 98 99 97 05/08/18 07:52 Temperature Pulse Rate 74 Respiratory Rate 24 Blood Pressure Pulse Oximetry 96 Intake & Output 05/07/18 05/08/18 05/08/18 18:59 06:59 18:59 Intake Total 1631.45 / 1631.45 1000 / 1000 Output Total 650 / 650 Balance 1631.45 / 1631.45 350 / 350 Weight 56.7 kg Intake: IV 1631.45 / 1631.45 1000 / 1000 D5W/1/2NS + KCL 20 mEq Inj 1, 1000 / 1000 1000 / 1000 000 ML @ 84 mls/hr IV.CONT . [id number] [facility] Rx#:[id number] MVI-12 Inj 10 ML Thiamine Inj 530.45 / 530.45 100 MG Folvite Inj 1 MG Sodium Chloride 23.4% Inj 77 MEQ In D5W Inj 500 ML @ 127.8 mls/hr IV.SIG Q24H [facility] Rx#:[id number] Thiamine Inj 100 MG In NS Inj 101 / 101 100 ML @ 100 mls/hr IV.SIG DAILY [facility] Rx#:[id number] Output: Urine 650 / 650 Other: # Voids 1 Date of Last Bowel Movement 05/04/18 05/04/18 Narrative: GENERAL: Well-developed, frail and cachectic, in no acute distress. alert and orientated HEENT: Head is normocephalic without any lesions or masses noted. Facial features are symmetric. Eyes: Extraocular muscles are intact. NECK: Supple without any masses. Trachea midline no deviation. No JVD, CARDIAC: Irregular rhythm, irregular rate. S1/S2 are heard. No murmurs gallops or rubs. LUNGS: Clear to auscultation bilaterally. No wheeze, rhonchi or rales. No use of accessory muscles on inspiration or expiration. ABDOMEN: Soft, nontender. Nondistended. Bowel sounds heard in all 4 quadrants. No organomegaly or masses. Negative rebound, negative guarding EXTREMITIES: No edema, pulses are equal bilaterally. No cyanosis or clubbing NEUROLOGY: Mood and affect appear appropriate. Cranial nerves II through XII grossly intact. Moving all extremities, speech is clear Results - Labs CBC & Chem 7: 05/06/18 06:05 05/06/18 06:00 Laboratory Results - last 24 hr 05/07/18 05/07/18 11:57 16:27 POC Glucose 117 H 157 H Microbiology 05/05/18 10:50 Sputum - Expectorated Sputum Gram Stain - Final 05/05/18 10:50 Sputum - Expectorated Sputum Sputum Culture - Final Heavy growth normal respiratory gaby 05/04/18 18:00 Blood - Line Aerobic Blood Culture - Preliminary No growth in 3 days 05/04/18 18:00 Blood - Line Anaerobic Blood Culture - Preliminary No growth in 3 days 05/04/18 18:05 Blood - Line Aerobic Blood Culture - Preliminary No growth in 3 days 05/04/18 18:05 Blood - Line Anaerobic Blood Culture - Preliminary No growth in 3 days - Imaging Impressions Myocardial Perfusion Scan Nuc Med 05/07/18 17:16 CONCLUSION: 1. No areas of ischemia are seen. 2. Decreased activity at the apex and left lateral wall mass on the stress and rest images concerning for prior infarction. - Procedures ECHOCARDIOGRAM CONCLUSIONS Normal left ventricular size. Wall thickness is normal. The left ventricular systolic function is keaienxo-ep-yyrryls reduced with an estimated ejection fraction in the range of 35-40%. Mild to moderate mitral valve regurgitation. Bupq-gy-crgmzina aortic valve regurgitation. There is mild tricuspid valve regurgitation. The estimated pulmonary arterial pressure is 43 mmHg. Assessment and Plan - Assessment (1) Sepsis Code(s): A41.9 - Sepsis, unspecified organism Status: Acute (2) Bigeminy Code(s): I49.9 - Cardiac arrhythmia, unspecified Status: Acute (3) Dysphagia Code(s): R13.10 - Dysphagia, unspecified Status: Acute (4) Pneumonia involving left lung Code(s): J18.9 - Pneumonia, unspecified organism Status: Acute - Plan Dysphagia -Speech therapy did evaluation. Discussed with speech therapy extensively. Patient has severe oral phase dysphagia. And absolute n.p.o. at this time until further evaluation -CT of the chest was performed due to abnormal chest x-ray. 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 Hernia measures 16.7 cm. -CT of the brain was performed to evaluate for any previous stroke that could cause neurological component of dysphagia. CT of the brain was negative -Gastroenterology did evaluate the patient and recommending upper GI study with Gastrografin -Upper GI study with Gastrografin: Patient had severe signs of aspiration. Very little amount of contrast made it into the esophagus. -Patient will require endoscopy for further evaluation -Patient remains n.p.o. at this time -General surgery indicated that patient not a candidate for PEG tube that he would require interventional radiology to place a J-tube -Discussed with radiology who indicated to place consult for G-J tube placement , requested CT of the ABD for further evaluation for feeding tube placement Diaphragmatic hernia -Consult general surgery for further recommendations -They indicate that correction of the diaphragmatic hernia is not the cause of the patient's underlying condition, that needs to be corrected first Arrhythmia -ER documentation indicating ventricular tachycardia which improved after the use of amiodarone -EKGs are indicating atrial fibrillation with PVCs -Telemetry appears to have sinus rhythm with aberrant PVCs, occasional bigeminy -Patient has been ruled out for acute coronary event with serial cardiac enzymes that are negative -Cardiology consulted for further recommendation and recommended continuation of amiodarone p.o. -Echocardiogram indicating cardiomyopathy with ejection fraction 35-40%. -Patient will be continued on Coreg, amiodarone once a route is established either p.o. or via J-tube -Myocardial perfusion study was performed and did not indicate any underlying stress-induced ischemia. Did indicate decreased activity in the apex concerning for prior infarction, ejection fraction 49% -Cardiology has made final recommendations and is available as needed Sepsis, resolved -Patient met criteria on admission with leukocytosis, tachycardia, lactic acidosis, left lung pneumonia -Chest x-ray did indicate left lower lung pneumonia -CT scan was done of the chest which did not indicate any pneumonia or infiltrate -Patient is asymptomatic, afebrile, no leukocytosis -Antibiotics were discontinued -Blood cultures are negative for 3 day Chronic hypoxic respiratory failure, chronic obstructive pulmonary disease, Fibrotic lung disease -Continue O2 supplementation maintain O2 sat greater than 92% -Sputum culture showing heavy growth of predominant gaby, -Duo nebs to 6 hours while awake and every 2 hours as needed Hypertension -Home medication continued DVT prevention -Subcutaneous heparin Discharge Planning: Discharge planning after nutrition support has been established
[2018-05-08] MEDS: Heparin - SQ 10,000 UNITS/ML Vial SQ SCH ×2 (09:47→20:33)
--- NOTE | 2018-05-08 10:05 | XR ---
EXAM DATE: 05/08/2018 10:00 AM EST AGE/SEX: 82 years / Male INDICATIONS: Pneumonia. CLINICAL DATA: This is the patient's subsequent encounter. Patient reports that signs and symptoms h ave been present for 4 - 6 days and indicates a pain score of 0/10. MEDICAL/SURGICAL HISTORY: Hypertension. Chronic obstructive pulmonary disease. None. COMPARISON: [facility], CHEST 2V PA&LAT, 05/04/2018. . FINDINGS: Patchy bilateral interstitial infiltrates are present. Left base consolidation and small bilateral ef fusions persist. Cardiac contours are grossly unchanged accounting for differences in projection.. Deloris potts hiatal hernia. CONCLUSION: No significant change Electronically signed by: Jerome Marin MD 05/08/2018 10:03 AM EST
[2018-05-08] MEDS: THIAMINE IV.SIG SCH ×5 (15:05)
[2018-05-08] MEDS: MULTIVITAMIN IV.SIG SCH ×5 (15:05)
[2018-05-08] MEDS: FOLIC ACID IV.SIG SCH ×5 (15:05)
[2018-05-08] MEDS: [UNRECOGNIZED DRUG - OTHER] IV.SIG SCH ×5 (15:05)
--- NOTE | 2018-05-08 19:40 | CT ---
EXAM DATE: 05/08/2018 6:42 PM EST AGE/SEX: 82 years / Male INDICATIONS: Dysphagia. Diaphragmatic hernia. CLINICAL DATA: This is the patient's subsequent encounter. Patient reports that signs and symptoms h ave been present for 3 days and indicates a pain score of 0/10. MEDICAL/SURGICAL HISTORY: Chronic obstructive pulmonary disease. Gastroesophageal reflux disea se. Hypertension. . Knee surgery. RADIATION DOSE: 6.58 CTDI (mGy) COMPARISON: No prior exams available for comparison. TECHNIQUE: Multiple contiguous axial images were obtained through the abdomen. Images were obtained using multiple row detector helical technique. Using automated exposure control and adjustment of the mA and/or kV according to patient size, radiation dose was kept as low as reasonably achievable to o btain optimal diagnostic quality images. DICOM format image data is available electronically for rev iew and comparison. FINDINGS: Bibasilar consolidative changes are evident with a large diaphragmatic hernia with colon herniated in to the right hemidiaphragm and stomach herniated into the left hemidiaphragm. Both of these herniatio ns are central with the lateral attachment and medial attachments intact. Moderate compensated cardiomegaly. Trace pleural effusion on the left The liver is free of focal defects and below the hemidiaphragm. Pancreas and spleen appear normal. Right and left kidneys are unremarkable. There is no retroperitoneal adenopathy In the pelvis there are diverticuli in the sigmoid colon. The bladder, prostate and seminal vesicles unremarkable. There is no inguinal hernia. CONCLUSION: 1. 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 2. Extensive fibrotic changes in both lungs 3. Trace pleural effusion on the left Electronically signed by: Jefry Hurst MD 05/08/2018 7:38 PM EST
[2018-05-09] MEDS: KCL 20 mEq/D5W/NaCl 0.45% Inj 1,000 ML IV.CONT SCH ×3 (02:51→18:45)
[2018-05-09] MEDS: Ferrous Sulfate 325 MG Tablet PO SCH (08:29)
[2018-05-09] MEDS: Amiodarone 200 MG Tablet PO SCH (08:29)
[2018-05-09] MEDS: Heparin - SQ 10,000 UNITS/ML Vial SQ SCH ×2 (08:29→21:16)
[2018-05-09] MEDS: Aspirin 325 MG Tablet PO SCH (08:29)
[2018-05-09 08:57] LABS: Activated Partial Thrombo Time 36.3 sec (23.4-31.7); INR 1.2 Ratio; Prothrombin Time 11.8 sec (9.8-11.6)
--- NOTE | 2018-05-09 09:13 | IR ---
EXAM DATE: 05/09/2018 9:07 AM EST AGE/SEX: 82 years / Male INDICATIONS: Patient with a history of dysphagia and aspiration, requesting evaluation for GJ tube p lacement. CONSULT: Interventional radiology has been consulted regarding possible placement of percutaneous gas trojejunostomy catheter in this patient. Review of CT examination performed yesterday demonstrates a very large central diaphragmatic hernia which contains the entire stomach. There is no percutaneous w indow for gastrostomy access and patient is not a candidate for percutaneous gastrostomy catheter gio cement.. Electronically signed by: Samir Saldana MD 05/09/2018 9:11 AM EST
--- NOTE | 2018-05-09 11:37 | P.PNIM ---
Subjective Interval history: Patient seen and evaluated this morning at bedside. Patient recently completed EGD by gastroenterology service for alternative etiology for dysphagia. Case reviewed with interventional radiology and at this time patient is not a candidate for IR guided placement of tube. Case also reviewed with student union consultant. At this time will complete medical optimization and in conjunction with gastroenterology service will complete plan of care moving forward. Otherwise patient without acute complaints such as chest pain, shortness of breath. Patient does report copious secretions at times. Patient denies abdominal pain but does say he wants a sandwich to eat. Physical Exam Vital signs: Last Vital Signs Temp 98.5 F 05/09/18 07:45 Pulse 76 05/09/18 08:13 Resp 24 05/09/18 08:13 BP 98/61 L 05/09/18 08:00 Pulse Ox 97 05/09/18 08:13 Intake & Output 05/07/18 05/08/18 05/09/18 05/10/18 06:59 06:59 06:59 06:59 Intake Total 1401 / 1401 2631.45 / 2631.45 2530.45 / 2530.45 Output Total 775 / 775 650 / 650 1130 / 1130 Balance 626 / 626 1981.45 / 1981.45 1400.45 / 1400.45 Weight 56.4 kg 56.7 kg 57.9 kg General: No acute distress, conversational HEENT: EOMI Respiratory: Clear to auscultation. Mild bowel sounds heard over anterior chest wall Gastroneurology: Soft, nontender, nondistended, no guarding or rebound Cardiology: S1/S2 Extremity: No edema, no calf tenderness. Results Labs CBC & Chem 7: 05/06/18 06:05 05/06/18 06:00 Labs: Microbiology 05/04/18 18:00 Blood - Line Aerobic Blood Culture - Final No growth in 5 days 05/04/18 18:00 Blood - Line Anaerobic Blood Culture - Final No growth in 5 days 05/04/18 18:05 Blood - Line Aerobic Blood Culture - Final No growth in 5 days 05/04/18 18:05 Blood - Line Anaerobic Blood Culture - Final No growth in 5 days Imaging Imaging: Impressions Abdomen/Pelvis CT 05/08/18 00:00 CONCLUSION: 1. 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 2. Extensive fibrotic changes in both lungs 3. Trace pleural effusion on the left Procedures Procedures: ECHOCARDIOGRAM CONCLUSIONS Normal left ventricular size. Wall thickness is normal. The left ventricular systolic function is wvnrqxmk-fs-kwtpplj reduced with an estimated ejection fraction in the range of 35-40%. Mild to moderate mitral valve regurgitation. Qqgp-lg-xejeggeb aortic valve regurgitation. There is mild tricuspid valve regurgitation. The estimated pulmonary arterial pressure is 43 mmHg. Assessment and Plan (1) Sepsis: Code(s): A41.9 - Sepsis, unspecified organism Status: Acute (2) Bigeminy: Code(s): I49.9 - Cardiac arrhythmia, unspecified Status: Acute (3) Dysphagia: Code(s): R13.10 - Dysphagia, unspecified Status: Acute (4) Pneumonia involving left lung: Code(s): J18.9 - Pneumonia, unspecified organism Status: Acute Plan Gastroenterology: Hiatal hernia, dysphagia Gastroenterology consult appreciated via EMR. Case reviewed and GI absolutely cannot complete this proceedure. Status post EGD on 05/09. No obvious source of dysphagia identified. Case reviewed with interventional radiology. At this time no plans for placement of GJ tube as no available window for placement is available. Patient would be at high risk for complications Case reviewed with surgery. Will complete antibiotics for pneumonia. Will complete dysphagia evaluation. Continue n.p.o. status for now with IV fluid hydration. Speech evaluation noted from 05/08. Continue n.p.o. status -CT of the chest was performed due to abnormal chest x-ray. 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 Hernia measures 16.7 cm. -CT of the brain was performed to evaluate for any previous stroke that could cause neurological component of dysphagia. CT of the brain was negative -If patient's symptoms do not appear to be esophageal in nature with obstruction lower benefit to be obtained at this time by obtaining esophageal manometry. Also reviewed with gastroenterology Cardiology: Arrhythmia, htn Telemetry monitoring -Cardiology consulted for further recommendation and recommended continuation of amiodarone p.o. -Echocardiogram indicating cardiomyopathy with ejection fraction 35-40%. -Continue Coreg, amiodarone 200 mg twice daily -Myocardial perfusion study was performed and did not indicate any underlying stress-induced ischemia. Ejection fraction 49% -Cardiology currently signed off. Reconsult as needed Infectious disease: Suspected community-acquired pneumonia (resolved) -Initial chest x-ray concerning for underlying left lower lobe pneumonia but follow-up CT scan unremarkable for evidence of infiltration or consolidation consistent with infection. Patient is no longer on antibiotics. Blood cultures have been negative. Pro-calcitonin level tomorrow morning. Lower concern for infectious process at this time. No evidence of consolidation documented on CT chest as a follow- up study to x-ray which was concerning for infiltration in the lower left lobe which could be the patient's herniation in the first place. Repeat CBC to look for white blood cell count and other signs of infection. Pulmonary: Chronic hypoxic respiratory failure, chronic obstructive pulmonary disease, Fibrotic lung disease -Continue O2 supplementation -Duo nebs to 6 hours while awake and every 2 hours as needed DVT prophylaxis: Subcu heparin code: Full code Disposition: Medicine service Diet: N.p.o. Progress Note: Quality VTE Deep Vein Thrombosis/Pulmonary Embolism Present on Admission: No _ (1) Sepsis Qualifiers: Sepsis type: (2) Dysphagia Qualifiers: Dysphagia type: (3) Pneumonia involving left lung Qualifiers: Pneumonia type: Aspiration pneumonia type: Lung location:
[2018-05-09] MEDS: FOLIC ACID IV.SIG SCH ×5 (13:24)
[2018-05-09] MEDS: THIAMINE IV.SIG SCH ×5 (13:24)
[2018-05-09] MEDS: MULTIVITAMIN IV.SIG SCH ×5 (13:24)
[2018-05-09] MEDS: [UNRECOGNIZED DRUG - OTHER] IV.SIG SCH ×5 (13:24)
--- NOTE | 2018-05-09 16:49 | P.PNGS ---
Subjective Interval history: Resting in bed watching TV No complaints Physical Exam Vital signs: Vital Signs 05/08/18 17:15 05/08/18 17:25 05/08/18 17:35 Temperature 98.3 F Pulse Rate 81 63 73 Respiratory Rate 16 16 16 Blood Pressure 98/60 L 111/63 114/64 Pulse Oximetry 96 99 100 05/08/18 17:51 05/08/18 19:31 05/08/18 20:00 Temperature 96.8 F L 98.5 F Pulse Rate 76 72 80 Respiratory Rate 7 L 18 25 H Blood Pressure 119/74 140/82 Pulse Oximetry 95 100 82 L 05/09/18 00:00 05/09/18 04:00 05/09/18 07:45 Temperature 98.0 F 99.8 F H 98.5 F Pulse Rate 92 H 72 70 Respiratory Rate 31 H 13 15 Blood Pressure 127/74 112/66 109/68 Pulse Oximetry 95 98 95 05/09/18 08:00 05/09/18 08:13 05/09/18 11:45 Temperature Pulse Rate 78 76 80 Respiratory Rate 30 H 24 39 H Blood Pressure 98/61 L 123/68 Pulse Oximetry 97 97 96 05/09/18 14:25 05/09/18 15:45 05/09/18 16:00 Temperature 98.4 F Pulse Rate 72 80 Respiratory Rate 14 31 H Blood Pressure 105/55 L 115/70 Pulse Oximetry 96 95 96 Intake & Output 05/08/18 05/09/18 05/09/18 18:59 06:59 18:59 Intake Total 1000 / 1000 1530.45 / 1530.45 Output Total 530 / 530 600 / 600 200 / 200 Balance 470 / 470 930.45 / 930.45 -200 / -200 Weight 57.9 kg Intake: IV 1000 / 1000 1530.45 / 1530.45 D5W/1/2NS + KCL 20 mEq Inj 1, 1000 / 1000 1000 / 1000 000 ML @ 84 mls/hr IV.CONT . [id number] [facility] Rx#:[id number] MVI-12 Inj 10 ML Thiamine Inj 530.45 / 530.45 100 MG Folvite Inj 1 MG Sodium Chloride 23.4% Inj 77 MEQ In D5W Inj 500 ML @ 127.8 mls/hr IV.SIG Q24H [facility] Rx#:[id number] Oral 0 / 0 Output: Urine 530 / 530 600 / 600 200 / 200 Other: Date of Last Bowel Movement 05/04/18 05/04/18 05/04/18 # Bowel Movements 0 Narrative: Alert and awake Abd: soft; non tender non distended Results - Labs 05/10/18 04:10 05/10/18 04:10 Laboratory Results - last 24 hr 05/09/18 08:40 PT 11.8 H INR 1.2 APTT 36.3 H - Imaging Imaging: ITS Impressions Chest CT 05/05/18 00:00 CONCLUSION: 1. Large central diaphragmatic hernia with cranial displacement of stomach, gastroesophageal junction and a loop of intestine. Hernia measures 16.7 cm in width. 2. Large posterior mediastinal transit diaphragmatic hernia containing stomach , gastroesophageal junction and a loop of intestine which may be the transverse colon. Predisposition to volvulus is of clinical concern. 3. Extensive bilateral nonspecific fibrotic disease with honeycombing and septal thickening. Head CT 05/05/18 15:29 CONCLUSION: 1. No acute hemorrhage or mass effect. 2. Mild to moderate atrophic change and chronic small vessel ischemic changes. . Soft Tissue Neck CT 05/06/18 00:00 CONCLUSION: 1. 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 This does result in significant mass effect in the inferior oropharynx and may partially contribute to patient's dysphasia. 2. Otherwise, unremarkable unenhanced CT examination of the cervical soft tissues. Upper GI/Barium Swallow X-Ray 05/06/18 00:00 CONCLUSION: Very limited study given the rapid nearly immediate aspiration of Gastrografin. Some obstruction was not seen but very little contrast was seen in the evaluation of the pharynx and esophagus is incomplete. Given the difficulty in swallowing and the aspiration, the patient may benefit from consultation with speech pathology. Myocardial Perfusion Scan Nuc Med 05/07/18 17:16 CONCLUSION: 1. No areas of ischemia are seen. 2. Decreased activity at the apex and left lateral wall mass on the stress and rest images concerning for prior infarction. Abdomen/Pelvis CT 05/08/18 00:00 CONCLUSION: 1. 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 2. Extensive fibrotic changes in both lungs 3. Trace pleural effusion on the left Chest X-Ray 05/08/18 00:00 CONCLUSION: No significant change Assessment and Plan - Assessment (1) Hiatal hernia Code(s): K44.9 - Diaphragmatic hernia without obstruction or gangrene Status: Acute Plan: 82 year old male with large hiatal hernia; dysphasia; in need of enteral feeding access -Continue strict NPO -Hold subq heparin -Will transfer to the main for laparoscopic gastrostomy tube placement tomorrow morning -Obtain consents -Explained to patient that his hernia will not be fixed at this time -Explained that patient will maintain an NPO status post op due to dysphasia -Explained risks and benefits of procedure -I have left a message for the daughter Miranda [phone]--to discuss procedure and answering any questions -I also discussed with Dr. Pace As above; laparoscopic gastrostomy tube placement will not address his hiatal hernia, but give him a source for nutrition. Dysphagia cause still needs to be further evaluated The exam, history, and the medical decision-making described in the above note were completed with the assistance of the mid-level provider. I reviewed and agree with the findings presented. I attest that I had a jnug-mh-[id number] encounter with the patient on the same day, and personally performed and documented my assessment and findings in the medical record. (2) Dysphagia Code(s): R13.10 - Dysphagia, unspecified Status: Acute (3) Sepsis Code(s): A41.9 - Sepsis, unspecified organism Status: Acute (4) Pneumonia involving left lung Code(s): J18.9 - Pneumonia, unspecified organism Status: Acute (5) Steroid-dependent chronic obstructive pulmonary disease Code(s): J44.9 - Chronic obstructive pulmonary disease, unspecified Status: Acute
[2018-05-10 04:27] LABS: Baso # (Auto) 0.2 th/mm3 (0.0-0.2); Baso % (Auto) 2.8 % (0.0-2.0); Eos # (Auto) 0.5 th/mm3 (0.0-0.4); Eos % (Auto) 6.1 % (0.0-4.0); Hematocrit 42.6 % (39.0-51.0); Hemoglobin 13.9 gm/dL (13.0-17.0); Lymph # (Auto) 0.7 th/mm3 (1.0-4.8); Lymph % (Auto) 8.7 % (9.0-44.0); Mean Corpuscular HGB Conc 32.7 % (32.0-36.0); Mean Corpuscular Hemoglobin 28.8 pg (27.0-34.0); Mean Corpuscular Volume 87.9 fL (80.0-100.0); Mean Platelet Volume 7.9 fL (7.0-11.0); Mono # (Auto) 0.7 th/mm3 (0.0-0.9); Mono % (Auto) 8.7 % (0.0-8.0); Neut # (Auto) 6.4 th/mm3 (1.8-7.7); Neut % (Auto) 73.7 % (16.0-70.0); Platelet Count 209 th/mm3 (150-450); Red Blood Count 4.85 mil/mm3 (4.50-5.90); Red Cell Distribution Width 13.4 % (11.6-17.2); White Blood Count 8.5 th/mm3 (4.0-11.0)
[2018-05-10 04:43] LABS: Chloride 103 meq/L (98-107); Potassium 4.3 meq/L (3.5-5.1); Sodium 138 meq/L (136-145)
[2018-05-10 04:45] LABS: Calcium 7.8 mg/dL (8.5-10.1); INR 1.1 Ratio; Prothrombin Time 11.6 sec (9.8-11.6)
[2018-05-10 04:46] LABS: Anion Gap 7 meq/L (5-15); Blood Urea Nitrogen 3 mg/dL (7-18); Glucose,Random 96 mg/dL (74-106)
[2018-05-10 04:49] LABS: Glomerular Filtration Rate Greater Than 89 mL/min (>89)
[2018-05-10 05:06] LABS: Platelet Estimate Normal (Normal); Platelet Morphology Normal (Normal); RBC Morphology Normal (Normal)
[2018-05-10] MEDS: KCL 20 mEq/D5W/NaCl 0.45% Inj 1,000 ML IV.CONT SCH ×2 (06:08→17:58)
--- NOTE | 2018-05-10 07:54 | P.PNIM ---
Subjective Interval history: Patient seen and examined this morning no acute overnight events wants to eat a sandwhich surgery planned 2:30pm surgery note appreciated 05/09. labs completed. NPO. Physical Exam Vital signs: Last Vital Signs Temp 98.9 F 05/10/18 00:00 Pulse 82 05/10/18 04:00 Resp 20 05/10/18 04:00 BP 103/65 05/10/18 04:00 Pulse Ox 93 L 05/10/18 04:00 Intake & Output 05/08/18 05/09/18 05/10/18 05/11/18 06:59 06:59 06:59 06:59 Intake Total 2631.45 / 2631.45 2530.45 / 2530.45 2530.45 / 2530.45 Output Total 650 / 650 1130 / 1130 1900 / 1900 Balance 1981.45 / 1981.45 1400.45 / 1400.45 630.45 / 630.45 Weight 56.7 kg 57.9 kg 57.4 kg gen: nad, conversational heent: eomi cvs: s1/s2. no tachycardia. resp: cta without wheeze gi: soft, non tender, non distended, no guarding or rebound ext: no edema Results Labs CBC & Chem 7: 05/10/18 04:10 05/10/18 04:10 Labs: Microbiology 05/04/18 18:00 Blood - Line Aerobic Blood Culture - Final No growth in 5 days 05/04/18 18:00 Blood - Line Anaerobic Blood Culture - Final No growth in 5 days 05/04/18 18:05 Blood - Line Aerobic Blood Culture - Final No growth in 5 days 05/04/18 18:05 Blood - Line Anaerobic Blood Culture - Final No growth in 5 days Procedures Procedures: ECHOCARDIOGRAM CONCLUSIONS Normal left ventricular size. Wall thickness is normal. The left ventricular systolic function is iwychhik-qz-vfetsfu reduced with an estimated ejection fraction in the range of 35-40%. Mild to moderate mitral valve regurgitation. Rjpb-ry-nyyuljiy aortic valve regurgitation. There is mild tricuspid valve regurgitation. The estimated pulmonary arterial pressure is 43 mmHg. Assessment and Plan (1) Sepsis: Code(s): A41.9 - Sepsis, unspecified organism Status: Acute (2) Bigeminy: Code(s): I49.9 - Cardiac arrhythmia, unspecified Status: Acute (3) Dysphagia: Code(s): R13.10 - Dysphagia, unspecified Status: Acute Head CT is negative for acute changes. Patient likely had some sort of CVA that is causing his dysphasia. Underlying cause needs to be determined and simply fixing his hiatal hernia will not address this. He is not a candidate for a PEG tube due to his hiatal hernia. May consider radiologic placement of a jejunal feeding tube so that he can receive calories. This would not require a general anesthetic, although I have discussed with the daughter that this would require him to be on a pump for at least 12 hours a day. (4) Pneumonia involving left lung: Code(s): J18.9 - Pneumonia, unspecified organism Status: Acute Plan Gastroenterology: Hiatal hernia, dysphagia Gastroenterology consult appreciated via EMR. Case reviewed and GI absolutely cannot complete this proceedure. Status post EGD on 05/09. No obvious source of dysphagia identified. Case reviewed with interventional radiology. At this time no plans for placement of GJ tube as no available window for placement is available. Patient would be at high risk for complications Case reviewed with surgery. transfer to [facility] for OR Continue n.p.o. status till OR Speech evaluation noted from 05/08. Continue n.p.o. status -CT of the chest was performed due to abnormal chest x-ray. 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 Hernia measures 16.7 cm. -CT of the brain was performed to evaluate for any previous stroke that could cause neurological component of dysphagia. CT of the brain was negative -If patient's symptoms do not appear to be esophageal in nature with obstruction lower benefit to be obtained at this time by obtaining esophageal manometry. Also reviewed with gastroenterology Cardiology: Arrhythmia, HTN Telemetry monitoring -Cardiology consulted for further recommendation and recommended continuation of amiodarone p.o. -Echocardiogram indicating cardiomyopathy with ejection fraction 35-40%. -Continue Coreg, amiodarone 200 mg twice daily -Myocardial perfusion study was performed and did not indicate any underlying stress-induced ischemia. Ejection fraction 49% -Cardiology currently signed off. Reconsult as needed Infectious disease: Suspected community-acquired pneumonia (resolved) -Initial chest x-ray concerning for underlying left lower lobe pneumonia but follow-up CT scan unremarkable for evidence of infiltration or consolidation consistent with infection. - Patient is no longer on antibiotics. Blood cultures have been negative. Pulmonary: Chronic hypoxic respiratory failure, chronic obstructive pulmonary disease, Fibrotic lung disease -Continue O2 supplementation -Duo nebs to 6 hours while awake and every 2 hours as needed DVT prophylaxis: Subcu heparin code: Full code Disposition: Medicine service --> transfer to main hospital for OR Diet: N.p.o. Progress Note: Quality VTE Deep Vein Thrombosis/Pulmonary Embolism Present on Admission: No _ (1) Pneumonia involving left lung Qualifiers: Aspiration pneumonia type: Lung location: Pneumonia type: (2) Dysphagia Qualifiers: Dysphagia type: (3) Sepsis Qualifiers: Sepsis type:
[2018-05-10] MEDS: Amiodarone 200 MG Tablet PO SCH (09:00)
[2018-05-10] MEDS: Ferrous Sulfate 325 MG Tablet PO SCH (09:00)
[2018-05-10] MEDS: Aspirin 325 MG Tablet PO SCH (09:00)
[2018-05-10] MEDS: FOLIC ACID IV.SIG SCH ×5 (14:05)
[2018-05-10] MEDS: [UNRECOGNIZED DRUG - OTHER] IV.SIG SCH ×5 (14:05)
[2018-05-10] MEDS: THIAMINE IV.SIG SCH ×5 (14:05)
[2018-05-10] MEDS: MULTIVITAMIN IV.SIG SCH ×5 (14:05)
[2018-05-10] MEDS ORDERED: ceFAZolin 1 GM Premix Inj 1 GM/50 ML PIGGYBACK IV.SIG ONE (14:53)
[2018-05-10] MEDS ORDERED: Sugammadex Inj 200 MG/2 ML Vial IV.PUSH ONE (15:29)
[2018-05-10] MEDS ORDERED: Bupivacaine/Epinephrine Inj 0.25% 50 ML Vial INFILTRATN SCH (15:45)
[2018-05-10] MEDS ORDERED: Morphine Inj 4 MG/ML Vial ONE (16:27)
[2018-05-10] MEDS ORDERED: fentaNYL Citrate Inj 100 MCG/2 ML Ampul ONE (16:27)
--- NOTE | 2018-05-10 16:36 | P.OP ---
- Preoperative Diagnosis (1) Hiatal hernia (2) Dysphagia (3) Hiatal hernia - Postoperative Diagnosis (1) Dysphagia (2) Hiatal hernia Date of procedure: 05/10/18 Procedure: Laparoscopic gastrostomy tube placement Anesthesia: TIFFANY Surgeon: Mehdi Leggett MD Night Warehouse Manager: Joselyn Jarquin CFA Estimated blood loss (mL): 5 IV fluids (mL): 1,200 Pathology: none sent Operation and Findings: Patient was taken to the operating room and placed on the operating table in the supine position. After an adequate level of general endotracheal anesthesia was achieved, the abdomen was shaved prepped and draped. Time-out was taken, confirming the correct patient, site, and procedure to be performed. A 5 mm trocar was placed in a supraumbilical location and entered the abdominal cavity utilizing the laparoscope under direct vision uneventfully. The abdomen was insufflated and 2 additional 5 mm trocars were placed, with the first in the left midabdomen and the second in the right upper quadrant. Both entered the abdominal cavity under direct vision uneventfully. The stomach was then reduced out of the chest together with omentum, colon, and a small amount of small bowel. The stomach was able to be lifted towards the anterior abdominal wall for placement of a gastrostomy tube. A small incision was made in the left upper quadrant and a needle was brought down to the stomach which was held up to the anterior abdominal wall. After placing the needle in the stomach, a guidewire was passed through the needle and the needle withdrawn. The introducer and dilator were then passed over the wire. The fascia was opened slightly with a hemostat to allow for easy passage of the dilator. The guidewire and introducer were removed and an 18 Bulgarian SHEREEN feeding tube was passed through the sheath. The sheath was peeled away after inflating the balloon. This was seen to be within the stomach. The stomach then had 3 2-0 silk sutures placed around the balloon laparoscopically and these were each tied into the anterior abdominal wall. This allowed for secure anchoring of the stomach to the anterior abdominal wall. With hemostasis assured, insufflation was discontinued. The two 5 mm trocars were removed from the right upper quadrant and the left midabdomen. During desufflation no bleeding was noted from the port sites. The laparoscope and supraumbilical port were then removed. The skin was closed at each of the sites with 4-0 Monocryl. All sites were dressed with Steri-Strips. A 0 silk suture was tied around the flange to further secure the gastrostomy tube. Three 2-0 Prolene sutures were then used to secure the flange to the skin. A 4 x 4 dressing was applied under the flange. 4 x 4's were placed over the feeding tube and secured with tape. The patient was extubated and taken back to the recovery room in stable condition. Sponge and needle counts were reported to be correct. The patient tolerated the procedure well.
[2018-05-10] MEDS ORDERED: Morphine Sulfate Inj 2 MG/ML Vial IV.PUSH PRN (16:41)
[2018-05-10] MEDS: Pantoprazole Inj 40 MG Vial IV.PUSH SCH (17:00)
[2018-05-11] MEDS: KCL 20 mEq/D5W/NaCl 0.45% Inj 1,000 ML IV.CONT SCH ×2 (06:45→20:51)
[2018-05-11] MEDS: Ferrous Sulfate 325 MG Tablet PO SCH ×2 (10:52→12:38)
[2018-05-11] MEDS: Aspirin 325 MG Tablet PO SCH ×2 (10:52→12:37)
[2018-05-11] MEDS: Amiodarone 200 MG Tablet PO SCH ×2 (10:52→12:38)
[2018-05-11] MEDS: FOLIC ACID IV.SIG SCH ×5 (13:20)
[2018-05-11] MEDS: MULTIVITAMIN IV.SIG SCH ×5 (13:20)
[2018-05-11] MEDS: [UNRECOGNIZED DRUG - OTHER] IV.SIG SCH ×5 (13:20)
[2018-05-11] MEDS: THIAMINE IV.SIG SCH ×5 (13:20)
--- NOTE | 2018-05-11 14:16 | P.PNGS ---
Subjective Interval history: Resting in bed No pain Daughter at bedside Physical Exam Vital signs: Vital Signs 05/10/18 16:18 05/10/18 16:30 05/10/18 16:45 Temperature 97.7 F Pulse Rate 73 73 68 Respiratory Rate 15 17 16 Blood Pressure 134/74 121/69 118/67 Pulse Oximetry 96 95 97 05/10/18 17:00 05/10/18 17:15 05/10/18 17:50 Temperature 97.5 F L Pulse Rate 66 63 63 Respiratory Rate 18 16 17 Blood Pressure 118/64 121/72 117/72 Pulse Oximetry 98 100 99 05/10/18 18:00 05/10/18 20:00 05/11/18 00:00 Temperature 98.1 F 97.3 F L Pulse Rate 68 71 Respiratory Rate 18 20 16 Blood Pressure 130/80 120/78 Pulse Oximetry 100 98 05/11/18 04:00 05/11/18 08:00 05/11/18 11:09 Temperature 97.3 F L 97.4 F L Pulse Rate 75 71 Respiratory Rate 16 16 Blood Pressure 126/76 125/63 Pulse Oximetry 96 97 97 05/11/18 12:00 Temperature 97.1 F L Pulse Rate 66 Respiratory Rate 17 Blood Pressure 120/62 Pulse Oximetry 100 Intake & Output 05/10/18 05/11/18 05/11/18 18:59 06:59 18:59 Intake Total 1949 / 1949 1300 / 1300 Output Total 925 / 925 Balance 1944 / 1944 375 / 375 Weight 57.4 kg Intake: IV 750 / 750 1000 / 1000 D5W/1/2NS + KCL 20 mEq Inj 1, 500 / 500 1000 / 1000 000 ML @ 84 mls/hr IV.CONT . [id number] [facility] Rx#:[id number] Diflucan 400 mg Premix Bag 200 200 / 200 ML @ 0 mls/hr IV.SIG .STK-MED ONE Rx#:[id number] Ancef 1 GM Premix Inj 1 gm In 50 / 50 50 ml @ 0 mls/hr IV.SIG .STK- MED ONE Rx#:[id number] Oral 300 / 300 Anesthesia Amount 1200 / 1200 Output: Urine 925 / 925 Estimated Blood Loss 5 / 5 Gastric Drainage 0 / 0 Left Upper Quadrant 0 / 0 Gastrojejunostomy Tube Other: Date of Last Bowel Movement 05/04/18 05/04/18 Narrative: Alert and awake Abd: soft; non tender; G tube to gravity Results - Labs 05/10/18 04:10 05/10/18 04:10 - Imaging Imaging: ITS Impressions Chest CT 05/05/18 00:00 CONCLUSION: 1. Large central diaphragmatic hernia with cranial displacement of stomach, gastroesophageal junction and a loop of intestine. Hernia measures 16.7 cm in width. 2. Large posterior mediastinal transit diaphragmatic hernia containing stomach , gastroesophageal junction and a loop of intestine which may be the transverse colon. Predisposition to volvulus is of clinical concern. 3. Extensive bilateral nonspecific fibrotic disease with honeycombing and septal thickening. Head CT 05/05/18 15:29 CONCLUSION: 1. No acute hemorrhage or mass effect. 2. Mild to moderate atrophic change and chronic small vessel ischemic changes. . Soft Tissue Neck CT 05/06/18 00:00 CONCLUSION: 1. 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 This does result in significant mass effect in the inferior oropharynx and may partially contribute to patient's dysphasia. 2. Otherwise, unremarkable unenhanced CT examination of the cervical soft tissues. Upper GI/Barium Swallow X-Ray 05/06/18 00:00 CONCLUSION: Very limited study given the rapid nearly immediate aspiration of Gastrografin. Some obstruction was not seen but very little contrast was seen in the evaluation of the pharynx and esophagus is incomplete. Given the difficulty in swallowing and the aspiration, the patient may benefit from consultation with speech pathology. Myocardial Perfusion Scan Nuc Med 05/07/18 17:16 CONCLUSION: 1. No areas of ischemia are seen. 2. Decreased activity at the apex and left lateral wall mass on the stress and rest images concerning for prior infarction. Abdomen/Pelvis CT 05/08/18 00:00 CONCLUSION: 1. 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 2. Extensive fibrotic changes in both lungs 3. Trace pleural effusion on the left Chest X-Ray 05/08/18 00:00 CONCLUSION: No significant change Assessment and Plan - Assessment (1) Hiatal hernia Code(s): K44.9 - Diaphragmatic hernia without obstruction or gangrene Status: Acute Plan: 82 year old male with large hiatal hernia; dysphasia; in need of enteral feeding access; POD1 gastrostomy tube placement -Continue strict NPO! -Start bolus feedings today -Okay to give crushed meds in G tube -Consult industrial ecologist for recommendations -Again, explained to both patient and daughter at the bedside that the patient MUST REMAIN NPO due to high risk of aspiration As above; tolerating diet per G-tube The exam, history, and the medical decision-making described in the above note were completed with the assistance of the mid-level provider. I reviewed and agree with the findings presented. I attest that I had a uzxp-pt-[id number] encounter with the patient on the same day, and personally performed and documented my assessment and findings in the medical record. (2) Dysphagia Code(s): R13.10 - Dysphagia, unspecified Status: Acute (3) Sepsis Code(s): A41.9 - Sepsis, unspecified organism Status: Acute (4) Pneumonia involving left lung Code(s): J18.9 - Pneumonia, unspecified organism Status: Acute (5) Steroid-dependent chronic obstructive pulmonary disease Code(s): J44.9 - Chronic obstructive pulmonary disease, unspecified Status: Acute
--- NOTE | 2018-05-11 14:38 | P.PNIM ---
Subjective Interval history: Patient is lying down in bed. He is in no acute distress. Patient is hopeful that his dysphagia will improve. Physical Exam Vital signs: Vital Signs 05/10/18 16:18 05/10/18 16:30 05/10/18 16:45 Temperature 97.7 F Pulse Rate 73 73 68 Respiratory Rate 15 17 16 Blood Pressure 134/74 121/69 118/67 Pulse Oximetry 96 95 97 05/10/18 17:00 05/10/18 17:15 05/10/18 17:50 Temperature 97.5 F L Pulse Rate 66 63 63 Respiratory Rate 18 16 17 Blood Pressure 118/64 121/72 117/72 Pulse Oximetry 98 100 99 05/10/18 18:00 05/10/18 20:00 05/11/18 00:00 Temperature 98.1 F 97.3 F L Pulse Rate 68 71 Respiratory Rate 18 20 16 Blood Pressure 130/80 120/78 Pulse Oximetry 100 98 05/11/18 04:00 05/11/18 08:00 05/11/18 11:09 Temperature 97.3 F L 97.4 F L Pulse Rate 75 71 Respiratory Rate 16 16 Blood Pressure 126/76 125/63 Pulse Oximetry 96 97 97 05/11/18 12:00 Temperature 97.1 F L Pulse Rate 66 Respiratory Rate 17 Blood Pressure 120/62 Pulse Oximetry 100 Intake & Output 05/10/18 05/11/18 05/11/18 18:59 06:59 18:59 Intake Total 1949 / 1949 1300 / 1300 Output Total 5 / 5 925 / 925 Balance 1944 / 1944 375 / 375 Weight 57.4 kg Intake: IV 750 / 750 1000 / 1000 D5W/1/2NS + KCL 20 mEq Inj 1, 500 / 500 1000 / 1000 000 ML @ 84 mls/hr IV.CONT . [id number] [facility] Rx#:[id number] Diflucan 400 mg Premix Bag 200 200 / 200 ML @ 0 mls/hr IV.SIG .STK-MED ONE Rx#:[id number] Ancef 1 GM Premix Inj 1 gm In 50 / 50 50 ml @ 0 mls/hr IV.SIG .STK- MED ONE Rx#:[id number] Oral 300 / 300 Anesthesia Amount 1200 / 1200 Output: Urine 925 / 925 Estimated Blood Loss 5 / 5 Gastric Drainage 0 / 0 Left Upper Quadrant 0 / 0 Gastrojejunostomy Tube Other: Date of Last Bowel Movement 05/04/18 05/04/18 Narrative: General patient in no acute distress after his procedure yesterday. HEENT extraocular movements are intact, clear oropharyngeal mucosa, no JVD Cardiovascular S1-S2 audible Respiratory clear to auscultation bilaterally Abdomen soft, nontender, nondistended, PEG tube in place. Extremities no edema 2+ distal pulses in bilateral upper and lower extremities Neuro patient moves all 4 extremities, sensation is intact bilaterally. Results - Labs CBC & Chem 7: 05/10/18 04:10 05/10/18 04:10 - Procedures ECHOCARDIOGRAM CONCLUSIONS Normal left ventricular size. Wall thickness is normal. The left ventricular systolic function is djxvrknv-gu-ifivfwv reduced with an estimated ejection fraction in the range of 35-40%. Mild to moderate mitral valve regurgitation. Ixkf-kd-htmmzmbz aortic valve regurgitation. There is mild tricuspid valve regurgitation. The estimated pulmonary arterial pressure is 43 mmHg. Assessment and Plan - Assessment (1) Sepsis Code(s): A41.9 - Sepsis, unspecified organism Status: Acute (2) Bigeminy Code(s): I49.9 - Cardiac arrhythmia, unspecified Status: Acute (3) Dysphagia Code(s): R13.10 - Dysphagia, unspecified Status: Acute Plan: Head CT is negative for acute changes. Patient likely had some sort of CVA that is causing his dysphasia. Underlying cause needs to be determined and simply fixing his hiatal hernia will not address this. He is not a candidate for a PEG tube due to his hiatal hernia. May consider radiologic placement of a jejunal feeding tube so that he can receive calories. This would not require a general anesthetic, although I have discussed with the daughter that this would require him to be on a pump for at least 12 hours a day. (4) Pneumonia involving left lung Code(s): J18.9 - Pneumonia, unspecified organism Status: Acute - Plan This patient is an 82-year-old male with a diagnosis of COPD who presented to the hospital for evaluation of dysphagia. Patient was having difficulty over the past few weeks with swallowing liquids and solids. As per the augmentation the patient had ventricular tachycardia in the emergency department which was treated with good response with amiodarone. The patient was also found to have left lower lung pneumonia. 1. Dysphagia status post laparoscopic gastrostomy tube placement. Patient status post EGD on 05/09. No obvious source of dysphagia identified. Patient is currently n.p.o., he has been started on feeds through the PEG tube. We will continue to monitor the patient. Surgery is following the patient, case discussed with the surgical team. We will continue to follow up with the recommendations. 2. [facility] augmentation the patient initially was in [facility] in the emergency department on initial arrival in [place]. Patient was started on amiodarone, cardiology was consulted to evaluate the patient. Patient is currently on Coreg which will be continued, continue amiodarone 200 mg twice daily. Lexiscan was done which did not show any underlying stress-induced ischemia. Ejection fraction is 49%. 3. Suspected pneumonia Initial chest x-ray was concerning for pneumonia in the left lower lobe. Follow -up CT scan does not show any evidence of infiltrates. Patient is not having fevers, no cough. Antibiotics were discontinued. 4. COPD Patient is currently on 2 L of supplement oxygen which the patient uses at baseline. Continue breathing treatments as needed. Heparin for DVT prophylaxis
--- NOTE | 2018-05-11 15:29 | P.DIET ---
Nutritional Evaluation Type of nutrition evaluation: follow-up Nutrition screening: Weight Loss > 10 lbs, MDC (New g-tube placed: bolus recommendations) Objective - Diagnosis PNA, Tachycardia - Objective % IBW: 83 (IBW: 67.3kg) Body Weight Used for Calculations: Actual (55.7kg) Energy Needs - Lower Range (kCal/kg): 33 Energy Needs - Upper Range (kCal/kg): 38 Lower Limit kCal/kg (kCals): 1,838 Upper Limit kCal/kg (kCals): 2,117 Lower Limit Protein Factor (Grams per Kg): 1.1 Upper Limit Protein Factor (Grams per Kg): 1.4 Lower Protein Needs (Protein): 61 Upper Protein Needs (Protein): 78 Fluid Factor (ml/kg): 33 Estimated Fluid Needs (ml): 1,838 Dietitian Reviewed in Medical Record: Current diet, Curent medications, Intake & Output, Labs, Medical history Diet Order: NPO Speech Therapy Recommendations: Yes Objective Comments: PMH: Chronic respiratory failure with hypoxia, COPD, GERD, HTN Assessment Assessment: Pt at high nutritional risk r/t recent significant wt loss and current severe dysphagia. Pt is NPO per speech. Laparoscopic G-tube placed and bolus recommendations are requested. To meet 100% of needs, recommend Jevity 1.5, recommend 320 ml bolus at bkfst, lunch, dinner and hs to provide a total of 1280 mls of formula, 1920 kcals, 82 gms protein and 973 mls of free water. Pt will need an additional 155 ml water flush q 4 hrs to meet fluid needs. RD following. Recommendations: Jevity 1.5- 320 ml bolus 4x/day (brkfst, lunch, dinner and hs) Water flushes 155 mls q 4 hrs Dietitian to Monitor: Lab values, Intake & Output, Tube feeding tolerance, Weight change, Swallow recommendations, Medical course
[2018-05-11] MEDS: Pantoprazole Inj 40 MG Vial IV.PUSH SCH (17:42)
[2018-05-11] MEDS: Heparin - SQ 10,000 UNITS/ML Vial SQ SCH (20:48)
[2018-05-12] MEDS: KCL 20 mEq/D5W/NaCl 0.45% Inj 1,000 ML IV.CONT SCH ×3 (05:21→22:50)
--- NOTE | 2018-05-12 08:14 | P.PNGS ---
Subjective Interval history: Alert and awake Physical Exam Vital signs: Vital Signs 05/11/18 11:09 05/11/18 12:00 05/11/18 16:00 Temperature 97.1 F L 97.2 F L Pulse Rate 66 57 L Respiratory Rate 17 18 Blood Pressure 120/62 103/61 Pulse Oximetry 97 100 99 05/11/18 20:00 05/12/18 00:00 05/12/18 04:00 Temperature 97.1 F L 97.8 F 97.9 F Pulse Rate 72 66 64 Respiratory Rate 15 18 14 Blood Pressure 111/64 105/58 L 99/59 L Pulse Oximetry 97 97 98 Intake & Output 05/11/18 05/12/18 05/12/18 18:59 06:59 18:59 Intake Total 627 / 627 530.45 / 530.45 Output Total 675 / 675 655 / 655 Balance -48 / -48 -124.55 / -124.55 Weight 57.1 kg Intake: IV 267 / 267 530.45 / 530.45 D5W/1/2NS + KCL 20 mEq Inj 1, 267 / 267 000 ML @ 84 mls/hr IV.CONT . [id number] [facility] Rx#:[id number] MVI-12 Inj 10 ML Thiamine Inj 530.45 / 530.45 100 MG Folvite Inj 1 MG Sodium Chloride 23.4% Inj 77 MEQ In D5W Inj 500 ML @ 127.8 mls/hr IV.SIG Q24H [facility] Rx#:[id number] Oral 0 / 0 Tube Feeding 250 / 250 Tube Irrigant 10 / 10 Water Bolus Amount 100 / 100 Output: Urine 675 / 675 655 / 655 Other: Date of Last Bowel Movement 05/04/18 # Bowel Movements 0 Narrative: Alert and awake Abd: soft; non tender; G tube clamped Results - Labs 05/10/18 04:10 05/10/18 04:10 - Imaging Imaging: ITS Impressions Chest CT 05/05/18 00:00 CONCLUSION: 1. Large central diaphragmatic hernia with cranial displacement of stomach, gastroesophageal junction and a loop of intestine. Hernia measures 16.7 cm in width. 2. Large posterior mediastinal transit diaphragmatic hernia containing stomach , gastroesophageal junction and a loop of intestine which may be the transverse colon. Predisposition to volvulus is of clinical concern. 3. Extensive bilateral nonspecific fibrotic disease with honeycombing and septal thickening. Head CT 05/05/18 15:29 CONCLUSION: 1. No acute hemorrhage or mass effect. 2. Mild to moderate atrophic change and chronic small vessel ischemic changes. . Soft Tissue Neck CT 05/06/18 00:00 CONCLUSION: 1. 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 This does result in significant mass effect in the inferior oropharynx and may partially contribute to patient's dysphasia. 2. Otherwise, unremarkable unenhanced CT examination of the cervical soft tissues. Upper GI/Barium Swallow X-Ray 05/06/18 00:00 CONCLUSION: Very limited study given the rapid nearly immediate aspiration of Gastrografin. Some obstruction was not seen but very little contrast was seen in the evaluation of the pharynx and esophagus is incomplete. Given the difficulty in swallowing and the aspiration, the patient may benefit from consultation with speech pathology. Myocardial Perfusion Scan Nuc Med 05/07/18 17:16 CONCLUSION: 1. No areas of ischemia are seen. 2. Decreased activity at the apex and left lateral wall mass on the stress and rest images concerning for prior infarction. Abdomen/Pelvis CT 05/08/18 00:00 CONCLUSION: 1. 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 2. Extensive fibrotic changes in both lungs 3. Trace pleural effusion on the left Chest X-Ray 05/08/18 00:00 CONCLUSION: No significant change Assessment and Plan - Assessment (1) Hiatal hernia Code(s): K44.9 - Diaphragmatic hernia without obstruction or gangrene Status: Acute Plan: 82 year old male with large hiatal hernia; dysphasia; in need of enteral feeding access; POD2 gastrostomy tube placement -Continue strict NPO! -Start full bolus feedings today per Dietitian recommendations -Adjusted pain medications -Added bowel regimen -General Surgery will sign off; please call with any questions -Discussed with ROLAN Gauthier and Dr. Velázquez Will change pain med to liquid to minimize risk of clogging G-tube at facility!! Ok for transfer to facility; can remove sutures around feeding tube in 7-10 days The exam, history, and the medical decision-making described in the above note were completed with the assistance of the mid-level provider. I reviewed and agree with the findings presented. I attest that I had a vjmt-or-pdvk encounter with the patient on the same day, and personally performed and documented my assessment and findings in the medical record. (2) Dysphagia Code(s): R13.10 - Dysphagia, unspecified Status: Acute (3) Sepsis Code(s): A41.9 - Sepsis, unspecified organism Status: Acute (4) Pneumonia involving left lung Code(s): J18.9 - Pneumonia, unspecified organism Status: Acute (5) Steroid-dependent chronic obstructive pulmonary disease Code(s): J44.9 - Chronic obstructive pulmonary disease, unspecified Status: Acute
[2018-05-12] MEDS: Amiodarone 200 MG Tablet PO SCH (08:23)
[2018-05-12] MEDS: Aspirin 325 MG Tablet PO SCH (08:23)
[2018-05-12] MEDS: Heparin - SQ 10,000 UNITS/ML Vial SQ SCH ×2 (08:23→22:48)
[2018-05-12] MEDS: Ferrous Sulfate 325 MG Tablet PO SCH (08:23)
[2018-05-12] MEDS: Docusate Sodium Liq 100 MG/10 ML UDC G-TUBE SCH ×2 (08:39→22:49)
--- NOTE | 2018-05-12 09:02 | P.DS ---
Date of admission: 05/04/18 20:01 Primary care physician: Julian Bunn MD Brief History from admission: 82-year-old male with known history of chronic hypoxic respiratory failure, chronic objective pulmonary disease who presented to hospital for evaluation of dysphagia. Patient states for last few weeks he has been having difficulty in swallowing liquids and solids which is progressively gotten worse up until 3 days ago he started noticing liquids pooling in the back of his throat and he feels as if he was inhaling the liquid. He did not get any better so he came to the emergency department for evaluation. Patient was found to be in V. tach as well as a suspected left lower lobe pneumonia in the emergency department. He was subsequently admitted and treated for the V. tach as well as dysphasia. DS: Diagnosis - Discharge Diagnosis (1) Sepsis Status: Acute (2) Bigeminy Status: Acute (3) Dysphagia Status: Acute (4) Pneumonia involving left lung Status: Acute DS: Summary Hospital Course: This patient is an 82-year-old male with a diagnosis of COPD who presented to the hospital for evaluation of dysphagia. Patient was having difficulty over the past few weeks with swallowing liquids and solids. As per the augmentation the patient had ventricular tachycardia in the emergency department which was treated with good response with amiodarone. 1. Dysphagia status post laparoscopic gastrostomy tube placement. The patient as he presented with the findings mentioned above. He was evaluated by GI as well as interventional radiology. The patient underwent EGD. EGD did not show any obvious source of dysphagia. A laparoscopic G-tube was placed. The patient tolerated the procedure well, feeds through the G-tube were initiated. Recommendations from dietary are to continue the patient on Jevity 1.5 320 mL bolus 4 times a day including breakfast, lunch, dinner and at bedtime. Water flushes 155 mL every 4 hours. Surgery cleared the patient for a discharge. He will be sent to a long term facility today. 2. V. tach The patient initially was in V. tach in the emergency department on initial arrival in [place]. Patient was started on amiodarone, cardiology was consulted to evaluate the patient. Patient is currently on Coreg which will be continued, continue amiodarone 200 mg twice daily as per cardiology recommendations. Lexiscan was done which did not show any underlying stress-induced ischemia. Ejection fraction is 49%. I recommended the patient follow-up outpatient with a company doctor as well as his primary care doctor next 1 week. Continue to monitor the patient's blood pressure, if blood pressure tolerates and the patient can also be started on TRINA inhibitor as per cardiology. 3. Suspected pneumonia Initial chest x-ray was concerning for pneumonia in the left lower lobe. Follow -up CT scan does not show any evidence of infiltrates. Patient is not having fevers, no cough. Antibiotics were discontinued. 4. COPD Patient is currently on 2 L of supplement oxygen which the patient uses at baseline. There is a documented diagnosis of COPD. I reviewed the patient's medication list and it does not appear the patient is on albuterol or Symbicort. I recommend that he follows up with his primary care doctor and he should have outpatient pulmonary function testing done. If needed the patient should be started on albuterol and Symbicort. Heparin for DVT prophylaxis - Time Spent with Patient Total time spent providing and/or coordinating discharge services: Greater than 30 minutes - Quality: VTE Deep Vein Thrombosis/Pulmonary Embolism Present on Admission: No Exam Vital signs: Vital Signs 05/11/18 11:09 05/11/18 12:00 05/11/18 16:00 Temperature 97.1 F L 97.2 F L Pulse Rate 66 57 L Respiratory Rate 17 18 Blood Pressure 120/62 103/61 Pulse Oximetry 97 100 99 05/11/18 20:00 05/12/18 00:00 05/12/18 04:00 Temperature 97.1 F L 97.8 F 97.9 F Pulse Rate 72 66 64 Respiratory Rate 15 18 14 Blood Pressure 111/64 105/58 L 99/59 L Pulse Oximetry 97 97 98 05/12/18 08:00 Temperature 97.3 F L Pulse Rate 62 Respiratory Rate 18 Blood Pressure 113/67 Pulse Oximetry 98 Intake & Output 05/11/18 05/12/18 05/12/18 18:59 06:59 18:59 Intake Total 627 / 627 530.45 / 530.45 1000 / 1000 Output Total 675 / 675 655 / 655 Balance -48 / -48 -124.55 / -124.55 1000 / 1000 Weight 57.1 kg Intake: IV 267 / 267 530.45 / 530.45 1000 / 1000 D5W/1/2NS + KCL 20 mEq Inj 1, 267 / 267 1000 / 1000 000 ML @ 84 mls/hr IV.CONT . [id number] [facility] Rx#:[id number] MVI-12 Inj 10 ML Thiamine Inj 530.45 / 530.45 100 MG Folvite Inj 1 MG Sodium Chloride 23.4% Inj 77 MEQ In D5W Inj 500 ML @ 127.8 mls/hr IV.SIG Q24H [facility] Rx#:[id number] Oral 0 / 0 Tube Feeding 250 / 250 Tube Irrigant 10 / 10 Water Bolus Amount 100 / 100 Output: Urine 675 / 675 655 / 655 Other: Date of Last Bowel Movement 05/04/18 # Bowel Movements 0 Narrative: General patient in no acute distress HEENT extraocular movements are intact, clear oropharyngeal mucosa, no JVD Cardiovascular S1-S2 audible Respiratory clear to auscultation bilaterally Abdomen soft, nontender, nondistended, PEG tube in place. Extremities no edema 2+ distal pulses in bilateral upper and lower extremities Neuro patient moves all 4 extremities, sensation is intact bilaterally. Results Procedures completed during hospitalization: ECHOCARDIOGRAM CONCLUSIONS Normal left ventricular size. Wall thickness is normal. The left ventricular systolic function is abiruqky-fb-yggfqsn reduced with an estimated ejection fraction in the range of 35-40%. Mild to moderate mitral valve regurgitation. Topg-qg-htggyijy aortic valve regurgitation. There is mild tricuspid valve regurgitation. The estimated pulmonary arterial pressure is 43 mmHg. Laparoscopic gastrostomy - Impressions ITS Impressions Chest CT 05/05/18 00:00 CONCLUSION: 1. Large central diaphragmatic hernia with cranial displacement of stomach, gastroesophageal junction and a loop of intestine. Hernia measures 16.7 cm in width. 2. Large posterior mediastinal transit diaphragmatic hernia containing stomach , gastroesophageal junction and a loop of intestine which may be the transverse colon. Predisposition to volvulus is of clinical concern. 3. Extensive bilateral nonspecific fibrotic disease with honeycombing and septal thickening. Head CT 05/05/18 15:29 CONCLUSION: 1. No acute hemorrhage or mass effect. 2. Mild to moderate atrophic change and chronic small vessel ischemic changes. . Soft Tissue Neck CT 05/06/18 00:00 CONCLUSION: 1. 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 This does result in significant mass effect in the inferior oropharynx and may partially contribute to patient's dysphasia. 2. Otherwise, unremarkable unenhanced CT examination of the cervical soft tissues. Upper GI/Barium Swallow X-Ray 05/06/18 00:00 CONCLUSION: Very limited study given the rapid nearly immediate aspiration of Gastrografin. Some obstruction was not seen but very little contrast was seen in the evaluation of the pharynx and esophagus is incomplete. Given the difficulty in swallowing and the aspiration, the patient may benefit from consultation with speech pathology. Myocardial Perfusion Scan Nuc Med 05/07/18 17:16 CONCLUSION: 1. No areas of ischemia are seen. 2. Decreased activity at the apex and left lateral wall mass on the stress and rest images concerning for prior infarction. Abdomen/Pelvis CT 05/08/18 00:00 CONCLUSION: 1. 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 2. Extensive fibrotic changes in both lungs 3. Trace pleural effusion on the left Chest X-Ray 05/08/18 00:00 CONCLUSION: No significant change Discharge Plan - Discharge Disposition Patient Disposition: 03 Discharge to SNF - Discharge Condition Condition: Stable - Discharge Order Discharge Orders: Discharge Order (Routine); Ordered 05/12/18 Ordered By: Asim Velázquez - Physicians Team Primary Care Provider: Julian Bunn Attending Provider: Asim Velázquez Other Providers: Demarcus Rodríguez MD ; Bob Edwards MD ; Vinod Brock ; Mehdi Leggett MD ; [facility],[place]
[2018-05-12] MEDS: FOLIC ACID IV.SIG SCH ×5 (12:43)
[2018-05-12] MEDS: MULTIVITAMIN IV.SIG SCH ×5 (12:43)
[2018-05-12] MEDS: THIAMINE IV.SIG SCH ×5 (12:43)
[2018-05-12] MEDS: [UNRECOGNIZED DRUG - OTHER] IV.SIG SCH ×5 (12:43)
[2018-05-13] MEDS: KCL 20 mEq/D5W/NaCl 0.45% Inj 1,000 ML IV.CONT SCH (06:18)
[2018-05-13] MEDS: Ferrous Sulfate 325 MG Tablet PO SCH (08:59)
[2018-05-13] MEDS: Aspirin 325 MG Tablet PO SCH (08:59)
[2018-05-13] MEDS: Heparin - SQ 10,000 UNITS/ML Vial SQ SCH (08:59)
[2018-05-13] MEDS: Docusate Sodium Liq 100 MG/10 ML UDC G-TUBE SCH (08:59)
[2018-05-13] MEDS: Amiodarone 200 MG Tablet PO SCH (08:59)
--- NOTE | 2018-05-13 11:37 | P.PNIM ---
Subjective Interval history: Patient is sitting upright in bed today. He does not have any specific complaints. Physical Exam Vital signs: Vital Signs 05/12/18 12:00 05/12/18 16:00 05/12/18 20:00 Temperature 97.4 F L 97.0 F L Pulse Rate 61 72 75 Respiratory Rate 17 18 Blood Pressure 117/69 105/62 Pulse Oximetry 100 100 05/12/18 20:08 05/13/18 00:00 05/13/18 03:48 Temperature 97.5 F L 97.6 F 97.5 F L Pulse Rate 76 73 65 Respiratory Rate 18 18 18 Blood Pressure 110/62 135/70 105/63 Pulse Oximetry 98 98 98 05/13/18 04:00 Temperature Pulse Rate 66 Respiratory Rate Blood Pressure Pulse Oximetry Intake & Output 05/12/18 05/13/18 05/13/18 18:59 06:59 18:59 Intake Total 2425 / 2425 2841.45 / 2841.45 1000 / 1000 Output Total 1075 / 1075 1225 / 1225 Balance 1350 / 1350 1616.45 / 1616.45 1000 / 1000 Weight 57.1 kg Intake: IV 1000 / 1000 2071.45 / 2071.45 1000 / 1000 D5W/1/2NS + KCL 20 mEq Inj 1, 1000 / 1000 1541 / 1541 1000 / 1000 000 ML @ 84 mls/hr IV.CONT . [id number] [facility] Rx#:[id number] MVI-12 Inj 10 ML Thiamine Inj 530.45 / 530.45 100 MG Folvite Inj 1 MG Sodium Chloride 23.4% Inj 77 MEQ In D5W Inj 500 ML @ 127.8 mls/hr IV.SIG Q24H [facility] Rx#:[id number] Oral 0 / 0 Tube Feeding 960 / 960 320 / 320 Water Bolus Amount 465 / 465 450 / 450 Output: Urine 1075 / 1075 1225 / 1225 Other: Date of Last Bowel Movement 05/04/18 # Bowel Movements 0 Narrative: General patient in no acute distress HEENT extraocular movements are intact, clear oropharyngeal mucosa, no JVD Cardiovascular S1-S2 audible Respiratory clear to auscultation bilaterally Abdomen soft, nontender, nondistended, PEG tube in place. Extremities no edema 2+ distal pulses in bilateral upper and lower extremities Neuro patient moves all 4 extremities, sensation is intact bilaterally. Results - Labs CBC & Chem 7: 05/10/18 04:10 05/10/18 04:10 - Procedures ECHOCARDIOGRAM CONCLUSIONS Normal left ventricular size. Wall thickness is normal. The left ventricular systolic function is jaamvjas-jf-daanwze reduced with an estimated ejection fraction in the range of 35-40%. Mild to moderate mitral valve regurgitation. Atvy-kj-ivenwgyr aortic valve regurgitation. There is mild tricuspid valve regurgitation. The estimated pulmonary arterial pressure is 43 mmHg. Laparoscopic gastrostomy Assessment and Plan - Assessment (1) Sepsis Code(s): A41.9 - Sepsis, unspecified organism Status: Acute (2) Bigeminy Code(s): I49.9 - Cardiac arrhythmia, unspecified Status: Acute (3) Dysphagia Code(s): R13.10 - Dysphagia, unspecified Status: Acute Plan: Head CT is negative for acute changes. Patient likely had some sort of CVA that is causing his dysphasia. Underlying cause needs to be determined and simply fixing his hiatal hernia will not address this. He is not a candidate for a PEG tube due to his hiatal hernia. May consider radiologic placement of a jejunal feeding tube so that he can receive calories. This would not require a general anesthetic, although I have discussed with the daughter that this would require him to be on a pump for at least 12 hours a day. (4) Pneumonia involving left lung Code(s): J18.9 - Pneumonia, unspecified organism Status: Acute - Plan This patient is an 82-year-old male with a diagnosis of COPD who presented to the hospital for evaluation of dysphagia. Patient was having difficulty over the past few weeks with swallowing liquids and solids. As per the augmentation the patient had ventricular tachycardia in the emergency department which was treated with good response with amiodarone. 05/13/2018 No change in the patient's discharge plan. He is currently stable with gastrostomy tube in place. Patient tolerating his feeds well. He will be discharged to a longterm facility. Case will be discussed with case management. From a medical standpoint the patient has been cleared to be discharged. 1. Dysphagia status post laparoscopic gastrostomy tube placement. The patient as he presented with the findings mentioned above. He was evaluated by GI as well as interventional radiology. The patient underwent EGD. EGD did not show any obvious source of dysphagia. A laparoscopic G-tube was placed. The patient tolerated the procedure well, feeds through the G-tube were initiated. Recommendations from dietary are to continue the patient on Jevity 1.5 320 mL bolus 4 times a day including breakfast, lunch, dinner and at bedtime. Water flushes 155 mL every 4 hours. Surgery cleared the patient for a discharge. He will be sent to a longterm facility today. 2. V. tach The patient initially was in V. tach in the emergency department on initial arrival in [place]. Patient was started on amiodarone, cardiology was consulted to evaluate the patient. Patient is currently on Coreg which will be continued, continue amiodarone 200 mg twice daily as per cardiology recommendations. Lexiscan was done which did not show any underlying stress-induced ischemia. Ejection fraction is 49%. I recommended the patient follow-up outpatient with a transfer and pumphouse operator as well as his primary care doctor next 1 week. Continue to monitor the patient's blood pressure, if blood pressure tolerates and the patient can also be started on TRINA inhibitor as per cardiology. 3. Suspected pneumonia Initial chest x-ray was concerning for pneumonia in the left lower lobe. Follow -up CT scan does not show any evidence of infiltrates. Patient is not having fevers, no cough. Antibiotics were discontinued. 4. COPD Patient is currently on 2 L of supplement oxygen which the patient uses at baseline. There is a documented diagnosis of COPD. I reviewed the patient's medication list and it does not appear the patient is on albuterol or Symbicort. I recommend that he follows up with his primary care doctor and he should have outpatient pulmonary function testing done. If needed the patient should be started on albuterol and Symbicort. 5. Systolic CHF EF 35% POA After reviewing the patient's records in 2017 the patient was found to have an ejection fraction of 35%. Currently the patient is euvolemic. Continue aspirin, statin, beta-jayme. He can continue to follow-up his primary care doctor for further management recommendations regarding his systolic CHF.
[2018-05-13] MEDS: THIAMINE IV.SIG SCH ×5 (12:39)
[2018-05-13] MEDS: MULTIVITAMIN IV.SIG SCH ×5 (12:39)
[2018-05-13] MEDS: [UNRECOGNIZED DRUG - OTHER] IV.SIG SCH ×5 (12:39)
[2018-05-13] MEDS: FOLIC ACID IV.SIG SCH ×5 (12:39)
== END 2018-05-13 14:26 ==
LOC: PHED 14:58 → PHEDA 20:01 → PHICU 05-05 06:47 → HPAC 05-10 14:41 → N07 05-10 18:01
PROVIDERS: ADMIT Hospitalist; ATTEND Hospitalist
DX: J84.10 Pulmonary fibrosis, unspecified; I47.2 Ventricular tachycardia; A41.9 Sepsis, unspecified organism; Z96.653 Presence of artificial knee joint, bilateral; J18.1 Lobar pneumonia, unspecified organism; Z79.52 Long term (current) use of systemic steroids; E46 Unspecified protein-calorie malnutrition; I08.3 Combined rheumatic disorders of mitral, aortic and tricuspid valves; I49.3 Ventricular premature depolarization; Z87.891 Personal history of nicotine dependence; Z86.14 Personal history of Methicillin resistant Staphylococcus aureus infection; Z68.1 Body mass index [BMI] 19.9 or less, adult; I48.91 Unspecified atrial fibrillation; Z99.81 Dependence on supplemental oxygen; R13.11 Dysphagia, oral phase; M19.90 Unspecified osteoarthritis, unspecified site; J44.0 Chronic obstructive pulmonary disease with (acute) lower respiratory infection; I50.22 Chronic systolic (congestive) heart failure; I11.0 Hypertensive heart disease with heart failure; E87.2 Acidosis; J96.11 Chronic respiratory failure with hypoxia; K44.9 Diaphragmatic hernia without obstruction or gangrene; I42.9 Cardiomyopathy, unspecified; K21.9 Gastro-esophageal reflux disease without esophagitis

== ENCOUNTER 2018-06-10 10:10 | Inpatient (IN) ==
[2018-06-10] MEDS ORDERED: Sod Chloride 0.9% Inj 1,000 ML IV.SIG ONE (10:14)
[2018-06-10] MEDS ORDERED: Propofol 1000 mg/100 ml Inj 1,000 MG/100 ML BOTTLE IV.CONT PRN (10:14)
--- NOTE | 2018-06-10 10:28 | ED ---
HPI General Chief Complaint: Cardiac Arrest/CPR Stated Complaint: respiratory Time Seen by Provider: 06/10/18 10:14 Source: EMS Mode of arrival: EMS Limitations: altered mental status History of Present Illness HPI narrative: 82-year-old male patient presents to the ER today brought in by EMS, was found down by family, was last seen normal about an hour prior to finding him down, he was in asystole, EMS had given him a round of CPR and epinephrine, obtained spontaneous return of circulation, and they had intubated him on scene. In the ER, he is making some respiratory effort, but is obtunded , not able to give me any history, intubated. Modifying Factors: None Associated Signs & Symptoms: Asystolic arrest Risk Factors: Elderly Related Data Home Medications Medication Instructions Recorded Confirmed aspirin [Aspir-81] 81 mg PO DAILY 05/04/18 06/10/18 carvedilol 3.125 mg PO BID 05/04/18 06/10/18 ferrous sulfate 325 mg PO DAILY 05/04/18 06/10/18 pantoprazole 40 mg PO DAILY 05/04/18 06/10/18 prednisone 5 mg PO DAILY 05/04/18 06/10/18 escitalopram oxalate 10 mg PO DAILY 06/10/18 06/10/18 umeclidinium-vilanterol [Anoro 1 inhalation INHALATION DAILY 06/10/18 06/10/18 Ellipta] Previous Rx's Medication Instructions Recorded amiodarone 200 mg PO DAILY tab 05/12/18 atorvastatin 40 mg PO HS tab 05/12/18 Allergies Allergy/AdvReac Type Severity Reaction Status Date / Time No Known Allergies Allergy Verified 05/04/18 15:39 Review of Systems ROS Unobtainable ROS Unobtainable: unobtainable due to endotracheal tube PMFSH History History Provided By: Medical Record and Human Resources Supervisor / EMT Medical History Medical History COPD (chronic obstructive pulmonary disease) (Acute) Chronic respiratory failure with hypoxia (Acute) Collapse, lung (Acute) GERD (gastroesophageal reflux disease) (Acute) Hypertension (Acute) Surgical History Surgical History H/O knee surgery (Acute) History of chest tube placement (Acute) Family History Family History Father History of brain tumor Social History Social History Substance History: No History of Abuse Second Hand Smoke Exposure: No Smoking Status: Unknown if ever smoked Tobacco Type: Cigarettes How Often Do You Have a Drink Containing Alcohol: Never Recent Travel in [place] within the Last 8 Weeks: No Recent Out of Country Travel within the Last 8 Weeks: No Exam Narrative Exam Narrative: GENERAL: Well-developed elderly male patient currently intubated , GCS 3. SKIN: Focused skin assessment cool/dry. HEAD: Atraumatic. Normocephalic. EYES: Pupils small, equal and round, poorly reactive to light bilaterally. No scleral icterus. No injection or drainage. ENT: No nasal bleeding or discharge. Mucous membranes pink and moist. NECK: Trachea midline. No JVD. Intubated. CARDIOVASCULAR: Regular rate and rhythm. No murmur appreciated. RESPIRATORY: No accessory muscle use. Clear to auscultation. Breath sounds equal bilaterally. Gut-wfftg-tayg in progress. GASTROINTESTINAL: Abdomen soft, non-tender, nondistended. PEG tube in place. Hepatic and splenic margins not palpable. MUSCULOSKELETAL: No obvious deformities. No clubbing. No cyanosis. No edema. NEUROLOGICAL: Intubated, obtunded, GCS 3 PSYCHIATRIC: Unable to assess. Course Initial Documented Vital Signs Temperature 99.2 F 06/10/18 10:10 Pulse Rate 99 H 06/10/18 10:10 Respiratory Rate 20 06/10/18 10:10 Blood Pressure 112/71 06/10/18 10:10 Pulse Oximetry 100 06/10/18 10:10 Last Documented Vital Signs Temperature 99.2 F 06/10/18 10:10 Pulse Rate 79 06/10/18 12:04 Respiratory Rate 14 06/10/18 12:04 Blood Pressure 155/82 H 06/10/18 10:15 Pulse Oximetry 98 06/10/18 11:21 Medical Decision Making MDM Narrative Medical decision making narrative: Patient is intubated in the field, CAT scan of the brain did not show any signs of acute processes. He has a stable rhythm in the ER, maintain blood pressures, and IV fluids were given in the ER. Lab work shows significant leukocytosis and at this point, IV antibiotics were initiated as a precaution. Chest x-ray showing bilateral interstitial infiltrates, questionable for bilateral atypical pneumonia versus underlying CHF. At this point, case is discussed with Dr. Perez for admission for further treatment. Aggregate critical care time was 35 minutes. Time to perform other separately billable procedures was not included in the critical care time. My time did not include minutes spent treating any other patients simultaneously or on activities that did not directly contribute to the patient's treatment. The services I provided to this patient were to treat and/or prevent clinically significant deterioration that could result in: Cardiac dysrhythmias, cardiac arrest, I provided critical care services requiring my management, as noted below: Chart data review, documentation time, medication orders and management, vital sign assessments/reviewing monitor data, ordering and reviewing lab tests, ordering and interpreting/reviewing x-rays and diagnostic studies, care of the patient and discussion of the patient with the admitting physicians. Medical Screen Exam Complete: Yes Emergency Medical Condition: Yes Lab Data Lab results reviewed: Yes I reviewed the patient's lab results. Result diagrams: 06/10/18 10:15 06/10/18 10:15 Lab Results 06/10/18 06/10/18 06/10/18 Range/Units 10:15 10:15 10:15 CBC w Diff Auto diff final WBC 18.1 H (4.0-11.0) th/mm3 RBC 3.83 L (4.50-5.90) mil/mm3 Hgb 11.1 L (13.0-17.0) gm/dL Hct 33.9 L (39.0-51.0) % MCV 88.7 (80.0-100.0) fL MCH 28.9 (27.0-34.0) pg MCHC 32.6 (32.0-36.0) % RDW 13.5 (11.6-17.2) % Plt Count 262 (150-450) th/mm3 MPV 8.2 (7.0-11.0) fL Neut % (Auto) 87.0 H (16.0-70.0) % Lymph % (Auto) 5.3 L (9.0-44.0) % [place] % (Auto) 7.1 (0.0-8.0) % Eos % (Auto) 0.1 (0.0-4.0) % Baso % (Auto) 0.5 (0.0-2.0) % Neut # (Auto) 15.8 H (1.8-7.7) th/mm3 Lymph # (Auto) 1.0 (1.0-4.8) th/mm3 [place] # (Auto) 1.3 H (0.0-0.9) th/mm3 Eos # (Auto) 0.0 (0.0-0.4) th/mm3 Baso # (Auto) 0.1 (0.0-0.2) th/mm3 WBC Differential . Differential Comment . PT 12.3 H (9.8-11.6) sec INR 1.2 Ratio APTT 34.5 H (23.4-31.7) sec Puncture Site Patient Temperature O2 Saturation (90-100) % ABG pH (7.380-7.420) ABG pCO2 (38-42) mmHg ABG pO2 (61-120) mmHg ABG HCO3 (22-26) mmol/L ABG O2 Content (12.0-20.0) Vol % ABG Base Excess (-2-2) mmol/L ABG Methemoglobin (0-2) % Hemoglobin (12.0-16.0) G/DL Carboxyhemoglobin (0-4) % O2 Delivery Device Liter Flow L/M Vent Setting Critical Value Sodium 129 L (136-145) meq/L Potassium 4.8 (3.5-5.1) meq/L Chloride 92 L (98-107) meq/L Carbon Dioxide 23.9 (21.0-32.0) meq/L Anion Gap 13 (5-15) meq/L BUN 27 H (7-18) mg/dL Creatinine 1.00 (0.60-1.30) mg/dL Estimated GFR 72 L (>89) mL/min POC Glucose (68-110) mg/dl Random Glucose 135 H (74-106) mg/dL Calcium 7.8 L (8.5-10.1) mg/dL Total Bilirubin 1.2 H (0.2-1.0) mg/dL AST 66 H (15-37) U/L ALT 34 (12-78) U/L Alkaline Phosphatase 90 (45-117) U/L Troponin I 0.07 H (0.02-0.05) ng/mL B-Natriuretic Peptide (0-100) pg/mL Total Protein 7.0 (6.4-8.2) g/dL Albumin 2.6 L (3.4-5.0) g/dL Ur Collection Type Urine Color (Yellw/Straw) Urine Clarity (Clear) Urine pH (5.0-8.5) Ur Specific [place] (1.002-1.035) Urine Protein (Neg-Trace) mg/dL Urine Glucose (UA) (Negative) mg/dL Urine Ketones (Negative) mg/dL Urine Occult Blood (Negative) Urine Nitrate (Negative) Urine Bilirubin (Negative) Urine Urobilinogen (Less than 2) mg/dL Ur Leukocyte Esterase (Negative) Ur Transition Epith Cell (None) /hpf Amorphous Sediment (None) /hpf Urine Mucus (Occasional) /lpf Micro UA Comment Ur Microscopic Review Urine Culture Comments Urine Collection Time hours 06/10/18 06/10/18 06/10/18 Range/Units 10:15 10:15 10:27 CBC w Diff WBC (4.0-11.0) th/mm3 RBC (4.50-5.90) mil/mm3 Hgb (13.0-17.0) gm/dL Hct (39.0-51.0) % MCV (80.0-100.0) fL MCH (27.0-34.0) pg MCHC (32.0-36.0) % RDW (11.6-17.2) % Plt Count (150-450) th/mm3 MPV (7.0-11.0) fL Neut % (Auto) (16.0-70.0) % Lymph % (Auto) (9.0-44.0) % [place] % (Auto) (0.0-8.0) % Eos % (Auto) (0.0-4.0) % Baso % (Auto) (0.0-2.0) % Neut # (Auto) (1.8-7.7) th/mm3 Lymph # (Auto) (1.0-4.8) th/mm3 [place] # (Auto) (0.0-0.9) th/mm3 Eos # (Auto) (0.0-0.4) th/mm3 Baso # (Auto) (0.0-0.2) th/mm3 WBC Differential Differential Comment PT (9.8-11.6) sec INR Ratio APTT (23.4-31.7) sec Puncture Site Patient Temperature O2 Saturation (90-100) % ABG pH (7.380-7.420) ABG pCO2 (38-42) mmHg ABG pO2 (61-120) mmHg ABG HCO3 (22-26) mmol/L ABG O2 Content (12.0-20.0) Vol % ABG Base Excess (-2-2) mmol/L ABG Methemoglobin (0-2) % Hemoglobin (12.0-16.0) G/DL Carboxyhemoglobin (0-4) % O2 Delivery Device Liter Flow L/M Vent Setting Critical Value Sodium (136-145) meq/L Potassium (3.5-5.1) meq/L Chloride (98-107) meq/L Carbon Dioxide (21.0-32.0) meq/L Anion Gap (5-15) meq/L BUN (7-18) mg/dL Creatinine (0.60-1.30) mg/dL Estimated GFR (>89) mL/min POC Glucose 140 H (68-110) mg/dl Random Glucose (74-106) mg/dL Calcium (8.5-10.1) mg/dL Total Bilirubin (0.2-1.0) mg/dL AST (15-37) U/L ALT (12-78) U/L Alkaline Phosphatase (45-117) U/L Troponin I (0.02-0.05) ng/mL B-Natriuretic Peptide 1548 H (0-100) pg/mL Total Protein (6.4-8.2) g/dL Albumin (3.4-5.0) g/dL Ur Collection Type Cath Urine Color Yellow (Yellw/Straw) Urine Clarity Slightly cloudy (Clear) Urine pH 6.5 (5.0-8.5) Ur Specific [place] 1.015 (1.002-1.035) Urine Protein 30 H (Neg-Trace) mg/dL Urine Glucose (UA) Negative (Negative) mg/dL Urine Ketones Negative (Negative) mg/dL Urine Occult Blood Negative (Negative) Urine Nitrate Negative (Negative) Urine Bilirubin Negative (Negative) Urine Urobilinogen 1.0 (Less than 2) mg/dL Ur Leukocyte Esterase Negative (Negative) Ur Transition Epith Cell Greater than 10 H (None) /hpf Amorphous Sediment Moderate H (None) /hpf Urine Mucus Moderate H (Occasional) /lpf Micro UA Comment Cath-culture not ind Ur Microscopic Review Microscopic reviewed Urine Culture Comments Cath-cult not ind Urine Collection Time 1015 hours 06/10/18 Range/Units 11:32 CBC w Diff WBC (4.0-11.0) th/mm3 RBC (4.50-5.90) mil/mm3 Hgb (13.0-17.0) gm/dL Hct (39.0-51.0) % MCV (80.0-100.0) fL MCH (27.0-34.0) pg MCHC (32.0-36.0) % RDW (11.6-17.2) % Plt Count (150-450) th/mm3 MPV (7.0-11.0) fL Neut % (Auto) (16.0-70.0) % Lymph % (Auto) (9.0-44.0) % [place] % (Auto) (0.0-8.0) % Eos % (Auto) (0.0-4.0) % Baso % (Auto) (0.0-2.0) % Neut # (Auto) (1.8-7.7) th/mm3 Lymph # (Auto) (1.0-4.8) th/mm3 [place] # (Auto) (0.0-0.9) th/mm3 Eos # (Auto) (0.0-0.4) th/mm3 Baso # (Auto) (0.0-0.2) th/mm3 WBC Differential Differential Comment PT (9.8-11.6) sec INR Ratio APTT (23.4-31.7) sec Puncture Site Left femoral Patient Temperature 98.6 O2 Saturation 98 (90-100) % ABG pH 7.41 (7.380-7.420) ABG pCO2 44 H (38-42) mmHg ABG pO2 386 H (61-120) mmHg ABG HCO3 27 H (22-26) mmol/L ABG O2 Content 15.6 (12.0-20.0) Vol % ABG Base Excess 2.9 H (-2-2) mmol/L ABG Methemoglobin 1.3 (0-2) % Hemoglobin 10.7 L (12.0-16.0) G/DL Carboxyhemoglobin 1.2 (0-4) % O2 Delivery Device Vent Liter Flow 100.00 L/M Vent Setting Prvc/ac Critical Value No Sodium (136-145) meq/L Potassium (3.5-5.1) meq/L Chloride (98-107) meq/L Carbon Dioxide (21.0-32.0) meq/L Anion Gap (5-15) meq/L BUN (7-18) mg/dL Creatinine (0.60-1.30) mg/dL Estimated GFR (>89) mL/min POC Glucose (68-110) mg/dl Random Glucose (74-106) mg/dL Calcium (8.5-10.1) mg/dL Total Bilirubin (0.2-1.0) mg/dL AST (15-37) U/L ALT (12-78) U/L Alkaline Phosphatase (45-117) U/L Troponin I (0.02-0.05) ng/mL B-Natriuretic Peptide (0-100) pg/mL Total Protein (6.4-8.2) g/dL Albumin (3.4-5.0) g/dL Ur Collection Type Urine Color (Yellw/Straw) Urine Clarity (Clear) Urine pH (5.0-8.5) Ur Specific [place] (1.002-1.035) Urine Protein (Neg-Trace) mg/dL Urine Glucose (UA) (Negative) mg/dL Urine Ketones (Negative) mg/dL Urine Occult Blood (Negative) Urine Nitrate (Negative) Urine Bilirubin (Negative) Urine Urobilinogen (Less than 2) mg/dL Ur Leukocyte Esterase (Negative) Ur Transition Epith Cell (None) /hpf Amorphous Sediment (None) /hpf Urine Mucus (Occasional) /lpf Micro UA Comment Ur Microscopic Review Urine Culture Comments Urine Collection Time hours Imaging Data Attestation: I personally reviewed and interpreted this imaging study as follows : Radiologist's impression: Head CT 06/10/18 10:14 CONCLUSION: 1. Stable appearance of the brain without evidence of acute infarct, hemorrhage , mass or edema. 2. Chronic ischemic white matter changes. . Chest X-Ray 06/10/18 10:15 CONCLUSION: Satisfactory position of endotracheal tube. Developing bibasilar airspace disease. Cardiomegaly. Fibrotic upper lobe changes. Discharge Plan Discharge Disposition Patient Disposition: ED Admit(ED Internal Use Only) Discharge Condition Condition: Critical Discharge Order Discharge Orders: ED Use Only Admit Order (Routine); Ordered 06/10/18 Ordered By: Emily Mari Discharge Details Anticipated Discharge Date: 06/10/18 Diagnosis: Cardiac arrest Physicians Team ED Provider: Emily Mari Primary Care Provider: Julian Bunn Attending Provider: Piotr Perez Discharge Interventions Interventions: Vital Signs Last Done: 06/10/18 10:15 Status ED Status: Admitted Patient
[2018-06-10 10:29] VITALS: TEMP 99.2
[2018-06-10 10:34] LABS: Baso # (Auto) 0.1 th/mm3 (0.0-0.2); Baso % (Auto) 0.5 % (0.0-2.0); Eos % (Auto) 0.1 % (0.0-4.0); Hematocrit 33.9 % (39.0-51.0); Hemoglobin 11.1 gm/dL (13.0-17.0); Lymph % (Auto) 5.3 % (9.0-44.0); Mean Corpuscular HGB Conc 32.6 % (32.0-36.0); Mean Corpuscular Hemoglobin 28.9 pg (27.0-34.0); Mean Corpuscular Volume 88.7 fL (80.0-100.0); Mean Platelet Volume 8.2 fL (7.0-11.0); Mono # (Auto) 1.3 th/mm3 (0.0-0.9); Mono % (Auto) 7.1 % (0.0-8.0); Neut # (Auto) 15.8 th/mm3 (1.8-7.7); Platelet Count 262 th/mm3 (150-450); Red Blood Count 3.83 mil/mm3 (4.50-5.90); Red Cell Distribution Width 13.5 % (11.6-17.2); White Blood Count 18.1 th/mm3 (4.0-11.0)
[2018-06-10 10:40] LABS: Chloride 92 meq/L (98-107); Potassium 4.8 meq/L (3.5-5.1); Sodium 129 meq/L (136-145)
[2018-06-10 10:43] LABS: Bilirubin,Urine Negative (Negative); Calcium 7.8 mg/dL (8.5-10.1); Clarity,Urine Slightly Cloudy (Clear); Color,Urine Yellow (Yellw/Straw); Glucose,Urine (UA) Negative (Negative); Leukocyte Esterase,Urine Negative (Negative); Nitrite,Urine Negative (Negative); PH,Urine 6.5 (5.0-8.5); Specific Gravity,Urine 1.015 (1.002-1.035)
[2018-06-10 10:44] LABS: Albumin 2.6 g/dL (3.4-5.0); Anion Gap 13 meq/L (5-15); Blood Urea Nitrogen 27 mg/dL (7-18); Carbon Dioxide 23.9 meq/L (21.0-32.0); Glucose,Random 135 mg/dL (74-106)
[2018-06-10 10:47] LABS: Alanine Aminotransferase 34 U/L (12-78); Aspartate Aminotransferase 66 U/L (15-37); Glomerular Filtration Rate 72 mL/min (>89)
[2018-06-10 10:48] LABS: Collection Time,Urine 1015 hours
[2018-06-10 10:49] LABS: Amorphous Sediment,Urine Moderate /hpf; Transitional Epi Cells,Urine Greater than 10 /hpf
[2018-06-10 10:50] LABS: Alkaline Phosphatase 90 U/L (45-117); Mucus,Urine Moderate /lpf (Occasional)
[2018-06-10 10:52] LABS: Troponin I 0.07 ng/mL (0.02-0.05)
[2018-06-10 11:00] LABS: Activated Partial Thrombo Time 34.5 sec (23.4-31.7); INR 1.2 Ratio; Prothrombin Time 12.3 sec (9.8-11.6)
[2018-06-10] MEDS ORDERED: Azithromycin Inj 500 MG in Sodium Chlor 0.9% Inj 250 ML IV.SIG ONE (11:14)
--- NOTE | 2018-06-10 11:24 | XR ---
EXAM DATE: 06/10/2018 11:06 AM EST AGE/SEX: 82 years / Male INDICATIONS: Post code. Chest pain CLINICAL DATA: This is the patient's initial encounter. Patient reports that signs and symptoms have been present for 1 day and indicates a pain score of Nonresponsive. MEDICAL/SURGICAL HISTORY: . Hypertension. Chronic obstructive pulmonary disease Non-responsive . COMPARISON: [facility], CHEST 1V SINGLE AP, 05/08/2018. . FINDINGS: Endotracheal tube has been placed and is located just above the fani. Increasing density is identified in both lung bases characteristic of developing airspace disease. Significant fibrotic changes are noted in the upper lobes. Heart is mildly enlarged. CONCLUSION: Satisfactory position of endotracheal tube. Developing bibasilar airspace disease. Cardiomegaly. Fibrotic upper lobe changes. Electronically signed by: Adam Martines MD Board Certified Radiologist 06/10/2018 11:22 AM EST
--- NOTE | 2018-06-10 11:25 | CT ---
EXAM DATE: 06/10/2018 11:17 AM EST AGE/SEX: 82 years / Male INDICATIONS: Altered Mental Status CLINICAL DATA: This is the patient's initial encounter. Patient reports that signs and symptoms have been present for 1 day and indicates a pain score of Nonresponsive. MEDICAL/SURGICAL HISTORY: Chronic obstructive pulmonary disease. Gastroesophageal reflux disease. Hypertension. None. RADIATION DOSE: 59.61 CTDI (mGy) COMPARISON: [facility], CT HEAD W/O CONTRAST, 05/05/2018. . TECHNIQUE: CT of the head without contrast. Using automated exposure control and adjustment of the mA and/or kV according to patient size, radiation dose was kept as low as reasonably achievable to ob tain optimal diagnostic quality images. DICOM format image data is available electronically for revi ew and comparison. FINDINGS: Cerebrum: The ventricles are normal for age. No evidence of midline shift, mass lesion, hemorrhage or acute infarction. No extraaxial fluid collections are seen. Diffuse cerebral white matter hypoden sity is again noted appears stable. Posterior Fossa: The cerebellum and brainstem are intact. The 4th ventricle is midline. The cerebe llopontine angle is unremarkable. Extracranial: The visualized portion of the orbits is intact. Skull: The calvaria is intact. No evidence of skull fracture. CONCLUSION: 1. Stable appearance of the brain without evidence of acute infarct, hemorrhage, mass or edema. 2. Chronic ischemic white matter changes. . Electronically signed by: Adam Martines MD Board Certified Radiologist 06/10/2018 11:24 AM EST
[2018-06-10] MEDS ORDERED: Bisacodyl 10 MG Supp RECTAL PRN (11:35)
[2018-06-10] MEDS ORDERED: Acetaminophen 325 MG Tablet PO PRN (11:35)
[2018-06-10 11:38] LABS: ABG Base Excess 2.9 mmol/L (-2-2); ABG PCO2 44 mmHg (38-42); ABG PO2 386 mmHg (61-120)
[2018-06-10] MEDS ORDERED: Potassium Phosphate 500 MG Soluble Tablet PO PRN ×2 (11:40)
[2018-06-10] MEDS ORDERED: Potassium Chloride 25 MEQ Effervescent Tablet PO PRN (11:40)
[2018-06-10] MEDS ORDERED: Magnesium Sulfate Inj 2 GM in Sodium Chlor 0.9% Inj 96 ML IV.SIG PRN (11:40)
[2018-06-10] MEDS ORDERED: Magnesium Oxide 400 MG Tablet PO PRN (11:40)
[2018-06-10] MEDS ORDERED: Potassium Phosphate Inj 30 MMOL in Sodium Chlor 0.9% Inj 250 ML IV.SIG PRN (11:40)
[2018-06-10] MEDS ORDERED: Potassium Chlor 40 mEq Premix 40 MEQ/100 ML PIGGYBACK IV.SIG PRN ×2 (11:40)
[2018-06-10] MEDS ORDERED: Sodium Phosphate Inj 30 MMOL in Sodium Chlor 0.9% Inj 250 ML IV.SIG PRN (11:40)
[2018-06-10] MEDS ORDERED: Magnesium Sulfate Inj 4 GM in Sodium Chlor 0.9% Inj 92 ML IV.SIG PRN (11:40)
[2018-06-10] MEDS ORDERED: Potassium Chlor 20 mEq Premix 20 MEQ/100 ML PIGGYBACK IV.SIG PRN ×2 (11:40)
[2018-06-10] MEDS ORDERED: Dextrose 50% in Water 50 ML Vial IV.PUSH PRN (11:41)
[2018-06-10] MEDS ORDERED: Sod Chloride 0.9% Inj 1,000 ML IV.CONT SCH (11:45)
[2018-06-10] MEDS ORDERED: Artificial Tears Opth Drops 15 ML Bottle EACH EYE SCH (12:00)
[2018-06-10 12:21] LABS: Magnesium 2.2 mg/dL (1.5-2.5)
[2018-06-10 12:24] LABS: Phosphorus 5.2 mg/dL (2.5-4.9)
--- NOTE | 2018-06-10 14:09 | P.HPCC ---
History of Present Illness Service: Critical care medicine Primary Care Physician: Julian Bunn MD Chief Complaint: Respiratory distress History of Present Illness: 82-year-old male with past medical history of COPD, GERD, hypertension , dysphagia status post PEG who presented to [facility] emergency department following out of hospital asystolic cardiac arrest. He was intubated in the field. ROSC was obtained. In the ED he received azithromycin, cefepime, 1 L normal saline bolus. He was transferred to [facility]. Upon arrival he is intubated, on minimal sedation with propofol 5mcg/kg/min. He is frail appearing, comatose with intermittent myoclonus. He was recently hospitalized in April due to sepsis related to aspiration pneumonia. I met with his daughter. She has been providing him full care at her home for months, including giving him his meds and administering his tube feeds. She says over the last couple of days he has had worsening mental status. Verbal communication was limited, speech seemed abnormal and he had "gurgling" in his throat. He fell several times. She tried to get him to come to the hospital and he vehemently refused. Today she checked on him and then was in another room for about 35-40 minutes when she heard a "loud thud" and ran in to find him on the floor. She called 911 and initiated CPR. He was in asystole when [facility] arrived. Daughter states he does not have a living will. He does not have a . She is his only child and his primary caregiver. She is his next of kin. She observed him in [facility] where he was comatose and with intermittent myoclonus. I have discussed this is the brains response to anoxia. She feels that he has been suffering the last few months with COPD and respiratory issues related to his dysphagia and she has thought that he may need hospice care. She would now like to transition to comfort measures including removal of mechanical ventilation. She is aware he is not expected to survive following extubation. She says she needs to get home to care for her special needs [facility] and that we should extubate him when he has been appropriately pretreated with comfort meds and then call her when he expires. - Diagnosis (1) Protein-energy malnutrition (2) Respiratory failure (3) COPD (chronic obstructive pulmonary disease) (4) Anoxia of brain (5) Hyponatremia (6) Aspiration pneumonia (7) Dysphagia (8) Sepsis (9) Cardiac arrest Inpatient Certification: I certify that the inpatient services were ordered in accordance with Medicare regulations governing the order. This includes certification that hospital inpatient services are reasonable and necessary and in the case of services not specified as inpatient-only under 42 CFR 419.22(n), that they are appropriately provided as inpatient services in accordance to with the 2-midnight benchmark under 43 CFR 412.3(e) Estimated Total Length of Stay (Days): 5 Plans for Post Hospital Care: Not yet determined Review of Systems unobtainable due to endotracheal tube PMFSH - History History Provided By: Medical Record, Catering And Events Manager / EMT - Medical History Medical History: Medical History (Last Reviewed 06/10/18 @ 14:13 by Tasneem Vang MD) COPD (chronic obstructive pulmonary disease) Chronic respiratory failure with hypoxia Collapse, lung GERD (gastroesophageal reflux disease) Hypertension - Surgical History Surgical History: Surgical History (Last Reviewed 06/10/18 @ 14:12 by Tasneem Vang MD) H/O knee surgery History of chest tube placement - Family History Family History: Family History (Last Reviewed 06/10/18 @ 14:12 by Tasneem Vang MD) Father History of brain tumor - Tobacco History Second Hand Smoke Exposure: No Smoking Status: Unknown if ever smoked Tobacco Type: Cigarettes - Alcohol History How Often Do You Have a Drink Containing Alcohol: Never - Substance Use History Substance History: No History of Abuse - Travel History Recent Travel in the [place] Within the Last 8 Weeks: No Recent Travel Out of the Country Within the Last 8 Weeks: No - Immunization History Tetanus Immunization: <5 Years Medications and Allergies Active Medications: Active Medications Acetaminophen (Tylenol) 650 mg PO Q6H PRN PRN Reason: PAIN 1-10 AND/OR FEVER >101F Al Hydroxide/Mg Hydroxide (Milk Of Magnesia Liq) 30 ml PO Q12H PRN PRN Reason: Mild Constipation Albuterol (Albuterol Neb (Prn)) 2.5 mg NEB Q2HR NEB PRN PRN Reason: SHORTNESS OF BREATH/WHEEZING Albuterol (Duoneb Neb (Payton)) 1 ampul NEB Q4HR NEB [place] Last Admin: 06/10/18 11:58 Dose: 1 ampul Artificial Tears (Tears Naturale Opth Drops) 1 drop EACH EYE Q8H [facility] Bisacodyl (Dulcolax Supp) 10 mg RECTAL DAILY PRN PRN Reason: SEVERE CONSITIPATION Chlorhexidine Gluconate (Peridex 0.12% Oral Kit) 15 ml OROPHARYNG BID@0800, 2000 [facility] Chlorhexidine Gluconate (Chlorhexidine 2% Cloth) 3 pack TOPICAL DAILY@0400 [place] Stop: 06/16/18 03:59 Chlorhexidine Gluconate (Chlorhexidine 2% Cloth) 3 pack TOPICAL DAILY@0400 PRN PRN Reason: Extra cloth needed Stop: 06/16/18 03:59 Dextrose (D50w Vial) 50 ml IV.PUSH UNSCH PRN PRN Reason: PER HYPOGLYCEMIA PROTOCOL Glucagon (Glucagon Inj) 1 mg OTHER PRN PRN PRN Reason: for Hypoglycemia Protocol Propofol (Diprivan 1000 Mg/100 Ml Inj) 1,000 mg in 100 mls @ 2.177 mls/hr IV.CONT TITRATE PRN; Protocol PRN Reason: Per Protocol Last Admin: 06/10/18 10:50 Dose: 5 mcg/kg/min, 2.18 mls/hr Sodium Chloride (Ns Inj) 1,000 mls @ 84 mls/hr IV.CONT .[id number] [facility] Last Admin: 06/10/18 12:29 Dose: 84 mls/hr Magnesium Sulfate 4 gm/ Sodium (Chloride) 100 mls @ 50 mls/hr IV.SIG UNSCH PRN PRN Reason: For Magnesium 0.9 - 1.1 mg/dL Magnesium Sulfate 2 gm/ Sodium (Chloride) 100 mls @ 50 mls/hr IV.SIG UNSCH PRN PRN Reason: For Magnesium 1.2 - 1.6 mg/dL Potassium Chloride (Kcl 20 Meq Premix Inj) 20 meq in 100 mls @ 50 mls/hr IV.SIG Q2H PRN PRN Reason: For Potassium 3.3 - 3.5 mEq/L Potassium Chloride (Kcl 40 Meq Premix Inj) 40 meq in 100 mls @ 25 mls/hr IV.SIG UNSCH PRN PRN Reason: For Potassium 3.3 - 3.5 mEq/L Potassium Chloride (Kcl 20 Meq Premix Inj) 20 meq in 100 mls @ 50 mls/hr IV.SIG Q2H PRN PRN Reason: For Potassium 2.8 - 3.2 mEq/L Potassium Phosphate 30 mmol/ (Sodium Chloride) 260 mls @ 42 mls/hr IV.SIG UNSCH PRN PRN Reason: SEE LABEL COMMENTS Potassium Chloride (Kcl 40 Meq Premix Inj) 40 meq in 100 mls @ 25 mls/hr IV.SIG Q2H PRN PRN Reason: For Potassium 2.8 - 3.2 mEq/L Sodium Phosphate 30 mmol/ (Sodium Chloride) 260 mls @ 42 mls/hr IV.SIG UNSCH PRN PRN Reason: For Phosphorus < 2.5 mg/dL Insulin Aspart (Novolog Insulin Correctional Sugar Inj) 0 unit SQ Q6HR [place]; Protocol Lactulose (Lactulose Liq) 30 ml PO DAILY PRN PRN Reason: SEVERE CONSITIPATION Magnesium Oxide (Mag-Ox) 800 mg PO UNSCH PRN PRN Reason: For Magnesium 1.2 - 1.6 mg/dL Miscellaneous Medication () 1 each OROPHARYNG 0000,0400,1200,1600 [place] Ondansetron HCl (Zofran Inj) 4 mg IV.PUSH Q6H PRN PRN Reason: NAUSEA OR VOMITING Pantoprazole Sodium (Protonix Inj) 40 mg IV.PUSH DAILY [place] Potassium Bicarb/Potassium Chloride (K-Lyte Cl Eff) 50 meq PO UNSCH PRN PRN Reason: For Potassium 3.3 - 3.5 mEq/L Potassium Phosphate (K-Phos Original) 2,000 mg PO Q4H PRN PRN Reason: Phosphorus Less Than 2.5 mg/dL Potassium Phosphate (K-Phos Original) 2,000 mg PO UNSCH PRN PRN Reason: SEE LABEL COMMENTS Senna/Docusate Sodium (Mckenzie-Colace) 1 tab PO BID [facility] Sennosides (Senokot) 17.2 mg PO Q12H PRN PRN Reason: Moderate Constipation Sodium Chloride (Ns Flush) 2 ml IV.FLUSH PRN PRN PRN Reason: FLUSH AFTER USING IV ACCESS Sodium Chloride (Ns Flush) 2 ml IV.FLUSH BID [place] Sodium Chloride (Ns Flush) 2 ml IV.FLUSH PRN PRN PRN Reason: FLUSH AFTER USING IV ACCESS Allergies Allergy/AdvReac Type Severity Reaction Status Date / Time No Known Allergies Allergy Verified 05/04/18 15:39 Home Medications Medication Instructions Recorded Confirmed Type aspirin [Aspir-81] 81 mg PO DAILY 05/04/18 06/10/18 History carvedilol 3.125 mg PO BID 05/04/18 06/10/18 History ferrous sulfate 325 mg PO DAILY 05/04/18 06/10/18 History pantoprazole 40 mg PO DAILY 05/04/18 06/10/18 History prednisone 5 mg PO DAILY 05/04/18 06/10/18 History escitalopram oxalate 10 mg PO DAILY 06/10/18 06/10/18 History umeclidinium-vilanterol [Anoro 1 inhalation INHALATION DAILY 06/10/18 06/10/18 History Ellipta] Results - Labs CBC & Chem 7: 06/10/18 10:15 06/10/18 10:15 Labs: Short CBC 06/10/18 Range/Units 10:15 WBC 18.1 H (4.0-11.0) th/mm3 Hgb 11.1 L (13.0-17.0) gm/dL Hct 33.9 L (39.0-51.0) % Plt Count 262 (150-450) th/mm3 BMP 06/10/18 10:15 Sodium 129 L Potassium 4.8 Chloride 92 L Carbon Dioxide 23.9 BUN 27 H Creatinine 1.00 Calcium 7.8 L Cardiac Enzymes 06/10/18 Range/Units 10:15 Troponin I 0.07 H (0.02-0.05) ng/mL Liver Function 06/10/18 Range/Units 10:15 Total Bilirubin 1.2 H (0.2-1.0) mg/dL AST 66 H (15-37) U/L ALT 34 (12-78) U/L Alkaline Phosphatase 90 (45-117) U/L Albumin 2.6 L (3.4-5.0) g/dL Urine 06/10/18 Range/Units 10:15 Urine Color Yellow (Yellw/Straw) Urine Clarity Slightly cloudy (Clear) Urine pH 6.5 (5.0-8.5) Ur Specific [place] 1.015 (1.002-1.035) Urine Protein 30 H (Neg-Trace) mg/dL Urine Glucose (UA) Negative (Negative) mg/dL - Imaging Impressions Head CT 06/10/18 10:14 CONCLUSION: 1. Stable appearance of the brain without evidence of acute infarct, hemorrhage , mass or edema. 2. Chronic ischemic white matter changes. . Chest X-Ray 06/10/18 10:15 CONCLUSION: Satisfactory position of endotracheal tube. Developing bibasilar airspace disease. Cardiomegaly. Fibrotic upper lobe changes. Exam Vital signs: Vital Signs 06/10/18 10:10 06/10/18 10:15 06/10/18 10:31 Temperature 99.2 F Pulse Rate 99 H 89 90 Respiratory Rate 20 14 21 Blood Pressure 112/71 155/82 H Pulse Oximetry 100 99 99 06/10/18 10:34 06/10/18 10:44 06/10/18 10:49 Temperature Pulse Rate 84 84 Respiratory Rate 18 17 Blood Pressure 137/77 119/67 Pulse Oximetry 98 100 90 L 06/10/18 11:13 06/10/18 11:18 06/10/18 11:21 Temperature Pulse Rate Respiratory Rate 14 Blood Pressure 95/59 L Pulse Oximetry 99 98 06/10/18 11:35 06/10/18 11:38 06/10/18 12:04 Temperature Pulse Rate 78 78 Respiratory Rate 17 14 17 Blood Pressure 105/65 112/66 Pulse Oximetry 100 100 06/10/18 12:20 06/10/18 12:45 06/10/18 13:17 Temperature Pulse Rate 79 80 Respiratory Rate 14 20 16 Blood Pressure 113/65 114/62 Pulse Oximetry 100 06/10/18 13:46 Temperature Pulse Rate Respiratory Rate 15 Blood Pressure Pulse Oximetry Intake & Output 06/09/18 06/10/18 06/10/18 18:59 06:59 18:59 Intake Total 1000 / 1000 Output Total 175 / 175 Balance 825 / 825 Weight 72.575 kg Intake: IV 1000 / 1000 NS Inj 1,000 ML @ Wide Open IV. 1000 / 1000 SIG ONCE ONE Rx#:[id number] Output: Urine Amount (Catheter) 175 / 175 Indwelling Urethral Catheter 175 / 175 Narrative: GENERAL: Thin frail elderly appearing male who is unresponsive, intermittently with myoclonic movements. SKIN: Dry HEAD: Atraumatic. Normocephalic. EYES: Arcus senilis present bilaterally. Pupils round, 4 mm reactive to 2 mm bilaterally.. No scleral icterus. No injection or drainage. ENT: No nasal bleeding or discharge. Mucous membranes pink and moist. NECK: Trachea midline. No JVD. CARDIOVASCULAR: Sinus, occasional irregular beat.. No murmurs rubs or gallops. RESPIRATORY: Orotracheally intubated. Coarse breath sounds bilaterally GASTROINTESTINAL: Abdomen soft, non-tender, nondistended. Bowel sounds absent. PEG tube in place with site benign appearing MUSCULOSKELETAL: Extremities without clubbing, cyanosis, or edema. Deformities noted right ankle peer NEUROLOGICAL: No eye opening. Pupils as per above. He has corneal reflexes. Decerebrate posturing of bilateral upper extremities. No response in bilateral lower extremities. Intermittent myoclonus Caprini VTE Risk Assessment Caprini VTE Risk Assessment: Moderate/High Risk (score >= 2) Caprini Risk Assessment Model: Point Value = 1 Point Value = 2 Point Value = 3 Point Value = 5 Age 41-60 Minor surgery BMI > 25 kg/m2 Swollen legs Varicose veins or History of unexplained or recurrent spontaneous Oral contraceptives or hormone replacement Sepsis (< 1 month) Serious lung disease, including pneumonia (< 1 month) Abnormal pulmonary function Acute myocardial infarction Congestive heart failure (< 1 month) History of inflammatory bowel disease Medical patient at bed rest Age 61-74 Arthroscopic surgery Major open surgery (> 45 min) Laparoscopic surgery (> 45 min) Malignancy Confined to bed (> 72 hours) Immobilizing plaster cast Central venous access Age >= 75 History of VTE Family history of VTE Factor V Leiden Prothrombin [id number] Lupus anticoagulant Anticardiolipin antibodies Elevated serum homocysteine Heparin-induced thrombocytopenia Other congenital or acquired thrombophilia Stroke (< 1 month) Elective arthroplasty Hip, pelvis, or leg fracture Acute spinal cord injury (< 1 month) Prophylaxis Regimen: Total Risk Factor Score Risk Level Prophylaxis Regimen 0-1 Low Early ambulation 2 Moderate Order ONE of the following: *Sequential Compression Device (SCD) *Heparin 5000 units SQ BID 3-4 Higher Order ONE of the following medications: *Heparin 5000 units SQ TID *Enoxaparin/Lovenox 40 mg SQ daily (WT < 150 kg, CrCl > 30 mL/min) *Enoxaparin/Lovenox 30 mg SQ daily (WT < 150 kg, CrCl > 10-29 mL/min) *Enoxaparin/Lovenox 30 mg SQ BID (WT < 150 kg, CrCl > 30 mL/min) AND/OR *Sequential Compression Device (SCD) 5 or more Highest Order ONE of the following medications: *Heparin 5000 units SQ TID (Preferred with Epidurals) *Enoxaparin/Lovenox 40 mg SQ daily (WT < 150 kg, CrCl > 30 mL/min) *Enoxaparin/Lovenox 30 mg SQ daily (WT < 150 kg, CrCl > 10-29 mL/min) *Enoxaparin/Lovenox 30 mg SQ BID (WT < 150 kg, CrCl > 30 mL/min) AND *Sequential Compression Device (SCD) Assessment and Plan - Problem List (1) Protein-energy malnutrition Code(s): E46 - Unspecified protein-calorie malnutrition Status: Chronic (2) Respiratory failure Code(s): J96.90 - Respiratory failure, unspecified, unspecified whether with hypoxia or hypercapnia Status: Acute (3) COPD (chronic obstructive pulmonary disease) Code(s): J44.9 - Chronic obstructive pulmonary disease, unspecified Status: Chronic (4) Anoxia of brain Code(s): G93.1 - Anoxic brain damage, not elsewhere classified Status: Acute (5) Hyponatremia Code(s): E87.1 - Hypo-osmolality and hyponatremia Status: Acute (6) Aspiration pneumonia Code(s): J69.0 - Pneumonitis due to inhalation of food and vomit Status: Acute (7) Dysphagia Code(s): R13.10 - Dysphagia, unspecified Status: Chronic (8) Sepsis Code(s): A41.9 - Sepsis, unspecified organism Status: Acute (9) Cardiac arrest Code(s): I46.9 - Cardiac arrest, cause unspecified Status: Acute - Assessment and Plan Plan: NEURO: Coma Anoxic encephalopathy Myoclonus CT brain chronic ischemic white matter changes without acute abnormality. On propofol for sedation. Discontinue propofol. Pretreated with morphine and Ativan for comfort. RESP: Acute respiratory failure COPD Intubated in field. PRVC. Ventilator bundle. Extubate when he is appropriately comfortable. CV: Asystolic cardiac arrest Essential hypertension Dyslipidemia Monitor blood pressure and heart rate GI: Dysphagia GERD PEG in place Chronic moderate protein energy malnutrition NPO FEN/RENAL: Hyponatremia Alfaro in place. Monitor intake and output. ID: Leukocytosis Aspiration pneumonia Cefepime/Flagyl/vanc for aspiration vs HCAP pneumonia HEME: Iron deficiency anemia ENDO: Glucose at target PROPH: DVT prophylaxis not indicated due to comfort measures. Stress ulcer prophylaxis not indicated due to his comfort measures. ACCESS: Peripheral IV Patient is not capacitated for medical decision-making. He has an end-stage condition including advanced COPD and severe dysphagia and now with evidence of cerebral anoxia following OHCA. Will transition to comfort care based on discussion with patient's daughter. DO NOT RESUSCITATE per discussion with patient's next of kin. Level 3 H&P (1) Protein-energy malnutrition Qualifiers: Protein-calorie malnutrition severity: moderate Qualified Code(s): E44.0 - Moderate protein-calorie malnutrition (2) Respiratory failure Qualifiers: Chronicity: acute on chronic
[2018-06-10] MEDS ORDERED: Hyoscyamine Inj 0.5 MG/ML Ampul IV.PUSH PRN (14:58)
[2018-06-10] MEDS ORDERED: Morphine Sulfate Inj 8 MG/ML Vial IV.PUSH PRN (14:58)
[2018-06-10] MEDS ORDERED: Piperacil/Tazo 4.5 GM Premix 4.5 GM/100 ML BAG IV.SIG SCH (15:00)
[2018-06-10] MEDS ORDERED: Morphine Sulfate Inj 8 MG/ML Vial IV.PUSH ONE (15:00)
[2018-06-10] MEDS: Insulin NovoLOG Aspart Correctional Sugar Inj SQ SCH ×2 (16:34→19:13)
[2018-06-10 16:51] VITALS: BP 139/71; PULSE 92; RESP 20; O2SAT 97
[2018-06-10] MEDS: Oral Hygiene Kit OROPHARYNG SCH (16:52)
--- NOTE | 2018-06-10 17:48 | ECG ---
Date Performed: 06/10/2018 Time Performed: 10:26:23 PTAGE: 82 years EKG: Sinus rhythm WITH FIRST DEGREE AV BLOCK MODERATE INTRAVENTRICULAR CONDUCTION DELAY ABNORMAL ECG PREVIOUS TRACING : 05/05/2018 09.07 Since the previous tracing, no significant change noted DOCTOR: Dony Villalpando Interpretating Date/Time 06/10/2018 17:47:02
[2018-06-10] MEDS ORDERED: Chlorhexidine 0.12% Oral Kit 15 ML UDC OROPHARYNG SCH (20:00)
[2018-06-10] MEDS ORDERED: Senna/Docusate Sodium 8.6/50 MG Tablet PO SCH (21:00)
[2018-06-11] MEDS ORDERED: Chlorhexidine Gluconate 2% 1 Pack (2 Cloths) TOPICAL SCH (04:00)
[2018-06-11] MEDS ORDERED: Chlorhexidine Gluconate 2% 1 Pack (2 Cloths) TOPICAL PRN (04:00)
[2018-06-11] MEDS ORDERED: Pantoprazole Inj 40 MG Vial IV.PUSH SCH (09:00)
[2018-06-11] MEDS ORDERED: Amiodarone 200 MG Tablet PO SCH (09:00)
[2018-06-11] MEDS ORDERED: Ferrous Sulfate 325 MG Tablet PO SCH (09:00)
--- NOTE | 2018-06-13 20:07 | P.DN ---
Pronouncement Note - Date and Time of Date of : 07/11/18 Time of : 18:06 - PCOD Preliminary cause of : Cardiac arrest - Contributing Factors (1) Protein-energy malnutrition (2) Respiratory failure (3) COPD (chronic obstructive pulmonary disease) (4) Anoxia of brain (5) Hyponatremia (6) Aspiration pneumonia (7) Dysphagia (8) Sepsis (9) Cardiac arrest Contributing factors: Respiratory arrest
--- NOTE | 2018-06-13 20:11 | P.DN ---
- Provider Primary care physician: Julian Bunn MD Admitting clinician: Tasneem Vang Consults: None - Admitting Diagnosis (1) Anoxia of brain (2) Aspiration pneumonia (3) Cardiac arrest (4) Cardiomyopathy (5) Malnourished (6) Pneumonia involving left lung (7) Sepsis (8) COPD (chronic obstructive pulmonary disease) (9) Dysphagia - Diagnosis at Time of (1) Anoxia of brain Diagnosis: Principal (2) Aspiration pneumonia Diagnosis: Principal (3) Cardiac arrest Diagnosis: Principal (4) Respiratory failure Diagnosis: Principal (5) Sepsis Diagnosis: Secondary (6) COPD (chronic obstructive pulmonary disease) Diagnosis: Secondary (7) Cardiomyopathy Diagnosis: Secondary (8) Dysphagia Diagnosis: Secondary (9) Protein-energy malnutrition Diagnosis: Secondary - Date and Time Date of admission: 06/10/18 11:18 Date of : 07/11/18 Time of : 18:06 - Summary Brief History: 82-year-old male with past medical history of COPD, GERD, hypertension , dysphagia status post PEG who presented to [facility] emergency department following out of hospital asystolic cardiac arrest. He was intubated in the field. ROSC was obtained. In the ED he received azithromycin, cefepime, 1 L normal saline bolus. He was transferred to [facility]. Upon arrival he is intubated, on minimal sedation with propofol 5mcg/kg/min. He is frail appearing, comatose with intermittent myoclonus. He was recently hospitalized in April due to sepsis related to aspiration pneumonia. I met with his daughter. She has been providing him full care at her home for months, including giving him his meds and administering his tube feeds. She says over the last couple of days he has had worsening mental status. Verbal communication was limited, speech seemed abnormal and he had "gurgling" in his throat. He fell several times. She tried to get him to come to the hospital and he vehemently refused. Today she checked on him and then was in another room for about 35-40 minutes when she heard a "loud thud" and ran in to find him on the floor. She called 911 and initiated CPR. He was in asystole when [facility] arrived. Daughter states he does not have a living will. He does not have a . She is his only child and his primary caregiver. She is his next of kin. She observed him in [facility] where he was comatose and with intermittent myoclonus. I have discussed this is the brains response to anoxia. She feels that he has been suffering the last few months with COPD and respiratory issues related to his dysphagia and she has thought that he may need hospice care. She would now like to transition to comfort measures including removal of mechanical ventilation. She is aware he is not expected to survive following extubation. She says she needs to get home to care for her special needs gaby and that we should extubate him when he has been appropriately pretreated with comfort meds and then call her when he expires. Result Diagrams: 06/10/18 10:15 06/10/18 10:15 Hospital Course: After comfort medications administered, patient was extubated. He . Daughter was notified.
== END 2018-06-10 18:06 | disposition expired | DRG 871 ==
LOC: PHED 10:10 → PHEDA 11:18 → HIMC 13:40
PROVIDERS: ADMIT Internal Medicine Critical Care Medicine; ATTEND Internal Medicine Critical Care Medicine
CPT/HCPCS: 36600; 51702; 70450; 71010; 71045; 80053; 81001; 82805; 82948; 82962; 83520; 83605; 83735; 83880; 84100; 84484; 85025; 85610; 85730; 87040; 87070; 87205; 90765; 93005; 94002; 94640; 94656; 94664; 94665; 96365; 99291; J0456; J1980; J2060; J2270; J2704; J7030; J7050